=== PATIENT | female | born 1950 | race Caucasian/White ===

== ENCOUNTER 2025-08-06 10:11 | Outpatient (AMB) | payer MEDICARE, SELFPAY ==
--- OUTSIDE RECORDS SUMMARY | 2022-02-16 19:36 | XMS_ITS | Encounter Summary ---
Author Organization [facility] Address [address] [place] [address] Phone Care Team Providers Care Finish Mender Name Role Phone Shellie Cowart MD Primary Care Provider [phone] Encounter Details Date Type Department Care Team (Late st Contact Info) Description 02/16/2022 7:36 PM EDT Hospital Encounter [facility] [address] [place] [address] Robert Alvarado PA [address] [place] [address] [email or web address] Social History Tobacco Use Types Packs/Day Years Used Date Smoking Tobacco: Former Cigarettes 0.5 10 0 10/09/1970 - 10/09/1980 Smokeless Tobacco: Never Comments:for about 10 years Alcohol Use Standard Drinks/Week Comments Yes 0 (1 standard drink = 0.6 oz pur e alcohol) rarely one drink once a month Home Health Assessment: Transportation Answer Date Recorded Lack of Transportation (Medical) No 05/07/2024 Lack of Transportation (Non-Medical) No 05/07/2024 Patient Unable or Declines to Respond No 05/07/2024 Child or Family Care Answer Date Record [...] AM EDT documented as of this encounter Functional Status * Calculated C-SSRS Risk Score (Lifetime/Recent) Answer Date of Assessment Author No Risk Indicated 06/30/2025 10:36 AM EDT Karla Ramirez RN * [place] Suicide Severity Rating Scale (Screener/Recent Self-Report) Question Answer Date of Assessment Author 1. Wish to be (Past 1 Month) No 025 10:36 AM EDT Karla Ramirez RN 2. Non-Specific Active Suici juan carlos Thoughts (Past 1 Month) No 06/30/2025 10:36 AM EDT Gloria Ramirez RN 6. Suicidal Behavior (Lifetime) No 10:36 AM EDT Karla Ramirez RN documented as of this encounter Plan of Treatment Upcoming Encounters Date Type Department Care Team (Late st Contact Info) Description 07/25/2025 Procedure Pass [facility] [address] [place] [address] 08/07/2025 10:00 AM EDT Office Visit [facility] 15 [facility] 201 [place] [address] Shellie Cowart MD [address] [address] [email or web address] 08/20/2025 9:40 AM EST Office Visit [facility] [address] [place] [address] Esau Alonzo PA-C [address] [place] [address] [place] [address] [email or web address] 09/05/2025 8:00 AM EST Pre-Admission Testing Pre Procedure Evaluation [address] [place] [address] Chinmay Glynn DO [address] [place] [address] Orthopedics & Sports Medicine, [facility] [place] [address] 09/08/2025 Procedure Pass [place] Admitting Dept - Virtual Department [address] [place] [address] 09/08/2025 7:30 AM EST Hospital Encounter OR Admitting Dept - Virtual Department [address] [place] [address] Chinmay Glynn, DO 4 [facility], [facility] [place] [address] 09/08/2025 7:30 AM EST - 09/08/2025 9:55 AM EST Surgery OR Admitting Dept - Virtual Department [address] [place] [address] Chinmay Glynn, DO 4 [facility], [place] [address] ARTHROPLASTY ANATOMIC INVERSE SHOULDER 09/16/2025 3:30 PM EST Office Visit [facility] [address] [place] [address] [place] [address] Sadi Kong MD 22 [facility], [address] [place] [address] Fouzia Rocha, PT 8 [place] [address] 09/17/2025 10:00 AM EST Office Visit [facility] [address] [place] [address] Esau Alonzo PA-C [address] [place] [address] [place] [address] [email or web address] 09/22/2025 3:15 PM EST Office Visit [facility] [address] [place] [address] Sadi Kong MD [address] [place] [address] Fouzia Rocha, PT 8 [place] [address] 09/26/2025 2:30 PM EST Office Visit [address] [address] Sadi Kong MD [address] [place] [address] Fouzia Rocha, PT 8 [place] [address] 09/30/2025 2:45 PM EST Office Visit [address] [address] Sadi Kong MD [address] [place] [address] Fouzia Rocha, PT 8 [place] [address] 10/03/2025 2:30 PM EST Office Visit [facility] [address] [place] [address] Sadi Kong MD [address] [place] [address] Fouzia Rocha, PT 8 [place] [address] 10/07/2025 2:45 PM EST Office Visit [address] [place] [address] Sadi Kong MD [address] [address] Fouzia Rocha, PT 8 [place] [address] 10/10/2025 2:45 PM EST Office Visit [facility] 8 [place] [address] Sadi Kong MD [address] [address] Fouzia Rocha, PT 8 [place] [address] 10/14/2025 3:00 PM EST Office Visit [address] [address] Sadi Kong MD [address] [place] [address] Fouzia Rocha, PT 8 [place] [address] 10/15/2025 9:45 AM EST Office Visit [facility] [address] [place] [address] Chinmay Glynn DO [address] [place] [address] Orthopedics & Sports Medicine, [facility] 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 PCP - General Family Medicine 10/25/19 documented as of this encounter Additional Source Comments The information contained in this document represents components of the legal health record. It is not the complete legal health record.[facility]
--- OUTSIDE RECORDS SUMMARY | 2022-02-16 19:36 | XMS_ITS | Encounter Summary ---
Author Organization [facility] Address [address] [place] [address] Phone Care Team Providers Care Home Care Administrator Name Role Phone Shellie Cowart MD Primary Care Provider [phone] Encounter Details Date Type Department Care Team (Late st Contact Info) Description 02/16/2022 7:36 PM EDT Hospital Encounter [facility] [address] [place] [address] Robert Alvarado PA [address] [place] [address] [email or web address] Social History Tobacco Use Types Packs/Day [...] 10:36 AM EDT Karla Ramirez RN * [place] Suicide Severity Rating Scale (Screener/Recent Self-Report) Question [...] st Contact Info) Description 07/25/2025 Procedure Pass [facility] [address] [place] [address] 08/07/2025 10:00 AM EDT Office Visit [facility] 15 [facility] [address] [place] [address] Shellie Cowart MD [address] [address] [email or web address] 08/20/2025 9:40 AM EST Office Visit [facility] Medicine [address] [place] [address] Esau Alonzo PA-C [address] [place] [address] [place] [address] [email or web address] 09/05/2025 8:00 AM EST Pre-Admission Testing Pre Procedure Evaluation 30 [place] [address] Chinmay Glynn DO [address] [place] [address] Orthopedics & Sports Medicine, [facility] [place] [address] 09/08/2025 Procedure Pass [place] Admitting Dept - Virtual Department [address] [place] [address] 09/08/2025 7:30 AM EST Hospital Encounter OR Admitting Dept - Virtual Department [address] [place] [address] Chinmay Glynn, DO 4 [facility] Orthopedics & Sports [facility], [facility] [place] [address] 09/08/2025 7:30 AM EST - 09/08/2025 9:55 AM EST Surgery OR Admitting Dept - Virtual Department [address] [place] [address] Chinmay Glynn, DO 4 [facility] Orthopedics & Sports [facility], [place] [address] ARTHROPLASTY ANATOMIC INVERSE SHOULDER 09/16/2025 3:30 PM EST Office Visit [facility] [address] [place] [address] [place] [address] Sadi Kong MD 22 [facility], [address] [place] [address] Fouzia Rocha, PT [address] [place] [address] 09/17/2025 10:00 AM EST Office Visit [facility] Sports Medicine [address] [place] [address] Esau Alonzo PA-C [address] [place] [address] [place] [address] [email or web address] 09/22/2025 3:15 PM EST Office Visit [facility] [address] [place] [address] Sadi Kong MD [address] [place] [address] Fouzia Rocha, PT 8 [place] [address] 09/26/2025 2:30 PM EST Office Visit [address] [address] Sadi Kong MD [address] [place] [address] Fouzia Rocha, PT 8 [place] [address] 09/30/2025 2:45 PM EST Office Visit [address] [address] Sadi Kong MD [address] [place] [address] Fouzia Rocha, PT 8 [place] [address] 10/03/2025 2:30 PM EST Office Visit [facility] [address] [place] [address] Sadi Kong MD [address] [place] [address] Fouzia Rocha, PT 8 [place] [address] 10/07/2025 2:45 PM EST Office Visit [address] [place] [address] Sadi Kong MD [address] [address] Fouzia Rocha, PT 8 [place] [address] 10/10/2025 2:45 PM EST Office Visit [facility] 8 [place] [address] Sadi Kong MD [address] [address] Fouzia Rocha, PT 8 [place] [address] 10/14/2025 3:00 PM EST Office Visit [address] [address] Sadi Kong MD [address] [place] [address] Fouzia Rocha, PT 8 [place] [address] 10/15/2025 9:45 AM EST Office Visit [facility] Sports Medicine [address] [place] [address] Chinmay Glynn DO [address] [place] [address] Orthopedics & Sports Medicine, [facility] [place] [address] 04/01/2026 10:00 AM EDT Appointment [facility] [address] [place] [address] Shellie Cowart MD [address] [place] [address] [email or web address] Scheduled Procedures Name Priority Associated Diagnoses Date/Ti [...] documented as of this encounter Care Teams Home Care Administrator Relationship Specialty Start Date End Date Shellie Cowart MD [address] [place] [address] [email or web address] PCP - General Family Medicine 10/25/19 documented as of this encounter Additional Source Comments The information contained in this document represents components of the legal health record. It is not the complete legal health record.[facility]
--- OUTSIDE RECORDS SUMMARY | 2024-10-01 04:30 | XMS_ITS ---
Author Organization [facility] Address [address] [place] [address] Care Team Providers Care Education Professor Name Role Phone Dr Shellie Cowart Primary Care Provider UnavailJennifer Mcfarlaen Unavailable [phone] Jen Braun Unavailable [phone] Encounters Encounter Location Date Provider Diagnosis [address] [address] 10/01/2024 Jen Braun Plan Of Treatment Next Appt Details Provider Name:Jennifer Sifuentes , 08/18/2025 08:00:00 AM, [address] [place] [address], [address], Progress Notes * Donald STEWARTOB:1950 (75 yo F)Acc No.[id number]:10/01/2024 Progress Notes Patient: Leslie HILLen Provider: Inna Braun DPM :1950 A ge:74 Y S ex:Female Date:10/01/2024 Address:[address] [place], [place] Pcp:Dr Shellie Cowart Subjective: * Chief Complaints: * * Medical History: Objective: * Vitals: Assessment: Plan: * Treatment: * Images: * The named appointment provid er may or may not be the originator of this progress note, and it is not deemed complete until electronically signed by the appointment provider. Sign off status: Pending * Provider: Inna Braun DPM Date: 1 12/02/2023 Generated for Mariah pereira/Tayler/Juan Alberto on: 12:22 PM EDT
--- OUTSIDE RECORDS SUMMARY | 2024-11-29 04:30 | XMS_ITS ---
Author Organization [facility] Address [address] [place] [address] Care Team Providers Care Occupational Therapy Supervisor Name Role Phone Italia Mann Primary Care Provider Good Valverde Unavailable [phone] Sagar Pinto Unavailable [phone] Encounters Encounter Location Date Provider Diagnosis [facility] [address] [place] [address] 11/29/2024 Sagar Pinto Plan Of Treatment No Information Progress Notes * Donald STEWARTOB:1950 (75 yo F)Acc No.[id number]:11/29/2024 Follow-Up Visit Patient: Naa HILL Provider: Iraj Pinto NP :1950 A ge:74 Y S ex:Female Date:11/29/2024 Address:2 [facility] Pcp:Italia Mann Subjective: * Chief Complaints: * * Medical History: Objective: * Vitals: Assessment: Plan: * Treatment: * Billing Information: * Visit Code: * Procedure Codes: * Electronic signature of Candelario Pinto NP on 08/06/2025 at 12:30 PM EDT Sign off status: Pending * Provider: Iraj Pinto NP Date: 0 11/29/2024 Generated for Mariah ng/Fanoheliag/eTransmitting on: 1 12:30 PM EDT
--- OUTSIDE RECORDS SUMMARY | 2025-01-03 09:30 | XMS_ITS ---
Author Organization [facility] Address [address] [address] Care Team Providers Care Drill Punch Operator Name Role Phone Italia Mann Primary Care Provider Good Valverde Unavailable [phone] Medications Medication SIG (Take, Route, Frequency, Duration) Notes Start Date End Date Status Omeprazole 20 MG 1 capsule 1/2 to 1 h our before morning meal Orally Once a day Active Meloxicam 15 MG 1 tablet Orally Once a day Active Metoprolol Succinate 25 MG 1 capsule Ora lly Once a day Active Provera 2.5 MG 1 tablet with food Orally Once a day Active Zolpidem Tartrate 5 MG 1 tablet at bedti me as needed Orally Once a day Active Calcium Citrate-Vitamin D Active Estradiol 0.5 MG 1 tablet Orally Once a day Active Apixaban 5 MG as directed Orally Active Atorvastatin Calcium 40 MG 1 tablet Oral ly Once a day Active buPROPion HCl ER (XL) 150 MG 1 tablet in the morning Orally Once a day Active Levothyroxine Sodium 25 MCG 1 tablet in the morning on an empty stomach Orally Once a day Active Encounters Encounter Location Date Provider Diagnosis [facility] [address] [place] [address] 01/03/2025 Good Bowling Plan Of Treatment No Information Progress Notes * Donald STEWARTOB:1950 (75 yo F)Acc No.[id number]:01/03/2025 Follow-Up Visit Patient: Naa HILL Provider: Mary Bowling NP :1950 A ge:74 Y S ex:Female Date:01/03/2025 Address: [address] [facility] Pcp:Italia Mann Subjective: * Chief Complaints: * * Medical History: * Medications: T aking Zolpidem Tartrate 5 MG Tablet 1 tablet at bedtime as needed Orally Once a day , Taking Omeprazole 20 MG Capsule Delayed Release 1 capsule 1/2 to 1 hour before morning meal Orally Once a day , Taking Metoprolol Succinate 25 MG Capsule ER 24 Hour Sprinkle 1 capsule Orally Once a day , Taking Meloxicam 15 MG Tablet 1 tablet Orally Once a day , Taking Provera 2.5 MG Tablet 1 tablet with food Orally Once a day , Taking Levothyroxine Sodium 25 MCG Tablet 1 tablet in the morning on an empty stomach Orally Once a day , Taking Estradiol 0.5 MG Tablet 1 tablet Orally Once a day , Taking Calcium Citrate-Vitamin D , Taking buPROPion HCl ER (XL) 150 MG Tablet Extended Release 24 Hour 1 tablet in the morning Orally Once a day , Taking Atorvastatin Calcium 40 MG Tablet 1 tablet Orally Once a day , Taking Apixaban 5 MG Tablet as directed Orally Objective: * Vitals: Assessment: Plan: * Treatment: * Billing Information: * Visit Code: * Procedure Codes: * Electronic signature of Don Bowling NP on 08/06/2025 at 12:30 PM EDT Sign off status: Pending * Provider: Mary Bowling NP Date: 0 01/03/2025 Generated for Mariah pereira/Tayler/Juan Alberto on: 12:30 PM EDT
--- OUTSIDE RECORDS SUMMARY | 2025-01-31 09:30 | XMS_ITS ---
Author Organization [facility] Address [address] [place] [address] Care Team Providers Care Arson And Bomb Investigator Name Role Phone Italia Mann Primary Care Provider Good Valverde Unavailable [phone] Encounters Encounter Location Date Provider Diagnosis [facility] [address] [place] [address] 01/31/2025 Good Bowling Plan Of Treatment No Information Progress Notes * Donald STEWARTOB:1950 (75 yo F)Acc No.[id number]:01/31/2025 Follow-Up Visit Patient: Naa HILL Provider: Mary Bowling NP :1950 A ge:75 Y S ex:Female Date:01/31/2025 Address:[address] [place], [place] Pcp:Italia Mann Subjective: * Chief Complaints: * * Medical History: Objective: * Vitals: Assessment: Plan: * Treatment: * Billing Information: * Visit Code: * Procedure Codes: * Electronic signature of Don Bowling NP on 08/06/2025 at 12:29 PM EDT Sign off status: Pending * Provider: Mary Bowling NP Date: 0 01/31/2025 Generated for Printi ng/Faxing/eTransmitting on: 1 12:29 PM EDT
--- OUTSIDE RECORDS SUMMARY | 2025-03-07 04:30 | XMS_ITS ---
Author Organization [facility] Address [address] [place] [address] Care Team Providers Care Hog Room Supervisor Name Role Phone Dr Shellie Cowart Primary Care Provider Jennifer Morrissey [phone] REASON FOR VISIT sooner appt Encounters Encounter Location Date Provider Diagnosis [address] [address] 03/07/2025 Jennifer Sifuentes Plan Of Treatment Next Appt Details Provider Name:Jennifer Mary Sifuentes , 08/18/2025 08:00:00 AM, [address] [place], [address], Progress Notes * Donald STEWARTOB:1950 (75 yo F)Acc No.[id number]:03/07/2025 Progress Notes Patient: Kasia ESQUIVELKasia Naa Provider: Michelle Sifuentes DPM :1950 A ge:75 Y S ex:Female Date:03/07/2025 Address:[address] [place], [place] Pcp:Dr Shellie Cowart Subjective: * Chief Complaints: [...] 03/07/2025 Generated for Mariah pereira/Tayler/Juan Alberto on: 1 12:25 PM EDT
--- OUTSIDE RECORDS SUMMARY | 2025-04-22 04:15 | XMS_ITS ---
Author Organization [facility] Address [address] [place] [address] Care Team Providers Care Survey Supervisor Name Role Phone Dr Shellie Cowart Primary Care Provider Jennifer Morrissey [phone] Encounters Encounter Location Date Provider Diagnosis [address] [address] 04/22/2025 Jennifer Sifuentes Plan Of Treatment Next Appt Details Provider Name:Jennifer Sifuentes , 08/18/2025 08:00:00 AM, [address] [place], [address], Progress Notes * Donald STEWARTOB:1950 (75 yo F)Acc No.[id number]:04/22/2025 Progress Note Patient: Kasia ORTEGA Naa Provider: Michelle Sifuentes DPM :1950 A ge:75 Y S ex:Female Date:04/22/2025 Address:[address] [place], [place] Pcp:Dr Shellie Cowart Subjective: * Chief Complaints: [...] Generated for Mariah pereira/Tayler/Juan Alberto on: 1 12:29 PM EDT
--- NOTE | 2025-08-06 10:33 | A.OFFVIS_ITS ---
Vital Signs 08/06/25 10:35 Height 5 ft 3 in Weight 164 lb BMI 29.0 BP 178/94 H Blood Pressure Location Lt brachial Position Sitting Respiration 16 Pulse 61 Pulse Source Pulse Oximeter Pulse Oximetry (%) 98 Oxygen Delivery Method Room Air Intake Visit Reasons: Closed Compression Fracture of L3 Rotary Driller Helper Required: No Accompanied by: Spouse Allergies No Known Allergies Allergy (Verified 08/06/25 10:37) Medication List - Last Reconciled 08/06/25 by Shey Mccormack LPN apixaban (Eliquis) 5 mg PO BID atorvastatin 40 mg PO DAILY buprenorphine 7.5 mcg/hour 1 patch topical QWEEK calcium carbonate 260 mg PO DAILY estradiol 0.5 mg PO DAILY furosemide 20 mg PO DAILY gabapentin 100 mg PO QID levothyroxine 25 mcg PO DAILY medroxyprogesterone (Provera) 12.5 mg PO DAILY metoprolol succinate ER 25 mg PO DAILY omeprazole 20 mg PO DAILY HPI HPI Closed Compression Fracture of L3: Details: History of Present Illness The patient is a 75-year-old female presenting with severe low back pain presumed to be secondary to an L3 compression fracture. The pain began on June 24, 2025, after bending over to pick something up, which was confirmed as a compression fracture on MRI. The pain is described as aching, with a severity of 5-8/10, escalating to 10/10 with movement or getting out of bed. The patient underwent a kyphoplasty on July 11, which provided only brief and slight relief. She is currently using a 12.5 mcg buprenorphine patch, which has been mildly helpful. The patient has a history of scoliosis, with surgery performed at age 17, involving the insertion of a andrew into the lumbar region. The patient has been experiencing edema, previously managed with Lasix, but discontinued due to difficulty accessing the bathroom. She has had bilateral knee replacements and is on Eliquis 5 mg twice daily. The patient reports a history of osteoporosis, although a recent scan did not show significant osteoporosis. Pain Description - Onset: June 24, 2020, after bending over to pick something up - Quality: Aching sensation - Severity: 5-8/10, escalating to 10/10 with movement or getting out of bed - Location: Lower back - Exacerbating factors: Movement, getting out of bed - Relieving factors: Mild relief with 12.5 mcg buprenorphine patch - Interference: Unable to sleep normally, perform activities, or care for herself Physical Exam - Musculoskeletal: Tenderness noted upon palpation of the lower back Results - MRI: Confirmed L3 compression fracture Pain Management - Affect: Pain significantly impacts daily activities and mood - Analgesia: Currently using 12.5 mcg buprenorphine patch, mild relief; pain levels 5-8/10, escalating to 10/10 - Adverse Effects: None reported - Activities of Daily Living: Pain interferes with sleep, activities, and self- care - Aberrant Drug Related Behaviors: None reported [facility] Medical History (Updated 07/28/25 @ 15:14 by Shey Mccormack LPN) Hypertension Gastric ulcer Hypothyroid Insomnia PAT (paroxysmal atrial tachycardia) Hyperlipidemia Tachycardia Charcot's joint of foot Scoliosis Neuropathy Closed compression fracture of L3 vertebra Surgical History (Updated 07/28/25 @ 15:14 by Shey Mccormack LPN) History of total left knee replacement (TKR) S/P lumbar fusion Physical Exam Vital Signs: Last Vital Signs Pulse 61 08/06/25 10:35 Resp 16 08/06/25 10:35 BP 178/94 H 08/06/25 10:35 Pulse Ox 98 08/06/25 10:35 Oxygen Delivery Method Room Air 08/06/25 10:35 BMI result Body Mass Index 29.0 Assessment & Plan Assessment & Plan (1) Closed compression fracture of L3 vertebra: Code(s): S32.030A - Wedge compression fracture of third lumbar vertebra, initial encounter for closed fracture Category: Medical (2) Scoliosis: Code(s): M41.9 - Scoliosis, unspecified Category: Medical Plan Plan Patient was informed and verbally consented to the use of an ambient scribe for clinic note documentation during this visit. 1. L3 Compression Fracture - Continue with current pain management regimen, including buprenorphine patch. - Consider stronger pain medications such as tramadol or Percocet if needed. - Prescribe a lumbar brace to provide support and potentially alleviate pain. - Recommend physical therapy to improve mobility and strength. - Advise on exercises that can be done at home, such as air biking, to maintain muscle strength without straining the back. - Suggest acupuncture as an adjunctive therapy for pain relief. - Plan follow-up in two months to reassess pain and treatment efficacy. 2. Scoliosis - Monitor for any changes in posture or pain related to scoliosis. 3. Osteoporosis - Obtain a DEXA scan to assess bone density and confirm osteoporosis status. - If osteoporosis is confirmed, initiate appropriate treatment to prevent further fractures. 4. Edema - Discontinue Lasix due to difficulty accessing the bathroom. Discussion Notes During the consultation, I discussed with the patient the nature of her L3 compression fracture and the associated pain management strategies. We reviewed the potential benefits and limitations of her current buprenorphine patch and considered the possibility of stronger analgesics like tramadol or Percocet. I recommended a lumbar brace and physical therapy to aid in pain relief and improve mobility. We also discussed the importance of a DEXA scan to evaluate osteoporosis and the potential need for treatment if confirmed. I suggested acupuncture as an adjunctive therapy and emphasized the need for follow-up in two months to reassess her condition. Patient Instructions - Continue using the buprenorphine patch as prescribed. - Consider stronger pain medications if needed, after consulting with your primary care physician. - Use a lumbar brace to support your back. - Engage in physical therapy and perform recommended exercises at home. - Schedule and complete a DEXA scan to assess bone density. - Consider acupuncture for additional pain relief. - Follow up in two months to evaluate progress and adjust treatment as necessary. Medications: New back brace As directed 1 ea 0RF Coding Level of Care Code New Pt Level 4 (94297) Diagnoses Closed compression fracture of L3 vertebra S32.030A Scoliosis M41.9
[2025-08-06 10:35] VITALS: BP 178/94; PULSE 61; RESP 16; O2SAT 98; BMI 29.0
--- OUTSIDE RECORDS SUMMARY | 2025-08-06 12:23 | XMS_ITS | Encounter Summary ---
Author Organization [facility] Address [address] [place] [address] Phone Care Team Providers Care Florist Name Role Phone Shellie Cowart MD Primary Care Provider [phone] Paul Hooper MD Unavailable [phone] Preston Pederson BAND CUTTING MACHINE OPERATOR Unavailable [phone] Encounter Details Date Type Department Care Team (Late st Contact Info) Description 10/06/2022 Procedure Pass Non-Invasive Cardiology [address] [place] [address] Social History Tobacco Use Types Packs/Day Years Used Date Smoking Tobacco: Former Cigarettes 0.5 10 0 10/09/1970 - 10/09/1980 Smokeless Tobacco: Never Comments:for about 10 years Alcohol Use Standard Drinks/Week Comments Yes 1 (1 standard drink = 0.6 oz pur e alcohol) rarely Child or Family Care Answer Date Record ed Do you have problems with on e of the following making it difficult for you to work, study, or receive health care? No 06/19/2022 Education Answer Date Recorded Are you interested in help w ith more adult education (for example, completing high school, GED, job training, learning the [place] language, technical skills, or developing parenting skills)? No 06/19/2022 Food Answer Date Recorded Within the past 6 months we worried whether our food would run out before we got money to buy more. Never True 06/19/2022 Within the past 6 months the food we bought just didn't last and we didn't have enough money to get more. Never True Residential Stability Answer Date Recor ded What is your housing situation today? I have janae sing 06/19/2022 How many times have you move d in the past 12 months? Zero (I did not move) 06/19/2022 Paying for Meds Answer Date Recorded Do you have trouble paying for medicines? No 06/19/2022 Paying Utility Bills Answer Date Record ed Do you have trouble paying your heating or elect ricity bill? No 06/19/2022 Transportation Answer Date Recorded Has the lack of transportati on kept you from medical appointments or from getting medications? No 06/19/2022 Unemployment Answer Date Recorded Are you currently unemployed or working on a part-time or temporary basis, and looking for work? No 06/19/2022 Comments No Sex and Gender Information Value Date Recorded Sex Assigned at Female 05/25/2020 8:19 AM EDT Legal Sex Female 12:09 PM EST Gender Identity Female 05/25/2020 8:19 AM EDT Sexual Orientation Straight 05/25/2020 8: 19 AM EDT documented as of this encounter Plan of Treatment Upcoming Encounters Date Type Department Care Team (Late st Contact Info) Description 07/25/2025 Procedure Pass [facility] [address] [place] [address] 08/07/2025 10:00 AM EDT Office Visit [facility] [address] [place] [address] [address] [place] [address] Shellie Cowart MD [address] [place] [address] 08/20/2025 9:40 AM EST Office Visit [facility] [address] [place] [address] Esau Alonzo PA-C [address] [place] [address] [place] [address] [email or web address] 09/05/2025 8:00 AM EST Pre-Admission Testing Pre Procedure Evaluation [address] [place] [address] Chinmay Glynn DO 4 [facility], [place] [address] 09/08/2025 Procedure Pass [place] Admitting Dept - Virtual Department [address] [place] [address] 09/08/2025 7:30 AM EST Hospital Encounter OR Admitting Dept - Virtual Department [address] [place] [address] Chinmay Glynn DO 4 [facility] Orthoped[facility], [place] [address] 09/08/2025 7:30 AM EST - 09/08/2025 9:55 AM EST Surgery OR Admitting Dept - Virtual Department [address] [place] [address] Chinmay Glynn DO 4 [facility] Orth[facility], [place] [address] ARTHROPLASTY ANATOMIC INVERSE SHOULDER 09/16/2025 3:30 PM EST Office Visit [facility] [address] [place] [address] Sadi Kong MD 22 [facility], 2nd [place] [address] Fouzia Rocha, PT [address] [place] [address] 09/17/2025 10:00 AM EST Office Visit [facility] [address] [place] [address] Esau Alonzo PA-C [address] [place] [address] [place] [address] [email or web address] 09/22/2025 3:15 PM EST Office Visit [address] [place] [address] Sadi Kong MD [address] [place] [address] Fouzia Rocha, PT 8 [place] [address] 09/26/2025 2:30 PM EST Office Visit [address] [place] [address] Sadi Kong MD [address] [place] [address] Fouzia Rocha, PT 8 [place] [address] 09/30/2025 2:45 PM EST Office Visit [address] [address] Sadi Kogn MD [address] [place] [address] Fouzia Rocha, PT 8 [place] [address] 10/03/2025 2:30 PM EST Office Visit [address] [place] [address] Sadi Kong MD [address] [place] [address] Fouzia Rocha PT 8 [place] [address] 10/07/2025 2:45 PM EST Office Visit [address] [address] Sadi Kong MD [address] [place] [address] Fouzia Rocha, PT 8 [place] [address] 10/10/2025 2:45 PM EST Office Visit [address] [address] Sadi Kong MD [address] [place] [address] Fouzia Rocha, PT 8 [place] [address] 10/14/2025 3:00 PM EST Office Visit [address] [address] Sadi Kong MD [address] [place] [address] Fouzia Rocha, PT 8 [place] [address] 10/15/2025 9:45 AM EST Office Visit [facility] [address] [place] [address] Chinmay Glynn DO [address] [place] [address] Orthopedics & Sports Medicine, [facility] [place], [place] [id number] 04/01/2026 10:00 AM EDT Appointment [facility] [address] [place] [address] Shellie Cowart MD [address] [address] [email or web address] Scheduled Procedures Name Priority Associated Diagnoses Date/Ti me 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 09/08/2025 7:30 AM EST documented as of this encounter Visit Diagnoses Not on filedocumented in this encounter Additional Health Concerns Assessment Noted Time PHQ-2 Depression Total Score: 0 06/19/20 22 4:01 PM EDT documented as of this encounter Care Teams Florist Relationship Specialty Start Date End Date Shellie Cowart MD [address] [place] [address] PCP - General Family Medicine 10/25/19 Paul Hooper MD [address] [place] [address] Orthopedics & Sports Medicine, [place] [address] Orthopedic Surgery 03/01/24 Preston Pederson MSW [address] [place] [address] Objective C Developer Licensed Clinical Objective C Developer 12/11/24 documented as of this encounter Additional Source Comments The information contained in this document represents components of the legal health record. It is not the complete legal health record.[facility]
--- OUTSIDE RECORDS SUMMARY | 2025-08-06 12:23 | XMS_ITS | Clinical Summary ---
Author Organization [facility] Address [address] [place] [address] Phone Care Team Providers Care Furniture Assembly Supervisor Name Role Phone Shellie Cowart MD Primary Care Provider [phone] Paul Hooper MD Unavailable [phone] Preston Pederson MITER SAW OPERATOR Unavailable [phone] Allergies No known active allergies Medications calcium citrate-vitamin D3 (CITRACAL+D) 950 mg (200 mg elemental)-250 units Tab Take 1 tablet by mouth 2 (two) times a day with meals. Active apixaban (ELIQUIS) 5 mg tablet Take 1 tablet (5 mg total) by mouth 2 (two) times a day. 60 tablet 1 4 Active metoprolol succinate (TOPROL-XL) 25 MG 24 hr tablet Take 25 mg by mouth. 4 Active atorvastatin (LIPITOR) 40 MG tabletIndicatio ns:Screening for lipid disorders TAKE 1 TABLET BY MOUTH DAILY 90 tablet 3 4 Active levothyroxine (SYNTHROID,LEVO THROID) 25 MCG tablet TAKE 1 TABLET BY MOUTH IN THE MORNING 90 tablet 3 4 Active omeprazole (PRILOSEC) 20 MG capsuleIndicati ons:Gastroesoph ageal reflux disease TAKE 1 CAPSULE BY MOUTH DAILY 90 capsule 3 5 Active furosemide (LASIX) 20 MG tablet Take 1 tablet (20 mg total) by mouth daily. 30 tablet 1 5 Active medroxyPROGESTE Bhupinder (PROVERA) 2.5 MG tablet Take 1 tablet (2.5 mg total) by mouth daily. 90 tablet 3 5 Active ketorolac (TORADOL) 10 mg tabletIndicatio ns:Back pain Take 1 tablet (10 mg total) by mouth every 6 (six) hours as needed for pain (specific location in comments). 20 tablet 5 Active gabapentin (NEURONTIN) 100 MG capsule Take 1 capsule (100 mg total) by mouth 3 (three) times a day. 90 capsule 1 5 Active buprenorphine (BUTRANS) 5 mcg/hour PTWK Place 1 patch onto the skin once a week. With 7.5 mcg patch for a total of 12.5 mcg 4 patch 5 Active estradioL (ESTRACE) 0.5 MG tablet Take 1 tablet (0.5 mg total) by mouth daily. 90 tablet 1 5 Active buprenorphine (BUTRANS) 7.5 mcg/hour PTWK Place 1 patch onto the skin once a week. 4 patch 5 Active zolpidem (AMBIEN) 5 MG tablet Take 1 tablet (5 mg total) by mouth nightly at bedtime as needed (insomnia). 30 tablet 1 5 Active zolpidem (AMBIEN) 5 MG tablet Take 1 tablet (5 mg total) by mouth nightly at bedtime as needed. 30 tablet 1 4 07/30/20 25 Discontinue d(Reorder) tiZANidine (ZANAFLEX) 2 MG tablet Take 1 tablet (2 mg total) by mouth every 6 (six) hours as needed (pain). 20 tablet 5 07/08/20 25 estradioL (ESTRACE) 0.5 MG tablet Take 1 tablet (0.5 mg total) by mouth daily. 90 tablet 1 5 07/25/20 25 Discontinue d(Reorder) buprenorphine (BUTRANS) 7.5 mcg/hour PTWK Place 1 patch onto the skin once a week. 4 patch 5 07/30/20 25 Discontinue d(Reorder) Active Problems Problem Noted Date Diagnosed Date Edema of right lower extremi ty due to peripheral venous insufficiency 05/19/2025 Assessment & Plan (05/21/2025 1:03 PM EDT): Chronic edema with pitting, likely due to vascular insufficiency. Previous DVT and CHF ruled out. Symptoms worsen with heat, improve with elevation. - Prescribed Lasix 20 mg, instructed to cut in half and take in the morning. May take a second dose if needed. Continues compression stockings - Referred to vascular specialist, Dr. Norma German, for further evaluation and management. Chronic right shoulder pain 02/17/2025 Assessment & Plan (02/17/2025 9:15 PM EDT): Advised by Dr. Glynn to undergo shoulder replacement surgery due to osteoarthritis. Discussed potential benefits of surgery in alleviating shoulder pain and improving quality of life. Recovery expected to take approximately eight weeks, with initial three weeks involving significant pain management and limited activity. - Advise to proceed with scheduling shoulder replacement surgery with Dr. Glynn. - Discuss potential post-operative recovery timeline and management. Gait instability 02/17/2025 Assessment & Plan (03/06/2025 7:48 AM EDT): Gait instability Increased difficulty walking with leg collapse sensation. Consistent cane use. Pain during walking and weight bearing. MRI scheduled for further evaluation. Referral to insurance customer service specialist for non-surgical approach. - Proceed with MRI on March 12. - Refer to Dr. Kong, insurance customer service specialist at [facility], post-MRI. Assessment & Plan (02/17/2025 9:17 PM EDT): Unsteadiness when lifting feet, particularly when standing or walking. Instability may be due to lower extremity issues, possibly related to peripheral neuropathy or spinal stenosis.Whether or not her pre exisitng severe scoliotic disease is contributing is unclear. - Order MRI of the lumbar spine to evaluate for protruding disc or spinal stenosis. - Refer to [facility] for further evaluation and management. Aortic stenosis, mild 12/18/2024 Unilateral inguinal hernia without obstruction o r gangrene 09/25/2024 Assessment & Plan (09/25/2024 2:32 PM EST): Exam is consistent with inguinal hernia, will get ultrasound to confirm and then likely referral to surgery. Discussed emergent reasons to seek care. Trigger middle finger of left hand 09/25/2024 Assessment & Plan (09/25/2024 2:32 PM EST): Referral to hand Moderate major depression 07/05/2024 Assessment & Plan (03/06/2025 7:48 AM EDT): Bupropion tapering Desires discontinuation after six months. Discussed withdrawal symptoms and tapering plan to minimize effects. Tapering preferred to avoid feeling unwell. - Begin tapering with alternating 150 mg and 75 mg doses for first two weeks. - Continue tapering schedule, monitor mood and withdrawal symptoms. - Consider stopping abruptly if preferred, understanding potential withdrawal symptoms. Assessment & Plan (09/25/2024 2:33 PM EST): We discussed the risks and benefits of weaning versus cold turkey off bupropion. Discussed potential side effects. Patient is not really ready to do this yet just wanted to have the information. Assessment & Plan (08/22/2024 12:39 PM EST): We discussed the risk/ benefit of increasing the welbutrin to 300 mg. She would like to try to increase now. I also wonder if the beta caden is causing some of her amotivation/ fatigue and wonder if we could back down on it a little bit. Will discuss w cardiology Assessment & Plan (07/24/2024 11:13 AM EDT): At this point she has only been on the Wellbutrin for about 3 weeks, I think we should continue at this dose for a little while longer to see if she gets more improvement. I am hesitant about raising the dose given her cardiac status and sleep disturbance. We will see each other again in about 4 weeks. Assessment & Plan (07/05/2024 10:18 AM EDT): We discussed trying to get more active going to the pool to do more exercise and activity. Discussed the benefits of talk therapy and I have given her referral to see Preston Pederson. Additionally we discussed the risks benefits and potential side effects of Wellbutrin. We chose this drug due to her concerns about motivation and anhedonia. She understands and will follow-up 3 weeks after she starts this medication. Status post total left knee replacement 05/30/20 Preop examination 01/31/2024 Assessment & Plan (01/31/2024 12:38 PM EDT): 74 [address] old patient of Dr. Cowart with planned left total knee replacement on 04/09/24. Procedure risk is intermediate. Patient denies symptoms associated with acute coronary syndromes including unstable or severe angina, [place] within 1 month, severe CHF, high grade arrhythmia or symptomatic valvular disease. Medical risk assessment at the surgical optimization clinic are as follows. ERAZO cardiovascular risk score is 0.2 % risk of myocardial infarction or cardiac arrest, intraoperatively or up to 30 day post-operatively. If <1%, no further cardiac work-up recommended. STOP BANG score shows 2 points indicating a low risk of sleep apnea. DASI score was 24.95 points, able to achieve at least 5.81 METS. If DASI >18, no further cardiac testing recommended. RCRI score was 0.4 % risk for cardiovascular event including myocardial infarction, pulmonary edema, arrhythmia, cardiac arrest or complete heart block. This reflects very low risk on the scale. Patient's risk for major adverse cardiac events is low. This meets ACC/AHA guidelines for proceeding to non-cardiac surgery without additional testing. Patient is able to climb stairs, exercise on an elliptical machine for 30 min 2-3 x week, without any exertional or anginal symptoms. She follows with cardiology, seen on 01/25/24 for cardiac clearance. She has no signs or symptoms concerning for angina or heart failure. She had a normal nuclear stress test on 02/13/23, and overall has a below average cardiac risk for surgery. She does have a systolic murmur suspicious for aortic stenosis and is scheduled for a preoperative echocardiogram to rule out any serious valvular issues. Blood work from 01/18/24 shows a hemoglobin A1c of 5.6%. CBC and BMP are unremarkable with a creatinine of 0.70 and eGFR 92. EKG shows normal sinus rhythm. There is no evidence of acute or prior ischemia. Await final cardiac clearance following echocardiogram before the patient can proceed to the intended procedure. Of note, the patient has a history of PONV and states she does require general anesthesia due to lumbar spinal fusion surgery. Defer to anesthesia for management. She should have standard DVT and antibiotic prophylaxis. The patient was instructed to discontinue use of any NSAIDs, fish oil, turmeric, herbal supplements and multivitamins for 10 days before surgery as these could increase the risk of bleeding complications. The patient has the following relative contraindications to same day discharge following joint replacement surgery: h/o PONV/requires general anesthesia due to lumbar spinal fusion history. Insomnia 01/31/2024 Assessment & Plan (01/31/2024 12:19 PM EDT): Continue on medical management with zolpidem 5 mg PO daily perioperatively. Gastric ulcer 01/31/2024 Assessment & Plan (01/31/2024 12:21 PM EDT): Remote history of gastric ulcer due to heavy NSAID use. She does tolerate meloxicam 15 mg PO daily well, which she always takes with omeprazole 20 mg PO daily. Avoid perioperative use of NSAID's. Recommend to continue on omeprazole perioperatively. S/P lumbar spinal fusion 01/31/2024 Assessment & Plan (01/31/2024 12:37 PM EDT): Lumbar spinal fusion surgery done in childhood for scoliosis. Patient states she will require general anesthesia for her upcoming knee replacement. Defer to anesthesia for management. Systolic murmur 01/25/2024 Assessment & Plan (02/20/2024 10:25 AM EDT): We will review her ECHO scheduled for 02/21. Assessment & Plan (01/31/2024 12:13 PM EDT): Patient noted to have a systolic murmur. Last echocardiogram was in 2019 which showed EF 50-75%, mild mitral regurgitation and no aortic stenosis. Cardiology has ordered a repeat echocardiogram/scheduled 02/22/24, which needs to be done preoperatively/prior to anesthesia to evaluated for aortic stenosis and rule out any serious valvular issues. Assessment & Plan (01/25/2024 8:41 AM EDT): Patient does have a systolic crescendo/decrescendo murmur best heard right sternal border. She says her PCP first noticed this about a year ago. Last echocardiogram approximately 3 years ago showing preserved ejection fraction and aortic valve leaflets with thickening but no stenosis. -Will get a repeat echocardiogram prior to upcoming surgery Tendinitis of right rotator cuff 11/09/2023 Assessment & Plan (11/09/2023 11:30 AM EST): Given mechanism of injury I think this is unlikely to be a full rotator cuff tear, more likely to be rotator cuff tendinitis. Possible underlying osteoarthritis with exacerbation and potential labral injury. I think this is less likely to be a full tear given the mechanism of injury and less likely to be bursitis based on the exam findings. We will get an x-ray and start some physical therapy as well as follow-up with MRI if necessary. Hypothyroidism 08/28/2023 Assessment & Plan (01/31/2024 12:15 PM EDT): Continue current medical management with levothyroxine 25 mcg PO daily. Take this medication on the morning of surgery with a small sip of water. Assessment & Plan (08/28/2023 12:48 PM EST): TSH elevated with symptoms, although t4 normal. Discussed etiology and possible affects of low thyroid. Discussed risks and benefits as well as potential side effects of thyroid meds. Follow up labs in 6 weeks Paroxysmal atrial fibrillation 08/21/2023 Assessment & Plan (08/22/2024 12:39 PM EST): Stable on current meds Assessment & Plan (01/31/2024 12:10 PM EDT): H/o paroxysmal atrial fibrillation. 2 episodes only, occurring in 2021 and again in 2022 with spontaneous conversion to sinus rhythm. Followed by [facility], seen on 01/25/24 for preoperative cardiac clearance. ECG showing sinus rhythm. Patient denies any symptoms of atrial fibrillation. No palpitations. [id number] score of 3. Takes meloxicam daily, and as recommended by , will hold off on anticoagulation due to overall bleeding risk on NSAID therapy and h/o gastric ulcer. Assessment & Plan (01/25/2024 8:37 AM EDT): ECG showing sinus rhythm today. Patient denies any symptoms of atrial fibrillation since her last visit. Historically she has been very aware of when she is in atrial fibrillation experiencing palpitations and racing heart rate. -She does have a [id number] score of 3 -She is still taking meloxicam daily -As previously recommended by Dr. Burger will continue holding off on anticoagulation due to overall bleeding risk on NSAID therapy and history of bleeding gastric ulcer. -I have instructed patient to seek medical attention if she does start to experiencing palpitations/racing heart Assessment & Plan (08/21/2023 3:22 PM EST): Julita ann cardiology, not currently on AC Osteopenia of neck of right femur 03/29/2023 Assessment & Plan (07/13/2023 9:28 AM EDT): The patient has osteopenia the FRAX score is not elevated. She should continue calcium supplements that she is currently doing. The calcium has vitamin D in it and is a good idea to [place] 70 vitamin D because she needs at least 1000 units of vitamin D preferably we used 2000 units in [place] or not any incorrect. At this point I am not going to give her a follow-up appointment she is due for repeat DXA scan on 12/06/2024. I told the patient that if she would like to review the DXA scan with me after she gets she can schedule another visit. Again she does not require antiresorptive medications because the FRAX score is not elevated. Assessment & Plan (03/29/2023 2:10 PM EDT): This is a patient with osteopenia since her mid 40s. Her most recent DXA scan shows that she has osteopenia. The FRAX score is not elevated. Major osteoporotic fracture is 15% and hip fracture is 1.9% so based on this she does not require antiresorptive medications. However she should continue calcium and vitamin D intake. I suspect that she is getting adequate calcium intake but I did advise to take the calcium supplement closer to dinnertime for better absorption. I asked her to take a picture of this so I can see whether she is getting calcium citrate or calcium carbonate and I really need to know the dose of this supplements. She is not taking separate vitamin D. So we will check vitamin D levels to ensure that this is in the reference range. I have also requested other lab work for evaluation of secondary causes of osteopenia including PTH, TSH and 24-hour urine calcium. I will also request bone turnover markers such as N-telopeptide and procollagen levels. She will follow in 3 months time. Primary localized osteoarthrosis of left lower l eg 01/20/2023 Assessment & Plan (01/31/2024 12:16 PM EDT): Planned for left TKA on 04/09/24 by . On meloxicam 15 mg PO daily for pain management, which will need to be held x 7-10 days before surgery. Essential hypertension 10/06/2022 Assessment & Plan (01/31/2024 12:07 PM EDT): BP well-controlled on monotherapy with HCTZ 50 mg PO daily. Instructed to hold this medication on the day of surgery. Assessment & Plan (01/25/2024 8:34 AM EDT): On hydrochlorothiazide 50 mg daily for this. Blood pressure in office this morning 138/88 (patient had just taken her antihypertensive medication) -Discussed with patient that she can keep a blood pressure log for a week, if home readings are consistently elevated we can consider adjusting medications. -No medication changes for now Tachycardia 10/06/2022 Assessment & Plan (10/06/2022 9:51 AM EST): 1 run of prolonged tachycardia, unprovoked. In the setting of hypertension and history of high cholesterol. Obviously, main concern is for paroxysmal A. fib. EKG shows sinus arrhythmia Will refer to cardiology and get Holter monitor. Urinary incontinence, mixed 06/21/2021 Assessment & Plan (06/21/2021 11:26 AM EDT): Incomplete voiding, this can be helped with physical therapy to the pelvic floor which she has done before and will return to . Charcot joint of foot 06/21/2021 Assessment & Plan (02/17/2025 9:14 PM EDT): Diagnosed with Charcot foot by Dr. Sifuentes ( podiatry), which may contribute to balance issues.also conitrbuting Worsening neuropathy in feet with increased numbness and occasional scuffing of foot, indicating potential progression of condition. This may contribute to balance issues. Assessment & Plan (06/21/2021 11:27 AM EDT): Using orthotics and continues to walk and manage pain with various modalities. 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 Continue on medical management with atorvastatin 40 mg PO daily perioperatively. Assessment & Plan (01/25/2024 8:38 AM EDT): Being managed by her PCP. Currently on atorvastatin 40 mg daily. Last lipid panel08/22/2023 showing cholesterol 165, HDL 66, LDL 86, triglyceride 65. -Continue atorvastatin 40 mg daily Hot flashes due to menopause 10/15/2019 Assessment & Plan (02/20/2024 10:25 AM EDT): We will be switching her to Provera 2.5 mg which is the equivalent to Prometrium 100 mg. We discussed the difference in chemical composition between the pills and that this transition is still appropriate. Assessment & Plan (01/31/2024 12:18 PM EDT): On medical management with estradiol 0.5 mg PO every other day and progesterone 100 mg PO every other day. Discussed that hormone therapy can increase risk of blood clots; in the setting of orthopedic surgery which also carries increased risk of VTE, patient will stop her hormone therapy x 4 weeks ahead of surgery to reduce risk of post-operative blood clot. Assessment & Plan (10/15/2019 10:06 AM EST): Continue current medications. Reviewed risks and benefits with her. Start topical for vaginal dryness. Reviewed appropriate use. Primary osteoarthritis involving multiple joints 10/15/2019 Assessment & Plan (10/15/2019 10:33 AM EST): Continue current medications,. Encouarged exercise , see AVS for recommendations Resolved Problems Problem Noted Date Diagnosed Date Resolved Date COVID 10/06/2022 01/31/2024 Assessment & Plan (10/06/2022 9:01 AM EST): COVID with rebound infection. Having a lot of difficulty clearing her nagging cough and congestion. Feeling weak and exhausted. I do not see any evidence of overlying bacterial infection. She is afebrile, normotensive, does not appear acutely ill. Offer her some prednisone and continued monitoring. Counseled patient that test could be positive for 90 days but she should go by symptoms as to when she can return to normal life. Closed displaced fracture of second metatarsal bone of right foot 09/08/2022 08/21/2023 Foot swelling 05/19/2022 08/21/2023 Assessment & Plan (05/19/2022 1:01 PM EDT): Unclear etiology for continued swelling. Reviewed previous labs and imaging. X- ray ordered. There does not appear to be any cellulitis at this moment. Fracture of foot bone, right , closed, initial encounter 05/19/2022 08/21/2023 Assessment & Plan (06/23/2022 8:26 AM EDT): Follow up with Laura Rachel ordered for foot for follow up Assessment & Plan (05/19/2022 1:02 PM EDT): X ray reviewed this morning with Dr. Cowart. There is a displaced fracture. Pt instructed to go to [id number] clinic in [place]. She agrees with plan Pre-ulcerative corn or callous 04/16/2020 08/21/2023 Ingrowing nail 04/16/2020 08/21/2023 Contact dermatitis 10/15/2019 Screening for breast cancer 10/15/2019 01/31/2024 Encounters Date Type Department Care Team Description 07/25/2025 Transcribe Orders Virtual Department [address] [place] [address] Shellie Cowart MD Breast screening (Primary Dx) 07/21/2025 Orders Only [facility] [address] [place] [address] Sadi Kong MD Closed compression fracture of L3 lumbar vertebra, initial encounter (Primary Dx); Chronic midline low back pain without sciatica 07/21/2025 [facility] [address] [place] [address] Shellie Cowart MD Medication Refill 07/15/2025 Orders Only [facility] [address] [place] [address] Sadi Kong MD 07/15/2025 Orders Only [facility] [address] [place] [address] Sadi Kong MD Closed compression fracture of L3 lumbar vertebra, initial encounter (Primary Dx) 07/13/2025 Refill [facility] [address] [place] [address] Shellie Cowart MD Medication Refill 07/11/2025 8:00 AM EDT - 07/11/2025 9:40 AM EDT Surgery [facility] [address] [place] [address] Brandon Valentin MD KYPHOPLASTY IR 07/11/2025 7:04 AM EDT - 07/11/2025 10:55 AM EDT Hospital Encounter [facility] [address] [place] [address] Brandon Valentin MD Discharge Disposition: Home or Self Care 07/11/2025 Procedure Pass [facility] [address] [place] [address] 07/07/2025 [facility] [address] [place] [address] Shellie Cowart MD Medication Problem 07/07/2025 Telephone [facility] [address] [place] [id number] Chinmay Glynn DO Surgical Timing 07/07/2025 Telephone [facility] [address] [place] [address] Sadi Kong MD Referral 07/07/2025 Telephone [facility] [address] [place] [address] Fernando Ny Vertebroplasty 07/06/[address] [address] Margarita Puga, court messenger Management (After Hours Call ) 07/05/[address] [address] Margarita Puga, court messenger Refill (After Hours Call ) 07/04/2025 9:20 AM EDT Telemedicine - audio only [facility] [address] [place] [address] Sadi Kong MD Closed compression fracture of L3 lumbar vertebra, initial encounter (Primary Dx) 07/03/2025 2:09 PM EDT - 07/03/2025 11:59 PM EDT Hospital Encounter [address] [address] Shellie Cowart MD Discharge Disposition: Home or Self Care 07/03/2025 Telephone [facility] [address] [place] [address] Shellie Cowart MD 07/02/2025 Procedure Pass [address] [address] 07/01/2025 Telephone [facility] [address] [place] [address] Shellie Cowart MD [facility] Nurse Casket Upholsterer 06/30/2025 12:29 PM EDT - 06/30/2025 8:49 PM EDT Emergency [facility] Emergency [address] [place] [id number] Discharge Disposition: Home or Self Care 06/30/2025 Procedure Pass [facility], Ct Scan - [address] [address] 06/28/2025 Nurse Triage [facility] [address] [place] [address] Vashti Contreras RN Back Pain (After Hours Call ) 06/25/2025 6:54 PM EDT - 06/25/2025 10:07 PM EDT Emergency [facility] Emergency [address] [place] [address] [id number] Discharge Disposition: Home or Self Care 06/25/2025 Procedure [place], Ct Scan [address] [address] 06/25/2025 Telephone [facility] [address] [place] [address] Shellie Cowart MD Appointment (06/25/25) 06/25/2025 Nurse Triage [facility] [address] [facility] [address] [place] [address] Shellie Cowart MD 06/24/2025 5:50 PM EDT - 06/24/2025 11:59 PM EDT Hospital Encounter [facility] Emergency - Main Hospital [address] [place] [phone] Hanh Monaco CNP Discharge Disposition: Home or Self Care 06/24/2025 4:40 PM EDT Office Visit [facility] at [address] [address] Hanh Monaco CNP Acute midline low back pain without sciatica (Primary Dx) 06/11/2025 11:15 AM EDT Office Visit [facility] [address] [place] [phone] Sadi Kong MD Markey, Stephen, PT Balance disorder (Primary Dx) 06/11/2025 9:45 AM EDT Office Visit [facility] Orthopedics & Sports Medicine [address] [place] [phone] Chinmay Glynn, Pain (Primary Dx); Arthropathy of right shoulder 06/11/2025 9:42 AM EDT - 06/11/2025 11:59 PM EDT Hospital Encounter [address] [address] Chinmay Glynn, DO Discharge Disposition: Home or Self Care 06/11/2025 Telephone [facility] [address] [place] [address] Marlen Resendiz RN 06/03/2025 11:45 AM EDT Office Visit [address] [address] Sadi Kong MD Gawron, Carol A, FACE WORKER Balance disorder (Primary Dx) 05/30/2025 11:45 AM EDT Office Visit [address] [address] Sadi Kong MD Gawron, Carol A, FACE WORKER Balance disorder (Primary Dx) 05/27/2025 11:45 AM EDT Office Visit [address] [address] Sadi Kong MD Gawron, Carol A, FACE WORKER Balance disorder (Primary Dx) 05/23/2025 1:30 PM EDT Office Visit [address] [address] Sadi Kong MD Markey, Stephen, PT Balance disorder (Primary Dx) 05/19/2025 1:20 PM EDT Office Visit [facility] [address] [place] [address] Shellie Cowart MD Edema of right lower extremity due to peripheral venous insufficiency (Primary Dx) 05/17/2025 Plan of Care Documentation [address] [address] 05/16/2025 2:15 PM EDT Office Visit [facility] [address] [place] [phone] Sadi Kong MD Markey, Stephen, PT Balance disorder (Primary Dx) 05/16/2025 Telephone [facility] [address] [facility] [address] [place] [address] Shellie Cowart MD Triage (Pitting Edema ) from Last 3 Months Immunizations Immunization Administration Dates Next Due COVID-19 (Pre-07/31) Pfizer Vaccine, mRNA, PF 12/19/2020,11/28/2020 DTaP 09/25/2000 Influenza High-Dose Quadriva lent Preservative Free IM 06/28/2022,06/22/2021,07/30/2020 Influenza High-Dose Trivalen t Preservative Free IM 06/14/2024 Influenza Quadrivalent Adjuv anted Preservative Free IM 07/22/2023 Influenza, Unspecified Formulation 06/24/2019 Pneumococcal conjugate PCV13 08/08/2017 Pneumococcal conjugate PCV20 07/22/2023 Pneumococcal polysaccharide PPSV23 06/22/2022, RSV Vaccine (monovalent, adjuvanted) 08/18/2023 Tdap 06/21/2021,06/20/2011 Varicella 12/10/2008 Family History Medical History Relation Comments Asthma Brother CABG Father COPD Father Osteoarthritis Father Coronary artery disease Mother TIGRE usage Mother Osteoarthritis Mother Breast cancer Neg Hx Relation Status Comments Brother (Age 45) trauma from sk i accident Father (Age 82) Mother (Age 70) Social History Tobacco Use Types Packs/Day Years Used Date Smoking Tobacco: Former Cigarettes 0.5 10 0 10/09/1970 - 10/09/1980 Smokeless Tobacco: Never Tobacco Cessation:Counseling Given: Not Answered Comments:for about 10 years Alcohol Use Standard [...] Orientation Straight 05/25/2020 8: 19 AM EDT Last Filed Vital Signs Vital Sign Reading Time Taken Comments Blood Pressure 129/116 07/11/2025 10:09 AM EDT Pulse 56 06/30/2025 8:40 PM EDT Temperature 36.5 C (97.7 F) 06/30/2025 8:40 PM EDT Respiratory Rate 18 06/30/2025 8:40 PM EDT Oxygen Saturation 99% 07/11/2025 10:09 AM EDT Inhaled Oxygen Concentration - - Weight 74.4 kg (164 lb) 06/30/2025 10:36 AM EDT Height 162.6 cm (5' 4 ) 06/30/2025 10:36 AM EDT Body Mass Index 28.15 06/30/2025 10:36 AM EDT Plan of Treatment Upcoming Encounters Date Type Department Care Team (Late st Contact Info) Description 07/25/2025 Procedure Pass [facility] [address] [place] [address] 08/07/2025 10:00 AM EDT Office Visit [facility] [address] [facility] [address] [place] [address] Shellie Cowart MD [address] [place] [phone] [email or web address] 08/20/2025 9:40 AM EST Office Visit [facility] Orth[facility]ics & Sports Medicine [address] [place] [phone] Esau Alonzo PA-C [address] [place] [address] [place] [address] [email or web address] 09/05/2025 8:00 AM EST Pre-Admission Testing Pre Procedure Evaluation [address] [place] [address] Chinmay Glynn, DO 4 [facility] Medicine, [place] [address] 09/08/2025 Procedure Pass [place] Admitting Dept - Virtual Department [address] [place] [phone] 09/08/2025 7:30 AM EST Hospital Encounter OR Admitting Dept - Virtual Department [address] [place] [phone] Chinmay Glynn DO 4 [facility] Orthopedics Sports [facility], [place] [address] 09/08/2025 7:30 AM EST - 09/08/2025 9:55 AM EST Surgery OR Admitting Dept - Virtual Department [address] [place] [phone] Chinmay Glynn DO 4 [facility] Orthopedics Sports [facility], [place] [address] ARTHROPLASTY ANATOMIC INVERSE SHOULDER 09/16/2025 3:30 PM EST Office Visit [facility] [address] [place] [phone] Sadi Kong MD 22 [facility], 2nd [place] [address] Fouzia Rocha, PT 8 [place] [address] 09/17/2025 10:00 AM EST Office Visit [facility] Sports Medicine [address] [place] [phone] Esau Alonzo PA-C [address] [place] [address] [place] [address] [email or web address] 09/22/2025 3:15 PM EST Office Visit [address] [place] [address] Sadi Kong MD [address] [place] [address] Fouzia Rocha, PT 8 [place] [address] 09/26/2025 2:30 PM EST Office Visit [address] [place] [address] Sadi Kong MD [address] [place] [phone] Fouzia Rocha, PT 8 [place] [address] 09/30/2025 2:45 PM EST Office Visit [address] [address] Sadi Kong MD [address] [place] [phone] Fouzia Rocha, PT 8 [place] [address] 10/03/2025 2:30 PM EST Office Visit [address] [place] [address] Sadi Kong MD [address] [place] [phone] Fuozia Rocha, PT 8 [place] [address] 10/07/2025 2:45 PM EST Office Visit [address] [address] Sadi Kong MD [address] [place] [phone] Fouzia Rocha, PT 8 [place] [address] 10/10/2025 2:45 PM EST Office Visit [address] [address] Sadi Kong MD [address] [place] [phone] Fouzia Rocha, PT 8 [place] [address] 10/14/2025 3:00 PM EST Office Visit [address] [address] Sadi Kong MD [address] [place] [phone] Fouzia Rocha, PT 8 [place] [address] 10/15/2025 9:45 AM EST Office Visit [facility] Orth[facility]ics & Sports Medicine [address] [place] [phone] Chinmay Glynn DO [address] [place] [address] Orthopedics & Sports Medicine, [facility] [place] [address] 04/01/2026 10:00 AM EDT Appointment [facility], 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 09/08/2025 7:30 AM EST Health Maintenance Due Date Last Done Comments COLOGUARD 01/24/1996 FIT TEST 01/24/1996 FOBT 01/24/1996 SIGMOIDOSCOPY 01/24/1996 VIRTUAL COLONOSCOPY 01/24/1996 ZOSTER VACCINES (1 of 2) 02/04/2009 INFLUENZA VACCINE (#1) 2025 , 07/22/2023, 06/28/2022, Additional history exists COVID-19 VACCINE ( season) 2025 07/07/2024, 02/19/2024, 07/22/2023, Additional history exists TSH LEVEL 08/28/2025 08/28/2024, 11/10, 10/16/2023, Additional history exists DEPRESSION SCREENING 10/24/2025 10/24/2024, 10/24/19 25 BLOOD PRESSURE 12/22/2025 06/24/2025 MAMMOGRAM 04/12/2026 04/12/2024, 05/0 12/2022, 02/07/2022, Additional history exists CREATININE LEVEL 07/11/2026 07/11/2025, , 07/11/2024, Additional history exists LIPID PANEL 12/31/2029 12/31/2024, 08/09, 06/23/2022, Additional history exists Adult Td,Tdap Booster 06/21/2031 06/21/2021, 011 COLONOSCOPY 12/09/2034 12/09/2024, 09/17/2014 COLORECTAL CANCER SCREENING 12/09/2034 HEPATITIS C SCREENING Completed 11/29/2017 OSTEOPOROSIS SCREENING INITIAL (ONE-TIME) Completed 12/06/2022, 09/18/2014 PNEUMOCOCCAL VACCINES (50+ years) Completed 07/22/2023, 06/22/2022, 08/08/2017, Additional history exists RSV VACCINE Completed 08/18/2023 SMOKING STATUS SCREENING (Once After 26 Yrs) Completed 06/24/2025 HEPATITIS A VACCINES Aged Out No long er eligible based on patient's age to complete this topic HIB VACCINES Aged Out No longer eligi ble based on patient's age to complete this topic MENINGOCOCCAL VACCINES (ACWY) Aged Out No longer eligible based on patient's age to complete this topic MENINGOCOCCAL VACCINES (B) Aged Out N o longer eligible based on patient's age to complete this topic Medical Devices Implanted Type Area Animal Laboratory Helper Device Identifier Shelf Expiration Date Model / Serial / Lot Kit Cement Bone Kyphon Xpede Polymethylmethacryl ate Mixer - [id number] Implanted:Qty: 1 on 07/11/2025 by Brandon Valentin MD at [facility] Bone Cement [employer] [id number] 04/07/2028 [id number] / / [id number] Metal Jez Lumbar Spine Knee Implant 5deg Component Tibial Persona Titanium Stemmed Cemented Lt Size D - [id number] Implanted:Qty: 1 on 04/17/2024 by Paul Hooper MD at [facility] Left: Knee ERIC BIOMET [id number] 05/26/2033 [id number] / / [id number] Knee Implant Sz 8 Component Femoral Persona Ps [place] Cemented Narrow Lt - [id number] Implanted:Qty: 1 on 04/17/2024 by Paul Hooper MD at [facility] Left: Knee ERIC BIOMET [id number] 1 01/06/2031 [id number] / / [id number] Knee Patella 32x8.5mm Persona All Polyethylene Cemented Conventional - [id number] Implanted:Qty: 1 on 04/17/2024 by Paul Hooper MD at [facility] Left: Patella ERIC BIOMET [id number] / / Cement Bone 1x40 Standard - [id number] Implanted:Qty: 1 on 04/17/2024 by Paul Hooper MD at [facility] Left: Knee ERIC BIOMET [id number] 08/08/2026 [id number] / / [id number] Cement Bone 1x40 Standard - [id number] Implanted:Qty: 1 on 04/17/2024 by Paul Hooper MD at [facility] Left: Knee ERIC BIOMET [id number] 07/08/2026 [id number] / / [id number] Knee Insert 11mm L 6 9 Component Surface Persona Ps Polyethylene Fixed Conventional Lt Cd - [id number] Implanted:Qty: 1 on 04/17/2024 by Paul Hooper MD at [facility] Left: Knee ERIC BIOMET 08/08/2028 [id number] / / [id number] Procedures Procedure Name Priority Date/Time Associated Diagnosis Comments KYPHOPLASTY (IR) Routine 07/11/2025 9:33 AM EDT Closed compression fracture of L3 lumbar vertebra, initial encounter PT-INR STAT 07/11/2025 8:11 AM EDT BASIC METABOLIC PANEL STAT 07/11/2025 8:11 AM EDT CBC STAT 07/11/2025 8:11 AM EDT MRI LUMBAR SPINE (NEURO) WITHOUT CONTRAST Urgent/patien t waiting 07/03/2025 2:58 PM EDT Back pain URINE SEDIMENT STAT 06/30/2025 4:28 PM EDT URINALYSIS W/REFLEX URINE CULTURE STAT 06/30/2025 4:[address] THORACIC SPINE WITHOUT CONTRAST Routine 06/30/2025 4:[address] LUMBAR SPINE WITHOUT CONTRAST Routine 06/25/2025 8:06 PM EDT URINALYSIS W/REFLEX URINE CULTURE STAT 06/25/2025 7:35 PM EDT XR LUMBOSACRAL SPINE 2-3 VIEWS Urgent/patien t waiting 06/24/2025 6:04 PM EDT Acute midline low back pain without sciatica XR SHOULDER 2 VIEWS (RIGHT) Routine 06/11/2025 9:51 AM EDT Pain AMB REFERRAL TO [facility] PH[facility] Routine 05/17/2025 10:06 AM EDT Adolescent idiopathic scoliosis of thoracolumbar region LIPID PANEL Routine 12/31/2024 10:20 AM EDT Pure hypercholesterolemia ENDOSCOPY, COLON 12/09/2024 9:06 AM EST TSH WITH REFLEX Routine 08/28/2024 10:07 AM EST Hypothyroidism, unspecified type BI MAMMOGRAM SCREENING WITH TOMOSYNTHESIS WITH CAD (BILATERAL) Routine 04/12/2024 8:26 AM EDT Visit for screening mammogram BD DXA HIP AND [employer]EARM Routine 12/06/2022 9:03 AM EST 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 Active, pathologic, osteoporotic L3 compression fracture. PROCEDURE: Preliminary assessment included plain film and MRI. Patient has had previous Hough jez placement and multilevel laminectomy and fusion creating technical challenges with kyphoplasty needle placement. Sedation: Moderate Procedural (Conscious) Sedation was administered and monitored by Interventional Radiology nursing staff and supervised by the undersigned IR (licensed independent provider). The following parameters were monitored: oxygen saturation, heart rate, blood pressure and end tidal CO2. The licensed independent provider spent 49 minutes of continuous face-to face time with the patient. Medications: IV Fentanyl 150 mcg delivered in 5 divided doses IV Midazolam 4 mg delivered in 6 divided doses Subcutaneous buffered 1% lidocaine 17 cc Subcutaneous 0.25% bupivacaine 10 cc IV cefazolin 2 g delivered immediately preprocedure Patient was placed prone on the fluoroscopy table. Prophylactic antibiotics delivered and IV conscious sedation initiated. Moderate sedation achieved and maintained 60 minutes. Skin overlying the lumbar spine was prepped and draped sterilely. Buffered Lidocaine and Marcaine anesthetic placed over the L3 pedicles. 8.5 gauge kyphoplasty needle advanced through the left L3 pedicle into the mid to anterior aspect of the vertebral body during careful fluoroscopic monitoring. Access on the right was impeded by presence of Hough jez. As near midline position of single kyphoplasty needle achieved it was elected to perform procedure with a Uni pedicular approach. Drilling, curetting of bone, then creation of space within the central vertebral body achieved with kyphoplasty balloon during careful fluoroscopic monitoring. It is noted that bone is quite soft in keeping with osteoporotic bone. Barium impregnated polymethyl methacrylate cement then instilled achieving satisfying distribution of cement bilaterally. Once bilateral fill of target area achieved, needle was removed. Hemostasis obtained with pressure. Final appearance documented in the AP and lateral projections. Fluoroscopy time: 8.0 minutes, DAP (dose area product) 3480.61 microgray/M2 FINDINGS: Preliminary images of the spine show L4 compression fracture known to be inactive and L3 vertebral body which is known to have an inferior fracture and diffuse edema. Morphology of vertebral body is identical to that shown on recent MR imaging. No progressive collapse since patient sustained her injury. Subsequently kyphoplasty needle is placed within the central aspect of the vertebral body followed by curetting and balloon inflation then instillation of barium impregnated [place] methylmethacrylate cement. Final images show satisfying [id number] and front to back cement filling with no ectopic cement. IMPRESSION: L3 kyphoplasty performed from [place] pedicular approach during 49 minutes moderate sedation. Bilateral vertebral filling achieved. Disposition: Home. Orders, Plan and Follow-up: Recovery in IR bay then discharged to home. It is noted that patient sustained a fracture with no inciting trauma other than bending over and bone was noted to be quite soft during the procedure. Given this, patient is concluded to have osteoporosis (diagnosed clinically). DEXA scan can provide baseline information but regardless of DEXA results, recommend therapy to augment bone strength. Please don't hesitate to contact IR with any questions or concerns. ? Thank you for allowing IR to participate in the care of this patient. us Sadi Kong MD IMG IR Final Result * (ABNORMAL) PT-INR (07/11/2025 8:11 AM EDT) PT 13.3(H) 10.2 - 12.9 sec [facility] INR 1.1 0.9 - 1.1 [facility] Comment:Therapeutic range fo r oral Vitamin K antagonists: 2.0-3.5 Blood 07/11/2025 8:11 AM EDT 07/11/2025 8:29 AM EDT us Brandon Valentin MD LAB BLOOD ORDERABLES Final Result [address] [id number] * (ABNORMAL) CBC (07/11/2025 8:11 AM EDT) WBC 13.44(H) 4.00 - 11.00 K/uL [facility] RBC 4.55 4.00 - 5.20 M/uL [facility] HGB 13.3 12.0 - 16.0 g/dL [facility] HCT 40.0 36.0 - 46.0 % [facility] PLT 320 150 - 450 K/uL [facility] MCV 87.9 80.0 - 100.0 fL [facility] MCH 29.2 27.0 - 31.0 pg [facility] MCHC 33.3 32.0 - 36.0 g/dL [facility] RDW 15.3(H) 11.5 - 14.5 % [facility] MPV 9.7 8.4 - 12.0 fL [facility] NRBC 0.00 0.00 /100 WBCs [facility] ABSOLUTE NRBC 0.00 0.00 K/uL [facility] Blood 07/11/2025 8:11 AM EDT 07/11/2025 8:29 AM EDT us Brandon Valentin MD LAB BLOOD ORDERABLES Final Result Performing Organization Address [facility] Co de Phone Number [address] [address] * (ABNORMAL) Basic metabolic panel (07/11/2025 8:11 AM EDT) SODIUM 145 133 - 146 mmol/L [facility] CHLORIDE 110(H) 96 - 108 mmol/L [facility] POTASSIUM 3.8 3.3 - 5.1 mmol/L [facility] CO2 19(L) 21 - 35 mmol/L [facility] BUN 13 6 - 19 mg/dL [facility] CREATININE 0.90 0.5 - 1.5 mg/dL [facility] GLUCOSE 115(H) 70 - 99 mg/dL [facility] CALCIUM 9.6 8.4 - 10.3 mg/dL [facility] EGFR 67 >59 mL/min/1.7 3m2 [facility] Comment:Estimated glomerular filtration rate calculated using the CKD-EPI refit equation. ANION GAP 20 10 - 20 mmol/L [facility] Blood 07/11/2025 8:11 AM EDT 07/11/2025 8:29 AM EDT Brandon Valentin MD LAB BLOOD ORDERABLES Final Result Performing Organization Address [facility] Co de Phone Number [address] [address] * MRI LUMBAR SPINE (NEURO) WITHOUT CONTRAST (07/03/2025 2:58 PM EDT) MGB IMG MAT WEAVER COMMENT L3 vertebral body fracture with extension into the posterior elements. Rec Neurosurgery consultation. [facility] Anatomical Region Laterality Modality L-spine Magnetic Resonan ce 07/03/2025 3:15 PM EDT Impressions 07/03/2025 4:06 PM EDT 1. Acute/subacute nondisplaced fracture along the inferior endplate of L3 vertebral body to the right of midline with associated bone marrow edema. Additionally, there is acute/subacute nondisplaced fracture involving the posterior elements at L3 level. Neurosurgical evaluation is recommended. 2. Chronic L4 compression fracture. 3. No high-grade spinal canal stenosis or neural foramina narrowing in the lumbar spine. These findings are discussed with Shellie Cowart on 07/03/2025 at 4:03 PM. A clinically significant result was initiated on 07/03/2025 4:06 PM, Message ID [id number]. Narrative 07/03/2025 4:06 PM EDT MRI LUMBAR SPINE (NEURO) WITHOUT CONTRAST Referring clinician's provided indication for this examination in Epic: * Low back pain, > 6 wks; * Lumbar radiculopathy, > 6 wks TECHNIQUE: MRI LUMBAR SPINE (NEURO) WITHOUT CONTRAST Multi-sequence, multi-planar MRI of the lumbar spine was performed without intravenous contrast. COMPARISON: CT lumbar spine dated June 25, [address] abdomen and pelvis dated December 04, 2024. FINDINGS: LUMBAR SPINE: Alignment and Vertebrae: Incompletely visualized is dextroconvex scoliosis of the lumbar spine with compensatory levoconvex curvature of the lumbar spine. A posterior spinal fixation jez is seen extending from lower thoracic spine through lower lumbar spine with laminar hooks at T11 and L3 levels. Susceptibility artifact from the orthopedic hardware limits optimal locoregional evaluation. There is osseous fusion along the posterior elements of lower thoracic spine and lumbar spine. There is a linear T2 and T1 hypointensity along the inferior aspect of L3 vertebral body to the right of midline (series 2, image 13), most compatible with a nondisplaced fracture. There is bone marrow edema involving L3 vertebral body extending into the bilateral pedicles, left more than right. Additionally, a curvilinear T1 and T2 hypointense focus is seen along the posterior elements at L3 level (serious 3, image 13), likely representing a nondisplaced fracture. There is minimal paravertebral edema at L3 level. There is chronic L4 compression fracture with 20% vertebral body height loss, unchanged compared to most recent CT lumbar spine. Vertebral body heights are otherwise maintained. Marrow: No focal aggressive osseous lesions are identified. Discs and Endplates: Multilevel disc desiccation and disc height loss is seen in the lumbar spine. Conus: Conus medullaris terminates at L1-L2. The cauda equina nerve roots are unremarkable. Soft Tissues: The visualized retroperitoneum is unremarkable with the exception of few subcentimeter renal cysts. Postoperative changes are seen in the paraspinal musculature. Other Findings: None. Findings by level: T12-L1: No spinal or foraminal stenosis. L1-L2: No spinal or foraminal stenosis. L2-L3: No spinal or foraminal stenosis. L3-L4: No spinal or foraminal stenosis. L4-L5: No spinal or foraminal stenosis. L5-S1: No spinal or foraminal stenosis. Procedure Note Jeramy Spring MD - 07/03/2025 MRI LUMBAR SPINE (NEURO) WITHOUT CONTRAST Referring clinician's provided indication for this examination in Epic: *Low back pain, > 6 wks; * Lumbar radiculopathy, > 6 wks TECHNIQUE: MRI LUMBAR SPINE (NEURO) WITHOUT CONTRAST Multi-sequence, multi-planar MRI of the lumbar spine was performed withoutintravenous contrast. COMPARISON: CT lumbar spine dated June 25, [address] abdomen andpelvis dated December 04, 2024. FINDINGS: LUMBAR SPINE: Alignment and Vertebrae: Incompletely visualized is dextroconvex scoliosisof the lumbar spine with compensatory levoconvex curvature of the lumbarspine. A posterior spinal fixation jez is seen extending from lowerthoracic spine through lower lumbar spine with laminar hooks at T11 and [id number]. Susceptibility artifact from the orthopedic hardware limitsoptimal locoregional evaluation. There is osseous fusion along theposterior elements of lower thoracic spine and lumbar spine. There is alinear T2 and T1 hypointensity along the inferior aspect of L3 vertebralbody to the right of midline (series 2, image 13), most compatible with anondisplaced fracture. There is bone marrow edema involving L3 vertebralbody extending into the bilateral pedicles, left more than right.Additionally, a curvilinear T1 and T2 hypointense focus is seen along theposterior elements at L3 level (serious 3, image 13), likely representinga nondisplaced fracture. There is minimal paravertebral edema at [id number]. There is chronic L4 compression fracture with 20% vertebral body heightloss, unchanged compared to most recent CT lumbar spine. Vertebral body heights are otherwise maintained. Marrow: No focal aggressive osseous lesions are identified. Discs and Endplates: Multilevel disc desiccation and disc height loss isseen in the lumbar spine. Conus: Conus medullaris terminates at L1-L2. The cauda equina nerve rootsare unremarkable. Soft Tissues: The visualized retroperitoneum is unremarkable with theexception of few subcentimeter renal cysts. Postoperative changes are seenin the paraspinal musculature. Other Findings: None. Findings by level: T12-L1: No spinal or foraminal stenosis. L1-L2: No spinal or foraminal stenosis. L2-L3: No spinal or foraminal stenosis. L3-L4: No spinal or foraminal stenosis. L4-L5: No spinal or foraminal stenosis. L5-S1: No spinal or foraminal stenosis. IMPRESSION: 1. Acute/subacute nondisplaced fracture along the inferior endplate of K9yvicbcccn body to the right of midline with associated bone marrow edema.Additionally, there is acute/subacute nondisplaced fracture involving theposterior elements at L3 level. Neurosurgical evaluation is recommended. 2. Chronic L4 compression fracture. 3. No high-grade spinal canal stenosis or neural foramina narrowing inthe lumbar spine. These findings are discussed with Shellie Cowart on 07/03/2025 at 4:03 PM. A clinically significant result was initiated on 07/03/2025 4:06 PM,Message ID [id number]. us Shellie Cowart MD IMG MR XSPECIALTY Final Result * (ABNORMAL) Urinalysis w/reflex Urine Culture (06/30/2025 4:28 PM EDT) Only the most recent of2 resultswithin the time period is included. COLOR Yellow Yellow [facility] CLARITY Clear [facility] GLUCOSE Trace(A) Negative [facility] BILI Negative Negative [facility] KETONES Negative Negative [facility] SPECIFIC GRAVITY 1.010 1.005 - 1.030 [facility] BLOOD 1+(A) Negative [facility] PH 6.0 5.0 - 8.0 [facility] Protein-UA Negative Negative [facility] NITRITE Negative Negative [facility] Leukocyte esterase, ur Negative Negative [facility] Urine (Urine) 06/30/2025 4:2 8 PM EDT 06/30/2025 4:48 PM EDT Debbie STEPHEN-C URINE ORDERABLES Final Resul t Performing Organization Address [facility] de Phone Number [address] [address] * (ABNORMAL) Urine sediment (06/30/2025 4:28 PM EDT) WBC 0-4(A) NONE SEEN /hpf [facility] RBC 0-2(A) NONE SEEN /hpf [facility] URINE EPITHELIAL 0-4(A) NONE SEEN [facility] MUCUS NONE SEEN NONE SEEN /hpf [facility] BACTERIA NONE SEEN NONE SEEN /hpf [facility] 06/30/2025 4:28 PM EDT 06/30/2025 4:48 PM EDT [facility] Atl[employer]ol ID-C URINE ORDERABLES Final Resul t Performing Organization Address [facility] de Phone Number [address] [address] * CT THORACIC SPINE WITHOUT CONTRAST (06/30/2025 4:07 PM EDT) Anatomical Region Laterality Modality T-spine Computed Tomogra phy 06/30/2025 5:36 PM EDT Impressions 06/30/2025 6:27 PM EDT 1. No acute CT abnormality. 2. Prominent S-shaped scoliotic curvature of the thoracolumbar spine and dextrocurvature apex at T9-10, levocurvature apex at L3. ATTESTATION: I, Juanito Irby as teaching physician, have reviewed the images for this case and if necessary edited the report originally created by Will Martins. Narrative 06/30/2025 6:[address] THORACIC SPINE WITHOUT CONTRAST Referring clinician's provided indication for this examination in Epic: * Spine fracture, thoracic, pathological TECHNIQUE: * Multidetector-row CT of the thoracic spine was performed without intravenous contrast using tailored dose modulation techniques. Images were reconstructed in the axial, coronal, and sagittal planes. COMPARISON: CT LUMBAR SPINE WITHOUT CONTRAST FINDINGS: THORACIC SPINE: Alignment and Vertebrae: There is partially visualized right posterior spinal fixation hardware extending from T10 inferiorly to L4 with diffuse osseous bridging of the posterior elements, further evaluated on recent lumbar spine CT. There is dextrocurvature of the thoracic spine and partially visualized levocurvature of the lumbar spine. Age-indeterminate mild height loss at the superior endplate of T5 (6:51) and chronic appearing mild height loss at the superior endplate of T11 (6:57). Discs and Endplates: Multilevel degenerative changes. Soft Tissue: No prevertebral soft tissue thickening. No paravertebral hematoma. No evidence of moderate or high-grade central canal stenosis with the lower thoracic canal limited in evaluation due to streak artifact. Other Findings: There is hyperdense material within the right pleural space, likely pleural plaques. Coronary artery and multifocal aortic calcifications. Subcentimeter left lower lobe calcified granuloma. Postcholecystectomy. Procedure Note Juanito Irby MD - 06/30/2025 CT THORACIC SPINE WITHOUT CONTRAST Referring clinician's provided indication for this examination in Epic: *Spine fracture, thoracic, pathological TECHNIQUE: * Multidetector-row CT of the thoracic spine was performed withoutintravenous contrast using tailored dose modulation techniques. Imageswere reconstructed in the axial, coronal, and sagittal planes. COMPARISON: CT LUMBAR SPINE WITHOUT CONTRAST FINDINGS: THORACIC SPINE: Alignment and Vertebrae: There is partially visualized right posteriorspinal fixation hardware extending from T10 inferiorly to L4 with diffuseosseous bridging of the posterior elements, further evaluated on recentlumbar spine CT. There is dextrocurvature of the thoracic spine andpartially visualized levocurvature of the lumbar spine. Age-indeterminatemild height loss at the superior endplate of T5 (6:51) and chronicappearing mild height loss at the superior endplate of T11 (6:57). Discs and Endplates: Multilevel degenerative changes. Soft Tissue: No prevertebral soft tissue thickening. No paravertebralhematoma. No evidence of moderate or high-grade central canal stenosiswith the lower thoracic canal limited in evaluation due to streakartifact. Other Findings: There is hyperdense material within the right pleuralspace, likely pleural plaques. Coronary artery and multifocal aorticcalcifications. Subcentimeter left lower lobe calcified granuloma.Postcholecystectomy. IMPRESSION: 1. No acute CT abnormality. 2. Prominent S-shaped scoliotic curvature of the thoracolumbar spine anddextrocurvature apex at T9-10, levocurvature apex at L3. ATTESTATION: IJuanito as teaching physician, have reviewed theimages for this case and if necessary edited the report originally createdby Will Martins. Debbie Aquino PA-C IM CT XSPECIALTY ORDERABLES Final Result * CT LUMBAR SPINE WITHOUT CONTRAST (06/25/2025 8:06 PM EDT) Anatomical Region Laterality Modality L-spine Computed Tomogra phy 06/25/2025 9:24 PM EDT Impressions 06/25/2025 9:47 PM EDT 1. Healing/subacute nondisplaced left iliac bone fracture, new since November 2024. 2. No displaced fracture or traumatic malalignment of the lumbar spine. ATTESTATION: Naa Marques as teaching physician, have reviewed the images for this case and if necessary edited the report originally created by Da Vegas. Narrative 06/25/2025 9:[address] LUMBAR SPINE WITHOUT CONTRAST Referring clinician's provided indication for this examination in Epic: * Low back pain, trauma Review of the Electronic Medical Record reveals an additional history of: 75-year-old with history of scoliosis and spinal fusion surgery presenting with sudden pain above the waist after bending over. TECHNIQUE: Multidetector-row CT of the lumbar spine was performed without intravenous contrast using tailored dose modulation techniques. Images were reconstructed in the axial, coronal, and sagittal planes. COMPARISON: MRI LUMBAR SPINE (NEURO) WITHOUT CONTRAST ; CT ABDOMEN/PELVIS WITH CONTRAST FINDINGS: LUMBAR SPINE: Alignment and Vertebrae: Levocurvature of the lumbar spine centered at L2. Straightening of the lumbar lordosis with a right-sided posterior instrumented fusion from T11-L3 with diffuse osseous bridging of the posterior elements. No acute displaced fracture. Chronic mild height loss of L4 vertebral body. Discs and Endplates: Multilevel degenerative changes greatest at L5-S1. Soft Tissue: No prevertebral soft tissue thickening. Other Findings: Nondisplaced left iliac fracture (5:140) with adjacent sclerosis and periosteal reaction, new from 12/04/2024. Colonic diverticulosis. Atherosclerotic calcifications. Procedure Note Naa Byers MD - 06/25/2025 CT LUMBAR SPINE WITHOUT CONTRAST Referring clinician's provided indication for this examination in Epic: *Low back pain, trauma Review of the Electronic Medical Record reveals an additional history of:75-year-old with history of scoliosis and spinal fusion surgery presentingwith sudden pain above the waist after bending over. TECHNIQUE: Multidetector-row CT of the lumbar spine was performed withoutintravenous contrast using tailored dose modulation techniques. Imageswere reconstructed in the axial, coronal, and sagittal planes. COMPARISON: MRI LUMBAR SPINE (NEURO) WITHOUT CONTRAST ; CTABDOMEN/PELVIS WITH CONTRAST FINDINGS: LUMBAR SPINE: Alignment and Vertebrae: Levocurvature of the lumbar spine centered at L2.Straightening of the lumbar lordosis with a right-sided posteriorinstrumented fusion from T11-L3 with diffuse osseous bridging of theposterior elements. No acute displaced fracture. Chronic mild height lossof L4 vertebral body. Discs and Endplates: Multilevel degenerative changes greatest at L5-S1. Soft Tissue: No prevertebral soft tissue thickening. Other Findings: Nondisplaced left iliac fracture (5:140) with adjacentsclerosis and periosteal reaction, new from 12/04/2024. Colonicdiverticulosis. Atherosclerotic calcifications. IMPRESSION: 1. Healing/subacute nondisplaced left iliac bone fracture, new sinceFebruary 2024. 2. No displaced fracture or traumatic malalignment of the lumbar spine. ATTESTATION: I, Naa Byers as teaching physician, have reviewed the imagesfor this case and if necessary edited the report originally created byDa Vegas. us Pamela Yepez PA-C IMG CT XSPECIALTY ORD ERABLES Final Result * XR LUMBOSACRAL SPINE 2-3 VIEWS (06/24/2025 6:04 PM EDT) Anatomical Region Laterality Modality L-spine Computed Radiogr aphy 06/24/2025 7:03 PM EDT Impressions 06/24/2025 7:05 PM EDT Levoconvex curvature of the lumbar spine with apex along L2. Posterior spinal fixation hardware traversing the thoracolumbar junction from T10 through L4. Diffuse osseous demineralization precludes assessment for subtle fractures and there is no displaced fracture. Multilevel moderate to severe degenerative changes with osseous bridging across several vertebral levels including all of the spinous processes. Right upper abdominal quadrant cholecystectomy clips. Normal vertebral body heights. Intact sacroiliac joints. Narrative 06/24/2025 7:05 PM EDT XR LUMBOSACRAL SPINE 2-3 VIEWS Referring clinician's provided indication for this examination in [facility]: Pain; h/o scoliosis- surgery age 17, osteopenia. acute midline back pain without trauma- improves with flexion COMPARISON: MRI LUMBAR SPINE (NEURO) WITHOUT CONTRAST Procedure Note Ginny Saini MD - 06/24/2025 XR LUMBOSACRAL SPINE 2-3 VIEWS Referring clinician's provided indication for this examination in [facility]:Pain; h/o scoliosis- surgery age 17, osteopenia. acute midline back painwithout trauma- improves with flexion COMPARISON: MRI LUMBAR SPINE (NEURO) WITHOUT CONTRAST IMPRESSION: Levoconvex curvature of the lumbar spine with apex along L2. Posteriorspinal fixation hardware traversing the thoracolumbar junction from [id number] L4. Diffuse osseous demineralization precludes assessment forsubtle fractures and there is no displaced fracture. Multilevel moderateto severe degenerative changes with osseous bridging across severalvertebral levels including all of the spinous processes. Right upperabdominal quadrant cholecystectomy clips. Normal vertebral body heights.Intact sacroiliac joints. us Hanh Monaco DB2 DEVELOPER IMG XR SPINE Final Resul t * XR SHOULDER 2 VIEWS (RIGHT) (06/11/2025 9:51 AM EDT) Narrative SYSTEMGENERATED, DOCUMENTATION - 06/11/2025 9:51 AM EDT This image report has been auto-finalized and has not been read by a Radiologist. Interpretation has been included in the provider encounter note for this date of service. us Chinmay Glynn DO IMG XR UPPER EXTREMITY Raisa l Result * Ambulatory referral to [facility] Physical Therapy (05/17/2025 10:06 AM EDT) Other us Sadi Kong MD AMB [facility] REFERRALS Final Resu lt * (ABNORMAL) Lipid panel (12/31/2024 10:20 AM EDT) HDL 67 mg/dL [facility] Comment: Interpretation <40 mg/dL: Low HDL cholesterol (major risk factor for CHD) Greater than or equal to 60 mg/dL: High HDL cholesterol ( negative risk factor for CHD) HDL - cholesterol is affected by a number of factors, e.g. smoking, excerise, hormones, sex and age. CHOLESTEROL 172 0 - 240 mg/dL [facility] TRIGLYCERIDES 70 30 - 160 mg/dL [facility] LDL 91 50 - 129 mg/dL [facility] Comment: LDL levels in terms of risk for coronary heart disease: <100 mg/dL: Optimal 100-129 mg/dL: Near or above optimal 130-159 mg/dL: Borderline high 160-189 mg/dL: High >190 mg/dL: Very High CARDIAC RISK RATIO 2.6(L) 3.3 - 4.4 C [facility] Blood 12/31/2024 10:2 0 AM EDT 12/31/2024 10:26 AM EDT us Shellie Cowart MD LAB BLOOD ORDERABLES Final Resul t [facility] [address] [place] [address] * ENDOSCOPY, COLON (12/09/2024 9:06 AM EST) Narrative Transcriptions Arthur Hodgson MD - 12/09/2024 9:06 AM EST [facility] Patient Name: Naa Terry Attending MD:: ARTHUR HODGSON MD, Procedure Date: 12/09/2024 9:06 AM Date of : 1950 Age: 74 Admit Type: Outpatient Gender: Female Room: [place] [address] Referring MD: Shellie Cowart Exam Type: Colonoscopy Indications: Screening for colorectal malignant neoplasm, Last colonoscopy 10 years ago Medications: Monitored Anesthesia Care Procedure: Informed consent was obtained from the patientafter discussion of the indications, limitations, alternatives, benefits, and risks of the procedure. Risks specifically discussed include but are not limited to medication reactions, missed lesions, bleeding, perforation, or the need for emergent surgery. Throughout the procedure, the patient's blood pressure, pulse, end-tidal CO2, and oxygensaturations were monitored continuously. The Colonoscope was introduced through the anus and advanced to the cecum, identified by appendiceal orifice and ileocecal valve. The colonoscopy was performed without difficulty. The patient tolerated the procedure fairly well. The quality of the bowel preparation was evaluated using the BBPS (BostonBowel Preparation Scale) with scores of: Right Colon = 3, Transverse Colon = 3 and Left Colon = 3 (entiremucosa seen well with no residual staining, smallfragments of stool or opaque liquid). The total BBPS score equals 9. The ileocecal valve, appendiceal orifice, and rectum were photographed. Complications: No immediate complications. Estimated blood loss:None. Estimated Blood Loss: Estimated blood loss was minimal. Findings: The perianal and digital rectal examinations were normal. Pertinent negatives include normalsphincter tone. Retroflexion in the right colon was performed. The entire examined colon appeared normal on direct and retroflexion views. Impression: - The entire examined colon is normal on direct and retroflexion views. - No specimens collected. Recommendation: - No repeat colonoscopy due to age and the absenceof colonic polyps. - Resume Eliquis (apixaban) at prior dose today. ARTHUR HODGSON MD 12/09/2024 9:27:10 AM This report has been signed electronically. Number of Addenda: 0 Note Initiated On: 12/09/2024 9:06 AM Procedure Code(s): --- Professional --- G0121, Colorectal cancer screening; colonoscopy on individual not meeting criteria for high risk --- Technical --- G0121, Colorectal cancer screening; colonoscopy on individual not meeting criteria for high risk Diagnosis Code(s): --- Professional --- Z12.11, Encounter for screening for malignantneoplasm of colon --- Technical --- Z12.11, Encounter for screening for malignantneoplasm of colon CPT copyright 2021 [employer]. All rights reserved. The codes documented in this report are preliminary and upon icd 9 coder reviewmay be revised to meet current compliance requirements. Procedure Date: 12/09/2024 9:06:56 AM [address] [place] [address] us Shellie Cowart MD GI PROCEDURE ORDERABLES Edited R esult - Final * TSH with reflex (08/28/2024 10:07 AM EST) TSH 3.25 0.27 - 4.20 uIU/mL [facility] Blood 08/28/2024 10:0 7 AM EST 08/28/2024 10:14 AM EST us Shellie Cowart MD LAB BLOOD ORDERABLES Final Resul t [facility] [address] [place] [address] * BI MAMMOGRAM SCREENING WITH TOMOSYNTHESIS WITH CAD (BILATERAL) (04/12/2024 8:26 AM EDT) Anatomical Region Laterality Modality Breast Left, Breast Right, Breast Bilateral Bila teral Mammography 04/12/2024 10:3 2 AM EDT Impressions 04/12/2024 10:33 AM EDT No mammographic evidence of malignancy in either breast. Annual screening mammography is recommended. BI-RADS 1 NEGATIVE The patient will be notified of the results and recommendations. Narrative 04/12/2024 10:33 AM EDT BI MAMMOGRAM SCREENING WITH TOMOSYNTHESIS WITH CAD (BILATERAL) Additional patient information: Screening. COMPARISON: Comparison is made with relevant prior imaging. Breast composition: There are scattered areas of fibroglandular density. FINDINGS: No abnormal masses, suspicious calcifications, or other significant findings are identified mammographically in either breast. Procedure Note Magalys Trevino MD - 04/12/2024 BI MAMMOGRAM SCREENING WITH TOMOSYNTHESIS WITH CAD (BILATERAL) Additional patient information: Screening. COMPARISON: Comparison is made with relevant prior imaging. Breast composition: There are scattered areas of fibroglandular density. FINDINGS: No abnormal masses, suspicious calcifications, or other significantfindings are identified mammographically in either breast. IMPRESSION: No mammographic evidence of malignancy in either breast. Annual screening mammography is recommended. BI-RADS 1 NEGATIVE The patient will be notified of the results and recommendations. us Shellie Cowart MD IMG MG EXAMS Final Result * BD DXA HIP AND FOREARM (12/06/2022 9:03 AM EST) Anatomical Region Laterality Modality Bone Density Bone Density 12/06/2022 7:19 PM EST Impressions 12/07/2022 10:14 AM EST Bone mineral density consistent with osteopenia. Narrative 12/07/2022 10:14 AM EST This is a 72-year-old female presenting for screening exam. No prior studies for comparison. Evaluation of the left forearm and both hips is obtained and appears technically adequate. The left forearm discloses a total bone mineral density of 0.572 g/cm2 with a T- score of 0.2. This is in the normal range. The right hip (total) has a total bone mineral density of 0.797 g/cm2 with a T-score of -1.2. Z score 0.4. This is in the osteopenia range. The right hip (neck) has a total bone mineral density of 0.715 g/cm2 with a T- score of -1.2. Z score 0.7. The left hip (total) has a total bone mineral density of 0.861 g/cm2 for a T- score of -0.7. This is in the normal range. The left hip (neck) has a total bone mineral density of 0.774 g/cm2 with a T- score of -0.7. Procedure Note Preston Mckeon MD - 12/07/2022 This is a 72-year-old female presenting for screening exam. No prior studies for comparison. Evaluation of the left forearm and both hips is obtained and appearstechnically adequate. The left forearm discloses a total bone mineral density of 0.572 g/nf3mglh a T- score of 0.2. This is in the normal range. The right hip (total) has a total bone mineral density of 0.797 g/gw1vbsu a T- score of -1.2. Z score 0.4. This is in the osteopenia range. The right hip (neck) has a total bone mineral density of 0.715 g/cm2 witha T- score of -1.2. Z score 0.7. The left hip (total) has a total bone mineral density of 0.861 g/cm2 for aT- score of -0.7. This is in the normal range. The left hip (neck) has a total bone mineral density of 0.774 g/cm2 with aT- score of -0.7. IMPRESSION: Bone mineral density consistent with osteopenia. Shellie Cowart MD IMG BD BONE DENSITY DEXA Final R esult * Outside Hepatitis C Virus Screening (11/29/2017) Hepatitis C Screening - External Neg (patient reported) Historical Provider LAB BLOOD ORDERABLES Raisa l Result from Last 3 Months or Most Recently Relevant to Health Maintenance Insurance [employer] Advance Directives For more information, please contact: [phone] (9AM - 5PM [facility], Monday-Monday) Documents on File Type Date Recorded Patient Quality Control Checker Expl anation Healthcare Proxy 04/13/2024 4:20 PM Health Care Proxy Naa 2023 Corrected - signed.pdf MOLST 04/11/2024 1:27 PM Advance Dir ective Naa 2023 - signed.pdf * Full Code (Latest Code Status on File) Date Activated Date Inactivated Comments 03/14/2023 7:58 AM Question Answer Comments Code Status Confirmed With: Patient Care Teams Furniture Assembly Supervisor Relationship Specialty Start Date End Date Shellie Cowart MD [address] [place] [phone] [email or web address] PCP - General Family Medicine 10/25/19 Paul Hooper MD [address] [place] [address] Orthopedics & Sports Medicine, [facility] [place] [address] Orthopedic Surgery 03/01/24 Preston Pederson MSW [address] [facility] [address] [place], [address] [email or web address] Welt Stitch Cleaner Licensed Clinical [employer] Stitch Cleaner 12/11/24 Additional Source Comments The information contained in this document represents components of the legal health record. It is not the complete legal health record.[facility]
--- OUTSIDE RECORDS SUMMARY | 2025-08-06 12:23 | XMS_ITS | Encounter Summary ---
Author Organization [facility] Address [address] [facility] [address] [place] [address] Phone Care Team Providers Care Reading Interventionist Name Role Phone Shellie Cowart MD Primary Care Provider Paul Hooper MD Unavailable Preston Pederson MACHINE COIL ASSEMBLER Unavailable [phone] Encounter Details Date Type Department Care Team (Late st Contact Info) Description 11/14/2022 Telephone [facility] [place] [facility] [address] [place] [address] Shellie Cowart MD [address] [facility] [address] [place] [address] [email or web address] Social History Tobacco Use Types Packs/Day Years [...] high school, GED, job training, learning the German language, technical skills, or developing parenting skills)? [...] st Contact Info) Description 07/25/2025 Procedure Pass [address] [address] 08/07/2025 10:00 AM EDT Office Visit [facility] [place] [facility] [address] [facility] [address] [place] [address] Shellie Cowart MD [address] [facility] [address] [place] [address] 08/20/2025 9:40 AM EST Office Visit [facility] [address] [place] [phone] Esau Alonzo PA-C [address] [place] [address] [place] [address] [email or web address] 09/05/2025 8:00 AM EST Pre-Admission Testing Pre Procedure Evaluation [address] [place] [phone] Chinmay Glynn, DO 4 [facility] [place] [address] 09/08/2025 Procedure Pass OR Admitting Dept - Virtual Department [address] [place] [id number] 09/08/2025 7:30 AM EST Hospital Encounter OR Admitting Dept - Virtual Department [address] [place] [address] Chinmay Glynn, DO 4 [facility] [place] [address] 09/08/2025 7:30 AM EST - 09/08/2025 9:55 AM EST Surgery OR Admitting Dept - Virtual Department [address] [place] [phone] Chinmay Glynn, DO 4 [facility] [place] [address] ARTHROPLASTY ANATOMIC INVERSE SHOULDER 09/16/2025 3:30 PM EST Office Visit [facility] [address] [place] [address] Sadi Kong MD 22 [facility], 2nd [place] [address] Fouzia Rocha, PT 8 [place] [address] 09/17/2025 10:00 AM EST Office Visit [facility] [address] [place] [address] Esau Alonzo PA-C [address] [place] [address] [place] [address] [email or web address] 09/22/2025 3:15 PM EST Office Visit [address] [address] Sadi Kong MD [address] [place] [address] Fouzia Rocha, PT 8 [place] [address] 09/26/2025 2:30 PM EST Office Visit [address] [place] [address] Sadi Kong MD [address] [place] [phone] Fouzia Rocha, PT 8 [place] [address] 09/30/2025 2:45 PM EST Office Visit [address] [place] [address] Sadi Kong MD [address] [place] [phone] Fouzia Rocha, PT 8 [place] [address] 10/03/2025 2:30 PM EST Office Visit [address] [place] [address] Sadi Kong MD [address] [place] [address] Fouzia Rocah, PT 8 [place] [address] 10/07/2025 2:45 PM EST Office Visit [address] [address] Sadi Kong MD [address] [place] [address] Fouzia Rocha, PT 8 [place] [address] 10/10/2025 2:45 PM EST Office Visit [address] [address] Sadi Kong MD [address] [place] [address] Fouzia Rocha, PT 8 [place] [address] 10/14/2025 3:00 PM EST Office Visit [facility] [address] [place] [address] Sadi Kong MD [address] [place] [phone] Fouzia Rocha, PT 8 [place] [address] 10/15/2025 9:45 AM EST Office Visit [facility] [address] [place] [address] Chinmay Glynn DO 4 [facility] [place] [address] [email or web address] 04/01/2026 10:00 AM EDT Appointment [address] [address] Shellie Cowart MD [address] [address] [email or web address] Scheduled Procedures Name Priority Associated Diagnoses Date/Ti me 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 09/08/2025 7:30 AM EST documented as of this encounter Visit Diagnoses Not on filedocumented in this encounter Additional Health Concerns Assessment Noted Time PHQ-2 Depression Total Score: 0 06/19/20 22 4:01 PM EDT documented as of this encounter Care Teams Reading Interventionist Relationship Specialty Start Date End Date Shellie Cowart MD [address] [place] [phone] PCP - General Family Medicine 10/25/19 Paul Hooper MD [address] [place] [address] Orthopedics & Sports Medicine, [place] [address] Orthopedic Surgery 03/01/24 Preston Pederson MSW [address] [place] [address] Weighing Station Operator Licensed Clinical Weighing Station Operator 12/11/24 documented as of this encounter Additional Source Comments The information contained in this document represents components of the legal health record. It is not the complete legal health record.[facility]
--- OUTSIDE RECORDS SUMMARY | 2025-08-06 12:24 | XMS_ITS | Patient Health Record ---
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 Name Role Phone Italia Mann Primary Care Provider Good Valverde Unavailable [phone] Sagar Pinto Unavailable [phone] Allergies No Known Allergies Reason For Referral No Information Medications Medication SIG (Take, Route, Frequency, Duration) Notes Start Date End Date Status Levothyroxine Sodium 25 MCG 1 tablet in the morning on an empty stomach Orally Once a day Active Provera 2.5 MG 1 tablet with food Orally Once a day Active Meloxicam 15 MG 1 tablet Orally Once a day Active Metoprolol Succinate 25 MG 1 capsule Ora lly Once a day Active Omeprazole 20 MG 1 capsule 1/2 to 1 h our before morning meal Orally Once a day Active Zolpidem Tartrate 5 MG 1 tablet at bedti me as needed Orally Once a day Active Apixaban 5 MG as directed Orally Active Atorvastatin Calcium 40 MG 1 tablet Oral ly Once a day Active buPROPion HCl ER (XL) 150 MG 1 tablet in the morning Orally Once a day Active Calcium Citrate-Vitamin D Active Estradiol 0.5 MG 1 tablet Orally Once a day Active Problems Problem Type SNOMED Code ICD Code Onset Dates Problem Status W/U Status Risk Notes Problem Essential hypertension (43519565) Essential (primary) hypertension (I10) Active confirmed Problem Paroxysmal atrial fibrillation (663549463) Paroxysmal atrial fibrillation (I48.0) Active confirmed Problem Gastric ulcer (639818911) Gastric ulcer, unspecified as acute or chronic, without hemorrhage or perforation (K25.9) Active confirmed Problem Primary generalised osteoarthritis (420363519) Primary generalized (osteo)arthritis (M15.0) Active confirmed Problem Osteoarthritis of knee (809871288) Unilateral primary osteoarthritis, left knee (M17.12) Active confirmed Problem Localized, primary osteoarthritis of the ankle and/or foot (493373733) Primary osteoarthritis, unspecified ankle and foot (M19.079) Active confirmed Problem Mixed incontinence (768586765) Mixed incontinence (N39.46) Active confirmed Problem Artificial knee join t present (205895432284) Presence of left artificial knee joint (Z96.652) Active confirmed Problem Moderate major depression (693635) Moderate major depression (F32.1) Active confirmed Problem Peripheral venous insufficiency (19904284) Venous insufficiency (I87.2) Active confirmed Problem 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) Active confirmed Problem Pure hypercholesterolemia (774908636) Pure hypercholesterolemia (E78.00) Active confirmed Problem Hypothyroidism (65199437) Hypothyroidism (E03.9) Active confirmed Vital Signs Heart Rate 87 /min 02/07/2025 Temperature 97.3 degrees Fahrenheit 02/07/2025 Respiratory Rate 18 /min 02/07/2025 Blood pressure diastolic 85 mm Hg 02/07/2025 Oximetry 96 % 02/07/2025 Height-cm 162.56 cm 02/07/2025 Weight-kg 70.31 kg 02/07/2025 Height 64 in 02/07/2025 Blood pressure systolic 153 mm Hg 02/07/2025 Weight 155 lbs 02/07/2025 BMI 26.6 kg/m2 02/07/2025 Encounters Encounter Location Date Provider Diagnosis [facility] [address] [facility] [address] [place] [address] 10/30/2024 Anzuleykaa Eliua Laceration without foreign body, left lower leg, initial encounter S81.812A ; Neuropathy of both feet G57.93 ; Edema R60.9 ; Paroxysmal atrial fibrillation I48.0 ; Presence of left artificial knee joint Z96.652 and Primary generalized (osteo)arthritis M15.0 [facility] [address] [place] [address] 11/08/2024 Anzuleykaa Pachecoonina Neuropathy of both feet G57.93 ; Laceration without foreign body, left lower leg, subsequent encounter S81.812D ; Edema R60.9 ; Paroxysmal atrial fibrillation I48.0 ; Presence of left artificial knee joint Z96.652 and Primary generalized (osteo)arthritis M15.[address] [address] 11/15/2024 Anzhela Savonina Neuropathy of both feet G57.93 ; Laceration without foreign body, left lower leg, subsequent encounter S81.812D ; Edema R60.9 ; Paroxysmal atrial fibrillation I48.0 ; Presence of left artificial knee joint Z96.652 and Primary generalized (osteo)arthritis M15.[address] [address] 11/22/2024 Anzhela Savonina Neuropathy of both feet G57.93 ; Laceration without foreign body, left lower leg, subsequent encounter S81.812D ; Edema R60.9 ; Paroxysmal atrial fibrillation I48.0 ; Presence of left artificial knee joint Z96.652 and Primary generalized (osteo)arthritis M15.0 [facility] [address] [address] 11/27/2024 Anzhela Savonina Neuropathy of both feet G57.93 ; Laceration without foreign body, left lower leg, subsequent encounter S81.812D ; Edema R60.9 ; Paroxysmal atrial fibrillation I48.0 ; Presence of left artificial knee joint Z96.652 and Primary generalized (osteo)arthritis M15.[address] [address] 12/06/2024 Anzhela Savonina Neuropathy of both feet G57.93 ; Laceration without foreign body, left lower leg, subsequent encounter S81.812D ; Edema R60.9 ; Paroxysmal atrial fibrillation I48.0 ; Presence of left artificial knee joint Z96.652 and Primary generalized (osteo)arthritis M15.[address] [address] 12/13/2024 Anzhela Savonina Neuropathy of both feet G57.93 ; Laceration without foreign body, left lower leg, subsequent encounter S81.812D ; Edema R60.9 ; Paroxysmal atrial fibrillation I48.0 ; Presence of left artificial knee joint Z96.652 and Primary generalized (osteo)arthritis M15.[address] [address] 12/20/2024 Anzhela Savonina Neuropathy of both feet G57.93 ; Laceration without foreign body, left lower leg, subsequent encounter S81.812D ; Edema R60.9 ; Paroxysmal atrial fibrillation I48.0 ; Presence of left artificial knee joint Z96.652 and Primary generalized (osteo)arthritis M15.[address] [address] 12/27/2024 Anzhela Savonina Neuropathy of both feet G57.93 ; Laceration without foreign body, left lower leg, subsequent encounter S81.812D ; Venous insufficiency I87.2 ; Edema R60.9 ; Paroxysmal atrial fibrillation I48.0 ; Presence of left artificial knee joint Z96.652 and Primary generalized (osteo)arthritis M15.[address] [address] 01/06/2025 Anzhela Savonina Neuropathy of both feet G57.93 ; Laceration without foreign body, left lower leg, subsequent encounter S81.812D ; Venous insufficiency I87.2 ; Edema R60.9 ; Paroxysmal atrial fibrillation I48.0 ; Presence of left artificial knee joint Z96.652 and Primary generalized (osteo)arthritis M15.[address] [address] 01/17/2025 Anzhela Savonina Neuropathy of both feet G57.93 ; Laceration without foreign body, left lower leg, subsequent encounter S81.812D ; Venous insufficiency I87.2 ; Edema R60.9 ; Paroxysmal atrial fibrillation I48.0 ; Presence of left artificial knee joint Z96.652 and Primary generalized (osteo)arthritis M15.[address] [address] 02/07/2025 Anzhela Savonina Neuropathy of both feet G57.93 ; Laceration without foreign body, left lower leg, subsequent encounter S81.812D ; Venous insufficiency I87.2 ; Edema R60.9 ; Paroxysmal atrial fibrillation I48.0 ; Presence of left artificial knee joint Z96.652 and Primary generalized (osteo)arthritis M15.0 [facility] [address] [address] 10/29/2024 Good Bowling [facility] [address] [address] 11/04/2024 Kristeldavidestee Bowling [facility] [address] [place] [address] 11/15/2024 Good Bowling [facility] [address] [place] [address] 11/27/2024 Good Bowling Assessments Encounter Date Diagnosis (ICD Code) Assessment Notes Treatment Notes Treatment Clinical Notes Section Notes 10/30/2024 Laceration without foreign body, left lower leg, initial encounter (ICD-10 - S81.812A) On exam, pleasant, afebrile, vital signs stable. I examined the left calf wound noting adherent necrotic tissue with old bloody drainage, central slough and fibrinous rim. There is no odor, no purulence, no surrounding erythema. I discussed the indication for debridement and she was agreeable to procedure. I performed debridement of the wound as outlined above. Wound was cleaned with saline and Santyl was applied to the wound bed, zinc to periwound secured with dsd. She has palpable pulses, no cyanosis. Tubigrip was applied to the left leg. She tolerated the procedure well. Naa presents today for initial visit for treatment of a left calf laceration wound. Wound does not appear infected today, no indication for antibiotics or imaging. I will begin Santyl to the wound to be applied daily. I will begin Tubigrip for gentle compression daily during waking hours. She is advised to remove the tubigrip if she develops increased pain or worsening symptoms. I will order ABIs to evaluate her arterial flow at next visit. Discussed signs of infection and when to report. She will return in 1 week for a follow up visit. I spent 45 minutes of direct and indirect care of this patient reviewing records, gathering H&P, evaluation, formulating plan, education and documentation. I Good Bowling [employer] DRESSER-C, examined, evaluated and treated the patient. Dr. Gasper Danielle was available for any question or concerns that I may have had. 10/30/2024 Neuropathy of both feet (ICD-10 - G57.93) 11/08/2024 Neuropathy of both feet (ICD-10 - G57.93) 11/08/2024 Laceration without foreign body, left lower leg, subsequent encounter (ICD-10 - S81.812D) 11/15/2024 Neuropathy of both feet (ICD-10 - G57.93) 11/22/2024 Neuropathy of both feet (ICD-10 - G57.93) 11/27/2024 Neuropathy of both feet (ICD-10 - G57.93) 12/06/2024 Neuropathy of both feet (ICD-10 - G57.93) 12/13/2024 Neuropathy of both feet (ICD-10 - G57.93) 12/20/2024 Neuropathy of both feet (ICD-10 - G57.93) 12/27/2024 Neuropathy of both feet (ICD-10 - G57.93) 01/06/2025 Neuropathy of both feet (ICD-10 - G57.93) 01/17/2025 Neuropathy of both feet (ICD-10 - G57.93) 02/07/2025 Neuropathy of both feet (ICD-10 - G57.93) 01/17/2025 Laceration without foreign body, left lower leg, subsequent encounter (ICD-10 - S81.812D) 02/07/2025 Laceration without foreign body, left lower leg, subsequent encounter (ICD-10 - S81.812D) 01/06/2025 Laceration without foreign body, left lower leg, subsequent encounter (ICD-10 - S81.812D) 12/27/2024 Venous insufficiency (ICD-10 - I87.2) 12/20/2024 Laceration without foreign body, left lower leg, subsequent encounter (ICD-10 - S81.812D) 12/27/2024 Laceration without foreign body, left lower leg, subsequent encounter (ICD-10 - S81.812D) 12/06/2024 Laceration without foreign body, left lower leg, subsequent encounter (ICD-10 - S81.812D) 12/13/2024 Laceration without foreign body, left lower leg, subsequent encounter (ICD-10 - S81.812D) 11/22/2024 Laceration without foreign body, left lower leg, subsequent encounter (ICD-10 - S81.812D) 11/27/2024 Laceration without foreign body, left lower leg, subsequent encounter (ICD-10 - S81.812D) 11/15/2024 Laceration without foreign body, left lower leg, subsequent encounter (ICD-10 - S81.812D) 11/08/2024 Edema (ICD-10 - R60.9) 10/30/2024 Edema (ICD-10 - R60.9) 11/08/2024 Paroxysmal atrial fibrillation (ICD-10 - I48.0) 10/30/2024 Paroxysmal atrial fibrillation (ICD-10 - I48.0) 11/27/2024 Edema (ICD-10 - R60.9) 11/22/2024 Edema (ICD-10 - R60.9) 11/15/2024 Edema (ICD-10 - R60.9) 12/06/2024 Edema (ICD-10 - R60.9) 12/20/2024 Edema (ICD-10 - R60.9) 12/13/2024 Edema (ICD-10 - R60.9) 12/27/2024 Edema (ICD-10 - R60.9) 01/06/2025 Venous insufficiency (ICD-10 - I87.2) 01/17/2025 Venous insufficiency (ICD-10 - I87.2) 02/07/2025 Venous insufficiency (ICD-10 - I87.2) 02/07/2025 Edema (ICD-10 - R60.9) 01/17/2025 Edema (ICD-10 - R60.9) 01/06/2025 Edema (ICD-10 - R60.9) 12/20/2024 Paroxysmal atrial fibrillation (ICD-10 - I48.0) 12/27/2024 Paroxysmal atrial fibrillation (ICD-10 - I48.0) 12/13/2024 Paroxysmal atrial fibrillation (ICD-10 - I48.0) 11/22/2024 Paroxysmal atrial fibrillation (ICD-10 - I48.0) 11/27/2024 Paroxysmal atrial fibrillation (ICD-10 - I48.0) 12/06/2024 Paroxysmal atrial fibrillation (ICD-10 - I48.0) 10/30/2024 Presence of left artificial knee joint (ICD-10 - Z96.652) 11/15/2024 Paroxysmal atrial fibrillation (ICD-10 - I48.0) 11/08/2024 Presence of left artificial knee joint (ICD-10 - Z96.652) 11/15/2024 Presence of left artificial knee joint (ICD-10 - Z96.652) 10/30/2024 Primary generalized (osteo)arthritis (ICD-10 - M15.0) 11/08/2024 Primary generalized (osteo)arthritis (ICD-10 - M15.0) 11/27/2024 Presence of left artificial knee joint (ICD-10 - Z96.652) 11/22/2024 Presence of left artificial knee joint (ICD-10 - Z96.652) 12/13/2024 Presence of left artificial knee joint (ICD-10 - Z96.652) 12/06/2024 Presence of left artificial knee joint (ICD-10 - Z96.652) 01/17/2025 Paroxysmal atrial fibrillation (ICD-10 - I48.0) 01/06/2025 Paroxysmal atrial fibrillation (ICD-10 - I48.0) 12/27/2024 Presence of left artificial knee joint (ICD-10 - Z96.652) 12/20/2024 Presence of left artificial knee joint (ICD-10 - Z96.652) 02/07/2025 Paroxysmal atrial fibrillation (ICD-10 - I48.0) 02/07/2025 Presence of left artificial knee joint (ICD-10 - Z96.652) 01/17/2025 Presence of left artificial knee joint (ICD-10 - Z96.652) 01/06/2025 Presence of left artificial knee joint (ICD-10 - Z96.652) 12/13/2024 Primary generalized (osteo)arthritis (ICD-10 - M15.0) 12/27/2024 Primary generalized (osteo)arthritis (ICD-10 - M15.0) 12/20/2024 Primary generalized (osteo)arthritis (ICD-10 - M15.0) 12/06/2024 Primary generalized (osteo)arthritis (ICD-10 - M15.0) 11/27/2024 Primary generalized (osteo)arthritis (ICD-10 - M15.0) 11/22/2024 Primary generalized (osteo)arthritis (ICD-10 - M15.0) 11/15/2024 Primary generalized (osteo)arthritis (ICD-10 - M15.0) 01/17/2025 Primary generalized (osteo)arthritis (ICD-10 - M15.0) 01/06/2025 Primary generalized (osteo)arthritis (ICD-10 - M15.0) 02/07/2025 Primary generalized (osteo)arthritis (ICD-10 - M15.0) 11/08/2024 Other On exam, pleasant, afebrile, vital signs stable. I removed the dressing and examined the wound located on the right posterior leg. Wound is measuring smaller, more granulated tissue, overling adherent slough, no surrounding erythema, no purulence or signs of infectious process. With patients permission, I performed debridement of the wound as outlined above. Wound was cleaned with saline and santyl was applied to the wound bed, zinc to periwound secured with dsd.Tubigrip was applied to the left leg. She tolerated the procedure well. Naa presents today for a follow up visit for left calf laceration wound. Her wound improved since her last visit. We will continue with Santyl to the wound to be change daily. ABIs obtained today reveal normal indicies right 1.11, left 1.11, TBI right 0.41, left 0.58. I discussed the results with patient. Continue with Tubigrip for compression and leg elevation encouraged. Discussed signs of infection and when to report. She will return in 1 week for a follow up visit. I Good DUNHAM, examined, evaluated and treated the patient. Dr. Gasper Danielle was available for any question or concerns that I may have had. 11/15/2024 Other On exam, pleasant, afebrile, vital signs stable. I removed the dressing and examined the wound located on the right posterior leg. Wound is measuring approximately the same however there is more granulation tissue with less depth. She does continue to have adherent slough, no surrounding erythema, no purulence or signs of infectious process. With patients permission, I performed debridement of the wound as outlined above. Wound was cleaned with saline and santyl was applied to the wound bed, zinc to periwound secured with dsd. Double layer Tubigrip was applied to the left leg. She tolerated the procedure well. Naa presents today for a follow up visit for left calf laceration wound. Her wound gradually improving. Continue with Santyl to the wound to be change daily. ABIs 11/09/24 reveal normal indicies right 1.11, left 1.11, TBI right 0.41, left 0.58. I will increase compression to double layer tubigrip to be worn during waking hours. Discussed signs of infection and when to report. She will return in 1 week for a follow up visit. I Good DUNHAM, examined, evaluated and treated the patient. Dr. Gasper Danielle was available for any question or concerns that I may have had. 11/22/2024 Other On exam, pleasant, afebrile, vital signs stable. I removed the dressing and examined the wound located on the right posterior leg. Wound is measuring smaller, wound bed continues to improve with less slough and more granulated tissue. There is no surrounding erythema, no purulence or signs of infectious process. With patients permission, I performed debridement of the wound as outlined above. Wound was cleaned with saline and santyl was applied to the wound bed, zinc to periwound secured with dsd. Tubigrip with nuzhat wrap was applied to the left leg. She tolerated the procedure well. Naa presents today for a follow up visit for left calf laceration wound. Her wound is gradually improving. Continue with Santyl to the wound to be change daily. ABIs 11/09/24 reveal normal indicies right 1.11, left 1.11, TBI right 0.41, left 0.58. She is having difficulty with applying double layer tubigrip therefore I will switch to tubigrip with nuzhat wrap to be applied daily in AM and off in PM. Continue with leg elevation. Discussed signs of infection and when to report. She will return in 1 week for a follow up visit. I Good DUNHAM, examined, evaluated and treated the patient. Dr. Gasper Danielle was available for any question or concerns that I may have had. 11/27/2024 Other On exam, pleasant, afebrile, vital signs stable. I removed the dressing and examined the wound located on the left posterior calf. Wound is measuring smaller, wound bed continues to improve with less slough and more granulated tissue. There are hypergranulated buds within the wound bed. There is no surrounding erythema, no purulence or signs of infectious process. With patients permission, I performed debridement of the wound as outlined above and used silver nitrate to cauterize the hypergranulated tissue. Wound was cleaned with saline and HFB was applied to the wound bed, zinc to periwound secured with dsd. Tubigrip with nuzhat wrap was applied to the left leg. She tolerated the procedure well. Naa presents today for a follow up visit for left calf laceration wound. Her wound is gradually improving, measuring smaller. I will discontinue the Santyl and begin HFB to the wound to be changed every 2-3 days. ABIs 11/09/24 reveal normal indicies right 1.11, left 1.11, TBI right 0.41, left 0.58. She is tolerating the double layer compression, will continue with tubigrip and nuzhat wrap daily during waking hours. Continue with leg elevation.She is agreeable to plan. Discussed signs of infection and when to report. She will return in 1 week for a follow up visit. I Good DUNHAM, examined, evaluated and treated the patient. Dr. Gasper Danielle was available for any question or concerns that I may have had. 12/06/2024 Other On exam, pleasant, afebrile, vital signs stable. I removed the dressing and examined the wound located on the left posterior calf. Wound is measuring smaller, wound bed continues to improve with less slough and more granulated tissue. There is no surrounding erythema, no purulence or signs of infectious process. With patients permission, I performed debridement of the wound as outlined above. Wound was cleaned with saline and Aquacel ag was applied to the wound bed, zinc to periwound secured with dsd. Tubigrip with nuzhat wrap was applied to the left leg. She tolerated the procedure well. Naa presents today for a follow up visit for left calf laceration wound. Her wound is improving, measuring smaller. I will discontinue the HFB and begin Aquacel ag to the wound to be changed every 2-3 days. ABIs 11/09/24 reveal normal indicies right 1.11, left 1.11, TBI right 0.41, left 0.58. She is tolerating the double layer compression, will continue with tubigrip and nuzhat wrap daily during waking hours. Continue with leg elevation.She is agreeable to plan. Discussed signs of infection and when to report. She will return in 1 week for a follow up visit. I Good DUNHAM, examined, evaluated and treated the patient. Dr. Gasper Danielle was available for any question or concerns that I may have had. I, Estevan Danielle MD confirm that Good DUNHAM understands and adheres to the guidelines of the established clinical protocols in the office. I confirm the above care provided was rendered under my general supervision as initially planned and subsequently discussed and supervised by me. 12/13/2024 Other On exam, pleasant, afebrile, vital signs stable. I removed the dressing and examined the wound located on the left posterior calf. Wound continues to improve, measuring smaller with more granulated tissue, overlying slough noted with epibole. There is no surrounding erythema, no purulence or signs of infectious process. With patients permission, I performed debridement of the wound as outlined above and used silver nitrate to cauterize epibole. Wound was cleaned with saline and Purocol was applied to the wound bed, zinc to periwound secured with dsd. Double layer tubigrip was applied to the left leg. She tolerated the procedure well. Naa presents today for a follow up visit for left calf laceration wound. Her wound continues to improve, measuring smaller. Her wound is more granulated therefore I will switch to purocol to be changed every 3 days. ABIs 11/09/24 reveal normal indicies right 1.11, left 1.11, TBI right 0.41, left 0.58. She is tolerating the double layer compression, will continue with tubigrip and nuzhat wrap or double layer tubigrip daily during waking hours. Continue with leg elevation.She is agreeable to plan. Discussed signs of infection and when to report. She will return in 1 week for a follow up visit. I Good DUNHAM, examined, evaluated and treated the patient. Dr. Gasper Danielle was available for any question or concerns that I may have had. 12/20/2024 Other On exam, pleasant, afebrile, vital signs stable. I removed the dressing and examined the wound located on the left posterior calf. Wound continues to improve, measuring significanlty smaller with more granulated tissue, fibrinous rim, overlying slough noted, edges are now attached. There is no surrounding erythema, no purulence or signs of infectious process. With patients permission, I performed debridement of the wound as outlined above. Wound was cleaned with saline and wound gel with Purocol was applied to the wound bed, zinc to periwound secured with dsd. Double layer tubigrip was applied to the left leg. She tolerated the procedure well. Naa presents today for a follow up visit for left calf laceration wound. Her wound continues to improve, measuring smaller. Continue with purocol however will add wound gel to be changed every 3 days. ABIs 11/09/24 reveal normal indicies right 1.11, left 1.11, TBI right 0.41, left 0.58. She is tolerating the double layer compression, will continue with tubigrip and nuzhat wrap or double layer tubigrip daily during waking hours. Continue with leg elevation.She is agreeable to plan. Discussed signs of infection and when to report. She will return in 1 week for a follow up visit. I Good DUNHAM, examined, evaluated and treated the patient. Dr. Gasper Danielle was available for any question or concerns that I may have had. 12/27/2024 Other On exam, pleasant, afebrile, vital signs stable. I removed the dressing and examined the wound located on the left posterior calf. Wound is measuring slight smaller however does have adherent purocol with fibrinous rim, hypergranulated tissue, overlying slough noted. There is no surrounding erythema, no purulence or signs of infectious process. With patients permission, I performed debridement of the wound as outlined above. Wound was cleaned with saline and wound gel with Purocol was applied to the wound bed, zinc to periwound secured with dsd. Double layer tubigrip was applied to the left leg. She tolerated the procedure well. Naa presents today for a follow up visit for left calf laceration wound. Her wound is stable. I advised her to apply purocol only to the wound bed to avoid sticking to the edges. Continue to use wound gel as well to be changed every 3 days. ABIs 11/09/24 reveal normal indicies right 1.11, left 1.11, TBI right 0.41, left 0.58. She is tolerating the double layer compression, will continue with tubigrip and nuzhat wrap or double layer tubigrip daily during waking hours. Continue with leg elevation.She is agreeable to plan. Discussed signs of infection and when to report. She will return in 1 week for a follow up visit. I Good DUNHAM, examined, evaluated and treated the patient. Dr. Gasper Danielle was available for any question or concerns that I may have had. 01/06/2025 Other On exam, pleasant, afebrile, vital signs stable. I removed the dressing and examined the wound located on the left posterior calf. Wound is stable however does have adherent purocol with fibrinous rim, hypergranulated tissue, epibole, and overlying slough noted. There is no surrounding erythema, no purulence or signs of infectious process. With patients permission, I performed debridement of the wound as outlined above. Wound was cleaned with saline and wound gel was applied to the wound bed, zinc to periwound secured with dsd. Double layer tubigrip was applied to the left leg. She tolerated the procedure well. Naa presents today for a follow up visit for left calf laceration wound. Her wound is stable. Discontinue the purocol and use wound gel to the wound bed daily, zinc to periwound. She is tolerating the double layer compression, will continue with tubigrip and nuzhat wrap or double layer tubigrip daily during waking hours. Continue with leg elevation.She is agreeable to plan. Discussed signs of infection and when to report. She will return in 1 week for a follow up visit. Shelli DUNHAM, examined, evaluated and treated the patient. Dr. Gasper Danielle was available for any question or concerns that I may have had. 01/17/2025 Other On exam, pleasant, afebrile, vital signs stable. I removed the dressing and examined the wound located on the left posterior calf. Wound is measuring smaller, fibrinous rim, hypergranulated tissue, epibole, and overlying slough noted within the wound bed. There is no surrounding erythema, no purulence or signs of infectious process. With patients permission, I performed debridement of the wound as outlined above. Wound was cleaned with saline and wound gel was applied to the wound bed, zinc to periwound secured with dsd. Double layer tubigrip was applied to the left leg. She tolerated the procedure well. Naa presents today for a follow up visit for left calf laceration wound. Her wound is measuring smaller. Continue with wound gel to the wound bed daily, zinc to periwound. She is tolerating the double layer compression, will continue with tubigrip and nuzhat wrap or double layer tubigrip daily during waking hours. Continue with leg elevation.She is agreeable to plan. Discussed signs of infection and when to report. She will return in 1 week for a follow up visit. I Good DUNHAM, examined, evaluated and treated the patient. Dr. Gasper Danielle was available for any question or concerns that I may have had. 02/07/2025 Other On exam, pleasant, afebrile, vital signs stable. I removed the dressing and examined the wound located on the left posterior calf. Wound has re-epithelialized, there is no drainage. Continues to have dark veins present.There is no surrounding erythema or signs of local infection. We applied moisturizer today. Recommended applying lotion daily. She does not need any further follow up. Thank you for allowing us to participate in your care. Shelli DUNHAM, examined, evaluated and treated the patient. Dr. Gasper Danielle was available for any question or concerns that I may have had. Plan Of Treatment No Information Insurance Providers Payer Name Payer Address Payer Phone Subscriber Number Group Number Insured Name Patient Relationship to Insured Coverage Start Date Coverage End Date [facility] [address] [place] [address] [id number] Naa Stewart Self - patient is the insured 3 Medical (General) History Medical History History ICD Code Inguinal hernia K40.90 Trigger finger, left middle finger M65.3 32 Moderate major depression F32.1 Presence of left artificial knee joint Z 96.652 Gastric ulcer, unspecified a s acute or chronic, without hemorrhage or perforation K25.9 Cardiac murmur, unspecified R01.1 Other shoulder lesions, right shoulder M 75.81 Hypothyroidism E03.9 Paroxysmal atrial fibrillation I48.0 Other specified disorders of bone densit y and structure, right thigh M85.851 Unilateral primary osteoarthritis, left knee M17.12 Essential (primary) hypertension I10 Tachycardia R00.0 Mixed incontinence N39.46 Primary osteoarthritis, unspecified ankl e and foot M19.079 Other specified personal risk factors, n ot elsewhere classified Z91.89 Pure hypercholesterolemia E78.00 Primary generalized (osteo)arthritis M15 .0 Neuropathy of both feet G57.93 Aortic stenosis I35.0 Surgical History Surgery Date(Month/Year) Arthroplasty Total Knee Left cholecystectomy Cyst excision Right knee joint replacement spinal fusion tonsillectomy
--- OUTSIDE RECORDS SUMMARY | 2025-08-06 12:24 | XMS_ITS | Encounter Summary ---
Author Organization [facility] Address [address] [place] [address] Phone Care Team Providers Care Internet Developer Name Role Phone Shellie Cowart MD Primary Care Provider [phone] Paul Hooper MD Unavailable Preston Pederson SHOP FOREMAN Unavailable [phone] Encounter Details Date Type Department Care Team (Late st Contact Info) Description 05/18/2022 Ancillary Orders [facility] Infectious Diseases 15 [place] [address] Dana Conroy FNP 15 [facility], 2nd [place] [address] [email or web address] Pain Social History Tobacco Use Types Packs/Day Years [...] work, study, or receive health care? No 06/18/2021 Education Answer Date Recorded Are you interested in help w ith more adult education (for example, completing high school, GED, job training, learning the [place] language, technical skills, or developing parenting skills)? No 06/18/2021 Food Answer Date Recorded Within the past 6 months we worried whether our food would run out before we got money to buy more. Never True 06/18/2021 Within the past 6 months the food we bought just didn't last and we didn't have enough money to get more. Never True Paying for Meds Answer Date Recorded Do you have trouble paying for medicines? No 06/18/2021 Paying Utility Bills Answer Date Record ed Do you have trouble paying your heating or elect ricity bill? No 06/18/2021 Transportation Answer Date Recorded Has the lack of transportati on kept you from medical appointments or from getting medications? No 06/18/2021 Comments No Sex and Gender Information Value Date Recorded Sex Assigned at Female 05/25/2020 8:19 AM EDT Legal Sex Female 12:09 PM EST Gender Identity Female 05/25/2020 8:19 AM EDT Sexual Orientation Straight 05/25/2020 8: 19 AM EDT documented as of this encounter Plan of Treatment Upcoming Encounters Date Type Department Care Team (Late st Contact Info) Description 07/25/2025 Procedure Pass [facility] [address] [place] [address] 08/07/2025 10:00 AM EDT Office Visit [facility] [address] [facility] [address] [place] [address] Shellie Cowart MD 15 [facility] 201 [place] [address] 08/20/2025 9:40 AM EST Office Visit [facility] [address] [place] [address] Esau Alonzo PA-C [address] [place] [address] [place] [address] [email or web address] 09/05/2025 8:00 AM EST Pre-Admission Testing Pre Procedure Evaluation [address] [place] [address] Chinmay Glynn DO [address] [place] [address] [facility] [place] [address] [email or web address] 09/08/2025 Procedure Pass [place] Admitting Dept - Virtual Department [address] [place] [address] 09/08/2025 7:30 AM EST Hospital Encounter OR Admitting Dept - Virtual Department [address] [place] [address] Chinmay Glynn DO [address] [place] [address] Orthopedics Sports [facility], [place] [address] [email or web address] 09/08/2025 7:30 AM EST - 09/08/2025 9:55 AM EST Surgery OR Admitting Dept - Virtual Department [address] [place] [address] Chinmay Glynn DO 4 [facility] Orthopedics & Sports [facility], [place] [address] [email or web address] ARTHROPLASTY ANATOMIC INVERSE SHOULDER 09/16/2025 3:30 PM EST Office Visit [facility] [address] [place] [address] Sadi Kong MD 22 [facility], 2nd [place] [address] Fouzia Rocha, PT 8 [place] [address] 09/17/2025 10:00 AM EST Office Visit [facility] [address] [place] [address] Esau Alonzo PA-C [address] [place] [address] [place] [address] [email or web address] 09/22/2025 3:15 PM EST Office Visit [address] [place] [address] Sadi Kong MD [address] [place] [address] Fouzia Rocha, PT 8 [place] [address] 09/26/2025 2:30 PM EST Office Visit [address] [place] [address] Sadi Kong MD [address] [place] [address] Fouzia Rocha, PT 8 [place] [address] 09/30/2025 2:45 PM EST Office Visit [address] [place] [address] Sadi Kong MD [address] [place] [address] Fouzia Rocha, PT 8 [place] [address] 10/03/2025 2:30 PM EST Office Visit [address] [place] [address] Sadi Kong MD [address] [place] [address] Fouzia Rocha, PT 8 [place] [address] 10/07/2025 2:45 PM EST Office Visit [address] [place] [address] Sadi Kong MD [address] [place] [address] Fouzia Rocha, PT 8 [place] [address] 10/10/2025 2:45 PM EST Office Visit [address] [address] Sadi Kong MD [address] [place] [address] Fouzia Rocha, PT 8 [place] [address] 10/14/2025 3:00 PM EST Office Visit [address] [address] Sadi Kong MD [address] [place] [address] Fouzia Rocha, PT 8 [place] [address] 10/15/2025 9:45 AM EST Office Visit [facility] [address] [place] [address] Chinmay Glynn DO [address] [place] [address] [facility] [place] [address] 04/01/2026 10:00 AM EDT Appointment [facility] [address] [place] [address] Shellie Cowart MD 15 [facility] [address] [place] [address] [email or web address] Scheduled Procedures Name Priority Associated Diagnoses Date/Ti me 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 09/08/2025 7:30 AM EST documented as of this encounter Results * XR FOOT 3 OR MORE VIEWS (RIGHT) (05/18/2022 5:55 PM EDT) Anatomical Region Laterality Modality Foot Right Computed Radiogr aphy 05/19/2022 12:4 7 PM EDT Impressions 05/19/2022 12:54 PM EDT Displaced and apparently subacute fracture of second metatarsal shaft without other acute bony abnormality apparent. Neuropathic changes as above. The results of this examination were discussed with the ordering clinician on 05/19/2022. Narrative 05/19/2022 12:54 PM EDT XR FOOT 3 OR MORE VIEWS (RIGHT) COMPARISON: Outside study of 11/03/2020 FINDINGS: Frontal, lateral, and oblique views were obtained disclosing oblique and slightly comminuted fracture through the midshaft of the second metatarsal with up to one half shaft width of medial displacement of the major distal fragment. Articular surfaces are not involved. There is minimal faint soft tissue calcification consistent with early callus formation. There are extensive neuropathic changes in the midfoot which seem chronic and overall unchanged. No erosive arthropathy apparent. There is collapse of the plantar arch. Small calcaneal spur. Procedure Note Sagar Renteria MD - 05/19/2022 XR FOOT 3 OR MORE VIEWS (RIGHT) COMPARISON: Outside study of 11/03/2020 FINDINGS: Frontal, lateral, and oblique views were obtained disclosing oblique andslightly comminuted fracture through the midshaft of the second metatarsalwith up to one half shaft width of medial displacement of the major distalfragment. Articular surfaces are not involved. There is minimal faint softtissue calcification consistent with early callus formation. There areextensive neuropathic changes in the midfoot which seem chronic andoverall unchanged. No erosive arthropathy apparent. There is collapse ofthe plantar arch. Small calcaneal spur. IMPRESSION: Displaced and apparently subacute fracture of second metatarsal shaftwithout other acute bony abnormality apparent. Neuropathic changes asabove. The results of this examination were discussed with the ordering clinicianon 05/19/2022. Dana Conroy HOSPITAL RECEIVING CLERK IMG XR LOWER EXTREMITY F inal Result documented in this encounter Visit Diagnoses Diagnosis Pain Generalized pain Pain Generalized pain Arthropathy of right shoulder documented in this encounter Additional Health Concerns Assessment Noted Time PHQ-2 Depression Total Score: 0 06/18/20 21 9:47 AM EDT documented as of this encounter Care Teams Internet Developer Relationship Specialty Start Date End Date Shellie Cowart MD [address] [place] [address] [email or web address] PCP - General Family Medicine 10/25/19 Paul Hooper MD [address] [place] [address] [facility], [place] [address] Orthopedic Surgery 03/01/24 Preston Pederson MSW [address] [place] [address] [employer] Utility Worker Licensed Clinical [employer] Utility Worker 12/11/24 documented as of this encounter Additional Source Comments The information contained in this document represents components of the legal health record. It is not the complete legal health record.[facility]
--- OUTSIDE RECORDS SUMMARY | 2025-08-06 12:25 | XMS_ITS | Encounter Summary ---
Author Organization [facility] Address [address] [place] [address] Phone Care Team Providers Care Clinical Psychologist Licensed Name Role Phone Shellie Cowart MD Primary Care Provider [phone] Paul Hooper MD Unavailable [phone] Preston Pederson DRY CURE WORKER Unavailable [phone] Encounter Details Date Type Department Care Team (Late st Contact Info) Description 01/25/2024 Procedure Pass [facility] [address] [place] [address] Social History Tobacco Use Types Packs/Day Years [...] high school, GED, job training, learning the [place]onian language, technical skills, or developing parenting skills)? No 06/19/2022 Food Answer Date Recorded Within the past 6 months we worried whether our food would run out before we got money to buy more. Never True 07/26/2023 Within the past 6 months the food we bought just didn't last and we didn't have enough money to get more. Never True Residential Stability Answer Date Recor ded What is your housing situation today? I have janae sing 07/26/2023 How many times have you move d in the past 12 months? Zero (I did not move) 07/26/2023 Paying for Meds Answer Date Recorded Do you have trouble paying for medicines? No 07/26/2023 Paying Utility Bills Answer Date Record ed Do you have trouble paying your heating or elect ricity bill? No 07/26/2023 Transportation Answer Date Recorded Has the lack of transportati on kept you from medical appointments or from getting medications? No 07/26/2023 Unemployment Answer Date Recorded Are you currently unemployed or working on a part-time or temporary basis, and looking for work? No 06/19/2022 Digital Access Answer Date Recorded No 07/26/2023 Yes 07/26/2023 Do you have reliable internet access at home? Ye s 07/26/2023 Do you have a device (e.g., phone, tablet, computer) with a working camera? Yes 07/26/2023 Comments No Sex and Gender Information Value Date Recorded Sex Assigned at Female 05/25/2020 8:19 AM EDT Legal Sex Female 12:09 PM EST Gender Identity Female 05/25/2020 8:19 AM EDT Sexual Orientation Straight 05/25/2020 8: 19 AM EDT documented as of this encounter Plan of Treatment Upcoming Encounters Date Type Department Care Team (Late st Contact Info) Description 07/25/2025 Procedure Pass [address] [address] 08/07/2025 10:00 AM EDT Office Visit [facility] [address] [facility] [address] [place] [address] Shellie Cowart MD 15 [facility] [address] [place] [address] 08/20/2025 9:40 AM EST Office Visit [facility] [address] [place] [address] Esau Alonzo PA-C [address] [place] [address] [place] [address] [email or web address] 09/05/2025 8:00 AM EST Pre-Admission Testing Pre Procedure Evaluation [address] [place] [address] Chinmay Glynn, DO 4 [facility] [place] [address] 09/08/2025 Procedure Pass [place] Admitting Dept - Virtual Department [address] [place] [address] 09/08/2025 7:30 AM EST Hospital Encounter OR Admitting Dept - Virtual Department [address] [place] [address] Chinmay Glynn, DO 4 [facility] Orthopedics Sports [facility], [place] [address] 09/08/2025 7:30 AM EST - 09/08/2025 9:55 AM EST Surgery OR Admitting Dept - Virtual Department [address] [place] [address] Chinmay Glynn, DO 4 [facility] Orthopedics Sports [facility], [place] [address] ARTHROPLASTY ANATOMIC INVERSE SHOULDER 09/16/2025 3:30 PM EST Office Visit [facility] 8 [place] [address] Sadi Kong MD 22 [facility], 2nd [place] [address] Fouzia Rocha, PT 8 [place] [address] 09/17/2025 10:00 AM EST Office Visit [facility] [address] [place] [address] Esau Alonzo PA-C [address] [place] [address] [place] [address] [email or web address] 09/22/2025 3:15 PM EST Office Visit [address] [address] Sadi Kong MD [address] [place] [address] Fouzia Rocha, PT 8 [place] [address] [email or web address] 09/26/2025 2:30 PM EST Office Visit [address] [place] [address] Sadi Kong MD [address] [place] [address] Fouzia Rocha, PT 8 [place] [address] [email or web address] 09/30/2025 2:45 PM EST Office Visit [address] [place] [address] Sadi Kong MD [address] [place] [address] Fouzia Rocha, PT 8 [place] [address] [email or web address] 10/03/2025 2:30 PM EST Office Visit [address] [place] [address] Sadi Kong MD [address] [place] [address] Fouzia Rocha, PT 8 [place] [address] 10/07/2025 2:45 PM EST Office Visit [address] [address] Sadi Kong MD [address] [place] [address] Fouzia Rocha, PT 8 [place] [address] 10/10/2025 2:45 PM EST Office Visit [address] [address] Sadi Kong MD [address] [place] [address] Fouzia Rocha, PT 8 [place] [address] 10/14/2025 3:00 PM EST Office Visit [facility] 8 [place] [address] Sadi Kong MD [address] [place] [address] Fouzia Rocha, PT 8 [place] [address] 10/15/2025 9:45 AM EST Office Visit [facility] [address] [place] [address] Chinmay Glynn DO 4 [facility] Orth[facility]ics [facility] Sports Medicine, [place] [address] 04/01/2026 10:00 AM EDT Appointment [address] [address] Shellie Cowart MD [address] [address] [email or web address] Scheduled Procedures Name Priority Associated Diagnoses Date/Ti me 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 09/08/2025 7:30 AM EST documented as of this encounter Visit Diagnoses Not on filedocumented in this encounter Additional Health Concerns Assessment Noted Time PHQ-2 Depression Total Score: 2 07/26/20 23 7:43 AM EDT documented as of this encounter Care Teams Clinical Psychologist Licensed Relationship Specialty Start Date End Date Shellie Cowart MD [address] [place] [address] [email or web address] PCP - General Family Medicine 10/25/19 Paul Hooper MD [address] [place] [address] [facility] Medicine, [place] [address] Orthopedic Surgery 03/01/24 Preston Pederson MSW [address] [place] [address] [email or web address] Radiological Equipment Specialist Licensed Clinical Radiological Equipment Specialist 12/11/24 documented as of this encounter Additional Source Comments The information contained in this document represents components of the legal health record. It is not the complete legal health record.[facility]
--- OUTSIDE RECORDS SUMMARY | 2025-08-06 12:25 | XMS_ITS | Encounter Summary ---
Author Organization [facility] Address [address] [place] [address] Phone Care Team Providers Care Manager Interface Name Role Phone Shellie Cowart MD Primary Care Provider [phone] Paul Hooper MD Unavailable [phone] Preston Pederson TRAINING DEVELOPER Unavailable [phone] Encounter Details Date Type Department Care Team (Late st Contact Info) Description 10/03/2024 Procedure Pass [facility], [facility] [address] [place] [address] Social History Tobacco Use Types Packs/Day Years [...] computer) with a working camera? Yes 07/26/2023 Intimate Partner Violence Answer Date R ecorded Are you denied basic needs s uch as food, clothing, or medical care? No 07/11/2024 In the past 12 months have y ou been in a relationship with a person who hurts, threatens, or tries to control you? No 07/11/2024 Are you denied basic needs s uch as food, clothing, or medical care? No 07/11/2024 In the past 12 months have y ou been in a relationship with a person who hurts, threatens, or tries to control you? No 07/11/2024 Comments No Sex and Gender Information Value Date Recorded Sex Assigned at Female 05/25/2020 8:19 AM EDT Legal Sex Female 12:09 PM EST Gender Identity Female 05/25/2020 8:19 AM EDT Sexual Orientation Straight 05/25/2020 8: 19 AM EDT documented as of this encounter Plan of Treatment Upcoming Encounters Date Type Department Care Team (Kenisha Contact Info) Description 07/25/2025 Procedure Pass [facility], [facility] [address] [place] [address] 08/07/2025 10:00 AM EDT Office Visit [facility] [address] [place] [address] Shellie Cowart MD 15 [facility] [address] [place] [address] 08/20/2025 9:40 AM EST Office Visit [facility] Medicine [address] [place] [address] Esau Alonzo PA-C [address] [place] [address] [place] [address] [email or web address] 09/05/2025 8:00 AM EST Pre-Admission Testing Pre Procedure Evaluation [address] [place] [address] Chinmay Glynn DO [address] [place] [address] Orthopedics & Sports Medicine, [place] [address] [email or web address] 09/08/2025 Procedure Pass [place] Admitting Dept - Virtual Department [address] [place] [address] 09/08/2025 7:30 AM EST Hospital Encounter OR Admitting Dept - Virtual Department [address] [place] [address] Chinmay Glynn DO [address] [place] [address] Orthopedics & Sports Medicine, [place] [address] [email or web address] 09/08/2025 7:30 AM EST - 09/08/2025 9:55 AM EST Surgery OR Admitting Dept - Virtual Department [address] [place] [address] Chinmay Glynn DO [address] [place] [address] Orthopedics & Sports Medicine, [place] [address] ARTHROPLASTY ANATOMIC INVERSE SHOULDER 09/16/2025 3:30 PM EST Office Visit [address] [place] [address] Sadi Kong MD [address] [place] [address] Fouzia Rocha, PT 8 [place] [address] 09/17/2025 10:00 AM EST Office Visit [facility] Medicine [address] [place] [address] Esau Alonzo PA-C [address] [place] [address] [place] [address] [email or web address] 09/22/2025 3:15 PM EST Office Visit [address] [address] Sadi Kong MD [address] [place] [address] Fouzia Rocha, PT 8 [place] [address] 09/26/2025 2:30 PM EST Office Visit [address] [place] [address] Sadi Kong MD [address] [place] [address] Fouzia Rocha, PT 8 [place] [address] 09/30/2025 2:45 PM EST Office Visit [address] [address] Sadi Kong MD [address] [place] [address] Fouzia Rocha, PT 8 [place] [address] 10/03/2025 2:30 PM EST Office Visit [address] [address] Sadi Kong MD [address] [place] [address] Fouzia Rocha, PT 8 [place] [address] 10/07/2025 2:45 PM EST Office Visit [address] [address] Sadi Kong MD [address] [place] [address] Fouzia Rocha, PT 8 [place] [address] 10/10/2025 2:45 PM EST Office Visit [address] [address] Sadi Kong MD [address] [place] [address] Fouzia Rocha, PT 8 [place] [address] 10/14/2025 3:00 PM EST Office Visit [facility] 8 [place] [address] Sadi Kong MD [address] [facility], 2nd [place] [address] Fouzia Rocha, PT 8 [place] [address] 10/15/2025 9:45 AM EST Office Visit [facility] Medicine [address] [place] [address] Chinmay Glynn DO [address] [place] [address] Orthopedics & Sports Medicine, [place] [address] 04/01/2026 10:00 AM EDT Appointment [address] [address] Shellie Cowart MD [address] [place] [address] 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 09/08/2025 7:30 AM EST documented as of this encounter Visit Diagnoses Not on filedocumented in this encounter Additional Health Concerns Assessment Noted Time PHQ-9 Depression Total Score: 1 10/24/19 12:00 PM EST PHQ-2 Depression Total Score: 10/24/19 12:00 PM EST documented as of this encounter Care Teams Manager Interface Relationship Specialty Start Date End Date Shellie Cowart MD [address] [address] PCP - General Family Medicine 10/25/19 Paul Hooper MD [address] [place] [address] Orthopedics & Sports Medicine, [place] [address] Orthopedic Surgery 03/01/24 Preston Pederson MSW [address] [place] [address] Games Manager Licensed Clinical Games Manager 12/11/24 documented as of this encounter Additional Source Comments The information contained in this document represents components of the legal health record. It is not the complete legal health record.[facility]
--- OUTSIDE RECORDS SUMMARY | 2025-08-06 12:25 | XMS_ITS | Continuity of Care Document ---
Author Organization [facility] Address [address] [place] [address] Care Team Providers Care Home Care Manager Name Role Phone Shellie Cowart Primary Care Provider [phone] Encounters Date Type Department Care Team Description 07/23/2024 1:40 PM EDT Office Visit [facility] Podiatry [address] [place] [address] Transmissions Systems Operator: Wilder Knapp DPM Charcot joint of foot, unspecified laterality (Primary Dx); Right foot pain Allergies No known active allergies Medications acetaminophen (TYLENOL) 500 mg tablet Take 1,000 mg by mouth every 8 (eight) hours. 04/17/2024 Active aspirin 81 mg EC tablet Take 81 mg by mouth 2 times daily. 04/17/2024 Active atorvastatin (LIPITOR) 40 mg tablet Take 40 mg by mouth daily. 10/30/2023 Active buPROPion XL (WELLBUTRIN XL) 150 mg tablet Take 150 mg by mouth daily. 07/05/2024 Active calcium citrate-vitamin D3 (CITRACAL WITH VITAMIN D) 200 mg-6.25 mcg (250 unit) tablet tablet Take 1 tablet by mouth 2 times daily. Active docusate sodium (COLACE) 100 mg capsule Take 100 mg by mouth 2 times daily as needed. 04/17/2024 Active estradioL (ESTRACE) 0.5 mg tablet Take 0.5 mg by mouth daily. 07/01/2024 Active hydroCHLOROthia zide (HYDRODIURIL) 50 mg tablet Take 50 mg by mouth daily. 11/08/2023 Active levothyroxine (SYNTHROID, LEVOTHROID) 25 mcg tablet Take 25 mcg by mouth daily. 01/25/2024 Active medroxyPROGESTE Bhupinder (PROVERA) 2.5 mg tablet Take 2.5 mg by mouth daily. 2024 Active meloxicam (MOBIC) 15 mg tablet Take 15 mg by mouth once a day. Active metoprolol succinate XL (TOPROL XL) 25 mg tablet Take 25 mg by mouth once a day. 07/15/2024 Active omeprazole (PriLOSEC) 20 mg capsule Take 20 mg by mouth daily. 11/08/2023 Active senna (SENOKOT) 8.6 mg tablet Take 2 tablets by mouth once daily as needed. 04/17/2024 Active zolpidem (AMBIEN) 5 mg tablet Take 5 mg by mouth once daily as needed. 01/08/2024 Active Social History Smoking Status as of 08/06/2025 Tobacco Use Types Packs/Day Years Used Date Smoking Tobacco: Never Assessed Sex and Gender Information Value Date Recorded Sex Assigned at Female 07/08/2024 11:55 AM EDT Legal Sex Female 12:47 PM EDT Gender Identity Female 07/17/2024 10:26 AM EDT Sexual Orientation Straight 07/17/2024 10 :26 AM EDT Plan of Treatment Not on file Visit Diagnoses Diagnosis Start Date Charcot joint of foot, unspecified laterality 07/23/2024 Right foot pain Pain in soft tissues of limb 07/23/2024 Care Teams Home Care Manager Relationship Specialty Start Date End Date Shellie Cowart [address] [place] [address] PCP - General Family Medicine 07/05/24
--- OUTSIDE RECORDS SUMMARY | 2025-08-06 12:25 | XMS_ITS | Encounter Summary ---
Author Organization [facility] Address [address] [place] [address] Phone Care Team Providers Care Flame Hardening Machine Operator Name Role Phone Shellie Cowart MD Primary Care Provider [phone] Paul Hooper MD Unavailable [phone] Preston Pederson EXECUTIVE ADVISOR Unavailable [phone] Encounter Details Date Type Department Care Team (Latest Contact Info) Description 01/18/2021 Transcribe Orders Virtual Department [address] [place] [address] Shellie Cowart MD 15 [facility] [address] [place] [address] [email or web address] Breast screening (Primary Dx) Social History Tobacco Use Types Packs/Day Years Used Date Smoking Tobacco: Former Smokeless Tobacco: Never Alcohol Use Standard Drinks/Week Comments Yes 0 (1 standard drink = 0.6 oz pur e alcohol) Comments No Sex and Gender Information Value Date Recorded Sex Assigned at Female 05/25/2020 8:19 AM EDT Legal Sex Female 12:09 PM EST Gender Identity Female 05/25/2020 8:19 AM EDT Sexual Orientation Straight 05/25/2020 8: 19 AM EDT documented as of this encounter Plan of Treatment Upcoming Encounters Date Type Department Care Team (Late st Contact Info) Description 07/25/2025 Procedure Pass [facility], [facility] [address] [place] [address] 08/07/2025 10:00 AM EDT Office Visit [facility] [address] [facility] [address] [place] [address] Shellie Cowart MD 15 [facility] [address] [place] [address] 08/20/2025 9:40 AM EST Office Visit [facility] Orthopedics & Sports Medicine [address] [place] [address] Esau Alonzo PA-C [address] [place] [address] [place] [address] [email or web address] 09/05/2025 8:00 AM EST Pre-Admission Testing Pre Procedure Evaluation [address] [place] [address] Chinmay Glynn DO 4 [facility] [place] [address] 09/08/2025 Procedure Pass OR Admitting Dept - Virtual Department [address] [place] [address] 09/08/2025 7:30 AM EST Hospital Encounter OR Admitting Dept - Virtual Department [address] [place] [address] Chinmay Glynn DO 4 [facility] [place] [address] 09/08/2025 7:30 AM EST - 09/08/2025 9:55 AM EST Surgery OR Admitting Dept - Virtual Department [address] [place] [address] Chinmay Glynn DO 4 [facility] Orth[facility] & Sports [facility] [place] [address] ARTHROPLASTY ANATOMIC INVERSE SHOULDER 09/16/2025 3:30 PM EST Office Visit [address] [place] [address] Sadi Kong MD [address] [place] [address] Fouzia Rocha, PT 8 [place] [address] 09/17/2025 10:00 AM EST Office Visit [facility] Medicine [address] [place] [address] Esau Alonzo PA-C [address] [place] [address] [place] [address] [email or web address] 09/22/2025 3:15 PM EST Office Visit [address] [place] [address] Sadi Kong MD [address] [place] [address] Fouzia Rocha, PT 8 [place] [address] 09/26/2025 2:30 PM EST Office Visit [address] [place] [address] Sadi Kong MD [address] [place] [address] Fouzia Rocha, PT 8 [place] [address] 09/30/2025 2:45 PM EST Office Visit [address] [address] Sadi Kong MD [address] [place] [address] Fouzia Rocha, PT 8 [place] [address] 10/03/2025 2:30 PM EST Office Visit [address] [address] Sadi Kong MD [address] [place] [address] Fouzia Rocha, PT 8 [place] [address] 10/07/2025 2:45 PM EST Office Visit [address] [address] Sadi Kong MD [address] [place] [address] Fouzia Rocha, PT 8 [place] [address] 10/10/2025 2:45 PM EST Office Visit [address] [address] Sadi Kong MD [address] [place] [address] Fouzia Rocha, PT 8 [place] [address] 10/14/2025 3:00 PM EST Office Visit [facility] 8 [place] [address] Sadi Kong MD 22 [facility], 2nd [place] [address] Fouzia Rocha, PT 8 [place] [address] 10/15/2025 9:45 AM EST Office Visit [facility] Sports Medicine [address] [place] [address] Chinmay Glynn DO [address] [place] [address] Orthopedics & Sports Medicine, [facility] [place] [address] 04/01/2026 10:00 AM EDT Appointment 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 Annual screening is recommended. BI-RADS CATEGORY: 1 - Negative. DENSITY: There are scattered fibroglandular densities. Narrative 02/02/2021 8:56 AM EDT Bilateral mammography is performed in conjunction with computed aided detection. 3-D tomography along with 2-D C view imaging was also performed. Comparison made to previous dated as far back as 08/30/2017 and as recent as 11/06/2019. No suspicious masses, areas of architectural distortion or suspicious microcalcifications. Procedure Note Preston Mckeon MD - 02/02/2021 Bilateral mammography is performed in conjunction with computed aideddetection. 3-D tomography along with 2-D C view imaging was alsoperformed. Comparison made to previous dated as far back as 08/30/2017 andas recent as 11/06/2019. No suspicious masses, areas of architectural distortion or suspiciousmicrocalcifications. IMPRESSION: No mammographic signs of malignancy. Annual screening is recommended. BI-RADS CATEGORY: 1 - Negative. DENSITY: There are scattered fibroglandular densities. Shellie Cowart MD IMG MG EXAMS Final Result documented in this encounter Visit Diagnoses Diagnosis Breast screening- Primary Breast screening, unspecified Breast screening Breast screening, unspecified Arthropathy of right shoulder documented in this encounter Additional Health Concerns Infection Onset Date Last Indicated Resolved Time CoV-Risk 09/22/2021 09/22/2021 10/02/2021 1:23 AM EST Assessment Noted Time PHQ-2 Depression Total Score: 0 10/15/19 20 8:02 AM EST documented as of this encounter Care Teams Flame Hardening Machine Operator Relationship Specialty Start Date End Date Shellie Cowart MD [address] [place] [address] PCP - General Family Medicine 10/25/19 Paul Hooper MD [address] [place] [address] Orthopedics & Sports Medicine, [place] [address] Orthopedic Surgery 03/01/24 Preston Pederson MSW [address], [address] [email or web address] Mergers And Acquisitions Banker Licensed Clinical Mergers And Acquisitions Banker 12/11/24 documented as of this encounter Additional Source Comments The information contained in this document represents components of the legal health record. It is not the complete legal health record.[facility]
--- OUTSIDE RECORDS SUMMARY | 2025-08-06 12:25 | XMS_ITS | Encounter Summary ---
Author Organization [facility] Address [address] [place] [address] Phone Care Team Providers Care Therapeutic Case Manager Name Role Phone Shellie Cowart MD Primary Care Provider [phone] Paul Hopoer MD Unavailable [phone] Preston Pederson EDITOR MAGAZINE Unavailable [phone] Encounter Details Date Type Department Care Team (Late st Contact Info) Description 11/13/2023 Procedure Pass [facility], [facility] 30 [place] [address] Social History Tobacco Use Types Packs/Day Years Used Date Smoking Tobacco: Former Cigarettes 0.5 10 0 10/09/1970 - 10/09/1980 Smokeless Tobacco: Never Comments:for about 10 years Alcohol Use Standard Drinks/Week Comments Yes 0 (1 standard drink = 0.6 oz pur e alcohol) rarely one drink once a month Child or Family Care Answer Date Record ed Do you have problems with on e of the following making it difficult for you to work, study, or receive health care? No 07/26/2023 Education Answer Date Recorded Are you interested in help w ith more adult education (for example, completing high school, GED, job training, learning the [place] language, technical skills, or developing parenting skills)? [...] your housing situation today? I have janae ford 07/26/2023 How many times have you move [...] st Contact Info) Description 07/25/2025 Procedure Pass [address] [address] 08/07/2025 10:00 AM EDT Office Visit [facility] [place] [facility] 15 [facility] [address] [place] [address] Shellie Cowart MD [address] [address] 08/20/2025 9:40 AM EST Office Visit [facility] Orthopedics & Sports Medicine [address] [place] [address] Esau Alonzo PA-C [address] [place] [address] [place] [address] [email or web address] 09/05/2025 8:00 AM EST Pre-Admission Testing Pre Procedure Evaluation [address] [place] [address] Chinmay Glynn, DO 4 [facility] Orth[facility] Sports [facility], [place] [address] 09/08/2025 Procedure Pass OR Admitting Dept - Virtual Department [address] [place] [address] 09/08/2025 7:30 AM EST Hospital Encounter OR Admitting Dept - Virtual Department [address] [place] [address] Chinmay Glynn, 4 [facility], [place] [address] 09/08/2025 7:30 AM EST - 09/08/2025 9:55 AM EST Surgery OR Admitting Dept - Virtual Department [address] [place] [address] Chinmay Glynn, 4 [facility], [place] [address] ARTHROPLASTY ANATOMIC INVERSE SHOULDER 09/16/2025 3:30 PM EST Office Visit [facility] [address] [place] [address] Sadi Kong MD 22 [facility], 2nd [place] [address] Fouzia Rocha, PT 8 [place], [place] [phone] [email or web address] 09/17/2025 10:00 AM EST Office Visit [facility] Orthopedics & Sports Medicine [address] [place] [address] sEau Alonzo PA-C [address] [place] [address] [place] [address] [email or web address] 09/22/2025 3:15 PM EST Office Visit [address] [address] Sadi Kogn MD [address] [place] [address] [email or web address] Fouzia Rocha, PT 8 [place] [address] [email or web address] 09/26/2025 2:30 PM EST Office Visit [address] [place] [address] Sadi Kong MD [address] [place] [address] [email or web address] Fouzia Rocha, PT 8 [place] [address] [email or web address] 09/30/[email or web address] 2:45 PM EST Office Visit [address] [place] [address] Sadi Kong MD [address] [place] [address] Fouzia Rocha, PT 8 [place] [address] [email or web address] 10/03/2025 2:30 PM EST Office Visit [address] [place] [address] Sadi Kong MD [address] [place] [address] Fouzia Rocha, PT 8 [place] [address] 10/07/2025 2:45 PM EST Office Visit [address] [address] Sadi Kong MD [address] [place] [address] Fouzia Rocha, PT 8 [place] [address] 10/10/2025 2:45 PM EST Office Visit [address] [address] Sadi Kong MD [address] [place] [address] Fouzia Rocha, PT 8 [place] [address] 10/14/2025 3:00 PM EST Office Visit [address] [place] [address] Sadi Kong MD [address] [place] [address] Fouzia Rocha, PT 8 [place] [address] 10/15/2025 9:45 AM EST Office Visit [facility] Orthopedics & Sports Medicine 4 [place] [address] Chinmay Glynn DO 4 [facility], [place] [address] [email or web address] 04/01/2026 10:00 AM EDT Appointment [address] [address] Shellie Cowart MD [address] [place] [address] [email or web address] Scheduled Procedures Name Priority Associated Diagnoses Date/Ti me 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 09/08/2025 7:30 AM EST documented as of this encounter Visit Diagnoses Not on filedocumented in this encounter Additional Health Concerns Assessment Noted Time PHQ-2 Depression Total Score: 2 07/26/20 7:43 AM EDT documented as of this encounter Care Teams Therapeutic Case Manager Relationship Specialty Start Date End Date Shellie Cowart MD [address] [place] [address] [email or web address] PCP - General Family Medicine 10/25/19 Paul Hooper MD [address] [place] [address] Orthoped[facility] & Sports Medicine, [place] [address] Orthopedic Surgery 03/01/24 Preston Pederson MSW [address] [place] [address] [email or web address] Hot Tar Roofer Helper Licensed Clinical Hot Tar Roofer Helper 12/11/24 documented as of this encounter Additional Source Comments The information contained in this document represents components of the legal health record. It is not the complete legal health record.[facility]
--- OUTSIDE RECORDS SUMMARY | 2025-08-06 12:26 | XMS_ITS | Encounter Summary ---
Author Organization [facility] Address [address] [facility] [address] [place] [address] Phone Care Team Providers Care Vocal Music Teacher Name Role Phone Shellie Cowart MD Primary Care Provider Paul Hooper MD Unavailable [phone] Preston Pederson MOUNTAIN OR GLACIER GUIDE Unavailable [phone] Encounter Details Date Type Department Care Team (Late st Contact Info) Description 01/18/2021 Procedure Pass [address] [address] Social History Tobacco Use Types Packs/Day Years [...] st Contact Info) Description 07/25/2025 Procedure Pass [address] [address] 08/07/2025 10:00 AM EDT Office Visit [facility] [place] [facility] [address] [place] [address] Shellie Cowart MD [address] [address] 08/20/2025 9:40 AM EST Office Visit [facility] Orthopedics & Sports Medicine [address] [place] [address] Esau Alonzo PA-C [address] [place] [address] [place] [address] [email or web address] 09/05/2025 8:00 AM EST Pre-Admission Testing Pre Procedure Evaluation [address] [place] [address] Chinmay Glynn, 4 [facility] Orthopedics & Sports [facility], [place] [address] 09/08/2025 Procedure Pass OR Admitting Dept - Virtual Department [address] [place] [address] 09/08/2025 7:30 AM EST Hospital Encounter OR Admitting Dept - Virtual Department [address] [place] [address] Chinmay Glynn DO 4 [facility] Sports [facility], [place] [address] 09/08/2025 7:30 AM EST - 09/08/2025 9:55 AM EST Surgery OR Admitting Dept - Virtual Department [address] [place] [address] Chinmay Glynn DO 4 [facility] Orth[facility] Sports [facility], [place] [address] ARTHROPLASTY ANATOMIC INVERSE SHOULDER 09/16/2025 3:30 PM EST Office Visit [facility] Services [address] [place] [address] [place] [address] Sadi Kong MD [address] [place] [address] Fouzia Rocha, PT 8 [place] [address] 09/17/2025 10:00 AM EST Office Visit [facility] Orthopedics & Sports Medicine [address] [place] [address] Esau Alonzo PA-C [address] [place] [address] [place] [address] [email or web address] 09/22/2025 3:15 PM EST Office Visit [address] [place] [address] Sadi Kong MD [address] [place] [address] Fouzia Rocha, PT 8 [place] [address] 09/26/2025 2:30 PM EST Office Visit [address] [place] [address] Sadi Kong MD [address] [place] [address] Fouzia Rocha, PT 8 [place] [address] 09/30/2025 2:45 PM EST Office Visit [address] [place] [address] Sadi Kong MD [address] [place] [address] Fouzia Rocha, PT 8 [place] [address] 10/03/2025 2:30 PM EST Office Visit [facility] [address] [place] [address] Sadi Kong MD [address] [place] [address] Fouzia Rocha, PT 8 [place] [address] 10/07/2025 2:45 PM EST Office Visit [facility] [address] [place] [address] Sadi Kong MD [address] [place] [address] Fouzai Rocha, PT 8 [place] [address] 10/10/2025 2:45 PM EST Office Visit [facility] [address] [place] [address] Sadi Kong MD [address] [place] [address] Fouzia Rocha, PT 8 [place] [address] 10/14/2025 3:00 PM EST Office Visit [address] [place] [address] Sadi Kong MD [address] [place] [address] [place] [address] Fouzia Rocha, PT 8 [place] [address] 10/15/2025 9:45 AM EST Office Visit [facility] Orthopedics & Sports Medicine [address] [place] [address] Chinmay Glynn DO 4 [facility] Orthopedics & Sports [facility], [place] [address] 04/01/2026 10:00 AM EDT Appointment [address] [address] Shellie Cowart MD [address] [address] Scheduled Procedures Name Priority Associated Diagnoses Date/Ti me 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 09/08/2025 7:30 AM EST documented as of this encounter Visit Diagnoses Not on filedocumented in this encounter Additional Health Concerns Infection Onset Date Last Indicated Resolved Time CoV-Risk 09/22/2021 09/22/2021 10/02/2021 1:23 AM EST Assessment Noted Time PHQ-2 Depression Total Score: 0 10/15/19 8:02 AM EST documented as of this encounter Care Teams Vocal Music Teacher Relationship Specialty Start Date End Date Shellie Cowart MD [address] [address] PCP - General Family Medicine 10/25/19 Paul Hooper MD [address] [place] [address] Orthopedics & Sports [facility], [place] [address] [email or web address] Orthopedic Surgery 03/01/24 Preston Pederson, EVELYNE [address] [address] [email or web address] Materials Clerk Licensed Clinical Materials Clerk 12/11/24 documented as of this encounter Additional Source Comments The information contained in this document represents components of the legal health record. It is not the complete legal health record.[facility]
--- OUTSIDE RECORDS SUMMARY | 2025-08-06 12:26 | XMS_ITS | Encounter Summary ---
Author Organization [facility] Address [address] [place] [address] Phone Care Team Providers Care Cloth Grader Supervisor Name Role Phone Shellie Cowart MD Primary Care Provider [phone] Paul Hooper MD Unavailable [phone] Preston Pederson DETAIL ASSEMBLER Unavailable [phone] Encounter Details Date Type Department Care Team (Late st Contact Info) Description 11/09/2023 Procedure Pass [facility], [facility] - [address] [place] [address] Social History Tobacco Use Types Packs/Day Years [...] high school, GED, job training, learning the Cuban language, technical skills, or developing parenting skills)? [...] st Contact Info) Description 07/25/2025 Procedure Pass [address] [address] 08/07/2025 10:00 AM EDT Office Visit [facility] [place] [facility] [address] [facility] [address] [place] [address] Shellie Cowart MD 15 [facility] [address] [place] [address] 08/20/2025 9:40 AM EST Office Visit [facility] Orthopedics & Sports Medicine [address] [place] [address] Esau Alonzo PA-C [address] [place] [address] [place] [address] [email or web address] 09/05/2025 8:00 AM EST Pre-Admission Testing Pre Procedure Evaluation [address] [place] [address] Chinmay Glynn, DO 4 [facility] Orthopedics & Sports [facility] [place] [address] 09/08/2025 Procedure Pass OR Admitting Dept - Virtual Department [address] [place] [address] 09/08/2025 7:30 AM EST Hospital Encounter OR Admitting Dept - Virtual Department [address] [place] [address] Chinmay Glynn, DO 4 [facility] Orthopedics [facility] [place] [address] 09/08/2025 7:30 AM EST - 09/08/2025 9:55 AM EST Surgery OR Admitting Dept - Virtual Department [address] [place] [address] Chinmay Glynn, DO 4 [facility] Orthopedics [facility] [place] [address] ARTHROPLASTY ANATOMIC INVERSE SHOULDER 09/16/2025 3:30 PM EST Office Visit [facility] [address] [place] [address] Sadi Kong MD 22 [facility] [address] [place] [address] Fouzia Rocha, PT 8 [place] [address] 09/17/2025 10:00 AM EST Office Visit [facility] Orthopedics & Sports Medicine [address] [place] [address] Esau Alonzo PA-C [address] [place] [address] [place] [address] [email or web address] 09/22/2025 3:15 PM EST Office Visit [address] [address] Sadi Kong MD [address] [place] [address] Fouzia Rocha, PT 8 [place] [address] [email or web address] 09/26/2025 2:30 PM EST Office Visit [address] [place] [address] Sadi Kong MD [address] [place] [address] Fouzia Rocha, PT 8 [place] [address] [email or web address] 09/30/2025 2:45 PM EST Office Visit [address] [place] [address] Sadi Kong MD [address] [place] [address] Fouzia Rocha, PT 8 [place] [address] [email or web address] 10/03/2025 2:30 PM EST Office Visit [address] [place] [address] Sadi Kong MD [address] [place] [address] Fouzia Rocha, PT 8 [place] [address] 10/07/2025 2:45 PM EST Office Visit [address] [address] Sadi Kong MD [address] [place] [address] Fouzia Rocha, PT 8 [place] [address] 10/10/2025 2:45 PM EST Office Visit [address] [address] Sadi Kong MD [address] [place] [address] Fouzia Rocha, PT 8 [place] [address] 10/14/2025 3:00 PM EST Office Visit [address] [place] [address] Sadi Kong MD [address] [place] [address] Fouzia Rocha, PT 8 [place] [address] 10/15/2025 9:45 AM EST Office Visit [facility] Orthopedics & Sports Medicine 4 [place] [address] Chinmay Glynn DO 4 [facility] Orthopedics & Sports [facility], [place] [address] 04/01/2026 10:00 AM EDT Appointment [facility], [facility] 30 [place] [address] Shellie Cowart MD [address] [address] [email or web address] Scheduled Procedures Name Priority Associated Diagnoses Date/Ti me 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 09/08/2025 7:30 AM EST documented as of this encounter Visit Diagnoses Not on filedocumented in this encounter Additional Health Concerns Assessment Noted Time PHQ-2 Depression Total Score: 2 07/26/20 7:43 AM EDT documented as of this encounter Care Teams Cloth Grader Supervisor Relationship Specialty Start Date End Date Shellie Cowart MD [address] [place] [address] PCP - General Family Medicine 10/25/19 Paul Hooper MD [address] [place] [address] Orthopedics & Sports Medicine, [place] [address] Orthopedic Surgery 03/01/24 Preston Pederson MSW [address] [place] [address] Income Tax Analyst Licensed Clinical Income Tax Analyst 12/11/24 documented as of this encounter Additional Source Comments The information contained in this document represents components of the legal health record. It is not the complete legal health record.[facility]
--- OUTSIDE RECORDS SUMMARY | 2025-08-06 12:26 | XMS_ITS | Encounter Summary ---
Author Organization [facility] Address [address] [facility] [address] [place] [address] Phone Care Team Providers Care Delivery Table Feeder Name Role Phone Shellie Cowart MD Primary Care Provider [phone] Shellie Cowart MD Primary Care Provider [phone] Paul Hooper MD Unavailable [phone] Preston Pederson [facility] [place] Unavailable [phone] Encounter Details Date Type Department Care Team (Late st Contact Info) Description 10/22/2019 Ancillary Orders [facility] [address] [place] [address] System, Provider Not In, [place] [address] Social History Tobacco Use Types Packs/Day Years Used Date Smoking Tobacco: Never Smokeless Tobacco: Never Alcohol Use Standard Drinks/Week [...] st Contact Info) Description 07/25/2025 Procedure Pass [facility], [facility] [address] [place] [address] 08/07/2025 10:00 AM EDT Office Visit [facility] [place] [facility] [address] [facility] [address] [place] [address] Shellie Cowart MD 15 [facility] [address] [place] [address] 08/20/2025 9:40 AM EST Office Visit [facility] Orthopedics & Sports Medicine [address] [place] [address] Esau Alonzo PA-C [address] [place] [address] [place] [id number] [email or web address] 09/05/2025 8:00 AM EST Pre-Admission Testing Pre Procedure Evaluation [address] [place] [address] Chinmay Glynn, 4 [facility] Orthopedics & Sports [facility], [place] [address] 09/08/2025 Procedure Pass OR Admitting Dept - Virtual Department [address] [place] [address] 09/08/2025 7:30 AM EST Hospital Encounter OR Admitting Dept - Virtual Department [address] [place] [address] Chinmay Glynn DO 4 [facility] Orthopedics & Sports [facility], [place] [address] 09/08/2025 7:30 AM EST - 09/08/2025 9:55 AM EST Surgery OR Admitting Dept - Virtual Department [address] [place] [address] Chinmay Glynn, DO 4 [facility] Orthopedics Sports [facility], [place] [address] ARTHROPLASTY ANATOMIC INVERSE SHOULDER 09/16/2025 3:30 PM EST Office Visit [address] [place] [address] Sadi Kong MD [address] [place] [address] Fouzia Rocha, PT 8 [place] [address] 09/17/2025 10:00 AM EST Office Visit [facility] Orthopedics & Sports Medicine [address] [place] [address] Esau Alonzo PA-C [address] [place] [address] [place] [id number] [email or web address] 09/22/2025 3:15 PM EST Office Visit [address] [place] [address] Sadi Kong MD [address] [place] [address] Fouzia Rocha, PT 8 [place] [address] 09/26/2025 2:30 PM EST Office Visit [address] [place] [address] Sadi Kong MD [address] [place] [address] Fouzia Rocha, PT 8 [place] [address] 09/30/2025 2:45 PM EST Office Visit [address] [place] [address] Sadi oKng MD [address] [place] [address] Fouzia Rocha, PT 8 [place] [address] 10/03/2025 2:30 PM EST Office Visit [address] [address] Sadi Kong MD [address] [place] [address] Fouzia Rocha, PT 8 [place] [address] [email or web address] 10/07/2025 2:45 PM EST Office Visit [address] [address] Sadi Kong MD [address] [place] [address] Fouzia Rocha, PT 8 [place] [address] [email or web address] 10/10/2025 2:45 PM EST Office Visit [address] [place] [address] Sadi Kong MD [address] [place] [address] Fouzia Rocha, PT 8 [place] [address] [email or web address] 10/14/2025 3:00 PM EST Office Visit [facility] 8 [place] [address] Sadi Kong MD 22 [facility], 2nd [place] [address] [email or web address] Fouzia Rocha, PT 8 [place] [address] 10/15/2025 9:45 AM EST Office Visit [facility] Orthopedics & Sports Medicine [address] [place] [address] Chinmay Glynn DO 4 [facility] Orthopedics & Sports Medicine, [place] [address] [email or web address] 04/01/2026 10:00 AM EDT Appointment [facility], [facility] 30 [place] [address] Shellie Cowart MD [address] [address] [email or web address] Scheduled Procedures Name Priority Associated Diagnoses Date/Ti me 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 us Provider Not In System PhD IMG OUTSIDE IMAGING W /OUT INTERPRETATION Final Result documented in this encounter Visit Diagnoses Not on filedocumented in this encounter Additional Health Concerns Infection Onset Date Last Indicated Resolved Time CoV-Risk 09/22/2021 09/22/2021 10/02/2021 1:23 AM EST Assessment Noted Time PHQ-2 Depression Total Score: 0 10/15/19 20 8:02 AM EST documented as of this encounter Care Teams Delivery Table Feeder Relationship Specialty Start Date End Date Shellie Cowart MD [address] [place] [address] PCP - General Family Medicine 09/26/19 10/24/19 Shellie Cowart MD [address] [place] [address] PCP - General Family Medicine 10/25/19 Paul Hooper MD [address] [place] [address] Orthopedics & Sports Medicine, [place] [address] Orthopedic Surgery 03/01/24 Preston Pederson MSW [address] [place] [address] Transfer Engineer Licensed Clinical Transfer Engineer 12/11/24 documented as of this encounter Additional Source Comments The information contained in this document represents components of the legal health record. It is not the complete legal health record.[facility]
--- OUTSIDE RECORDS SUMMARY | 2025-08-06 12:27 | XMS_ITS | Encounter Summary ---
Author Organization [facility] Address [address] [facility] [address] [place] [address] Phone Care Team Providers Care Parquetry Layer Name Role Phone Shellie Cowart MD Primary Care Provider [phone] Paul Hooper MD Unavailable [phone] Preston Pederson TRANSACTION COORDINATOR Unavailable [phone] Encounter Details Date Type Department Care Team (Late st Contact Info) Description 03/14/2023 Procedure Pass OR Admitting Dept - Virtual Department 30 [place] [address] Social History Tobacco Use Types Packs/Day Years [...] high school, GED, job training, learning the Moroccan language, technical skills, or developing parenting skills)? [...] 06/19/2022 Digital Access Answer Date Recorded No 02/28/2023 No 02/28/2023 Reliable internet access at home? Not on file 02/28/2023 Device with a working camera? Not on file Comments No Sex and Gender Information Value Date Recorded Sex Assigned at Female 05/25/2020 8:19 AM EDT Legal Sex Female 12:09 PM EST Gender Identity Female 05/25/2020 8:19 AM EDT Sexual Orientation Straight 05/25/2020 8: 19 AM EDT documented as of this encounter Plan of Treatment Upcoming Encounters Date Type Department Care Team (Late st Contact Info) Description 07/25/2025 Procedure Pass [address] [address] 08/07/2025 10:00 AM EDT Office Visit [facility] [place] [facility] 15 [facility] 201 [place] [address] Shellie Cowart MD 15 [facility] [address] [place] [address] 08/20/2025 9:40 AM EST Office Visit [facility] Orthopedics & Sports Medicine [address] [place] [address] Esau Alonzo PA-C [address] [place] [address] [place] [address] [email or web address] 09/05/2025 8:00 AM EST Pre-Admission Testing Pre Procedure Evaluation [address] [place] [address] Chinmay Glynn, DO 4 [facility] Orthopedics & Sports [facility] [place] [address] 09/08/2025 Procedure Pass OR Admitting Dept - Virtual Department [address] [place] [address] 09/08/2025 7:30 AM EST Hospital Encounter OR Admitting Dept - Virtual Department [address] [place] [address] Chinmay Glynn, DO 4 [facility] Orthopedics Sports [facility] [place] [address] 09/08/2025 7:30 AM EST - 09/08/2025 9:55 AM EST Surgery OR Admitting Dept - Virtual Department [address] [place] [address] Chinmay Glynn, DO 4 [facility] Orthopedics Sports [facility] [place] [address] ARTHROPLASTY ANATOMIC INVERSE SHOULDER 09/16/2025 3:30 PM EST Office Visit [facility] Services 8 [place] [address] Sadi Kong MD 22 [facility], 2nd [place] [address] Fouzia Rocha, PT 8 [place] [address] 09/17/2025 10:00 AM EST Office Visit [facility] Orthopedics & Sports Medicine [address] [place] [address] Esau Alonzo PA-C [address] [place] [address] [place] [address] [email or web address] 09/22/2025 3:15 PM EST Office Visit [address] [place] [address] Sadi Kong MD [address] [place] [address] Fouzia Rocha, PT 8 [place] [address] 09/26/2025 2:30 PM EST Office Visit [address] [place] [address] Sadi Kong MD [address] [place] [address] Fouzia Rocha, PT 8 [place] [address] 09/30/2025 2:45 PM EST Office Visit [address] [place] [address] Sadi Kong MD [address] [place] [address] Fouzia Rocha, PT 8 [place] [address] 10/03/2025 2:30 PM EST Office Visit [address] [place] [address] Sadi Kong MD [address] [place] [address] Fouzia Rocha, PT 8 [place] [address] 10/07/2025 2:45 PM EST Office Visit [address] [place] [address] Sadi Kong MD [address] [place] [address] Fouzia Rocha, PT 8 [place] [address] 10/10/2025 2:45 PM EST Office Visit [address] [address] Sadi Kong MD [address] [place] [address] Fouzia Rocha, PT 8 [place] [address] 10/14/2025 3:00 PM EST Office Visit [address] [place] [address] Sadi Kong MD [address] [place] [address] Fouzia Rocha, PT 8 [place] [address] 10/15/2025 9:45 AM EST Office Visit [facility] Orthopedics & Sports Medicine [address] [place] [address] Chinmay Glynn DO 4 [facility] [place] [address] 04/01/2026 10:00 AM EDT Appointment [address] [address] Shellie Cowart MD [address] [address] [email or web address] Scheduled Procedures Name Priority Associated Diagnoses Date/Ti me 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 09/08/2025 7:30 AM EST documented as of this encounter Visit Diagnoses Not on filedocumented in this encounter Additional Health Concerns Assessment Noted Time PHQ-2 Depression Total Score: 0 06/19/20 22 4:01 PM EDT documented as of this encounter Care Teams Parquetry Layer Relationship Specialty Start Date End Date Shellie Cowart MD [address] [place] [address] PCP - General Family Medicine 10/25/19 Paul Hooper MD 4 [facility] Orthopedics & Sports Medicine, [place] [address] Orthopedic Surgery 03/01/24 Preston Pederson MSW [address] [place] [address] Folder And Notcher Licensed Clinical Folder And Notcher 12/11/24 documented as of this encounter Additional Source Comments The information contained in this document represents components of the legal health record. It is not the complete legal health record.[facility]
--- OUTSIDE RECORDS SUMMARY | 2025-08-06 12:27 | XMS_ITS | Encounter Summary ---
Author Organization [facility] Address [address] [facility] [address] [place] [address] Phone Care Team Providers Care Rehab Manager Name Role Phone Shellie Cowart MD Primary Care Provider [phone] Paul Hooper MD Unavailable [phone] Preston Pederson SUPERVISOR RECORDS CHANGE Unavailable Encounter Details Date Type Department Care Team (Late st Contact Info) Description 07/02/2025 Procedure Pass [facility], [facility] 30 [place] [address] Social History Tobacco Use Types Packs/Day Years [...] as food, clothing, or medical care? No 06/30/2025 In the past 12 months have y ou been in a relationship with a person who hurts, threatens, or tries to control you? No 06/30/2025 Are you denied basic needs s uch as food, clothing, or medical care? No 06/30/2025 In the past 12 months have y ou been in a relationship with a person who hurts, threatens, or tries to control you? No 06/30/2025 Comments No Sex and Gender Information Value Date Recorded Sex Assigned at Female 05/25/2020 8:19 AM EDT Legal Sex Female 12:09 PM EST Gender Identity Female 05/25/2020 8:19 AM EDT Sexual Orientation Straight 05/25/2020 8: 19 AM EDT documented as of this encounter Plan of Treatment Upcoming Encounters Date Type Department Care Team (Late st Contact Info) Description 07/25/2025 Procedure Pass [facility], [facility] 30 [place] [address] 08/07/2025 10:00 AM EDT Office Visit [facility] [address] [facility] [address] [place] [address] Shellie Cowart MD 15 [facility] [address] 201 [place] [address] 08/20/2025 9:40 AM EST Office Visit [facility] Medicine [address] [place] [address] Esau Alonzo PA-C [address] [place] [address] [place] [address] [email or web address] 09/05/2025 8:00 AM EST Pre-Admission Testing Pre Procedure Evaluation [address] [place] [address] Chinmay Glynn DO [address] [place] [address] Orthopedics & [place], [place] [address] 09/08/2025 Procedure Pass [place] Admitting Dept - Virtual Department [address] [place] [address] 09/08/2025 7:30 AM EST Hospital Encounter OR Admitting Dept - Virtual Department [address] [place] [address] Chinmay Glynn DO [address] [place] [address] Orth[facility] Sports Medicine, [place] [address] 09/08/2025 7:30 AM EST - 09/08/2025 9:55 AM EST Surgery OR Admitting Dept - Virtual Department [address] [place] [address] Chinmay Glynn DO [address] [place] [address] Orthopedics & Sports Medicine, [facility] [place] [address] ARTHROPLASTY ANATOMIC INVERSE SHOULDER 09/16/2025 3:30 PM EST Office Visit [address] [place] [address] Sadi Kong MD [address] [place] [address] Fouzia Rocha, PT 8 [place] [address] 09/17/2025 10:00 AM EST Office Visit [facility] [address] [place] [address] Easu Alonzo PA-C [address] [place] [address] [place] [address] [email or web address] 09/22/2025 3:15 PM EST Office Visit [facility] [address] [place] [address] Sadi Kong MD [address] [place] [address] Fouzia Rocha, PT 8 [place] [address] 09/26/2025 2:30 PM EST Office Visit [address] [place] [address] Sadi Kong MD [address] [place] [address] Fouzia Rocha, PT 8 [place] [address] 09/30/2025 2:45 PM EST Office Visit [address] [address] Sadi Kong MD [address] [place] [address] Fouzia Rocha, PT 8 [place] [address] 10/03/2025 2:30 PM EST Office Visit [address] [address] Sadi Kong MD [address] [place] [address] Fouzia Rocha, PT 8 [place] [address] 10/07/2025 2:45 PM EST Office Visit [address] [address] Sadi Kong MD [address] [place] [address] Fouzia Rocha, PT 8 [place] [address] 10/10/2025 2:45 PM EST Office Visit [address] [address] Sadi Kong MD [address] [place] [address] Fouzia Rocha, PT 8 [place] [address] 10/14/2025 3:00 PM EST Office Visit [facility] 8 [place] [address] Sadi Kong MD 22 [facility], 2nd [place] [address] Fouzia Rocha, PT 8 [place] [address] 10/15/2025 9:45 AM EST Office Visit [facility] Medicine [address] [place] [address] Chinmay Glynn DO [address] [place] [address] Orthopedics [facility] Sports Medicine, [place] [address] 04/01/2026 10:00 AM EDT Appointment [address] [address] Shellie Cowart MD [address] [place] [address] Scheduled Procedures Name Priority Associated Diagnoses Date/Ti me 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 09/08/2025 7:30 AM EST documented as of this encounter Visit Diagnoses Not on filedocumented in this encounter Additional Health Concerns Assessment Noted Time PHQ-9 Depression Total Score: 1 10/24/19 12:00 PM EST PHQ-2 Depression Total Score: 10/24/19 12:00 PM EST documented as of this encounter Care Teams Rehab Manager Relationship Specialty Start Date End Date Shellie Cowart MD [address] [address] PCP - General Family Medicine 10/25/19 Paul Hooper MD [address] [place] [address] [facility] Sports Medicine, [place] [address] Orthopedic Surgery 03/01/24 Preston Pederson MSW [address] [address] [email or web address] Graduate Advisor Licensed Clinical Graduate Advisor 12/11/24 documented as of this encounter Additional Source Comments The information contained in this document represents components of the legal health record. It is not the complete legal health record.[facility]
--- OUTSIDE RECORDS SUMMARY | 2025-08-06 12:27 | XMS_ITS | Encounter Summary ---
Author Organization [facility] Address [address] [facility] [address] [place] [address] Phone Care Team Providers Care Bindery Helper Name Role Phone Shellie Cowart MD Primary Care Provider [phone] Shellie Cowart MD Primary Care Provider [phone] Paul Hooper MD Unavailable [phone] Preston Pederson [facility] Unavailable [phone] Encounter Details Date Type Department Care Team (Late st Contact Info) Description 10/22/2019 Ancillary Orders [facility] 30 [place] [address] System, Provider Not In, [place] [address] Social History Tobacco Use Types Packs/Day Years [...] st Contact Info) Description 07/25/2025 Procedure Pass [facility], [facility] 30 [place] [address] 08/07/2025 10:00 AM EDT Office Visit [facility] [address] [facility] [address] [place] [address] Shellie Cowart MD 15 [facility] [address] [place] [address] 08/20/2025 9:40 AM EST Office Visit [facility] Orth[facility]ics [facility] Sports Medicine [address] [place] [address] Esau Alonzo PA-C [address] [place] [address] [place] [address] [email or web address] 09/05/2025 8:00 AM EST Pre-Admission Testing Pre Procedure Evaluation [address] [place] [address] Chinmay Glynn, 4 [facility] Orthopedics & Sports [facility], [place] [address] 09/08/2025 Procedure Pass OR Admitting Dept - Virtual Department [address] [place] [address] 09/08/2025 7:30 AM EST Hospital Encounter OR Admitting Dept - Virtual Department [address] [place] [address] hCinmay Glynn DO 4 [facility] Orth[facility], [place] [address] 09/08/2025 7:30 AM EST - 09/08/2025 9:55 AM EST Surgery OR Admitting Dept - Virtual Department [address] [place] [address] Chinmay Glynn, DO 4 [facility] Orthopedics Sports [facility], [place] [address] ARTHROPLASTY ANATOMIC INVERSE SHOULDER 09/16/2025 3:30 PM EST Office Visit [address] [place] [address] Sadi Kong MD [address] [place] [address] Fouzia Rocha, PT 8 [place] [address] 09/17/2025 10:00 AM EST Office Visit [facility] Medicine [address] [place] [address] Esau Alonzo PA-C [address] [place] [address] [place] [address] [email or web address] 09/22/2025 3:15 PM EST Office Visit [address] [place] [address] Sadi Kong MD [address] [place] [address] Fouzia Rocha, PT 8 [place] [address] 09/26/2025 2:30 PM EST Office Visit [address] [place] [address] Sadi Kong MD [address] [place] [address] Fouzia Rocha, PT 8 [place] [address] 09/30/2025 2:45 PM EST Office Visit [address] [place] [address] Sadi Kong MD [address] [place] [address] Fouzia Rocha, PT 8 [place] [address] 10/03/2025 2:30 PM EST Office Visit [address] [address] Sadi Kong MD [address] [place] [address] Fouzia Rocha, PT 8 [place] [address] 10/07/2025 2:45 PM EST Office Visit [address] [address] Sadi Kong MD [address] [place] [address] Fouzia Rocha, PT 8 [place] [address] 10/10/2025 2:45 PM EST Office Visit [address] [place] [address] Sadi Kong MD [address] [place] [address] Fouzia Rocha, PT 8 [place] [address] 10/14/2025 3:00 PM EST Office Visit [facility] 8 [place] [address] Sadi Kong MD 22 [facility], 2nd [place] [address] [email or web address] Fouzia Rocha, PT 8 [place] [address] 10/15/2025 9:45 AM EST Office Visit [facility] Orthopedics & Sports Medicine [address] [place] [address] Chinmay Glynn DO 4 [facility] Orthopedics & Sports Medicine, [place] [address] [email or web address] 04/01/2026 10:00 AM EDT Appointment [facility], [facility] 30 [place] [address] Shellie Cowart MD [address] [address] [email or web address] Scheduled Procedures Name Priority Associated Diagnoses Date/Ti me 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 09/08/2025 7:30 AM EST documented as of this encounter Results * Mammogram Outside (No Interpretation) (10/18/2018 12:00 AM EST) Narrative SYSTEMGENERATED, DOCUMENTATION - 10/22/2019 9:21 AM EST This study is for PACS [...] documented as of this encounter Care Teams Bindery Helper Relationship Specialty Start Date End Date Shellie Cowart MD [address] [place] [address] PCP - General Family Medicine 09/26/19 10/24/19 Shellie Cowart MD [address] [place] [address] PCP - General Family Medicine 10/25/19 Paul Hooper MD [address] [place] [address] Orth[facility] Sports Medicine, [place] [address] Orthopedic Surgery 03/01/24 Preston Pederson MSW [address] [place] [address] Accounts Receivable Supervisor Licensed Clinical Accounts Receivable Supervisor 12/11/24 documented as of this encounter Additional Source Comments The information contained in this document represents components of the legal health record. It is not the complete legal health record.[facility]
--- OUTSIDE RECORDS SUMMARY | 2025-08-06 12:27 | XMS_ITS | Encounter Summary ---
Author Organization [facility] Address [address] [place] [address] Phone Care Team Providers Care Hand I Blocker Name Role Phone Shellie Cowart MD Primary Care Provider [phone] Paul Hooper MD Unavailable [phone] Preston Pederson INTERIOR DESIGN PROGRAM CHAIR Unavailable [phone] Encounter Details Date Type Department Care Team (Late st Contact Info) Description 06/30/2025 Procedure Pass [facility], [facility] 30 [place] [address] Social History Tobacco Use Types Packs/Day Years [...] 10:36 AM EDT Karla Ramirez RN * [place] Suicide Severity Rating Scale (Screener/Recent Self-Report) Question [...] st Contact Info) Description 07/25/2025 Procedure Pass [facility] 30 [place] [address] 08/07/2025 10:00 AM EDT Office Visit [facility] 15 [facility] 201 [place] [address] Shellie Cowart MD 15 [facility] Sav. 201 [place] [address] 08/20/2025 9:40 AM EST Office Visit [facility] Orthopedics & Sports Medicine [address] [place] [address] Esau Alonzo PA-C [address] [place] [address] [place] [address] [email or web address] 09/05/2025 8:00 AM EST Pre-Admission Testing Pre Procedure Evaluation 30 [place] [address] Chinmay Glynn DO [address] [place] [address] Orth[facility] [place] [address] 09/08/2025 Procedure Pass OR Admitting Dept - Virtual Department [address] [place] [address] 09/08/2025 7:30 AM EST Hospital Encounter OR Admitting Dept - Virtual Department [address] [place] [address] Chinmay Glynn, DO 4 [facility] Orthopedics & Sports [facility], [place] [address] 09/08/2025 7:30 AM EST - 09/08/2025 9:55 AM EST Surgery OR Admitting Dept - Virtual Department [address] [place] [address] Chinmay Glynn, DO 4 [facility] Orthopedics & Sports [facility], [place] [address] ARTHROPLASTY ANATOMIC INVERSE SHOULDER 09/16/2025 3:30 PM EST Office Visit [facility] [address] [place] [address] [place] [address] Sadi Kong MD [address] [place] [address] Fouzia Rocha, PT 8 [place] [address] 09/17/2025 10:00 AM EST Office Visit [facility]ics [facility] Medicine [address] [place] [address] Esau Alonzo PA-C [address] [place] [address] [place] [address] [email or web address] 09/22/2025 3:15 PM EST Office Visit [facility] [address] [place] [address] Sadi Kong MD [address] [place] [address] Fouzia Rocha, PT 8 [place] [address] 09/26/2025 2:30 PM EST Office Visit [address] [address] Sadi Kong MD [address] [place] [address] Fouzia Rocha, PT 8 [place] [address] 09/30/2025 2:45 PM EST Office Visit [address] [address] Sadi Kong MD [address] [place] [address] Fouzia Rocha, PT 8 [place] [address] 10/03/2025 2:30 PM EST Office Visit [address] [place] [address] Sadi Kong MD [address] [place] [address] Fouzia Rocha, PT 8 [place] [address] 10/07/2025 2:45 PM EST Office Visit [address] [place] [address] Sadi Kong MD [address] [address] Fouzia Rocha, PT 8 [place] [address] 10/10/2025 2:45 PM EST Office Visit [facility] 8 [place] [address] Sadi Kong MD [address] [address] Fouzia Rocha, PT 8 [place] [address] 10/14/2025 3:00 PM EST Office Visit [facility] 8 [place] [address] Sadi Kong MD [address] [address] Fouzia Rocha, PT 8 [place] [address] 10/15/2025 9:45 AM EST Office Visit [facility] Orthopedics & Sports Medicine [address] [place] [address] Chinmay Glynn DO [address] [place] [address] Orthopedics & Sports Medicine, 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 09/08/2025 7:30 AM EST documented as of this encounter Visit Diagnoses Not on filedocumented in this encounter Additional Health Concerns Assessment Noted Time PHQ-9 Depression Total Score: 10/24/19 12:00 PM EST PHQ-2 Depression Total Score: 10/24/19 12:00 PM EST documented as of this encounter Care Teams Hand I Blocker Relationship Specialty Start Date End Date Shellie Cowart MD [address] [address] [email or web address] PCP - General Family Medicine 10/25/19 Paul Hooper MD [address] [place] [address] Orthopedics [facility] Sports Medicine, [place] [address] Orthopedic Surgery 03/01/24 Preston Pederson MSW [address] [place] [address] [email or web address] Felt Finishing Supervisor Licensed Clinical Felt Finishing Supervisor 12/11/24 documented as of this encounter Additional Source Comments The information contained in this document represents components of the legal health record. It is not the complete legal health record.[facility]
--- OUTSIDE RECORDS SUMMARY | 2025-08-06 12:27 | XMS_ITS | Encounter Summary ---
Author Organization [facility] Address [address] [facility] [address] [place] [address] Phone Care Team Providers Care Racing Car Driver Name Role Phone Shellie Cowart MD Primary Care Provider [phone] Shellie Cowart MD Primary Care Provider [phone] Paul Hooper MD Unavailable [phone] Preston Pederson [facility] Unavailable [phone] Encounter Details Date Type Department Care Team (Late st Contact Info) Description 10/22/2019 Ancillary Orders [facility] 30 [place] [address] System, Provider Not In, [place] [address] Social History Tobacco Use Types Packs/Day Years [...] st Contact Info) Description 07/25/2025 Procedure Pass [facility], [facility] 30 [place] [address] 08/07/2025 10:00 AM EDT Office Visit [facility] 15 [facility] [address] [place] [address] Shellie Cowart MD 15 [facility] Sav[address] [place] [address] 08/20/2025 9:40 AM EST Office Visit [facility] Orthopedics & Sports Medicine [address] [place] [address] Esau Alonzo PA-C [address] [place] [address] [place] [address] [email or web address] 09/05/2025 8:00 AM EST Pre-Admission Testing Pre Procedure Evaluation [address] [place] [address] Chinmay Glynn, 4 [facility] Orthopedics & Sports [facility], [place] [address] 09/08/2025 Procedure Pass OR Admitting Dept - Virtual Department [address] [place] [address] 09/08/2025 7:30 AM EST Hospital Encounter OR Admitting Dept - Virtual Department [address] [place] [address] Chinmay Glynn DO 4 [facility] Orthopedics & Sports [facility], [place] [address] 09/08/2025 7:30 AM EST - 09/08/2025 9:55 AM EST Surgery OR Admitting Dept - Virtual Department [address] [place] [address] Chinmay Glynn, DO 4 [facility] Orthopedics Sports [facility], [place] [address] ARTHROPLASTY ANATOMIC INVERSE SHOULDER 09/16/2025 3:30 PM EST Office Visit [address] [place] [address] Sadi Kong MD [address] [place] [address] Fouzia Rocha, PT 8 [place] [address] 09/17/2025 10:00 AM EST Office Visit [facility] Medicine [address] [place] [address] Esau Alonzo PA-C [address] [place] [address] [place] [address] [email or web address] 09/22/2025 3:15 PM EST Office Visit [address] [place] [address] Sadi Kong MD [address] [place] [address] Fouzia Rocha, PT 8 [place] [address] 09/26/2025 2:30 PM EST Office Visit [address] [place] [address] Sadi Kong MD [address] [place] [address] Fouzia Rocha, PT 8 [place] [address] 09/30/2025 2:45 PM EST Office Visit [address] [place] [address] Sadi Kong MD [address] [place] [address] Fouzia Rocha, PT 8 [place] [address] 10/03/2025 2:30 PM EST Office Visit [address] [address] Sadi Kong MD [address] [place] [address] Fouzia Rocha, PT 8 [place] [address] [email or web address] 10/07/2025 2:45 PM EST Office Visit [address] [address] Sadi Kong MD [address] [place] [address] Fouzia Rocha, PT 8 [place] [address] [email or web address] 10/10/2025 2:45 PM EST Office Visit [address] [place] [address] Sadi Kong MD [address] [place] [address] Fouzia Rocha, PT 8 [place] [address] [email or web address] 10/14/2025 3:00 PM EST Office Visit [facility] 8 [place] [address] Sadi Kong MD 22 [facility], 2nd [place] [address] [email or web address] Fouzia Rocha, PT 8 [place] [address] 10/15/2025 9:45 AM EST Office Visit [facility] Orthopedics & Sports Medicine [address] [place] [address] Chinmay Glynn DO 4 [facility] Orthopedics & Sports Medicine, [place] [address] [email or web address] 04/01/2026 10:00 AM EDT Appointment [facility], [facility] 30 [place] [address] Shellie Cowart MD [address] [address] [email or web address] Scheduled Procedures Name Priority Associated Diagnoses Date/Ti me 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 09/08/2025 7:30 AM EST documented as of this encounter Results * Mammogram Outside (No Interpretation) (03/01/2018 12:00 AM EDT) Narrative SYSTEMGENERATED, DOCUMENTATION - 10/22/2019 9:28 AM EST This study is for PACS [...] documented as of this encounter Care Teams Racing Car Driver Relationship Specialty Start Date End Date Shellie Cowart MD [address] [place] [address] PCP - General Family Medicine 09/26/19 10/24/19 Shellie Cowart MD [address] [place] [address] PCP - General Family Medicine 10/25/19 Paul Hooper MD [address] [place] [address] Orthoped[facility] Sports Medicine, [place] [address] Orthopedic Surgery 03/01/24 Preston Pederson MSW [address] [place] [address] Formula Weigher Licensed Clinical Formula Weigher 12/11/24 documented as of this encounter Additional Source Comments The information contained in this document represents components of the legal health record. It is not the complete legal health record.[facility]
--- OUTSIDE RECORDS SUMMARY | 2025-08-06 12:27 | XMS_ITS | Encounter Summary ---
Author Organization Formerly [facility] Address [address] [facility] [address] [place] [address] Phone Care Team Providers Care Inside Channel Account Manager Name Role Phone Shellie Cowart MD Primary Care Provider [phone] Shellie Cowart MD Primary Care Provider [phone] Paul Hooper MD Unavailable [phone] Preston Pederson [facility] Unavailable [phone] Encounter Details Date Type Department Care Team (Late st Contact Info) Description 10/22/2019 Ancillary Orders [facility] Imaging [address] [place] [address] System, Provider [place] In, [place] [address] Social History Tobacco Use Types Packs/Day Years [...] st Contact Info) Description 07/25/2025 Procedure Pass [facility], [facility] [address] [place] [address] 08/07/2025 10:00 AM EDT Office Visit [facility] [address] [facility] [address] [place] [address] Shellie Cowart MD [address] [facility] [address] [place] [address] 08/20/2025 9:40 AM EST Office Visit [facility] [address] [place] [address] Esau Alonzo PA-C [address] [place] [address] [place] [address] [email or web address] 09/05/2025 8:00 AM EST Pre-Admission Testing Pre Procedure Evaluation [address] [place] [address] Chinmay Glynn, 4 [facility] Orth[facility] & Sports [facility], [place] [address] 09/08/2025 Procedure Pass OR Admitting Dept - Virtual Department [address] [place] [address] 09/08/2025 7:30 AM EST Hospital Encounter OR Admitting Dept - Virtual Department [address] [place] [address] Chinmay Glynn DO 4 [facility], [place] [address] 09/08/2025 7:30 AM EST - 09/08/2025 9:55 AM EST Surgery OR Admitting Dept - Virtual Department [address] [place] [address] Chinmay Glynn, DO 4 [facility] Orthopedics Sports [facility], [place] [address] ARTHROPLASTY ANATOMIC INVERSE SHOULDER 09/16/2025 3:30 PM EST Office Visit [address] [place] [address] Sadi Kong MD [address] [place] [address] Fouzia Rocha, PT 8 [place] [address] 09/17/2025 10:00 AM EST Office Visit [facility] [address] [place] [address] Esau Alonzo PA-C [address] [place] [address] [place] [address] [email or web address] 09/22/2025 3:15 PM EST Office Visit [address] [place] [address] Sadi Kong MD [address] [place] [address] Fouzia Rocha, PT 8 [place] [address] 09/26/2025 2:30 PM EST Office Visit [address] [place] [address] Sadi Kong MD [address] [place] [address] Fouzia Rocha, PT 8 [place] [address] 09/30/2025 2:45 PM EST Office Visit [address] [place] [address] Sadi Kong MD [address] [place] [address] Fouzia Rocha, PT 8 [place] [address] 10/03/2025 2:30 PM EST Office Visit [address] [address] Sadi Kong MD [address] [place] [address] Fouzia Rocha, PT 8 [place] [address] 10/07/2025 2:45 PM EST Office Visit [address] [address] Sadi Kong MD [address] [place] [address] Fouzia Rocha, PT 8 [place] [address] 10/10/2025 2:45 PM EST Office Visit [address] [place] [address] Sadi Kong MD [address] [place] [address] Fouzia Rocha, PT 8 [place] [address] 10/14/2025 3:00 PM EST Office Visit [facility] 8 [place] [address] Sadi Kong MD [address] [facility], 2nd [place] [address] [email or web address] Fouzia Rocha, PT 8 [place] [address] 10/15/2025 9:45 AM EST Office Visit [facility] Medicine [address] [place] [address] Chinmay Glynn DO 4 [facility] Orthopedics & Sports Medicine, [place] [address] [email or web address] 04/01/2026 10:00 AM EDT Appointment [facility], [facility] [address] [place] [address] Shellie Cowart MD [address] [facility] [address] [address] [email or web address] Scheduled Procedures Name Priority Associated Diagnoses Date/Ti me 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 09/08/2025 7:30 AM EST documented as of this encounter Results * Mammogram Outside (No Interpretation) (08/21/2017 12:00 AM EST) Narrative SYSTEMGENERATED, DOCUMENTATION - 10/22/2019 9:29 AM EST This study is for PACS [...] documented as of this encounter Care Teams Inside Channel Account Manager Relationship Specialty Start Date End Date Shellie Cowart MD [address] [place] [address] PCP - General Family Medicine 09/26/19 10/24/19 Shellie Cowart MD [address] [place] [address] PCP - General Family Medicine 10/25/19 Paul Hooper MD [address] [place] [address] Orthopedics & Sports Medicine, [place] [address] Orthopedic Surgery 03/01/24 Preston Pederson MSW [address] [place] [address] Facing Machine Operator Licensed Clinical Facing Machine Operator 12/11/24 documented as of this encounter Additional Source Comments The information contained in this document represents components of the legal health record. It is not the complete legal health record.[facility]
--- OUTSIDE RECORDS SUMMARY | 2025-08-06 12:29 | XMS_ITS | Encounter Summary ---
Author Organization [facility] Address [address] [place] [address] Phone Care Team Providers Care Cap Jewel Plate Assembler Name Role Phone Shellie Cowart MD Primary Care Provider [phone] Paul Hooper MD Unavailable [phone] Preston Pederson SOLAR PV INSTALLER Unavailable [phone] Reason for Referral * - Closed Specialty Diagnoses / Procedures Referred By Contac t Referred To Contact Diagnoses Palpitations Procedures MCT (Mobile Cardiac Telemetry) Event Monitor Looping up to 30 Days Ryan Burger MD Phone: tel: fax: [email or web address] Referral ID Status Reason Start Date Expiration Date Visits Re quested Visits Authorized [id number] Closed 12/09/2022 12/09/2023 1 1 Encounter Details Date Type Department Care Team (Late st Contact Info) Description 02/20/2023 Ancillary Orders [facility] [address] [facility] 3rd Floor, [address] [place] [address] Ryan Burger MD [address] [place] [address] [email or web address] Palpitations Social History Tobacco Use Types Packs/Day Years [...] high school, GED, job training, learning the [place] language, technical skills, or developing parenting skills)? [...] st Contact Info) Description 07/25/2025 Procedure Pass [address] [address] 08/07/2025 10:00 AM EDT Office Visit [facility] [address] [facility] [address] [place] [address] Shellie Cowart MD [address] [facility] [address] [place] [address] 08/20/2025 9:40 AM EST Office Visit [facility] [address] [place] [address] Esau Alonzo PA-C [address] [place] [address] [place] [address] [email or web address] 09/05/2025 8:00 AM EST Pre-Admission Testing Pre Procedure Evaluation [address] [place] [address] Chinmay Glynn, 4 [facility] Orthopedics & Sports [facility], [place] [address] 09/08/2025 Procedure Pass OR Admitting Dept - Virtual Department [address] [place] [address] 09/08/2025 7:30 AM EST Hospital Encounter OR Admitting Dept - Virtual Department [address] [place] [address] Chinmay Glynn DO 4 [facility] Orthopedics & Sports [facility], [place] [address] 09/08/2025 7:30 AM EST - 09/08/2025 9:55 AM EST Surgery OR Admitting Dept - Virtual Department [address] [place] [address] Chinmay Glynn DO 4 [facility] Orthopedics Sports [facility], [place] [address] ARTHROPLASTY ANATOMIC INVERSE SHOULDER 09/16/2025 3:30 PM EST Office Visit [address] [place] [address] Sadi Kong MD [address] [place] [address] Fouzia Rocha, PT 8 [place] [address] 09/17/2025 10:00 AM EST Office Visit [facility] [address] [place] [address] Esau Alonzo PA-C [address] [place] [address] [place] [address] [email or web address] 09/22/2025 3:15 PM EST Office Visit [address] [place] [address] Sadi Kong MD [address] [place] [address] Fouzia Rocha, PT 8 [place] [address] 09/26/2025 2:30 PM EST Office Visit [address] [place] [address] Sadi Kong MD [address] [place] [address] Fouzia Rocha, PT 8 [place] [address] 09/30/2025 2:45 PM EST Office Visit [address] [place] [address] Sadi Kong MD [address] [place] [address] Fouzia Rocha, PT 8 [place] [address] 10/03/2025 2:30 PM EST Office Visit [address] [address] Sadi Kong MD [address] [place] [address] Fouzia Rocha, PT 8 [place] [address] 10/07/2025 2:45 PM EST Office Visit [facility] 8 [place] [address] Sadi Kogn MD [address] [place] [address] Fouzia Rocha, PT 8 [place] [address] 10/10/2025 2:45 PM EST Office Visit [facility] [address] [place] [address] Sadi Kong MD [address] [place] [address] Fouzia Rocha, PT 8 [place] [address] 10/14/2025 3:00 PM EST Office Visit [facility] 8 [place] [address] Sadi Kong MD [address] [facility], 2nd [place] [address] Fouzia Rocha, PT 8 [place] [address] 10/15/2025 9:45 AM EST Office Visit [facility] [address] [place] [address] Chinmay Glynn DO [address] [place] [address] Orthopedics & Sports Medicine, [place] [address] 04/01/2026 10:00 AM EDT Appointment [address] [address] Shellie Cowart MD [address] [address] Scheduled Orders Name Type Priority Associated Diagnoses Orde r Schedule MCT (Mobile Cardiac Telemetry) Cardiac Monitors Routine Palpitations Expected: 12/09/2022, Expires: 03/11/2023 Scheduled Procedures Name Priority Associated Diagnoses Date/Ti me 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 09/08/2025 7:30 AM EST documented as of this encounter Visit Diagnoses Diagnosis Palpitations Arthropathy of right shoulder documented in this encounter Additional Health Concerns Assessment Noted Time PHQ-2 Depression Total Score: 0 06/19/20 22 4:01 PM EDT documented as of this encounter Care Teams Cap Jewel Plate Assembler Relationship Specialty Start Date End Date Shellie Cowart MD [address] [address] PCP - General Family Medicine 10/25/19 Paul Hooper MD 4 [facility] Orthopedics & Sports Medicine, [place] [address] [email or web address] Orthopedic Surgery 03/01/24 Preston Pederson MSW [address] [place] [address] [email or web address] Safety Manager Licensed Clinical Safety Manager 12/11/24 documented as of this encounter Additional Source Comments The information contained in this document represents components of the legal health record. It is not the complete legal health record.[facility]
--- OUTSIDE RECORDS SUMMARY | 2025-08-06 12:29 | XMS_ITS | Encounter Summary ---
Author Organization [facility] Address [address] [facility] [address] [place] [address] Phone Care Team Providers Care Thermospray Operator Name Role Phone Shellie Cowart MD Primary Care Provider [phone] Paul Hooper MD Unavailable [phone] Preston Pederson FENCE MAKER Unavailable [phone] Encounter Details Date Type Department Care Team (Late st Contact Info) Description 02/17/2025 Procedure Pass [facility] [address] [place] [address] Social History Tobacco Use Types Packs/Day Years [...] as food, clothing, or medical care? No 12/02/2024 In the past 12 months have y ou been in a relationship with a person who hurts, threatens, or tries to control you? No 12/02/2024 Are you denied basic needs s uch as food, clothing, or medical care? No 12/02/2024 In the past 12 months have y ou been in a relationship with a person who hurts, threatens, or tries to control you? No 12/02/2024 Comments No Sex and Gender Information Value Date Recorded Sex Assigned at Female 05/25/2020 8:19 AM EDT Legal Sex Female 12:09 PM EST Gender Identity Female 05/25/2020 8:19 AM EDT Sexual Orientation Straight 05/25/2020 8: 19 AM EDT documented as of this encounter Plan of Treatment Upcoming Encounters Date Type Department Care Team (Late st Contact Info) Description 07/25/2025 Procedure Pass [facility] [address] [place] [address] 08/07/2025 10:00 AM EDT Office Visit [facility] [address] [facility] [address] [place] [address] Shellie Cowart MD 15 [facility] [address] [place] [address] 08/20/2025 9:40 AM EST Office Visit [facility]ics [facility] Sports Medicine [address] [place] [address] Esau Alonzo PA-C [address] [place] [address] [place] [address] [email or web address] 09/05/2025 8:00 AM EST Pre-Admission Testing Pre Procedure Evaluation [address] [place] [address] Chinmay Glynn DO [address] [place] [address] Orthopedics & Sports [place] [address] 09/08/2025 Procedure Pass OR Admitting Dept - Virtual Department [address] [place] [address] 09/08/2025 7:30 AM EST Hospital Encounter OR Admitting Dept - Virtual Department [address] [place] [address] Chinmay Glynn DO [address] [place] [address] Orthopedics & Sports Medicine, [place] [address] 09/08/2025 7:30 AM EST - 09/08/2025 9:55 AM EST Surgery OR Admitting Dept - Virtual Department [address] [place] [address] Chinmay Glynn DO [address] [place] [address] Orthopedics & Sports Medicine, [facility] [place] [address] ARTHROPLASTY ANATOMIC INVERSE SHOULDER 09/16/2025 3:30 PM EST Office Visit [address] [place] [address] Sadi Kong MD [address] [place] [address] Fouzia Rocha, PT 8 [place] [address] 09/17/2025 10:00 AM EST Office Visit [facility] Medicine [address] [place] [address] Esau Alonzo PA-C [address] [place] [address] [place] [address] [email or web address] 09/22/2025 3:15 PM EST Office Visit [facility] [address] [place] [address] Sadi Kong MD [address] [place] [address] Fouzia Rocha, PT 8 [place] [address] 09/26/2025 2:30 PM EST Office Visit [address] [place] [address] Sadi Kong MD [address] [place] [address] Fouzia Rocha, PT 8 [place] [address] 09/30/2025 2:45 PM EST Office Visit [address] [address] Sadi Kong MD [address] [place] [address] Fouzia Rocha, PT 8 [place] [address] 10/03/2025 2:30 PM EST Office Visit [address] [address] Sadi Kong MD [address] [place] [address] Fouzia Rocha, PT 8 [place] [address] 10/07/2025 2:45 PM EST Office Visit [address] [address] Sadi Kong MD [address] [place] [address] Fouzia Rocha, PT 8 [place] [address] 10/10/2025 2:45 PM EST Office Visit [address] [address] Sadi Kong MD [address] [place] [address] Fouzia Rocha, PT 8 [place] [address] 10/14/2025 3:00 PM EST Office Visit [facility] 8 [place] [address] Sadi Kong MD 22 [facility], 2nd [place] [address] Fouzia Rocha, PT 8 [place] [address] 10/15/2025 9:45 AM EST Office Visit [facility] Medicine [address] [place] [address] Chinmay Glynn DO [address] [place] [address] Orthopedics & Sports Medicine, [place] [address] 04/01/2026 10:00 AM EDT Appointment [address] [address] Shellie Cowart MD [address] [place] [address] Scheduled Procedures Name Priority Associated Diagnoses Date/Ti me 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 09/08/2025 7:30 AM EST documented as of this encounter Visit Diagnoses Not on filedocumented in this encounter Additional Health Concerns Assessment Noted Time PHQ-9 Depression Total Score: 1 10/24/19 12:00 PM EST PHQ-2 Depression Total Score: 10/24/19 12:00 PM EST documented as of this encounter Care Teams Thermospray Operator Relationship Specialty Start Date End Date Shellie Cowart MD [address] [address] PCP - General Family Medicine 10/25/19 Paul Hooper MD [address] [place] [address] Orthopedics & Sports Medicine, [place] [address] Orthopedic Surgery 03/01/24 Preston Pederson MSW [address] [place] [address] [email or web address] Calibration Engineer Licensed Clinical Calibration Engineer 12/11/24 documented as of this encounter Additional Source Comments The information contained in this document represents components of the legal health record. It is not the complete legal health record.[facility]
--- OUTSIDE RECORDS SUMMARY | 2025-08-06 12:29 | XMS_ITS | Encounter Summary ---
Author Organization [facility] Address [address] [place] [address] Phone Care Team Providers Care Infrastructure Solutions Architect Name Role Phone Shellie Cowart MD Primary Care Provider [phone] Paul Hooper MD Unavailable Preston Pederson UTILIZATION ENGINEER Unavailable [phone] Reason for Visit * Reason Onset Date Comments Triage 05/16/2025 Pitting Edema Encounter Details Date Type Department Care Team (Late st Contact Info) Description 05/16/2025 Telephone [facility] [address] [address] [place] [address] Shellie Cowart MD 15 [facility] [address] [place] [address] [email or web address] Triage (Pitting Edema ) Social History Tobacco Use Types Packs/Day Years [...] got money to buy more. Never True 02/26/2025 Within the past 6 months the food we bought just didn't last and we didn't have enough money to get more. Never True Residential Stability Answer Date Recor ded What is your housing situation today? I have janae sing 02/26/2025 How many times have you move d in the past 12 months? Zero (I did not move) 02/26/2025 Paying for Meds Answer Date Recorded Do you have trouble paying for medicines? No 02/26/2025 Paying Utility Bills Answer Date Record ed Do you have trouble paying your heating or elect ricity bill? No 02/26/2025 Transportation Answer Date Recorded Has the lack of transportati on kept you from medical appointments or from getting medications? No 02/26/2025 Unemployment Answer Date Recorded Are you currently unemployed or working on a part-time or temporary basis, and looking for work? No 06/19/2022 Digital Access Answer Date Recorded No 02/26/2025 Yes 02/26/2025 Do you have reliable internet access at home? Ye s 02/26/2025 Do you have a device (e.g., phone, tablet, computer) with a working camera? Yes 02/26/2025 Intimate Partner Violence Answer Date R ecorded Are you denied basic needs s uch as food, clothing, or medical care? No 02/26/2025 In the past 12 months have y ou been in a relationship with a person who hurts, threatens, or tries to control you? No 02/26/2025 Are you denied basic needs s uch as food, clothing, or medical care? No 02/26/2025 In the past 12 months have y ou been in a relationship with a person who hurts, threatens, or tries to control you? No 02/26/2025 Comments No Sex and Gender Information Value Date Recorded Sex Assigned at Female 05/25/2020 8:19 AM EDT Legal Sex Female 12:09 PM EST Gender Identity Female 05/25/2020 8:19 AM EDT Sexual Orientation Straight 05/25/2020 8: 19 AM EDT documented as of this encounter Progress Notes * Marlen Resendiz RN - 05/16/2025 9:49 AM EDT S/W Naa. Sounds non-distressed, speaking in full sentences. Bilat leg swelling has been an ongoing issue for pt. She was seen in the ER on 02/26, r/o DVT, andf/u with PCP on 03/05. Pt advised that she has been wearing compression socks, practicing ankle turns, and elevating legs multiple times a day since these visits. She notes it had been working well, but recently despite these interventions swelling has been worsening again. Was at the [facility] today and they noted bilat pitting edema, worse on right. Per previous OV notes, RT leg edema historically worse than left. Pt denies any chest pains, does not she has some breathing difficulties at baseline do to chronic fatigue, but denies any worsening of this. She does note that she been experiencing an increase in ocular migraines , describes as venetian blinds in her field of vision. She did advise in the past this was diagnosed as ocular migraines but is not sure if related as they have been becoming more frequent recently as well. Sched OV for Monday @ 1:20pm with PCP. POD: Given vision changes, should pt wait until Monday to be seen? Pt is on anticoag currently. (Eliquis) * Keshia Fitch - 05/16/2025 9:39 AM EDT [facility] PEN Top Smart Phrases: Red Yellow Green Guidelines Select Red, Yellow, Green Triage Intake *Route to appropriate staff member/pool according to practice guidelines* [place] Call Intake Call Back Number: (if not patient, name/relationship) [phone] [place] Symptom: Triage (Pitting Edema ) When did these symptoms start? On going Have you ever experienced these symptoms before? Any additional information: Pt was at Dr Bernstein( podiatry) office today pr state that Dr hung noticed Pitting Edema in both legs more Rt than left, advised pt to get care from PCP Route High Priority Encounter to coding director Reason for Call = TRIAGE Comment = ORANGE + symptom documented in this encounter Plan of Treatment Upcoming Encounters Date Type Department Care Team (Late st Contact Info) Description 07/25/2025 Procedure Pass [facility], [address] [address] 08/07/2025 10:00 AM EDT Office Visit [facility] [address] [address] [place] [address] Shellie Cowart MD 15 [facility] [address] [place] [address] 08/20/2025 9:40 AM EST Office Visit [facility] [address] [place] [address] Esau Alonzo PA-C [address] [place] [address] [place] [address] [email or web address] 09/05/2025 8:00 AM EST Pre-Admission Testing Pre Procedure Evaluation [address] [place] [address] Chinmay Glynn DO [address] [place] [address] Orthopedics & Sports Medicine, [facility] [place] [address] 09/08/2025 Procedure Pass [place] Admitting Dept - Virtual Department [address] [place] [address] 09/08/2025 7:30 AM EST Hospital Encounter OR Admitting Dept - Virtual Department [address] [place] [address] Chinmay Glynn DO [address] [place] [address] [facility] [place] [address] 09/08/2025 7:30 AM EST - 09/08/2025 9:55 AM EST Surgery OR Admitting Dept - Virtual Department [address] [place] [address] Chinmay Glynn DO [address] [place] [address] [facility] [place] [address] ARTHROPLASTY ANATOMIC INVERSE SHOULDER 09/16/2025 3:30 PM EST Office Visit [address] [place] [address] Sadi Kong MD [address] [place] [address] Fouzia Rocha, PT 8 [place] [address] 09/17/2025 10:00 AM EST Office Visit [facility] [address] [place] [address] Esau Alonzo PA-C [address] [place] [address] [place] [address] [email or web address] 09/22/2025 3:15 PM EST Office Visit [address] [place] [address] Sadi Kong MD [address] [place] [address] Fouzia Rocha, PT 8 [place] [address] 09/26/2025 2:30 PM EST Office Visit [address] [place] [address] Sadi Kong MD [address] [place] [address] Fouzia Rocha, PT 8 [place] [address] 09/30/2025 2:45 PM EST Office Visit [address] [place] [address] Sadi Kong MD [address] [place] [address] Fouzia Rocha, PT 8 [place] [address] 10/03/2025 2:30 PM EST Office Visit [address] [place] [address] Sadi Kong MD [address] [place] [address] Fouzia Rocha, PT 8 [place] [address] 10/07/2025 2:45 PM EST Office Visit [address] [place] [address] Sadi Kong MD [address] [place] [address] Fouzia Rocha, PT 8 [place] [address] 10/10/2025 2:45 PM EST Office Visit [facility] 8 [place] [address] Sadi Kong MD [address] [address] Fouzia Rocha, PT 8 [place] [address] 10/14/2025 3:00 PM EST Office Visit [facility] 8 [place] [address] Sadi Kong MD [address] [place] [address] Fouzia Rocha, PT 8 [place] [address] 10/15/2025 9:45 AM EST Office Visit [facility] Sports Medicine [address] [place] [address] Chinmay Glynn DO [address] [place] [address] Orthopedics & Sports Medicine, [facility] 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 09/08/2025 7:30 AM EST documented as of this encounter Visit Diagnoses Not on filedocumented in this encounter Additional Health Concerns Assessment Noted Time PHQ-9 Depression Total Score: 1 10/24/19 12:00 PM EST PHQ-2 Depression Total Score: 10/24/19 12:00 PM EST documented as of this encounter Care Teams Infrastructure Solutions Architect Relationship Specialty Start Date End Date Shellie Cowart MD [address] [place] [address] [email or web address] PCP - General Family Medicine 10/25/19 Paul Hooper MD [address] [place] [address] Orthopedics [facility] Sports Medicine, [place] [address] Orthopedic Surgery 03/01/24 Preston Pederson MSW [address] [place] [address] [email or web address] Broomcorn Thresher Licensed Clinical Broomcorn Thresher 12/11/24 documented as of this encounter Additional Source Comments The information contained in this document represents components of the legal health record. It is not the complete legal health record.[facility]
--- OUTSIDE RECORDS SUMMARY | 2025-08-06 12:29 | XMS_ITS | Encounter Summary ---
Author Organization [facility] Address [address] [place] [address] Phone Care Team Providers Care Information Technology Manager Name Role Phone Shellie Cowart MD Primary Care Provider [phone] Paul Hooper MD Unavailable [phone] Preston Pederson COLLECT ON DELIVERY CLERK Unavailable Encounter Details Date Type Department Care Team (Late st Contact Info) Description 12/09/2024 Procedure Pass [facility] Admitting Dept Virtual Department [address] [place] [address] Social History Tobacco Use Types Packs/Day Years [...] st Contact Info) Description 07/25/2025 Procedure Pass [facility], [facility] [address] [place] [address] 08/07/2025 10:00 AM EDT Office Visit [facility] [address] [facility] [address] [place] [address] Shellie Cowart MD [address] [facility] [address] [place] [address] 08/20/2025 9:40 AM EST Office Visit [facility] Orth[facility]ics [facility] Sports Medicine [address] [place] [address] Esau Alonzo PA-C [address] [place] [address] [place] [address] [email or web address] 09/05/2025 8:00 AM EST Pre-Admission Testing Pre Procedure Evaluation [address] [place] [address] Chinmay Glynn DO [address] [facility], [place] [address] [email or web address] 09/[email or web address] Procedure Pass [place] Admitting Dept - Virtual Department [address] [place] [address] 09/08/2025 7:30 AM EST Hospital Encounter OR Admitting Dept - Virtual Department [address] [place] [address] Chinmay Glynn DO 4 [facility] [place] [address] [email or web address] 09/08/2025 7:30 AM EST - 09/08/2025 9:55 AM EST Surgery OR Admitting Dept - Virtual Department [address] [place] [address] Chinmay Glynn DO [address] [place] [address] Orthopedics & Sports Medicine, [facility] [place] [address] ARTHROPLASTY ANATOMIC INVERSE SHOULDER 09/16/2025 3:30 PM EST Office Visit [address] [place] [address] Sadi Kong MD [address] [place] [address] Fouzia Rocha, PT 8 [place] [address] 09/17/2025 10:00 AM EST Office Visit [facility] [address] [place] [address] Esau Alonzo PA-C [address] [place] [address] [place] [address] [email or web address] 09/22/2025 3:15 PM EST Office Visit [facility] [address] [place] [address] Sadi Kong MD [address] [place] [address] Fouzia Rocha, PT 8 [place] [address] 09/26/2025 2:30 PM EST Office Visit [address] [place] [address] Sadi Kong MD [address] [place] [address] Fouzia Rocha, PT 8 [place] [address] 09/30/2025 2:45 PM EST Office Visit [facility] 8 [place] [address] Sadi Kong MD [address] [place] [address] Fouzia Rocha, PT 8 [place] [address] 10/03/2025 2:30 PM EST Office Visit [address] [address] Sadi Kong MD [address] [place] [address] Fouzia Rocha, PT 8 [place] [address] 10/07/2025 2:45 PM EST Office Visit [address] [address] Sadi Kong MD [address] [place] [address] Fouzia Rocha, PT 8 [place] [address] 10/10/2025 2:45 PM EST Office Visit [address] [address] Sadi Kong MD [address] [place] [address] Fouzia Rocha, PT 8 [place] [address] 10/14/2025 3:00 PM EST Office Visit [facility] 8 [place] [address] Sadi Kong MD [address] [facility], 2nd [place] [address] Fouzia Rocha, PT 8 [place] [address] 10/15/2025 9:45 AM EST Office Visit [facility] [address] [place] [address] Chinmay Glynn DO [address] [place] [address] Orthopedics & Sports Medicine, [place] [address] 04/01/2026 10:00 AM EDT Appointment [address] [address] Shellie Cowart MD [address] [place] [address] Scheduled Procedures Name Priority Associated Diagnoses Date/Ti me 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 09/08/2025 7:30 AM EST documented as of this encounter Visit Diagnoses Not on filedocumented in this encounter Additional Health Concerns Assessment Noted Time PHQ-9 Depression Total Score: 1 10/24/19 12:00 PM EST PHQ-2 Depression Total Score: 10/24/19 12:00 PM EST documented as of this encounter Care Teams Information Technology Manager Relationship Specialty Start Date End Date Shellie Cowart MD [address] [address] PCP - General Family Medicine 10/25/19 Paul Hooper MD [address] [place] [address] Orthopedics & Sports Medicine, [place] [address] Orthopedic Surgery 03/01/24 Preston Pederson MSW [address] [place] [address] [email or web address] Registered Nurse Cardiac Licensed Clinical Registered Nurse Cardiac 12/11/24 documented as of this encounter Additional Source Comments The information contained in this document represents components of the legal health record. It is not the complete legal health record.[facility]
--- OUTSIDE RECORDS SUMMARY | 2025-08-06 12:29 | XMS_ITS | Encounter Summary ---
Author Organization [facility] Address [address] [facility] [address] [place] [address] Phone Care Team Providers Care Camp Cook Name Role Phone Shellie Cowart MD Primary Care Provider [phone] Paul Hooper MD Unavailable [phone] Preston Pederson CUFF MAKER Unavailable [phone] Encounter Details Date Type Department Care Team (Late st Contact Info) Description 04/17/2024 Procedure Pass [place] Admitting Dept - Virtual Department 30 [place] [address] Social History Tobacco Use Types Packs/Day Years Used Date Smoking Tobacco: Former Cigarettes 0.5 10 0 10/09/1970 - 10/09/1980 Smokeless Tobacco: Never Comments:for about 10 years Alcohol Use Standard Drinks/Week Comments Yes 0 (1 standard drink = 0.6 oz pur e alcohol) rarely one drink once a month Home Health Assessment: Transportation Answer Date Recorded Lack of Transportation (Medical) No 04/18/2024 Lack of Transportation (Non-Medical) No 04/18/2024 Patient Unable or Declines to Respond No 04/18/2024 Child or Family Care Answer Date Record ed Do you have problems with on e of the following making it difficult for you to work, study, or receive health care? No 07/26/2023 Education Answer Date Recorded Are you interested in help w ith more adult education (for example, completing high school, GED, job training, learning the Italian language, technical skills, or developing parenting skills)? [...] st Contact Info) Description 07/25/2025 Procedure Pass [facility], [facility] [address] [place] [address] 08/07/2025 10:00 AM EDT Office Visit [facility] [place] [facility] [address] [facility] [address] [place] [address] Shellie Cowart MD [address] [facility] [address] [place] [address] 08/20/2025 9:40 AM EST Office Visit [facility] Orthopedics & Sports Medicine [address] [place] [address] Esau Alonzo PA-C [address] [place] [address] [place] [address] [email or web address] 09/05/2025 8:00 AM EST Pre-Admission Testing Pre Procedure Evaluation [address] [place] [address] Chinmay Glynn DO 4 [facility] [place] [address] [email or web address] 09/08/2025 Procedure Pass [place] Admitting Dept - Virtual Department [address] [place] [address] 09/08/2025 7:30 AM EST Hospital Encounter OR Admitting Dept - Virtual Department [address] [place] [address] Chinmay Glynn DO 4 [facility] Sports Medicine, [facility] [place] [address] [email or web address] 09/08/2025 7:30 AM EST - 09/08/2025 9:55 AM EST Surgery OR Admitting Dept - Virtual Department [address] [place] [address] Chinmay Glynn DO 4 [facility] [place] [address] ARTHROPLASTY ANATOMIC INVERSE SHOULDER 09/16/2025 3:30 PM EST Office Visit [facility] [address] [place] [address] [place] [address] Sadi Kong MD [address] [place] [address], [address] [place] [address] [email or web address] Fouzia Rocha, PT 8 [place] [address] 09/17/2025 10:00 AM EST Office Visit [facility] Medicine [address] [place] [address] Esau Alonzo PA-C [address] [place] [address] [place] [address] [email or web address] 09/22/2025 3:15 PM EST Office Visit [address] [place] [address] Sadi Kong MD [address] [place] [address] [email or web address] Fouzia Rocha, PT 8 [place] [address] [email or web address] 09/26/2025 2:30 PM EST Office Visit [address] [place] [address] Sadi Kong MD [address] [place] [address] Fouzia Rocha, PT 8 [place] [address] [email or web address] 09/30/2025 2:45 PM EST Office Visit [address] [place] [address] Sadi Kong MD [address] [place] [address] [email or web address] Fouzia Rocha, PT 8 [place] [address] 10/03/2025 2:30 PM EST Office Visit [facility] 8 [place] [address] Sadi Kong MD [address] [place] [address] Fouzia Rocha, PT 8 [place] [address] 10/07/2025 2:45 PM EST Office Visit [address] [address] Sadi Kong MD [address] [place] [address] Fouzia Rocha, PT 8 [place] [address] 10/10/2025 2:45 PM EST Office Visit [address] [address] Sadi Kong MD [address] [place] [address] Fouzia Rocha, PT 8 [place] [address] 10/14/2025 3:00 PM EST Office Visit [address] [address] Sadi Kong MD [address] [place] [address] Fouzia Rocha, PT 8 [place] [address] 10/15/2025 9:45 AM EST Office Visit [facility] Orthopedics & Sports Medicine [address] [place] [address] Chinmay Glynn DO 4 [facility] Orthopedics & Sports [facility], [place] [address] 04/01/2026 10:00 AM EDT Appointment [address] [address] Shellie Cowart MD [address] [address] [email or web address] Scheduled Procedures Name Priority Associated Diagnoses Date/Ti me 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 09/08/2025 7:30 AM EST documented as of this encounter Visit Diagnoses Not on filedocumented in this encounter Additional Health Concerns Assessment Noted Time PHQ-2 Depression Total Score: 2 07/26/20 23 7:43 AM EDT documented as of this encounter Care Teams Camp Cook Relationship Specialty Start Date End Date Shellie Cowart MD [address] [place] [address] PCP - General Family Medicine 10/25/19 Paul Hooper MD [address] [place] [address] Orthopedics & Sports [facility], [place] [address] Orthopedic Surgery 03/01/24 Preston Pederson MSW [address] [place] [address] [email or web address] Resident Manager Licensed Clinical Resident Manager 12/11/24 documented as of this encounter Additional Source Comments The information contained in this document represents components of the legal health record. It is not the complete legal health record.[facility]
--- OUTSIDE RECORDS SUMMARY | 2025-08-06 12:29 | XMS_ITS | Encounter Summary ---
Author Organization [facility] Address [address] [place] [address] Phone Care Team Providers Care Supervisor Coremaker Name Role Phone Shellie Cowart MD Primary Care Provider Paul Hooper MD Unavailable [phone] Preston Pederson FOOT CASTER Unavailable [phone] Encounter Details Date Type Department Care Team (Late st Contact Info) Description 06/18/2024 Procedure Pass [facility], [facility] 30 [place] [address] Social History Tobacco Use Types Packs/Day Years [...] Info) Description 07/25/2025 Procedure Pass [facility], [facility] [address] [place] [address] 08/07/2025 10:00 AM EDT Office Visit [facility] [place] [facility] [address] [facility] [address] [place] [address] Shellie Cowart MD [address] [facility] [address] [place] [address] 08/20/2025 9:40 AM EST Office Visit [facility] Medicine [address] [place] [address] Esau Alonzo PA-C [address] [place] [address] [place] [address] [email or web address] 09/05/2025 8:00 AM EST Pre-Admission Testing Pre Procedure Evaluation [address] [place] [address] Chinmay Glynn, 4 [facility] Orthopedics & Sports Medicine, [place] [address] 09/08/2025 Procedure Pass [place] Admitting Dept - Virtual Department [address] [place] [address] 09/08/2025 7:30 AM EST Hospital Encounter OR Admitting Dept - Virtual Department [address] [place] [address] Chinmay Glynn DO 4 [facility] Orthopedics & Sports Medicine, [place] [address] 09/08/2025 7:30 AM EST - 09/08/2025 9:55 AM EST Surgery OR Admitting Dept - Virtual Department [address] [place] [address] Chinmay Glynn DO 4 [facility] [place] [address] ARTHROPLASTY ANATOMIC INVERSE SHOULDER 09/16/2025 3:30 PM EST Office Visit [facility] [address] [place] [address] Sadi Kong MD [address] [place] [address], 2nd [place] [address] Fouzia Rocha, PT 8 [place] [address] 09/17/2025 10:00 AM EST Office Visit [facility] Medicine [address] [place] [address] Esau Alonzo PA-C [address] [place] [address] [place] [address] [email or web address] 09/22/2025 3:15 PM EST Office Visit [address] [place] [address] Sadi Kong MD [address] [place] [address] Fouzia Rocha, PT 8 [place] [address] 09/26/2025 2:30 PM EST Office Visit [address] [place] [address] Sadi Kong MD [address] [place] [address] Fouzia Rocha, PT 8 [place] [address] 09/30/2025 2:45 PM EST Office Visit [address] [place] [address] Sadi Kong MD [address] [place] [address] Fouzia Rocha, PT 8 [place] [address] 10/03/2025 2:30 PM EST Office Visit [address] [address] Sadi Kong MD [address] [place] [address] Fouzia Rocha, PT 8 [place] [address] 10/07/2025 2:45 PM EST Office Visit [address] [address] Sadi Kong MD [address] [place] [address] Fouzia Rocha, PT 8 [place] [address] 10/10/2025 2:45 PM EST Office Visit [address] [address] Sadi Kong MD [address] [place] [address] Fouzia Rocha, PT 8 [place] [address] 10/14/2025 3:00 PM EST Office Visit [address] [address] Sadi Kong MD [address] [place] [address] Fouzia Rocha, PT 8 [place] [address] 10/15/2025 9:45 AM EST Office Visit [facility] Medicine [address] [place] [address] Chinmay Glynn DO 4 [facility] Orthopedics Sports [facility] [place], [place], [place] [id number] 04/01/2026 10:00 AM EDT Appointment [address] [address] Shellie Cowart MD [address] [place] [address] Scheduled Procedures Name Priority Associated Diagnoses Date/Ti me 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 09/08/2025 7:30 AM EST documented as of this encounter Visit Diagnoses Not on filedocumented in this encounter Additional Health Concerns Assessment Noted Time PHQ-9 Depression Total Score: 18 024 8:15 AM EDT PHQ-2 Depression Total Score: 6 07/05/20 24 8:15 AM EDT documented as of this encounter Care Teams Supervisor Coremaker Relationship Specialty Start Date End Date Shellie Cowart MD [address] [place] [address] PCP - General Family Medicine 10/25/19 Paul Hooper MD [address] [place] [address] Orthopedics Sports [facility] [place], [place] [address] Orthopedic Surgery 03/01/24 Preston Pederson MSW [address] [place] [address] [email or web address] Players Club Representative Licensed Clinical Players Club Representative 12/11/24 documented as of this encounter Additional Source Comments The information contained in this document represents components of the legal health record. It is not the complete legal health record.[facility]
--- OUTSIDE RECORDS SUMMARY | 2025-08-06 12:29 | XMS_ITS | Encounter Summary ---
Author Organization [facility] Address [address] [place] [address] Phone Care Team Providers Care Sealer Aircraft Name Role Phone Shellie Cowart MD Primary Care Provider [phone] Paul Hooper MD Unavailable [phone] Preston Pederson MEDICAL EDUCATOR Unavailable [phone] Encounter Details Date Type Department Care Team (Late st Contact Info) Description 06/25/2025 Procedure Pass [facility], [facility] 30 [place] [address] Social History Tobacco Use Types Packs/Day Years [...] got money to buy more. Never True 06/25/2025 Within the past 6 months the food we bought just didn't last and we didn't have enough money to get more. Never True Residential Stability Answer Date Recor ded What is your housing situation today? I have janae sing 06/25/2025 How many times have you move d in the past 12 months? Zero (I did not move) 06/25/2025 Paying for Meds Answer Date Recorded Do you have trouble paying for medicines? No 06/25/2025 Paying Utility Bills Answer Date Record ed Do you have trouble paying your heating or elect ricity bill? No 06/25/2025 Transportation Answer Date Recorded Has the lack of transportati on kept you from medical appointments or from getting medications? No 06/25/2025 Unemployment Answer Date Recorded Are you currently unemployed or working on a part-time or temporary basis, and looking for work? No 06/19/2022 Digital Access Answer Date Recorded No 06/25/2025 Yes 06/25/2025 Do you have reliable internet access at home? Ye s 06/25/2025 Do you have a device (e.g., phone, tablet, computer) with a working camera? Yes 06/25/2025 Intimate Partner Violence Answer Date R ecorded Are you denied basic needs s uch as food, clothing, or medical care? No 06/25/2025 In the past 12 months have y ou been in a relationship with a person who hurts, threatens, or tries to control you? No 06/25/2025 Are you denied basic needs s uch as food, clothing, or medical care? No 06/25/2025 In the past 12 months have y ou been in a relationship with a person who hurts, threatens, or tries to control you? No 06/25/2025 Comments No Sex and Gender Information Value Date Recorded Sex Assigned at Female 05/25/2020 8:19 AM EDT Legal Sex Female 12:09 PM EST Gender Identity Female 05/25/2020 8:19 AM EDT Sexual Orientation Straight 05/25/2020 8: 19 AM EDT documented as of this encounter Functional Status * Calculated C-SSRS Risk Score (Lifetime/Recent) Answer Date of Assessment Author No Risk Indicated 06/25/2025 4:31 PM EDT Shreya Hunter RN * Victoria Suicide Severity Rating Scale (Screener/Recent Self-Report) Question Answer Date of Assessment Author 1. Wish to be (Past 1 Month) No 025 4:31 PM EDT Shreya Hunter RN 2. Non-Specific Active Suici juan carlos Thoughts (Past 1 Month) No 06/25/2025 4:31 PM EDT [place] Hunter RN 6. Suicidal Behavior (Lifetime) No 4:31 PM EDT Shreya Hunter RN documented as of this encounter Plan of Treatment Upcoming Encounters Date Type Department Care Team (Late st Contact Info) Description 07/25/2025 Procedure Pass [address] [address] 08/07/2025 10:00 AM EDT Office Visit [facility] [place] [facility] 15 [facility] 201 [place] [address] Shellie Cowart MD 15 [facility] [address] [place] [address] 08/20/2025 9:40 AM EST Office Visit [facility] Orthopedics & Sports Medicine [address] [place] [address] Esau Alonzo PA-C [address] [place] [address] [place] [address] [email or web address] 09/05/2025 8:00 AM EST Pre-Admission Testing Pre Procedure Evaluation [address] [place] [address] Chinmay Glynn DO [address] [place] [address] Orthoped[facility] & Sports [place] [address] 09/08/2025 Procedure Pass OR Admitting Dept - Virtual Department [address] [place] [address] 09/08/2025 7:30 AM EST Hospital Encounter OR Admitting Dept - Virtual Department [address] [place] [address] Chinmay Glynn, [address] [facility] Orthopedics & Sports [facility], [place] [address] 09/08/2025 7:30 AM EST - 09/08/2025 9:55 AM EST Surgery OR Admitting Dept - Virtual Department [address] [place] [address] Chinmay Glynn, DO [address] [facility] Orthopedics & Sports [facility], [facility] [place] [address] ARTHROPLASTY ANATOMIC INVERSE SHOULDER 09/16/2025 3:30 PM EST Office Visit [facility] [address] [place] [address] [place] [address] Sadi Kong MD [address] [place] [address] Fouzia Rocha, PT 8 [place] [address] 09/17/2025 10:00 AM EST Office Visit [facility] Orthopedics [facility] Sports Medicine [address] [place] [address] Esau Alonzo PA-C [address] [place] [address] [place] [address] [email or web address] 09/22/2025 3:15 PM EST Office Visit [facility] [address] [place] [address] Sadi Kong MD [address] [address] Fouzia Rocha, PT 8 [place] [address] 09/26/2025 2:30 PM EST Office Visit [facility] 8 [place] [address] Sadi Kong MD [address] [place] [address] Fouzia Rocha, PT 8 [place] [address] 09/30/2025 2:45 PM EST Office Visit [facility] 8 [place] [address] Sadi Kong MD [address] [place] [address] Fouzia Rocha, PT 8 [place] [address] 10/03/2025 2:30 PM EST Office Visit [facility] [address] [place] [address] Sadi Kong MD [address] [place] [address] Fouzia Rocha, PT 8 [place] [address] 10/07/2025 2:45 PM EST Office Visit [facility] [address] [place] [address] Sadi Kong MD [address] [address] Fouzia Rocha, PT 8 [place] [address] 10/10/2025 2:45 PM EST Office Visit [facility] 8 [place] [address] Sadi Kong MD [address] [address] Fouzia Rocha, PT 8 [place] [address] 10/14/2025 3:00 PM EST Office Visit [facility] 8 [place] [address] Sadi Kong MD [address] [address] Fouzia Rocha, PT 8 [place] [address] 10/15/2025 9:45 AM EST Office Visit [facility] Orthopedics & Sports Medicine [address] [place] [address] Chinmay Glynn DO [address] [place] [address] Orthopedics & Sports Medicine, [facility] 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 09/08/2025 7:30 AM EST documented as of this encounter Visit Diagnoses Not on filedocumented in this encounter Additional Health Concerns Assessment Noted Time PHQ-9 Depression Total Score: 10/24/19 12:00 PM EST PHQ-2 Depression Total Score: 10/24/19 12:00 PM EST documented as of this encounter Care Teams Sealer Aircraft Relationship Specialty Start Date End Date Shellie Cowart MD [address] [place] [address] PCP - General Family Medicine 10/25/19 Paul Hooper MD [address] [place] [address] Orthopedics & Sports Medicine, [place] [address] Orthopedic Surgery 03/01/24 Preston Pederson MEDICAL EDUCATOR [address] [place] [address] [email or web address] Compliance Tester Licensed Clinical Compliance Tester 12/11/24 documented as of this encounter Additional Source Comments The information contained in this document represents components of the legal health record. It is not the complete legal health record.[facility]
--- OUTSIDE RECORDS SUMMARY | 2025-08-06 12:29 | XMS_ITS | Encounter Summary ---
Author Organization [facility] Address [address] [facility] [address] [place] [address] Phone Care Team Providers Care Road Freight Firer Name Role Phone Shellie Cowart MD Primary Care Provider [phone] Paul Hooper MD Unavailable [phone] Preston Pederson BOOKS SALESPERSON Unavailable [phone] Reason for Visit * Reason Comments Medication Refill Encounter Details Date Type Department Care Team (Late st Contact Info) Description 07/21/2025 Refill [facility] [place] [facility] [address] [facility] [address] [place] [address] Shellie Cowart MD 15 [facility] 201 [place] [address] [email or web address] Medication Refill Social History Tobacco Use Types Packs/Day Years [...] Description 07/25/2025 Procedure Pass [facility], [facility] 30 [place] [address] 08/07/2025 10:00 AM EDT Office Visit [facility] [place] [facility] [address] [facility] [address] [place] [address] Shellie Cowart MD 15 [facility] [address] 201 [place] [address] 08/20/2025 9:40 AM EST Office Visit [facility] Medicine [address] [place] [address] Esau Alonzo PA-C [address] [place] [address] [place] [address] [email or web address] 09/05/2025 8:00 AM EST Pre-Admission Testing Pre Procedure Evaluation [address] [place] [address] Chinmay Glynn DO [address] [place] [address] Orthoped[facility] & Sports [place] [address] 09/08/2025 Procedure Pass [place] Admitting Dept - Virtual Department [address] [place] [address] 09/08/2025 7:30 AM EST Hospital Encounter OR Admitting Dept - Virtual Department [address] [place] [address] Chinmay Glynn DO [address] [place] [address] Orthoped[facility] [place], [place] [address] 09/08/2025 7:30 AM EST - 09/08/2025 9:55 AM EST Surgery OR Admitting Dept - Virtual Department [address] [place] [address] Chinmay Glynn DO [address] [place] [address] Orthopedics & Sports Medicine, [place] [address] ARTHROPLASTY ANATOMIC INVERSE SHOULDER 09/16/2025 3:30 PM EST Office Visit [address] [place] [address] Sadi Kong MD [address] [place] [address] Fouzia Rocha, PT 8 [place] [address] 09/17/2025 10:00 AM EST Office Visit [facility] [address] [place] [address] Esau Alonzo PA-C [address] [place] [address] [place] [address] [email or web address] 09/22/2025 3:15 PM EST Office Visit [facility] [address] [place] [address] Sadi Kong MD [address] [place] [address] Fouzia Rocha, PT 8 [place] [address] 09/26/2025 2:30 PM EST Office Visit [address] [place] [address] Sadi Kong MD [address] [place] [address] Fouzia Rocha, PT 8 [place] [address] 09/30/2025 2:45 PM EST Office Visit [address] [address] Sadi Kong MD [address] [place] [address] Fouzia Rocha, PT 8 [place] [address] 10/03/2025 2:30 PM EST Office Visit [address] [address] Sadi Kong MD [address] [place] [address] Fouzia Rocha, PT 8 [place] [address] 10/07/2025 2:45 PM EST Office Visit [address] [address] Sadi Kong MD [address] [place] [address] Fouzia Rocha, PT 8 [place] [address] 10/10/2025 2:45 PM EST Office Visit [address] [place] [address] Sadi Kong MD [address] [address] Fouzia Rocha, PT 8 [place] [address] 10/14/2025 3:00 PM EST Office Visit [facility] 8 [place] [address] Sadi Kong MD [address] [address] Fouzia Rocha, PT 8 [place] [address] 10/15/2025 9:45 AM EST Office Visit [facility] Medicine [address] [place] [address] Chinmay Glynn DO [address] [place] [address] Orthopedics & Sports Medicine, [place] [address] 04/01/2026 10:00 AM EDT Appointment [address] [address] Shellie Cowart MD [address] [address] 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 09/08/2025 7:30 AM EST documented as of this encounter Visit Diagnoses Not on filedocumented in this encounter Additional Health Concerns Assessment Noted Time PHQ-9 Depression Total Score: 1 10/24/19 25 12:00 PM EST PHQ-2 Depression Total Score: 1 10/24/19 12:00 PM EST documented as of this encounter Care Teams Road Freight Firer Relationship Specialty Start Date End Date Shellie Cowart MD [address] [place] [address] PCP - General Family Medicine 10/25/19 Paul Hooper MD [address] [place] [address] Orthopedics & Sports Medicine, [place] [address] Orthopedic Surgery 03/01/24 Preston Pederson MSW [address] [place] [address] Skiver Blockers Licensed Clinical Skiver Blockers 12/11/24 documented as of this encounter Additional Source Comments The information contained in this document represents components of the legal health record. It is not the complete legal health record.[facility]
--- OUTSIDE RECORDS SUMMARY | 2025-08-06 12:29 | XMS_ITS | Encounter Summary ---
Author Organization [facility] Address [address] [place] [address] Phone Care Team Providers Care Beauty Specialist Name Role Phone Shellie Cowart MD Primary Care Provider [phone] Paul Hooper MD Unavailable [phone] Preston Pederson MANAGER HOSPICE Unavailable [phone] Encounter Details Date Type Department Care Team (Late st Contact Info) Description 11/09/2022 Procedure Pass [facility], [facility] 30 [place] [address] Social History Tobacco Use Types Packs/Day Years [...] high school, GED, job training, learning the Romanian language, technical skills, or developing parenting skills)? [...] st Contact Info) Description 07/25/2025 Procedure Pass [facility] 30 [place] [address] 08/07/2025 10:00 AM EDT Office Visit [facility] [place] [facility] [address] [place] [address] Shellie Cowart MD [address] [place] [address] 08/20/2025 9:40 AM EST Office Visit [facility] Orthopedics & Sports Medicine [address] [place] [address] Esau Alonzo PA-C [address] [place] [address] [place] [address] [email or web address] 09/05/2025 8:00 AM EST Pre-Admission Testing Pre Procedure Evaluation [facility] [place] [address] Chinmay Glynn, DO 4 [facility] Orthopedics & Sports [facility], [place] [address] [email or web address] 09/08/2025 Procedure Pass OR Admitting Dept - Virtual Department [address] [place] [address] 09/08/2025 7:30 AM EST Hospital Encounter OR Admitting Dept - Virtual Department [address] [place] [address] Chinmay Glynn DO 4 [facility] Orthopedics Sports [facility], [place] [address] 09/08/2025 7:30 AM EST - 09/08/2025 9:55 AM EST Surgery OR Admitting Dept - Virtual Department [address] [place] [address] Chinmay Glynn DO 4 [facility] Orthopedics Sports [facility], [place] [address] ARTHROPLASTY ANATOMIC INVERSE SHOULDER 09/16/2025 3:30 PM EST Office Visit [facility] [address] [place] [address] [place] [address] Sadi Kong MD 22 [facility], 2nd [place] [address] Fouzia Rocha, PT 8 [place] [address] 09/17/2025 10:00 AM EST Office Visit [facility] Medicine [address] [place] [address] Esau Alonzo PA-C [address] [place] [address] [place] [address] [email or web address] 09/22/2025 3:15 PM EST Office Visit [address] [address] Sadi Kong MD [address] [place] [address] Fouzia Rocha, PT 8 [place] [address] 09/26/2025 2:30 PM EST Office Visit [address] [address] Sadi Kong MD [address] [place] [address] Fouzia Rocha, PT 8 [place] [address] 09/30/2025 2:45 PM EST Office Visit [address] [address] Sadi Kong MD [address] [place] [address] Fouzia Rocha, PT 8 [place] [address] [email or web address] 10/03/2025 2:30 PM EST Office Visit [address] [address] Sadi Kong MD [address] [place] [address] Fouzia Rohca, PT 8 [place] [address] 10/07/2025 2:45 PM EST Office Visit [address] [address] Sadi Kong MD [address] [place] [address] Fouzia Rocha, PT 8 [place] [address] 10/10/2025 2:45 PM EST Office Visit [address] [address] Sadi Kong MD [address] [place] [address] Fouzia Rocha, PT 8 [place] [address] 10/14/2025 3:00 PM EST Office Visit [address] [address] Sadi Kong MD [address] [place] [address] Fouzia Rocha, PT 8 [place] [address] 10/15/2025 9:45 AM EST Office Visit [facility] Orthopedics & Sports Medicine [address] [place] [address] Chinmay Glynn DO [address] [place] [address] Orthopedics & Sports Medicine, [facility] 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 09/08/2025 7:30 AM EST documented as of this encounter Visit Diagnoses Not on filedocumented in this encounter Additional Health Concerns Assessment Noted Time PHQ-2 Depression Total Score: 0 06/19/20 22 4:01 PM EDT documented as of this encounter Care Teams Beauty Specialist Relationship Specialty Start Date End Date Shellie Cowart MD [address] [place] [address] PCP - General Family Medicine 10/25/19 Paul Hooper MD [address] [place] [address] Orthopedics & Sports Medicine, [place] [address] Orthopedic Surgery 03/01/24 Preston Pederson MSW [address] [place] [address] Ethics Manager Licensed Clinical Ethics Manager 12/11/24 documented as of this encounter Additional Source Comments The information contained in this document represents components of the legal health record. It is not the complete legal health record.[facility]
--- OUTSIDE RECORDS SUMMARY | 2025-08-06 12:29 | XMS_ITS | Encounter Summary ---
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 [place] [address] Phone: tel: fax: [email or web address] Brien Harris MD [address] [facility] [address] [place] [address] Phone: tel: fax: Referral ID Status Reason Start Date Expiration Date V isits Requested Visits Authorized [id number] Authorized 07/03/2025 07/03/2026 6 6 Scheduling Instructions A nurse from your PCP's office will schedule your appointment and contact you. Please call your PCP's office with questions. [facility] Neurosurgery- Dr. Brien Harris P: [phone] F: [phone] 2 [facility] , [address] [place] [address] Encounter Details Date Type Department Care Team (Late st Contact Info) Description 07/03/2025 Telephone [facility] [address] [facility] [address] [place] [address] Shellie Cowart MD 15 [facility] [address] [place] [address] [email or web address] Social History Tobacco Use Types Packs/Day Years [...] as of this encounter Progress Notes * Nury Ny RN - 07/04/2025 8:32 AM EDT Called [facility] [place] and had film library send XR and all advanced imaging re this to Dr. Harris. Please see pt gateway encounter. Pt's ins not taken by Dr. Harris. Queued referral to [facility]. FYI to PCP. * Shellie Cowart MD - 07/03/2025 4:06 PM EDT Naa has an unstable lumber fracture L3 for which she needs to be seen urgently by neurosurgery.The referral has bee placed, I am hoping RN can follow up on this 07/04 please documented in this encounter Plan of Treatment Upcoming Encounters Date Type Department Care Team (Late st Contact Info) Description 07/25/2025 Procedure Pass [facility], [address] [address] 08/07/2025 10:00 AM EDT Office Visit [facility] [place] [facility] [address] [facility] [address] [place] [address] Shellie Cowart MD 15 [facility] [address] [place] [address] 08/20/2025 9:40 AM EST Office Visit [facility]ics [facility] Sports Medicine [address] [place] [address] Esau Alonzo PA-C [address] [place] [address] [place] [address] [email or web address] 09/05/2025 8:00 AM EST Pre-Admission Testing Pre Procedure Evaluation [address] [place] [address] Chinmay Glynn DO [address] [place] [address] Orthopedics & Sports Medicine, [place] [address] 09/08/2025 Procedure Pass OR Admitting Dept - Virtual Department [address] [place] [address] 09/08/2025 7:30 AM EST Hospital Encounter OR Admitting Dept - Virtual Department [address] [place] [address] Chinmay Glynn DO [address] [place] [address] Orthopedics & Sports Medicine, [place] [address] 09/08/2025 7:30 AM EST - 09/08/2025 9:55 AM EST Surgery OR Admitting Dept - Virtual Department [address] [place] [address] Chinmay Glynn DO [address] [place] [address] Orthopedics & Sports Medicine, [facility] [place] [address] ARTHROPLASTY ANATOMIC INVERSE SHOULDER 09/16/2025 3:30 PM EST Office Visit [address] [place] [address] Sadi Kong MD [address] [place] [address] Fouzia Rocha, PT 8 [place] [address] 09/17/2025 10:00 AM EST Office Visit [facility] Orthopedics & Sports Medicine [address] [place] [address] Esau Alonzo PA-C [address] [place] [address] [place] [address] [email or web address] 09/22/2025 3:15 PM EST Office Visit [address] [place] [address] Sadi Kong MD [address] [place] [address] Fouzia Rocha, PT 8 [place] [address] 09/26/2025 2:30 PM EST Office Visit [address] [place] [address] Sadi Kong MD [address] [place] [address] Fouzia Rocha, PT 8 [place] [address] 09/30/2025 2:45 PM EST Office Visit [address] [address] Sadi Kong MD [address] [place] [address] Fouzia Rocah, PT 8 [place] [address] 10/03/2025 2:30 PM EST Office Visit [address] [address] Sadi Kong MD [address] [place] [address] Fouzia Rocha, PT 8 [place] [address] 10/07/2025 2:45 PM EST Office Visit [address] [place] [address] Sadi Kong MD [address] [place] [address] Fouzia Rocha, PT 8 [place] [address] 10/10/2025 2:45 PM EST Office Visit [address] [place] [address] Sadi Kong MD [address] [address] Fouzia Rocha, PT 8 [place] [address] 10/14/2025 3:00 PM EST Office Visit [facility] 8 [place] [address] Sadi Kong MD [address] [address] Fouzia Rocha, PT 8 [place] [address] 10/15/2025 9:45 AM EST Office Visit [facility] Orthopedics & Sports Medicine [address] [place] [address] Chinmay Glynn DO [address] [place] [address] Orthopedics & Sports Medicine, [place] [address] 04/01/2026 10:00 AM EDT Appointment [address] [address] Shellie Cowart MD [address] [address] Scheduled Procedures Name Priority Associated Diagnoses Date/Ti me 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, subsequent encounter- Primary Arthropathy of right shoulder documented in this encounter Additional Health Concerns Assessment Noted Time PHQ-9 Depression Total Score: 1 10/24/19 25 12:00 PM EST PHQ-2 Depression Total Score: 10/24/19 12:00 PM EST documented as of this encounter Care Teams Cook Helper Vegetable Relationship Specialty Start Date End Date Shellie Cowart MD [address] [address] [email or web address] PCP - General Family Medicine 10/25/19 Paul Hooper MD [address] [place] [address] Orthopedics & Sports Medicine, [place] [address] Orthopedic Surgery 03/01/24 Preston Pederson MSW [address] [place] [address] [email or web address] Mold Filler Licensed Clinical Mold Filler 12/11/24 documented as of this encounter Additional Source Comments The information contained in this document represents components of the legal health record. It is not the complete legal health record.[facility]
--- OUTSIDE RECORDS SUMMARY | 2025-08-06 12:29 | XMS_ITS | Encounter Summary ---
Author Organization [facility] Address [address] [facility] [address] [place] [address] Phone Care Team Providers Care Light Rail Vehicle Operator Name Role Phone Shellie Cowart MD Primary Care Provider [phone] Paul Hooper MD Unavailable Preston Pederson DADO OPERATOR Unavailable [phone] Encounter Details Date Type Department Care Team (Late st Contact Info) Description 07/15/2025 Orders Only [facility] Spine Medicine 22 [place] [address] Sadi Kong MD 22 [facility], 2nd [place] [address] [email or web address] Social History Tobacco Use Types Packs/Day Years [...] Contact Info) Description 07/25/2025 Procedure Pass [facility], [address] [address] 08/07/2025 10:00 AM EDT Office Visit [facility] [place] [facility] 15 [facility] [address] [place] [address] Shellie Cowart MD 15 [facility] [address] [place] [address] 08/20/2025 9:40 AM EST Office Visit [facility] Orthopedics & Sports Medicine [address] [place] [address] Esau Alonzo PA-C [address] [place] [address] [place] [address] [email or web address] 09/05/2025 8:00 AM EST Pre-Admission Testing Pre Procedure Evaluation [address] [place] [address] Chinmay Glynn DO [address] [place] [address] Orthopedics & [place], [place] [address] 09/08/2025 Procedure Pass [place] Admitting Dept - Virtual Department [address] [place] [address] 09/08/2025 7:30 AM EST Hospital Encounter OR Admitting Dept - Virtual Department [address] [place] [address] Chinmay Glynn DO [address] [place] [address] Orthopedics & Sports [facility], [place] [address] 09/08/2025 7:30 AM EST - 09/08/2025 9:55 AM EST Surgery OR Admitting Dept - Virtual Department [address] [place] [address] Chinmay Glynn DO [address] [place] [address] Orthopedics & Sports Medicine, [facility] [place] [address] ARTHROPLASTY ANATOMIC INVERSE SHOULDER 09/16/2025 3:30 PM EST Office Visit [address] [place] [address] Sadi Kong MD [address] [place] [address] Fouzia Rocha, PT 8 [place] [address] 09/17/2025 10:00 AM EST Office Visit [facility] Orthopedics & Sports Medicine [address] [place] [address] Esau Alonzo PA-C [address] [place] [address] [place] [address] [email or web address] 09/22/2025 3:15 PM EST Office Visit [facility] [address] [place] [address] Sadi Kong MD [address] [place] [address] Fouzia Rocha, PT 8 [place] [address] 09/26/2025 2:30 PM EST Office Visit [address] [place] [address] Sadi Kong MD [address] [place] [address] Fouzia Rocha, PT 8 [place] [address] 09/30/2025 2:45 PM EST Office Visit [address] [address] Sadi Kong MD [address] [place] [address] Fouzia Rocha, PT 8 [place] [address] 10/03/2025 2:30 PM EST Office Visit [address] [address] Sdai Kong MD [address] [place] [address] Fouzia Rocha, PT 8 [place] [address] 10/07/2025 2:45 PM EST Office Visit [facility] [address] [place] [address] Sadi Kong MD [address] [place] [address] Fouzia Rocha, PT 8 [place] [address] 10/10/2025 2:45 PM EST Office Visit [address] [place] [address] Sadi Kong MD 22 [facility] 2nd [place] [address] Fouzia Rocha, PT 8 [place] [address] 10/14/2025 3:00 PM EST Office Visit [facility] 8 [place] [address] Sadi Kong MD [address] [address] Fouzia Rocha, PT 8 [place] [address] 10/15/2025 9:45 AM EST Office Visit [facility] Orthopedics & Sports Medicine [address] [place] [address] Chinmay Glynn DO [address] [place] [address] Orthopedics & Sports Medicine, [facility] [place] [address] 04/01/2026 10:00 AM EDT Appointment [facility] [address] [place] [address] Shellie Cowart MD [address] [address] [email or web address] Scheduled Procedures Name Priority Associated Diagnoses Date/Ti [...] documented as of this encounter Care Teams Light Rail Vehicle Operator Relationship Specialty Start Date End Date Shellie Cowart MD [address] [address] [email or web address] PCP - General Family Medicine 10/25/19 Paul Hooper MD [address] [place] [address] Orthopedics & Sports Medicine, [place] [address] Orthopedic Surgery 03/01/24 Preston Pederson MSW [address] [place] [address] [email or web address] Keeler Polygraph Operator Licensed Clinical Keeler Polygraph Operator 12/11/24 documented as of this encounter Additional Source Comments The information contained in this document represents components of the legal health record. It is not the complete legal health record.[facility]
--- OUTSIDE RECORDS SUMMARY | 2025-08-06 12:30 | XMS_ITS | Encounter Summary ---
Author Organization [facility] Address [address] [facility] [address] [place] [address] Phone Care Team Providers Care Fuel Quality Tech Name Role Phone Shellie Cowart MD Primary Care Provider [phone] Paul Hooper MD Unavailable [phone] Preston Pederson QUALITY ASSURANCE MONITOR BODY Unavailable [phone] Encounter Details Date Type Department Care Team (Late st Contact Info) Description 07/11/2025 Procedure Pass [facility] 30 [place] [address] Social History Tobacco Use Types Packs/Day Years [...] housing situation today? I have janae ford 06/30/2025 How many times have you move [...] 07/25/2025 Procedure Pass [facility], [facility] 30 [place] [address] 08/07/2025 10:00 AM EDT Office Visit [facility] 15 [facility] [address] [place] [address] Shellie Cowart MD 15 [facility] [address] [place] [address] 08/20/2025 9:40 AM EST Office Visit [facility] Orth[facility]ics [facility] Sports Medicine [address] [place] [address] Esau Alonzo PA-C [address] [place] [address] [place] [address] [email or web address] 09/05/2025 8:00 AM EST Pre-Admission Testing Pre Procedure Evaluation [address] [place] [address] Chinmay Glynn DO [address] [place] [address] Orth[facility] [place] [address] 09/08/2025 Procedure Pass OR Admitting Dept - Virtual Department [address] [place] [address] 09/08/2025 7:30 AM EST Hospital Encounter OR Admitting Dept - Virtual Department [address] [place] [address] Chinmay Glynn DO 4 [facility] Orthopedics & Sports [place] [address] 09/08/2025 7:30 AM EST - 09/08/2025 9:55 AM EST Surgery OR Admitting Dept - Virtual Department [address] [place] [address] Chinmay Glynn DO [address] [place] [address] [facility] [place] [address] ARTHROPLASTY ANATOMIC INVERSE SHOULDER 09/16/2025 3:30 PM EST Office Visit [address] [place] [address] Sadi Kong MD [address] [place] [address] Fouzia Rocha, PT 8 [place] [address] 09/17/2025 10:00 AM EST Office Visit [facility] Medicine [address] [place] [address] Esau Alonzo PA-C [address] [place] [address] [place] [address] [email or web address] 09/22/2025 3:15 PM EST Office Visit [address] [place] [address] Sadi Kong MD [address] [place] [address] Fouzia Rocha, PT 8 [place] [address] 09/26/2025 2:30 PM EST Office Visit [address] [place] [address] Sadi Kong MD [address] [place] [address] Fouzia Rocha, PT 8 [place] [address] 09/30/2025 2:45 PM EST Office Visit [facility] 8 [place] [address] Sadi Kong MD [address] [place] [address] Fouzia Rocha, PT 8 [place] [address] 10/03/2025 2:30 PM EST Office Visit [address] [address] Sadi Kong MD [address] [place] [address] Fouzia Rocha, PT 8 [place] [address] 10/07/2025 2:45 PM EST Office Visit [facility] 8 [place] [address] Sadi Kong MD [address] [place] [address] Fouzia Rocha, PT 8 [place] [address] 10/10/2025 2:45 PM EST Office Visit [address] [place] [address] Sadi Kong MD [address] [place] [address] Fouzia Rocha, PT 8 [place] [address] 10/14/2025 3:00 PM EST Office Visit [facility] 8 [place] [address] Sadi Kong MD 22 [facility], 2nd [place] [address] Fouzia Rocha, PT 8 [place] [address] 10/15/2025 9:45 AM EST Office Visit [facility] Medicine [address] [place] [address] Chinmay Glynn DO [address] [place] [address] Orthopedics & Sports Medicine, [place] [address] 04/01/2026 10:00 AM EDT Appointment [address] [address] Shellie Cowart MD [address] [place] [address] Scheduled Procedures Name Priority Associated Diagnoses Date/Ti me 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 09/08/2025 7:30 AM EST documented as of this encounter Visit Diagnoses Not on filedocumented in this encounter Additional Health Concerns Assessment Noted Time PHQ-9 Depression Total Score: 1 10/24/19 12:00 PM EST PHQ-2 Depression Total Score: 10/24/19 12:00 PM EST documented as of this encounter Care Teams Fuel Quality Tech Relationship Specialty Start Date End Date Shellie Cowart MD [address] [address] [email or web address] PCP - General Family Medicine 10/25/19 Paul Hooper MD [address] [place] [address] Orthopedics & Sports Medicine, [place] [address] Orthopedic Surgery 03/01/24 Preston Pederson MSW [address] [place] [address] [email or web address] Employee Adviser Licensed Clinical Employee Adviser 12/11/24 documented as of this encounter Additional Source Comments The information contained in this document represents components of the legal health record. It is not the complete legal health record.[facility]
--- OUTSIDE RECORDS SUMMARY | 2025-08-06 12:30 | XMS_ITS | Encounter Summary ---
Author Organization [facility] Address [address] [facility] [address] [place] [address] Phone Care Team Providers Care Oiler And Greaser Name Role Phone Shellie Cowart MD Primary Care Provider [phone] Paul Hooper MD Unavailable Preston Pederson OPERATIONS SUPPORT PROFESSIONALS Unavailable [phone] Reason for Visit * Reason Comments Medication Refill Encounter Details Date Type Department Care Team (Late st Contact Info) Description 07/13/2025 Refill [facility] [place] [facility] 15 [facility] [address] [place] [address] Shellie Cowart MD 15 [facility] [address] [place] [address] [email or web address] Medication Refill Social History Tobacco Use Types [...] as of this encounter Progress Notes * Luh Valentino CMA - 07/14/2025 9:44 AM EDT Rx sent 06/2925 documented in this encounter Plan of Treatment Upcoming Encounters Date Type Department Care Team (Late st Contact Info) Description 07/25/2025 Procedure Pass [address] [address] 08/07/2025 10:00 AM EDT Office Visit [facility] [place] [facility] 15 [facility] 201 [place] [address] Shellie Cowart MD [address] [address] [email or web address] 08/20/2025 9:40 AM EST Office Visit [facility] Orthopedics & Sports Medicine [address] [place] [address] Esau Alonzo PA-C [address] [place] [address] [place] [address] [email or web address] 09/05/2025 8:00 AM EST Pre-Admission Testing Pre Procedure Evaluation [address] [place] [address] Chinmay Glynn DO [address] [place] [address] Orthopedics & Sports Medicine, [facility] [place] [address] 09/08/2025 Procedure Pass OR Admitting Dept - Virtual Department [address] [place] [address] 09/08/2025 7:30 AM EST Hospital Encounter OR Admitting Dept - Virtual Department [address] [place] [address] Chinmay Glynn, DO 4 [facility] Orthopedics & Sports [facility], [place] [address] 09/08/2025 7:30 AM EST - 09/08/2025 9:55 AM EST Surgery OR Admitting Dept - Virtual Department [address] [place] [address] Chinmay Glynn, DO 4 [facility] Orthopedics Sports [facility], [place] [address] ARTHROPLASTY ANATOMIC INVERSE SHOULDER 09/16/2025 3:30 PM EST Office Visit [facility] [address] [place] [address] [place] [address] Sadi Kong MD [address] [place] [address] Fouzia Rocha, NEDA 8 [place] [address] 09/17/2025 10:00 AM EST Office Visit [facility] Medicine [address] [place] [address] Esau Alonzo PA-C [address] [place] [address] [place] [address] [email or web address] 09/22/2025 3:15 PM EST Office Visit [facility] [address] [place] [address] Sadi Kong MD [address] [place] [address] Fouzia Rocha, PT 8 [place] [address] 09/26/2025 2:30 PM EST Office Visit [address] [address] Sadi Kong MD [address] [place] [address] Fouzia Rocha, PT 8 [place] [address] 09/30/2025 2:45 PM EST Office Visit [address] [address] Sadi Kong MD [address] [place] [address] Fouzia Rocha, PT 8 [place] [address] 10/03/2025 2:30 PM EST Office Visit [address] [address] Sadi Kong MD [address] [place] [address] Fouzia Rocha, PT 8 [place] [address] 10/07/2025 2:45 PM EST Office Visit [address] [address] Sadi Kong MD [address] [place] [address] Fouzia Rocha, PT 8 [place] [address] 10/10/2025 2:45 PM EST Office Visit [facility] 8 [place] [address] Sadi Kong MD [address] [address] Fouzia Rocha, PT 8 [place] [address] 10/14/2025 3:00 PM EST Office Visit [facility] 8 [place] [address] Sadi Kong MD [address] [address] Fouzia Rocha, PT 8 [place] [address] 10/15/2025 9:45 AM EST Office Visit [facility] Sports Medicine [address] [place] [address] Chinmay Glynn DO [address] [place] [address] Orthopedics & Sports Medicine, [facility] [place] [address] 04/01/2026 10:00 AM EDT Appointment [facility] 30 [place] [address] Shellie Cowart MD [address] [address] Scheduled Procedures Name Priority Associated Diagnoses Date/Ti me 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 09/08/2025 7:30 AM EST documented as of this encounter Visit Diagnoses Not on filedocumented in this encounter Additional Health Concerns Assessment Noted Time PHQ-9 Depression Total Score: 10/24/19 12:00 PM EST PHQ-2 Depression Total Score: 10/24/19 12:00 PM EST documented as of this encounter Care Teams Oiler And Greaser Relationship Specialty Start Date End Date Shellie Cowart MD [address] [place] [address] PCP - General Family Medicine 10/25/19 Paul Hooper MD [address] [place] [address] Orthopedics & Sports Medicine, [place] [address] Orthopedic Surgery 03/01/24 Preston Pederson MSW [address] [place] [address] Ski Edge Painter Licensed Clinical Ski Edge Painter 12/11/24 documented as of this encounter Additional Source Comments The information contained in this document represents components of the legal health record. It is not the complete legal health record.[facility]
--- OUTSIDE RECORDS SUMMARY | 2025-08-06 12:30 | XMS_ITS | Patient Health Record ---
Author Organization [facility] Ranjana Chrisley Address [address] [place] [address] Care Team Providers Care Reconditioner Name Role Phone Dr Shellie Cowart Primary Care Provider Unavailabl e Jennifer Sifuentes Unavailable [phone] Jen Braun Unavailable [phone] Allergies No Known Allergies Results Component Value Reference Range Notes X ray : Foot, left 3V Reviewed date:01/17/2025 05:54:03 PM Interpretation:See Examination above Performing Lab: Notes/Report: See Examination above X ray : Foot, right 3V Reviewed date:01/17/2025 05:53:45 PM Interpretation:See Examination above Performing Lab: Notes/Report: See Examination above Reason For Referral Diagnosis 1 Charcot arthropathy (M14.60) Diagnosis 2 Arthritis (M19.90) Diagnosis 3 Porokeratosis (Q82.8 ) Diagnosis 4 Neuropathy (G62.9) Diagnosis 5 Idiopathic neuropath y (G60.9) Diagnosis 6 Other enthesopathy o f right foot and ankle (M77.51) Diagnosis 7 Bursitis of left krysta t (M77.52) Diagnosis 8 Left foot pain (M79. 672) Diagnosis 9 Right foot pain (M79 .671) Referring Provider First Name Shellie Referring Provider Last Name Sfoya [facility] Kahl[facility] Referred Provider Jennifer Sifuentes Referred Address [address] [facility],[place],[address], Referred Provider Specialty Podiatry Referral Priority Routine Diagnosis 1 Charcot arthropathy (M14.60) Diagnosis 2 Arthritis (M19.90) Diagnosis 3 Porokeratosis (Q82.8 ) Diagnosis 4 Neuropathy (G62.9) Diagnosis 5 Idiopathic neuropath y (G60.9) Diagnosis 6 Other enthesopathy o f right foot and ankle (M77.51) Diagnosis 7 Bursitis of left krysta t (M77.52) Diagnosis 8 Right foot pain (M79 .671) Referring Provider First Name Shellie Referring Provider Last Name [facility] Referred Provider Jennifer Sifuentes Referred Address [address] [facility] [place],[address] Referred Provider Specialty Podiatry Referral Priority Routine Medications Medication SIG (Take, Route, Frequency, Duration) Notes Start Date End Date Status Atorvastatin Calcium Active Eliquis Active Alpha Lipoic Acid 200 MG 3 capsule Orall y Once a day; Duration: 30 days 05/16/2025 Active Levothyroxine Sodium Active Clobetasol Propionate Active Zolpidem Tartrate Ac tive Meloxicam Active Omeprazole Active Metoprolol Succinate ER Active Provera Active Estradiol Active Calcium Citrate + D3 Active Triamcinolone & BUPivacaine Active Immunizations Vaccine Route Administration Date Status Comme nts Influenza Unknown 06/10/2024 Administered Social History Tobacco Use: Social History Observation Description Date Details (start date - stop date) Never Smoker NA - NA Tobacco use other than smoking: Question Answer Notes Are you an other tobacco user? No Tobacco Control (Standard) Question Answer Notes Tobacco use: Nonsmoker Additional Findings: Tobacco non-user Current no nsmoker AUDIT-C (Standard) Question Answer Notes Did you have a drink contain ing alcohol in the past year? Yes How often did you have a dri nk containing alcohol in the past year? Never (0 point) How many drinks did you have on a typical day when you were drinking in the past year? 1 or 2 drinks (0 point) How often did you have six o r more drinks on one occasion in the past year? 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 Problem Charcot arthropathy (735001684) Charcot arthropathy (M14.60) Active confirmed Vital Signs Blood pressure diastolic 70 mm Hg 05/16/2025 Height 5ft 3in in 05/16/2025 Blood pressure systolic 140 mm Hg 05/16/2025 Weight 155 lbs 05/16/2025 BMI 27.45 kg/m2 05/16/2025 Procedures Procedure Date Ordered Date Performed Result Body Sit e 84009-[id number] NAIL, 1-5 05/16/2025 N/A Encounters Encounter Location Date Provider Diagnosis [facility] [address] [place] [address] 01/17/2025 Jennifer Black Charcot arthropathy M14.60 ; Arthritis M19.90 ; Other enthesopathy of right foot and ankle M77.51 ; Other enthesopathy of left foot and ankle M77.52 ; Bursitis of left foot M77.52 ; Porokeratosis Q82.8 ; Right foot pain M79.671 ; Left foot pain M79.672 ; Neuropathy G62.9 and Idiopathic neuropathy G60.[address] [address] 02/06/2025 Jennifer Black Charcot arthropathy M14.60 ; Arthritis M19.90 ; Other enthesopathy of right foot and ankle M77.51 ; Other enthesopathy of left foot and ankle M77.52 ; Bursitis of left foot M77.52 ; Porokeratosis Q82.8 ; Right foot pain M79.671 ; Left foot pain M79.672 ; Neuropathy G62.9 and Idiopathic neuropathy G60.9 [facility] [address] [facility] [place] [address] 05/16/2025 Jennifer Black Right foot pain M79.671 ; Neuropathy G62.9 ; Left foot pain M79.672 ; Idiopathic neuropathy G60.9 ; Edema, lower extremity R60.0 ; Onychomycosis B35.1 and Pain in left toe(s) M79.[address] [address] 01/15/2025 [facility] [place] [address] [place] [address] 01/20/2025 Jenniferarnulfo Sifuentes [facility] [place] [address] [place] [address] 02/06/2025 Jennifer Sifuentes [facility] Encounter Date Diagnosis (ICD Code) Assessment Notes Treatment Notes Treatment Clinical Notes Section Notes 01/17/2025 Arthritis (ICD-10 - M19.90) 01/17/2025 Charcot arthropathy (ICD-10 - M14.60) 02/06/2025 Charcot arthropathy (ICD-10 - M14.60) 05/16/2025 Right foot pain (ICD-10 - M79.671) 05/16/2025 Neuropathy (ICD-10 - G62.9) 05/16/2025 Left foot pain (ICD-10 - M79.672) 02/06/2025 Arthritis (ICD-10 - M19.90) 01/17/2025 Other enthesopathy of right foot and ankle (ICD-10 - M77.51) 01/17/2025 Other enthesopathy of left foot and ankle (ICD-10 - M77.52) 02/06/2025 Other enthesopathy of right foot and ankle (ICD-10 - M77.51) 05/16/2025 Idiopathic neuropathy (ICD-10 - G60.9) 05/16/2025 Edema, lower extremity (ICD-10 - R60.0) 02/06/2025 Other enthesopathy of left foot and ankle (ICD-10 - M77.52) 01/17/2025 Bursitis of left foot (ICD-10 - M77.52) 01/17/2025 Porokeratosis (ICD-10 - Q82.8) 02/06/2025 Bursitis of left foot (ICD-10 - M77.52) 05/16/2025 Onychomycosis (ICD-10 - B35.1) 05/16/2025 Pain in left toe(s) (ICD-10 - M79.675) 02/06/2025 Porokeratosis (ICD-10 - Q82.8) 01/17/2025 Right foot pain (ICD-10 - M79.671) 01/17/2025 Left foot pain (ICD-10 - M79.672) 02/06/2025 Right foot pain (ICD-10 - M79.671) 02/06/2025 Left foot pain (ICD-10 - M79.672) 01/17/2025 Neuropathy (ICD-10 - G62.9) 01/17/2025 Idiopathic neuropathy (ICD-10 - G60.9) 02/06/2025 Neuropathy (ICD-10 - G62.9) 02/06/2025 Idiopathic neuropathy (ICD-10 - G60.9) Plan Of Treatment Pending Test Test Name Order Date [id number] NAIL, 1-5 05/16/2025 Next Appt Details Provider Name:Jennifer Sifuentes , 08/18/2025 08:00:00 AM, [address] [place] [address], [phone], Insurance Providers Payer Name Payer Address Payer Phone Subscriber Number Group Number Insured Name Patient Relationship to Insured Coverage Start Date Coverage End Date [facility] Options [address] [address] [id number] Naa Stewart Self - patient is the insured 2 Medical (General) History Medical History History ICD Code osteoarthritis Cataracts covid-19 Gall bladder problems Heart disease High Blood Pressure Numbness Measles Chicken pox Joint implants/screws Transfusions Surgical History Surgery Date(Month/Year) tonsillectomy 1956 Gall bladder removal 2014 knee replacement Scoliosis 1967 cyst removal 2022 cataract surgery 01/31 Hospitalization History Reason Date(Month/Year) Arredondo- leg swelling 2024
--- OUTSIDE RECORDS SUMMARY | 2025-08-06 12:30 | XMS_ITS | Encounter Summary ---
Author Organization [facility] Address [address] [facility] [address] [place] [address] Phone Care Team Providers Care Director Of Communications Name Role Phone Shellie Cowart MD Primary Care Provider Paul Hooper MD Unavailable [phone] Preston Pederson AUTOMOTIVE PARTS ADVISOR Unavailable [phone] Reason for Visit * Reason Onset Date Comments Medication Problem 07/07/2025 Encounter Details Date Type Department Care Team (Late st Contact Info) Description 07/07/2025 Telephone [facility] [address] [facility] [address] [place] [address] Shellie Cowart MD [address] [facility] [address] [place] [address] [email or web address] Medication Problem Social History Tobacco Use Types Packs/Day Years [...] as of this encounter Progress Notes * Osiris Bobby - 07/07/2025 4:14 PM EDT [facility] lvm on the triage line reports that the rx ketorolac 10 mg tab should not exceed five day, and this she states would be the third refill. . Requesting a alt to be sent in to mitigate any risks associated with it. CSS Agent (Please do not reply to this user, as this inbox is not monitored. Thank you.) Thank you. documented in this encounter Plan of Treatment Upcoming Encounters Date Type Department Care Team (Late st Contact Info) Description 07/25/2025 Procedure Pass [facility] [address] [place] [address] 08/07/2025 10:00 AM EDT Office Visit [facility] [address] [facility] [address] [place] [address] Shellie Cowart MD [address] [facility] [address] [place] [address] 08/20/2025 9:40 AM EST Office Visit [facility] [address] [place] [address] Esau Alonzo PA-C [address] [place] [address] [place] [address] [email or web address] 09/05/2025 8:00 AM EST Pre-Admission Testing Pre Procedure Evaluation [address] [place] [address] Chinmay Glynn DO [address] [place] [address] [facility] [place] [address] [email or web address] 09/08/2025 Procedure Pass [place] Admitting Dept - Virtual Department [address] [place] [address] 09/08/2025 7:30 AM EST Hospital Encounter OR Admitting Dept - Virtual Department [address] [place] [address] Chinmay Glynn DO [facility], [place] [address] 09/08/2025 7:30 AM EST - 09/08/2025 9:55 AM EST Surgery OR Admitting Dept - Virtual Department [address] [place] [address] Chinmay Glynn DO [address] [facility], [place] [address] ARTHROPLASTY ANATOMIC INVERSE SHOULDER 09/16/2025 3:30 PM EST Office Visit [facility] [address] [place] [address] [place] [address] Sadi Kong MD [address] [facility], 2nd [place] [address] Fouzia Rocha, PT 8 [place] [address] 09/17/2025 10:00 AM EST Office Visit [facility] [address] [place] [address] Esau Alonzo PA-C [address] [place] [address] [place] [address] [email or web address] 09/22/2025 3:15 PM EST Office Visit [address] [place] [address] Sadi Kong MD [address] [place] [address] Fouzia Rocha, PT 8 [place] [address] 09/26/2025 2:30 PM EST Office Visit [address] [address] Sadi Kong MD [address] [place] [address] Fouzia Rocha, PT 8 [place] [address] 09/30/2025 2:45 PM EST Office Visit [address] [address] Sadi Kong MD [address] [place] [address] Fouzia Rocha, PT 8 [place] [address] 10/03/2025 2:30 PM EST Office Visit [facility] [address] [place] [address] Sadi Kong MD [address] [place] [address] Fouzia Rocha, PT 8 [place] [address] 10/07/2025 2:45 PM EST Office Visit [facility] [address] [place] [address] Sadi Kong MD [address] [place] [address] Fouzia Rocha, PT 8 [place] [address] 10/10/2025 2:45 PM EST Office Visit [address] [address] Sadi Kong MD [address] [place] [address] Fouzia Rocha, PT 8 [place] [address] 10/14/2025 3:00 PM EST Office Visit [address] [address] Sadi Kong MD [address] [place] [address] Fouzia Rocha, PT 8 [place] [address] 10/15/2025 9:45 AM EST Office Visit [facility] [address] [place] [address] Chinmay Glynn DO [address] [place] [address] Orthopedics & Sports Medicine, [facility] [place] [address] 04/01/2026 10:00 AM EDT Appointment [facility] [address] [place] [address] Shellie Cowart MD [address] [address] [email or web address] Scheduled Procedures Name Priority Associated Diagnoses Date/Ti me 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 09/08/2025 7:30 AM EST documented as of this encounter Visit Diagnoses Not on filedocumented in this encounter Additional Health Concerns Assessment Noted Time PHQ-9 Depression Total Score: 10/24/19 12:00 PM EST PHQ-2 Depression Total Score: 10/24/19 12:00 PM EST documented as of this encounter Care Teams Director Of Communications Relationship Specialty Start Date End Date Shellie Cowart MD [address] [place] [address] [email or web address] PCP - General Family Medicine 10/25/19 Paul Hooper MD [address] [place] [address] [facility], [place] [address] Orthopedic Surgery 03/01/24 Preston Pederson MSW [address] [place] [address] [email or web address] Senior Sas Developer Licensed Clinical Senior Sas Developer 12/11/24 documented as of this encounter Additional Source Comments The information contained in this document represents components of the legal health record. It is not the complete legal health record.[facility]
== END 2025-08-06 11:44 | disposition home or self-care (01) ==
PROVIDERS: PCP Family Medicine; Visit Provider Internal Medicine
DX: S32.030A Wedge compression fracture of third lumbar vertebra, initial encounter for closed fracture (principal); M41.9 Scoliosis, unspecified
CPT/HCPCS: 99204

== ENCOUNTER → 2025-08-06 10:11 | Outpatient (BNVA) | payer MEDICARE, SELFPAY | PROVIDERS: PCP Family Medicine; Visit Provider Internal Medicine | DX: S32.030A Wedge compression fracture of third lumbar vertebra, initial encounter for closed fracture (principal); M41.9 Scoliosis, unspecified; M54.50 Low back pain, unspecified; R60.0 Localized edema | CPT/HCPCS: 99202 ==

== ENCOUNTER 2025-09-12 11:47 | Outpatient (AMB) | payer MEDICARE, SELFPAY ==
--- NOTE | 2025-09-12 11:57 | A.OFFVIS_ITS ---
Vital Signs 09/12/25 12:00 Height 5 ft 3 in Weight 154 lb BMI 27.3 BP 148/88 H Blood Pressure Location Lt brachial Position Sitting Respiration 16 Pulse 59 Pulse Source Pulse Oximeter Pulse Oximetry (%) 98 Oxygen Delivery Method Room Air Intake Visit Reasons: Follow Up Cold Strip Feeder Required: No Accompanied by: Spouse Allergies No Known Allergies Allergy (Verified 09/12/25 12:04) Medication List - Last Reconciled 09/12/25 by Shey Mccormack LPN apixaban (Eliquis) 5 mg PO BID atorvastatin 40 mg PO DAILY back brace As directed buprenorphine 7.5 mcg/hour 1 patch topical QWEEK calcium carbonate 260 mg PO DAILY estradiol 0.5 mg PO DAILY furosemide 20 mg PO DAILY gabapentin 100 mg PO QID levothyroxine 25 mcg PO DAILY medroxyprogesterone (Provera) 12.5 mg PO DAILY metoprolol succinate ER 25 mg PO DAILY omeprazole 20 mg PO DAILY HPI HPI Follow Up: Details: History of Present Illness The patient is a 75 year old female presenting for a follow-up visit regarding an L3 compression fracture. She reports continued and sometimes worsening pain, which is especially difficult in the morning upon waking. A DEXA scan was ordered at a prior visit but was not completed. The patient attempted to be fitted for a lumbar brace as previously prescribed, but the device was too long and did not fit properly due to her scoliosis. The insurance solicitor was skeptical about being able to achieve a proper fit, and a follow- up call was never received, so she did not obtain the brace. Her pain has been managed with multiple medications. She previously tried morphine sulfate, but it was discontinued due to significant cognitive side effects. Past trials of tramadol and gabapentin were also not helpful. Her current regimen includes a long-acting opioid patch and oxycodone 5 mg, taking 2.5-3 tablets per day for breakthrough pain, which provides some analgesia but is associated with residual brain fog and emerging constipation. Pain Description - Onset: The patient has a history of an L3 compression fracture. - Location: Chronic axial low back pain. - Chronicity: Pain has been ongoing and is not improving, with some reports of it worsening. - Exacerbating Factors: Pain is particularly difficult in the morning and increases when standing up from a seated position. - Relieving Factors: Pain is managed with opioid medications, though their effectiveness has waned over time. Physical Exam - General: Pain is evident upon standing from a sitting position. - Musculoskeletal/Back: Lumbar range of motion is limited; patient is able to flex forward but cannot extend backward. Results Pain Management - Analgesia: The patient reports continued and worsening pain despite being on a long-acting opioid patch and taking oxycodone 5 mg two to three times daily. Her total dose is approximately 70 morphine milligram equivalents. The current regimen provides insufficient analgesia. - Activities of Daily Living: Pain significantly impacts her ability to function, making it extremely difficult to get out of bed in the morning. She is debilitated due to the pain. - Adverse Effects: The patient experienced significant cognitive side effects with morphine sulfate. With the current regimen, she still experiences some brain fog and central nervous system slowing. She is also beginning to develop constipation. - Affect: The patient and her partner express worry and feeling upset about the situation and the side effects of medications. - Aberrant Drug-Related Behaviors: No aberrant behaviors are noted. The patient has naloxone nasal spray at home and has been trained on its use as a safety precaution. [facility] Medical History (Updated 07/28/25 @ 15:14 by Shey Mccormack LPN) Hypertension Gastric ulcer Hypothyroid Insomnia PAT (paroxysmal atrial tachycardia) Hyperlipidemia Tachycardia Charcot's joint of foot Scoliosis Neuropathy Closed compression fracture of L3 vertebra Surgical History (Updated 07/28/25 @ 15:14 by Shey Mccormack LPN) History of total left knee replacement (TKR) S/P lumbar fusion Physical Exam Vital Signs: Last Vital Signs Pulse 59 09/12/25 12:00 Resp 16 09/12/25 12:00 BP 148/88 H 09/12/25 12:00 Pulse Ox 98 09/12/25 12:00 Oxygen Delivery Method Room Air 09/12/25 12:00 BMI result Body Mass Index 27.3 Assessment & Plan Assessment & Plan (1) Closed compression fracture of L3 vertebra: Code(s): S32.030A - Wedge compression fracture of third lumbar vertebra, initial encounter for closed fracture Category: Medical Plan Plan Patient was informed and verbally consented to the use of an ambient scribe for clinic note documentation during this visit. 1. Chronic Low Back Pain - The patient's chronic axial low back pain, in the setting of an L3 compression fracture and scoliosis, is inadequately controlled by her current opioid regimen of approximately 70 MME. - Further escalation of opioid dosage is not recommended due to associated central nervous system side effects, including brain fog . - Will maintain the current medication regimen, including oxycodone 5 mg up to three times daily as needed. - Recommended a trial of wbxj-odq-phksbah topical agents, including Salonpas and lidocaine 5% patches, to help relax muscles and provide local analgesia. - A DEXA scan will be ordered to assess for osteoporosis. - Will seek insurance authorization for an interventional approach, with the first choice being a temporary peripheral nerve stimulator (PNS) trial, as this is likely to be the most helpful option. - If the nerve stimulator trial is not approved, the alternate plan is to proceed with diagnostic medial branch blocks (test injections) to determine eligibility for a radiofrequency neurotomy. 2. Opioid-Induced Constipation - The patient is beginning to experience constipation secondary to her chronic opioid therapy. - Discussed medications specific to opioid-induced constipation, such as Movantik. - Advised the patient to discuss this with her primary care provider to determin e the best course of action and check for insurance coverage. Discussion Notes I had a detailed discussion with the patient and her partner regarding her chronic low back pain, which is complicated by her scoliosis and L3 compression fracture. We reviewed that her current opioid regimen of ~70 MME is causing dose-limiting DIFFERENTIAL REPAIRER side effects (brain fog) without providing adequate analgesia. I explained that further escalation of her opioid dose is unlikely to be beneficial and would increase the risk of side effects. I outlined a plan to shift focus towards non-opioid and interventional therapi es. I recommended she try sadv-qfq-ygvcijm topical patches (Salonpas, lidocaine 5%) as a low-risk option. I explained the plan to seek insurance authorization for a temporary peripheral nerve stimulator (PNS) trial, which I believe has the best chance of helping her, but noted that approval can be difficult. I informed her that if PNS is denied, our backup plan will be to perform diagnostic medial branch blocks to see if she is a candidate for radiofrequency ablation, explaining this is a required step for insurance. I provided her with a printed prescription for a DEXA scan. We also discussed the emerging issue of opioid-induced constipation, and I advised her to speak with her PCP about management options like Movantik. The patient and her partner expressed understanding of the plan. Patient Instructions - Continue your current pain medication regimen as is. Do not take more than three 5 mg tablets of oxycodone in a 24-hour period. - You may try mwbh-woi-scvvwdb topical treatments such as Salonpas or 5% lidocaine patches for your back pain. - You were given a prescription for a DEXA scan to check your bone health. Please schedule this appointment. - My office will contact your insurance provider to request authorization for an interventional pain procedure. We will be in touch with you about scheduling once we have approval. - Since you are starting to experience constipation from your medications, please discuss this with your primary care doctor. They can advise you on management and may consider a specific medication for this called Movantik. Orders: Orders XR DEXA axial skeleton 09/12/25 S32.030A - Wedge compression fracture of third lumbar vertebra, initial encounter for closed fracture Coding Level of Care Code Est Pt Level 4 (11535) Diagnoses Closed compression fracture of L3 vertebra S32.030A
[2025-09-12 12:00] VITALS: BP 148/88; PULSE 59; RESP 16; O2SAT 98; BMI 27.3
== END 2025-09-12 12:35 | disposition home or self-care (01) ==
PROVIDERS: PCP Family Medicine; Visit Provider Internal Medicine
DX: S32.030A Wedge compression fracture of third lumbar vertebra, initial encounter for closed fracture (principal)
CPT/HCPCS: 99214

== ENCOUNTER → 2025-09-12 11:47 | Outpatient (BNVA) | payer MEDICARE, SELFPAY | PROVIDERS: PCP Family Medicine; Visit Provider Internal Medicine | DX: S32.030A Wedge compression fracture of third lumbar vertebra, initial encounter for closed fracture (principal); G89.29 Other chronic pain; K59.03 Drug induced constipation; T40.2X5A Adverse effect of other opioids, initial encounter | CPT/HCPCS: 99212 ==

== ENCOUNTER 2025-09-26 11:29 | Outpatient (REF) | payer MEDICARE, SELFPAY ==
--- OUTSIDE RECORDS SUMMARY | 2022-02-16 18:36 | XMS_ITS | Encounter Summary ---
Author Organization [facility] Address [address] [place] [address] Phone Care Team Providers Care Die Cast Die Maker Name Role Phone Shellie Cowart MD Primary Care Provider [phone] Encounter Details Date Type Department Care Team (Late st Contact Info) Description 02/16/2022 7:36 PM EDT Hospital Encounter [facility] [address] [place] [address] Robert Alvarado PA [address] [place] [address] [email or web address] Social History Tobacco Use Types Packs/Day Years Used Date Smoking Tobacco: Former Cigarettes 0.5 10 0 10/09/1970 - 10/09/1980 Smokeless Tobacco: Never Comments:for about 10 years Alcohol Use Standard Drinks/Week Comments Yes 0 (1 standard drink = 0.6 oz pur e alcohol) rarely one drink once a month Home Health Assessment: Transportation Answer Date Recorded Lack of Transportation (Medical) No 08/28/2025 Lack of Transportation (Non-Medical) No 08/28/2025 Patient Unable or Declines to Respond No 08/28/2025 Child or Family Care Answer Date Record ed Do you have problems with on e of the following making it difficult for you to work, study, or receive health care? No 07/26/2023 Education Answer Date Recorded Are you interested in more education? Not on thi e 06/19/2024 Are you concerned about learning? Not on file 06/19/2024 No 06/19/2024 No 06/19/2024 Food Answer Date Recorded Within the past 6 months we worried whether our food would run out before we got money to buy more. Never True 06/30/2025 Within the past 6 months the food we bought just didn't last and we didn't have enough money to get more. Never True Residential Stability Answer Date Recor ded What is your housing situation today? I have janae sing 06/30/2025 How many times have you move d in the past 12 months? Zero (I did not move) 06/30/2025 Paying for Meds Answer Date Recorded Do you have trouble paying for medicines? No 06/30/2025 Paying Utility Bills Answer Date Record ed Do you have trouble paying your heating or elect ricity bill? No 06/30/2025 Transportation Answer Date Recorded Has the lack of transportati on kept you from medical appointments or from getting medications? No 06/30/2025 Unemployment Answer Date Recorded Are you currently unemployed or working on a part-time or temporary basis, and looking for work? No 06/19/2022 Digital Access Answer Date Recorded No 06/30/2025 Yes 06/30/2025 Do you have reliable internet access at home? Ye s 06/30/2025 Do you have a device (e.g., phone, tablet, computer) with a working camera? Yes 06/30/2025 Intimate Partner Violence Answer Date R ecorded Are you denied basic needs s uch as food, clothing, or medical care? No 07/11/2025 In the past 12 months have y ou been in a relationship with a person who hurts, threatens, or tries to control you? No 07/11/2025 Are you denied basic needs s uch as food, clothing, or medical care? No 07/11/2025 In the past 12 months have y ou been in a relationship with a person who hurts, threatens, or tries to control you? No 07/11/2025 Comments No Sex and Gender Information Value Date Recorded Sex Assigned at Female 05/25/2020 8:19 AM EDT Legal Sex Female 12:09 PM EST Gender Identity Female 05/25/2020 8:19 AM EDT Sexual Orientation Straight 05/25/2020 8: 19 AM EDT documented as of this encounter Plan of Treatment Upcoming Encounters Date Type Department Care Team (Late st Contact Info) Description 07/25/2025 Procedure Pass [address] [address] 09/30/2025 9:00 AM EST Appointment [facility] [address] [place] [phone] Marlen Haq, PT [address] [place] [address] 10/01/2025 3:30 AM EST Appointment [facility] [address] [place] [phone] Cordell Cruz RN [address] [place] [address] 10/06/2025 12:45 AM EST Appointment [facility] [address] [place] [phone] Marlen Haq, PT [address] [place] [address] 10/08/2025 1:00 AM EST Appointment [facility] [address] [place] [phone] Marlen Haq, PT [address] [place] [address] 10/08/2025 3:00 AM EST Appointment [facility] [address] [place] [phone] Cordell Cruz RN 30 [place] [address] 10/10/2025 2:45 PM EST Office Visit [facility] 8 [place] [address] Sadi Kong MD [address] [address] Fouzia Rocha, PT 8 [place] [address] 10/13/2025 Appointment [facility] 30 [place] [phone] Marlen Haq, PT 168 [place] [address] 10/14/2025 3:00 PM EST Office Visit [facility] 8 [place] [address] Sadi Kong MD [address] [place] [address] Fouzia Rocha, PT 8 [place] [address] 10/15/2025 1:00 AM EST Appointment [facility] [address] [place] [phone] Cordell Cruz RN 30 [place] [address] 10/22/2025 Appointment [facility] [address] [place] [phone] Cordell Cruz RN 30 [place] [address] 11/06/2025 1:00 PM EST Office Visit [facility] 8 [place] [address] Sadi Kong MD [address] [address] Jacob Dubose, EXTERIOR DESIGNER 8 [place] [address] 11/11/2025 2:15 PM EST Office Visit [facility] [address] [place] [address] Sadi Kong MD [address] [place] [address] Fouzia Rocha, PT 8 [place] [address] 11/17/2025 2:30 PM EST Office Visit [facility] Physical Therapy [address] [address] Sadi Kong MD [address] [place] [address] Fouzia Rocha, PT 8 [place] [address] 11/19/2025 3:15 PM EST Office Visit [facility] Physical Therapy [address] [address] Sadi Kong MD [address] [place] [address] Fouzia Rocha, PT 8 [place] [address] 11/24/2025 1:45 PM EST Office Visit [facility] [address] [place] [address] [place] [address] Sdai Kong MD [address] [place] [address] Fouzia Rocha, PT 8 [place] [address] 11/26/2025 1:45 PM EST Office Visit [facility] 8 [place] [address] Sadi Kong MD 22 [facility], 2nd [place] [address] Fouzia Rocha, PT 8 [place] [address] 02/06/2026 6:30 PM EDT Appointment [address] [address] Michael Sims MD [address] [place] [address] 04/01/2026 10:00 AM EDT Appointment [address] [address] Shellie Cowart MD [address] [place] [address] 12/14/2026 2:20 PM EST Office Visit [facility] [address] [address] Shellie Cowart MD [address] [address] documented as of this encounter Procedures Procedure Name Priority Date/Time Associated Diagnosis Comments XR HAND 3 OR MORE VIEWS (RIGHT) Urgent/patient waiting 02/16/2022 7:45 PM EDT Fall, initial encounter documented in this encounter Results * XR HAND 3 OR MORE VIEWS (RIGHT) (02/16/2022 7:45 PM EDT) Anatomical Region Laterality Modality Hand Right Computed Radiogr aphy 02/16/2022 7:46 PM EDT Impressions 02/16/2022 7:48 PM EDT No displaced fracture. Erosion and subluxation at the second DIP joint may represent erosive osteoarthritis, although an infectious process cannot be excluded on radiograph. Narrative 02/16/2022 7:48 PM EDT XR HAND 3 OR MORE VIEWS (RIGHT) COMPARISON: None. FINDINGS: There is radial subluxation of the second distal phalanx articular erosion at the DIP joint is associated soft tissue prominence. No displaced fracture. First CMC osteoarthritis. Procedure Note Samy Song MD - 02/16/2022 XR HAND 3 OR MORE VIEWS (RIGHT) COMPARISON: None. FINDINGS: There is radial subluxation of the second distal phalanx articular erosionat the DIP joint is associated soft tissue prominence. No displacedfracture. First CMC osteoarthritis. IMPRESSION: No displaced fracture. Erosion and subluxation at the second DIP joint mayrepresent erosive osteoarthritis, although an infectious process cannot beexcluded on radiograph. Robert STEPHEN IMG XR UPPER EXTREMITY Raisa l Result documented in this encounter Visit Diagnoses Not on filedocumented in this encounter Additional Health Concerns Assessment Noted Time PHQ-2 Depression Total Score: 0 06/18/20 21 9:47 AM EDT documented as of this encounter Care Teams Die Cast Die Maker Relationship Specialty Start Date End Date Shellie Cowart MD [address] [place] [address] PCP - General Family Medicine 10/25/19 documented as of this encounter Additional Source Comments The information contained in this document represents components of the legal health record. It is not the complete legal health record.[facility]
--- OUTSIDE RECORDS SUMMARY | 2022-02-16 18:36 | XMS_ITS | Encounter Summary ---
Author Organization [facility] Address [address] [place] [address] Phone Care Team Providers Care Phototypesetter Operator Name Role Phone Shellie Cowart MD Primary Care Provider [phone] Encounter Details Date Type Department Care Team (Late st Contact Info) Description 02/16/2022 7:36 PM EDT Hospital Encounter [facility] [address] [place] [address] Robert Alvarado PA [address] [place] [address] [email or web address] Social History Tobacco Use Types Packs/Day [...] st Contact Info) Description 07/25/2025 Procedure Pass [address] [address] 09/30/2025 9:00 AM EST Appointment [facility] [address] [place] [phone] Marlen Haq, PT 168 [place] [address] 10/01/2025 3:30 AM EST Appointment [facility] [address] [place] [phone] Cordell Cruz RN [address] [place] [address] 10/06/2025 12:45 AM EST Appointment [facility] [address] [place] [phone] Marlen Haq, PT [address] [place] [address] 10/08/2025 1:00 AM EST Appointment [facility] [address] [place] [phone] Marlen Haq, PT [address] [place] [address] 10/08/2025 3:00 AM EST Appointment [facility] [address] [place] [phone] Cordell Cruz RN 30 [place] [address] 10/10/2025 2:45 PM EST Office Visit [facility] 8 [place] [address] Sadi Kong MD [address] [address] Fouzia Rocha, PT 8 [place] [address] 10/13/2025 Appointment [facility] 30 [place] [phone] Marlen Haq, PT [address] [place] [address] 10/14/2025 3:00 PM EST Office Visit [facility] 8 [place] [address] Sadi Kong MD [address] [place] [address] Fouzia Rocha, PT 8 [place] [address] 10/15/2025 1:00 AM EST Appointment [facility] 30 [place] [phone] Cordell Cruz RN 30 [place] [address] 10/22/2025 Appointment [facility] 30 [place] [phone] Cordell Cruz RN 30 [place] [address] 11/06/2025 1:00 PM EST Office Visit [facility] 8 [place] [address] Sadi Kong MD [address] [address] Jacob Dubose, ONCOLOGY CONSULTANT 8 [place] [address] 11/11/2025 2:15 PM EST Office Visit [facility] [address] [place] [address] Sadi Kong MD [address] [place] [address] Fouzia Rocha, PT 8 [place] [address] 11/17/2025 2:30 PM EST Office Visit [facility] Therapy [address] [address] Sadi Kong MD [address] [place] [phone] Fouzia Rocha, PT 8 [place] [address] 11/19/2025 3:15 PM EST Office Visit [facility] Therapy [address] [address] Sadi Kong MD [address] [place] [address] Fouzia Rocha, PT 8 [place] [address] 11/24/2025 1:45 PM EST Office Visit [facility] [address] [place] [address] [place] [address] Sadi Kong MD [address] [place] [address] Fouzia Rocha, PT 8 [place] [address] 11/26/2025 1:45 PM EST Office Visit [facility] 8 [place] [address] Sadi Kong MD 22 [facility], 2nd [place] [address] Fouzia Rocha, PT 8 [place] [address] 02/06/2026 6:30 PM EDT Appointment [address] [address] Michael Sims MD [address] [place] [address] 04/01/2026 10:00 AM EDT Appointment [address] [address] Shellie Cowart MD [address] [place] [address] 12/14/2026 2:20 PM EST Office Visit [facility] [address] [address] Shellie Cowart MD [address] [address] documented as of this encounter Procedures Procedure Name Priority Date/Time Associated Diagnosis Comments XR HAND 3 OR MORE VIEWS (LEFT) Urgent/patient waiting 02/16/2022 7:45 PM EDT Fall, initial encounter documented in this encounter Results * XR HAND 3 OR MORE VIEWS (LEFT) (02/16/2022 7:45 PM EDT) Anatomical Region Laterality Modality Hand Left Computed Radiogr aphy 02/16/2022 7:53 PM EDT Impressions 02/16/2022 8:03 PM EDT No fracture or dislocation. ATTESTATION: Naa Marques as teaching physician, have reviewed the images for this case and if necessary edited the report originally created by Gely Anthony. Narrative 02/16/2022 8:03 PM EDT XR HAND 3 OR MORE VIEWS (LEFT) COMPARISON: None. FINDINGS: No acute fracture. Normal alignment. Severe osteoarthritis of the first carpometacarpal joint. No soft tissue swelling. Procedure Note Naa Byers MD - 02/16/2022 XR HAND 3 OR MORE VIEWS (LEFT) COMPARISON: None. FINDINGS: No acute fracture. Normal alignment. Severe osteoarthritis of the firstcarpometacarpal joint. No soft tissue swelling. IMPRESSION: No fracture or dislocation. ATTESTATION: Naa Marques as teaching physician, have reviewed the imagesfor this case and if necessary edited the report originally created by Jelani. Robert STEPHEN IMG XR UPPER EXTREMITY Raisa l Result documented in this encounter Visit Diagnoses Not on filedocumented in this encounter Additional Health Concerns Assessment Noted Time PHQ-2 Depression Total Score: 0 06/18/20 21 9:47 AM EDT documented as of this encounter Care Teams Phototypesetter Operator Relationship Specialty Start Date End Date Shellie Cowart MD [address] [place] [address] PCP - General Family Medicine 10/25/19 documented as of this encounter Additional Source Comments The information contained in this document represents components of the legal health record. It is not the complete legal health record.[facility]
--- OUTSIDE RECORDS SUMMARY | 2024-10-01 03:30 | XMS_ITS ---
Author Organization [facility] Address [address] [place] [address] Care Team Providers Care Leaf Sucker Operator Name Role Phone Dr Shellie Cowart Primary Care Provider UnavailJennifer Mcfarlane Unavailable [phone] Jen Braun Unavailable [phone] Encounters Encounter Location Date Provider Diagnosis [address] [address] 10/01/2024 Jen Braun Plan Of Treatment Next Appt Details Provider Name:Jennifer Sifuentes , 09/29/2025 11:00:00 AM, [address] [place] [address], [address], Progress Notes * Donald STEWARTOB:1950 (75 yo F)Acc No.[id number]:10/01/2024 Progress Notes Patient: Leslie HILLen Provider: Inna Braun DPM :1950 A ge:74 Y S ex:Female Date:10/01/2024 Address:[address] [place], [place] Pcp:Dr Shellie Cowart Subjective: * Chief Complaints: * * Medical History: Objective: * Vitals: Assessment: Plan: * Treatment: * Images: * The named appointment provid er may or may not be the originator of this progress note, and it is not deemed complete until electronically signed by the appointment provider. Sign off status: Pending * Provider: Inna Braun DPM Date: 12/02/2023 Generated for Mariah pereira/Tayler/Juan Alberto on: 11/27/2024 01:33 PM EST
--- OUTSIDE RECORDS SUMMARY | 2025-03-07 03:30 | XMS_ITS ---
Author Organization [facility] Address [address] [place] [address] Care Team Providers Care Reeling Machine Setup Operator Name Role Phone Dr Shellie Cowart Primary Care Provider Jennifer Morrissey [phone] REASON FOR VISIT sooner appt Encounters Encounter Location Date Provider Diagnosis [address] [address] 03/07/2025 Jennifer Sifuentes Plan Of Treatment Next Appt Details Provider Name:Jennifer Sifuentes , 09/29/2025 11:00:00 AM, [address] [place], [address], Progress Notes * Donald STEWARTOB:1950 (75 yo F)Acc No.[id number]:03/07/2025 Progress Notes Patient: Kasia ESQUIVELKasia Naa Provider: Michelle Sifuetnes DPM :1950 A ge:75 Y S ex:Female Date:03/07/2025 Address:[address] [place], [place] Pcp:Dr Shellie Cowart Subjective: * Chief Complaints: * 1 . Sooner appt. * Medical History: Objective: * Vitals: Assessment: Plan: * Treatment: * Images: * The named appointment provid er may or may not be the originator of this progress note, and it is not deemed complete until electronically signed by the appointment provider. Sign off status: Pending * Provider: Michelle Sifuentes, DPCaterina Date: 0 03/07/2025 Generated for Mariah pereira/Tayler/Juan Alberto on: 11/27/2024 01:34 PM EST
--- OUTSIDE RECORDS SUMMARY | 2025-04-22 03:15 | XMS_ITS ---
Author Organization [facility] Address [address] [place] [address] Care Team Providers Care Tenderizer Tender Name Role Phone Dr Shellie Cowart Primary Care Provider Jennifer Morrissey [phone] Encounters Encounter Location Date Provider Diagnosis [address] [address] 04/22/2025 Jennifer Sifuentes Plan Of Treatment Next Appt Details Provider Name:Jennifer Sifuentes , 09/29/2025 11:00:00 AM, [address] [place], [address], Progress Notes * Donald STEWARTOB:1950 (75 yo F)Acc No.[id number]:04/22/2025 Progress Note Patient: Kasia ORTEGA Naa Provider: Michelle Sifuentes DPM :1950 A ge:75 Y S ex:Female Date:04/22/2025 Address:[address] [place], [place] Pcp:Dr Shellie Cowart Subjective: * Chief Complaints: * * Medical History: Objective: * Vitals: Assessment: Plan: * Treatment: * Images: * The named appointment provid er may or may not be the originator of this progress note, and it is not deemed complete until electronically signed by the appointment provider. Sign off status: Pending * Provider: Michelle Sifuentes DPM Date: 0 04/22/2025 Generated for Mariah pereira/Tayler/Juan Alberto on: 1 11/27/2024 01:36 PM EST
--- OUTSIDE RECORDS SUMMARY | 2025-08-18 03:00 | XMS_ITS ---
Author Organization [facility] Address [address] [place] [address] Care Team Providers Care Accounting Tutor Name Role Phone Dr Shellie Cowart Primary Care Provider Jennifer Morrissey [phone] Encounters Encounter Location Date Provider Diagnosis [address] [address] 08/18/2025 Jennifer Sifuentes Plan Of Treatment Next Appt Details Provider Name:Jennifer Sifuentes , 09/29/2025 11:00:00 AM, [address] [place], [address], Progress Notes * Donald STEWARTOB:1950 (75 yo F)Acc No.[id number]:08/18/2025 Progress Note Patient: Kasia ORTEGA Naa Provider: Michelle Sifuentes DPM :1950 A ge:75 Y S ex:Female Date:08/18/2025 Address:[address] [place] [address] Pcp:Dr Shellie Cowart Subjective: * Chief Complaints: * * Medical History: Objective: * Vitals: Assessment: Plan: * Treatment: * Images: * The named appointment provid er may or may not be the originator of this progress note, and it is not deemed complete until electronically signed by the appointment provider. Sign off status: Pending * Provider: Michelle Sifuentes DPM Date: 10/18/2024 Generated for Mariah pereira/Tayler/Juan Alberto on: 11/27/2024 01:36 PM EST
--- OUTSIDE RECORDS SUMMARY | 2025-09-22 12:00 | XMS_ITS | Encounter Summary ---
Author Organization [facility] Address [address] [place] [address] Phone Care Team Providers Care Catalyst Unit Operator Name Role Phone Shellie Cowart MD Primary Care Provider [phone] Paul Hooper MD Unavailable [phone] Preston Pederson RECORDS ASSISTANT Unavailable [phone] Reason for Visit * Auth/Cert (Routine) Specialty Diagnoses / Procedures Referred By Contac t Referred To Contact Referral ID Status Reason Start Date Expiration Date Visits Re quested Visits Authorized [id number] 1 1 Encounter Details Date Type Department Care Team (Late st Contact Info) Description 09/22/2025 12:00 PM EST Home Care Visit [facility] [address] [place] [address] Marlen Haq, PT [address] [place] [address] PT HOME VISIT Social History Tobacco Use Types Packs/Day Years [...] AM EDT documented as of this encounter Last Filed Vital Signs Vital Sign Reading Time Taken Comments Blood Pressure 132/84 09/22/2025 12:30 PM EST Pulse 72 09/22/2025 12:30 PM EST Temperature 36.3 C (97.3 F) 09/22/2025 12:30 PM EST Respiratory Rate 16 09/22/2025 12:30 PM EST Oxygen Saturation 98% 09/22/2025 12:30 PM EST Inhaled Oxygen Concentration - - Weight - - Height - - Body Mass Index - - documented in this encounter Plan of Treatment Upcoming Encounters Date Type Department Care Team (Late st Contact Info) Description 07/25/2025 Procedure [facility], [address] [address] 09/30/2025 9:00 AM EST Appointment [facility] [address] [place] [address] Marlen Haq, PT [address] [place] [address] [email or web address] 10/01/2025 3:30 AM EST Appointment [facility] [address] [place] [address] Cordell Cruz RN [address] [place] [address] [email or web address] 10/06/2025 12:45 AM EST Appointment [facility] [address] [place] [phone] Marlen Haq, PT [address] [place] [address] [email or web address] 10/08/2025 1:00 AM EST Appointment [facility] [address] [place] [address] Marlen Haq, PT [address] [place] [address] 10/08/2025 3:00 AM EST Appointment [facility] [address] [place] [phone] Cordell Cruz RN [address] [place] [address] 10/10/2025 2:45 PM EST Office Visit [facility] [address] [place] [address] Sadi Kong MD [address] [place] [address] Fouzia Rocha, PT [address] [place] [address] 10/13/2025 Appointment [facility] [address] [place] [address] Marlen Haq, PT [address] [place] [address] 10/14/2025 3:00 PM EST Office Visit [facility] [address] [place] [address] Sadi Kong MD [address] [place] [address] Fouzia Rocha, PT [address] [place] [address] 10/15/2025 1:00 AM EST Appointment [facility] [address], [place] [phone] Cordell Cruz RN [address] [place] [address] 10/22/2025 Appointment [facility] [address] [place] [phone] Cordell Cruz RN [address] [place] [address] 11/06/2025 1:00 PM EST Office Visit [facility] [address] [place] [phone] Sadi Kong MD [address] [place] [phone] Jacob Dubose, THEATER PROJECTIONIST [address] [place] [address] 11/11/2025 2:15 PM EST Office Visit [facility] [address] [place] [address] Sadi Kong MD [address] [place] [address] Fouzia Rocha, PT [address] [place] [address] 11/17/2025 2:30 PM EST Office Visit [facility] [address] [place] [address] Sadi Kong MD [address] [place] [address] Fouzia Rocha, PT [address] [place] [address] 11/19/2025 3:15 PM EST Office Visit [facility] [address] [place] [address] Sadi Kong MD [address] [place] [address] Fouzia Rocha, PT [address] [place] [address] 11/24/2025 1:45 PM EST Office Visit [facility] [address] [place] [address] Sadi Kong MD [address] [place] [address] Fouzia Rocha, PT [address] [place] [address] 11/26/2025 1:45 PM EST Office Visit [facility] [address] [place] [address] Sadi Kong MD [address] [place] [address] Fouzia Rocha, PT [address] [place] [address] 02/06/2026 6:30 PM EDT Appointment [address] [address] Michael Sims MD [address] [place] [address] 04/01/2026 10:00 AM EDT Appointment [address] [address] Shellie Cowart MD [address] [address] [email or web address] 12/14/2026 2:20 PM EST Office Visit [facility] [address] [place] [address] Shellie Cowart MD [address] [facility] [address] [place] [address] [email or web address] documented as of this encounter Visit Diagnoses Not on filedocumented in this encounter Additional Health Concerns Assessment Noted Time PHQ-9 Depression Total Score: 1 10/24/19 12:00 PM EST PHQ-2 Depression Total Score: 1 10/24/19 12:00 PM EST documented as of this encounter Home Health Visit - Care Plan Visit Details Visit Type -PT HOME VISIT Discipline -Physical Therapy Problems Problem Description Start Date Status Goals Interve ntions HH - Medication Management Disciplines: All Active Home Health Disciplines 08/28/2025 Active 1 goal linked to scheduled/document ed intervention 2 goal interventions scheduled/document ed in this visit HH - Focus of Care and Teaching Disciplines: All Active Home Health Disciplines w/RD 08/28/2025 Active 1 goal linked to scheduled/document ed intervention 1 goal intervention scheduled/document ed in this visit HH - Emergency Planning - Knowledge of Disciplines: All Active Home Health Disciplines 08/28/2025 Active 1 goal linked to scheduled/document ed intervention 2 goal interventions scheduled/document ed in this visit HH - Infection - Actual or Risk of Disciplines: All Active Home Health Disciplines 08/28/2025 Active 1 goal linked to scheduled/document ed intervention 1 goal intervention scheduled/document ed in this visit HH - Falls - Risk of Disciplines: All Active Home Health Disciplines 08/28/2025 Active 1 goal linked to scheduled/document ed intervention 1 goal intervention scheduled/document ed in this visit HH - Standard of Care Disciplines: All Active Home Health Disciplines 08/28/2025 Active 1 goal linked to scheduled/document ed intervention 3 goal interventions scheduled/document ed in this visit HH - Pain Disciplines: All Active Home Health Disciplines 08/28/2025 Active 1 goal linked to scheduled/document ed intervention 2 goal interventions scheduled/document ed in this visit HH - Wound Disciplines: All Active Home Health Disciplines 08/28/2025 Active 1 goal linked to scheduled/document ed intervention 1 goal intervention scheduled/document ed in this visit HH - Mobility and Activity Tolerance - Impaired Disciplines: Physical Therapy 08/29/2025 Active 1 goal linked to scheduled/document ed intervention 3 goal interventions scheduled/document ed in this visit Goals Goal Associated Problem Outcome Goal Met? Visit Notes HH - Safe medication management, avoid unnecessary harm related to medication errors and/or interactions HH - Medication Management No HH - Communication and collaboration to achieve patient goals HH - Focus of Care and Teaching No HH - Knowledge of options for managing care in the event of an emergency related situation. HH - Emergency Planning - Knowledge of No HH - Patient will have no new infection; any new infection that occurs will be identified and treated promptly; existing infection will resolve without complication Description: Patient and caregiver(s) will demonstrate understanding of infection prevention, monitoring, and treatment as appropriate HH - Infection - Actual or Risk of No HH - Knowledge and management of fall prevention measures. HH - Falls - Risk of No HH - Achieve care management for a safe to home/community discharge from homecare HH - Standard of Care No HH - Frequency of pain interfering with patient's activity or movement will improve with activity or movement by discharge. Description: Pain will be managed over the course of care. Patient's acceptable level of pain is 3 - daily, but not constantly. HH - Pain Not Progressing No HH - Demonstrate/verbalize wound care management, wound/lesion will be free from complications HH - Wound No HH - Demonstrate maximum mobility and activity level for safe function Description: 1. Patient will demonstrate safe and adequate understanding of safety/DME recommendations to reduce fall risk and increase quality of life in home by 09/05/25 2. Patient will demonstrate transfers with LRD mod I from surfaces in her home allowing her to remain safe at home by 09/12/25 3. Patient will demonstrate transfers in and OOB mod I so patient can safely complete mobility in home by 09/26/25 4. Patient will demonstrate ambulation with LRD mod I for > 250 feet on indoor and outdoor surfaces allow ing her to remain safe in her home by 09/26/25 5. Patient will demonstrate ability to ascend/descend 2 step(s) without rail to safely enter/exit home with SUP by 09/26/25 6. Patient will demonstrate understanding of therapy instruction/recommendatio ns for HEP by completion of task with 90% accuracy allowing patient to remain safe in home by 09/26/25 HH - Mobility and Activity Tolerance - Impaired Not Progressing No Interventions Intervention Associated Problem/Goal Status Variance Visit Notes HH - Complete medication review every visit and medication reconciliation as indicated. Pharmacy information: Description: [facility] Problem:HH - Medication Management Goal:HH - Safe medication management, avoid unnecessary harm related to medication errors and/or interactions Performed HH - I/E medication management: administration, purpose, dosages, preparation, setup, scheduling, side effects, food/drug interactions, and potential complications as indicated Description: Update patient's copy of medication list as needed. Problem:HH - Medication Management Goal:HH - Safe medication management, avoid unnecessary harm related to medication errors and/or interactions Scheduled HH - Focus of care, teaching completed and plan for next visit Problem:HH - Focus of Care and Teaching Goal:HH - Communication and collaboration to achieve patient goals Performed Primary Clinical Focus this Visit & Instruction Provided: education for pain management, positioning and community supports Instruction Provided to: patient and caregiver Response to Instruction/Teachin g: Is fully able to teach back topics as evidenced by ability to discuss and recall recommendations during visit. Plan for Next Visit Specific Focus & Education Needed: PT reassessment New Orders: NA Updated Discharge Plan: Plan to complete PT reassessment at next visit. Pt seated in arm chair a t start of PT and appears uncomfortable, which is different from previous visits. Pt's spouse Darian present and participated in visit. Pt states she had inc pain yesterday morning and then this morning was even worse. They state that yesterday and today, after trying to get up, pt returned to laying down due to inc pain, which is unusual for her. They report they have tried ativan in the morning and Darian felt the timing of it helped this morning. Although pt reports she tried to talk with a friend yester day and was having brain fog causing difficulty with communication which was distressing to her. Pt reports feeling discouraged and frustrated by inc in pain and feels like giving up. Darian also states feeling worn down. Discussed option for [employer]ICE PRESIDENT [employer] SAL[employer] to assist with showers and ADLs 2x/wk to dec burden on Darian. He was happy to know this information but did not feel like it was a service they were interested in at this time. Discussed benefits for him to have support to avoid burn out. He states that they have considered having a close friend provide support but have not yet thought of the right person. Pt reports pain in low back continues and reports pain also in B upper anterior thighs with some tingling but denies numbness. She reports no change in bow el and bladder but does report she has inc back and leg pain with BMs and feels constipated although is having small BM daily. Encouraged her to discuss recommended dosages of current bowel regimen with physician to determine if dosage or frequency can b e increased to decrease straining during BMs. Pt reports she did not do anything out of the ordinary for activity/mobility the last couple of days. She states she spent a lot of time sitting her her arm chair. Darian reports that they recorded audio st ories for their grandchildren for 1-2 hours yesterday afternoon. Asked if pt was sitting against the back of her chair vs leaning forward while recording. They thought she was likely leaning forward. Discussed optimal positioning to dec strain on back wi th Bill planning to arrange laptop differently as they plan to continue with recordings today. Pt received MRI results from Dr Cowart stating there is no new fracture. There is still a lot of bone edema (swelling) which is within the range of normal h ealing although the hope would be pt was further along in the healing process by now. Pt reports she has DXA scan scheduled for Monday and then will follow up with Dr Sims for recommendations. Pt reports she received an email from seed mill superintendent that her back brace was ready. However, they are unsure what brace they are talking about because they were waiting to hear back from seed mill superintendent regarding other options as initial brace did not fit her well. They may follow up with this after DXA scan results and consultation with Dr Sims. Darian also reports he has looked into a different insurance verification rep who may have early availability than next month. Provided supportive listening and offered encouragement. Due to slow healing of fracture and recent increased pain affecting her mobility, progress in PT has been limited and pt would benefit from continued home PT. Will plan to complete reassessment at next visit. Discussed need to cancel upcoming outpatient PT visits due to ongoing need for home SN and PT serv ices. HH - I/E management of care in an urgent or emergency (ER) situation: When to call your Home Care Team/911, ER plans, supplies, evacuation, when to contact local ER officials and how to stay informed Problem: - Emergency Planning - Knowledge of Goal:HH - Knowledge of options for managing care in the event of an emergency related situation. Scheduled - Emergency planning assessment: the emergency plan, supplies needed, emergency contact numbers and an evacuation plan were reviewed Description: Patient and Caregiver is/are knowledgeable of emergency plans. Problem: - Emergency Planning - Knowledge of Goal:HH - Knowledge of options for managing care in the event of an emergency related situation. Scheduled - Assess infection risk and s/s Problem: - Infection - Actual or Risk of Goal:HH - Patient will have no new infection; any new infection that occurs will be identified and treated promptly; existing infection will resolve without complication Performed HH - I/E fall prevention measures Description: diagnosis/age related changes/prior history of falls: symptoms and side effects of illness/injury/histo ry of falls placing patient at increased risk for falls. may include management of dizziness/orthostasi s, environmental hazards: modification of enviro nment to include clear walkways, secure animals, and move frequently used items within reach, use of equipment, impaired functional mobility: supervision for mobility/activity, appropriate footwear and as indicated safe use of assistive device(s), incont inence: management of incontinence to include safe toileting, need for absorbent garments, address urgency/frequency and pain affecting level of function: impact of pain on an increased risk of falls Problem: - Falls - Risk of Goal: - Knowledge and management of fall prevention measures. Performed HH - Assess vital signs, pulse oximetry, pain, and as indicated, orthostatic vital signs Description: use agency-specific parameters Problem: - Standard of Care Goal: - Achieve care management for a safe to home/community discharge from homecare Performed HH - Assess skin integrity Problem: - Standard of Care Goal:HH - Achieve care management for a safe to home/community discharge from homecare Performed HH - I/E discharge plan Problem: - Standard of Care Goal:HH - Achieve care management for a safe to home/community discharge from homecare Performed HH - Assess pain Problem: - Pain Goal:HH - Frequency of pain interfering with patient's activity or movement will improve with activity or movement by discharge. Performed - I/E pain management Problem: - Pain Goal:HH - Frequency of pain interfering with patient's activity or movement will improve with activity or movement by discharge. Performed HH - Assess wounds/lesions/osorio Description: LOCATION: right lat foot stage 2 PU left lat foot skin at risk right buttock cluster of two stage 2 PU Problem:HH - Wound Goal:HH - Demonstrate/verbal ize wound care management, wound/lesion will be free from complications Scheduled with variance Not Applicable for Visiting Discipline HH - Therapeutic interventions, as indicated: Description: balance training, bed mobility training, durable medical equipment training, gait/stair training, home modification, manual therapy/soft tissue mobilization , neuromuscular retraining/tone management, and desensitization techniques, therapeutic exercise/ home exercise program and transfer training, including bathroom transfers Problem:HH - Mobility and Activity Tolerance - Impaired Goal:HH - Demonstrate maximum mobility and activity level for safe function Performed HH - I/E therapeutic function/activity: Description: As indicated: activity promotion and management, functional mobility training, therapeutic exercise and home exercise program, device use. Problem:HH - Mobility and Activity Tolerance - Impaired Goal:HH - Demonstrate maximum mobility and activity level for safe function Performed HH - Assess therapeutic function/activity and need for durable medical equipment Problem:HH - Mobility and Activity Tolerance - Impaired Goal:HH - Demonstrate maximum mobility and activity level for safe function Performed documented in this encounter Care Teams Catalyst Unit Operator Relationship Specialty Start Date End Date Shellie Cowart MD [address] [place] [id number] [email or web address] PCP - General Family Medicine 10/25/19 Paul Hooper MD [address] [place] [address] Orthopedics & Sports Medicine, [place] [address] Orthopedic Surgery 03/01/24 Preston Pederson MSW [address] [place] [address] Electrical Superintendent Licensed Clinical Electrical Superintendent 12/11/24 documented as of this encounter Additional Source Comments The information contained in this document represents components of the legal health record. It is not the complete legal health record.[facility]
--- OUTSIDE RECORDS SUMMARY | 2025-09-24 11:45 | XMS_ITS | Encounter Summary ---
Author Organization [facility] Address [address] [place] [address] Phone Care Team Providers Care Blender Helper Name Role Phone Shellie Cowart MD Primary Care Provider [phone] Paul Hooper MD Unavailable [phone] Preston Pederson DISTRICT SALES LEADER Unavailable [phone] Reason for Visit * Auth/Cert (Routine) Specialty Diagnoses / Procedures Referred By Contac t Referred To Contact Referral ID Status Reason Start Date Expiration Date Visits Re quested Visits Authorized [id number] 1 1 Encounter Details Date Type Department Care Team (Late st Contact Info) Description 09/24/2025 11:45 AM EST Home Care Visit Maria Elena Bowden [facility] [address] [place] [address] Marlen Haq, PT [address] [place] [address] [email or web address] PT TFA VISIT Social History Tobacco Use Types Packs/Day [...] st Contact Info) Description 07/25/2025 Procedure Pass [facility] [address] [place] [address] 09/30/2025 9:00 AM EST Appointment [facility] [address] [place] [phone] Marlen Haq, PT [address] [place] [address] [email or web address] 10/01/2025 3:30 AM EST Appointment [facility] [address] [place] [phone] Cordell Cruz RN [address] [place] [address] [email or web address] 10/06/2025 12:45 AM EST Appointment [facility] [address] [place] [phone] Marlen Haq, PT [address] [place] [address] [email or web address] 10/08/2025 1:00 AM EST Appointment [facility] [address] [place] [phone] Marlen Haq, PT [address] [place] [address] [email or web address] 10/08/2025 3:00 AM EST Appointment [facility] [address] [place] [phone] Cordell Cruz RN [address] [place] [address] 10/10/2025 2:45 PM EST [facility] [address] [place] [address] Sadi Kong MD [address] [place] [address] Fouzia Rocha, PT 8 [place] [address] 10/13/2025 Appointment [facility] [address] [place] [address] Marlen Haq, PT [address] [place] [address] 10/14/2025 3:00 PM EST Office Visit [facility] [address] [place] [address] Sadi Kong MD [address] [place] [address] Fouzia Rocha, PT 8 [place] [address] 10/15/2025 1:00 AM EST Appointment [facility] [address] [place] [address] Cordell Cruz RN [address] [place] [address] 10/22/2025 Appointment [facility] [address] [place] [address] Cordell Cruz RN [address] [place] [address] 11/06/2025 1:00 PM EST Office Visit [facility] Physical Therapy [facility] [address] [place] [address] Sadi Kong MD [address] [place] [phone] Jacob Dubose, PLASTIC BATTERY ASSEMBLER 8 [place] [address] 11/11/2025 2:15 PM EST Office Visit [facility] Physical Therapy [address] [place] [address] Sadi Kong MD [address] [place] [address] Fouzia Rocha, PT 8 [place] [address] 11/17/2025 2:30 PM EST Office Visit [facility] Physical Therapy [address] [place] [address] Sadi Kong MD [address] [place] [address] Fouzia Rocha, PT 8 [place] [address] 11/19/2025 3:15 PM EST Office Visit [facility] Physical Therapy [facility] [address] [place] [address] Sadi Kong MD [address] [place] [address] Fouzia Rocha, PT 8 [place] [address] 11/24/2025 1:45 PM EST Office Visit [facility] [address] [place] [address] Sadi Kong MD [address] [place] [address] Fouzia Rocha, PT 8 [place] [address] 11/26/2025 1:45 PM EST Office Visit [facility] [address] [place] [address] Sadi Kong MD [address] [place] [address] Fouzia Rocha, PT 8 [place] [address] 02/06/2026 6:30 PM EDT Appointment [address] [address] Michael Sims MD [address] [place] [address] 04/01/2026 10:00 AM EDT Appointment [address] [address] Shellie Cowart MD [address] [address] 12/14/2026 2:20 PM EST Office Visit [facility] [address] [address] Shellie Cowart MD [address] [address] ([email or web address] documented as of this encounter Visit Diagnoses Not on filedocumented in this encounter Additional Health Concerns Assessment Noted Time PHQ-9 Depression Total Score: 1 10/24/19 12:00 PM EST PHQ-2 Depression Total Score: 1 10/24/19 12:00 PM EST documented as of this encounter Home Health Visit - Care Plan Visit Details Visit Type -PT TFA VISIT Discipline -Physical Therapy Problems Problem Description [...] 1 goal linked to scheduled/document ed intervention 4 goal interventions scheduled/document ed in this visit [...] HH - Focus of Care and Teaching Progressing No HH - Knowledge of options for [...] - Mobility and Activity Tolerance - Impaired Revised No Interventions Intervention Associated Problem/Goal Status Variance [...] Clinical Focus this Visit & Instruction Provided: PT reassessment, Discussed trying alternate positions in the morning to try to offload spine. Discussed possible use of commode when ambulation is difficult in the morning or use of w/c. Instruc tion Provided to: patient and caregiver Response to Instruction/Teaching: Is fully able to teach back topics as evidenced by ability to discuss recommendations and options. Plan for Next Visit Specific Focus & Education Needed: assess bed mobility, tra nsfers and pain during transition out of bed in the morning New Orders: PT 1x/wk x1wk then 2x/wk x1wk then 1x/wk x1wk Updated Discharge Plan: Anticipate DC in about 3 weeks. PT REASSESSMENT: This 75 yo female had new onset of low back pain 06/24 after bending over to pick something up. She was assessed at urgent care 06/24, [facility] ED 06/25 and 06/30/25. Xrays and CTs were negative for acute fracture and pt returned home. MRI 07/03/25 revealed acute/subacute non displaced fx along the inferior endpl ate of L3 vertebral body to the right of midline with associated bone marrow edema. Additionally, there was acute/subacute nondisplaced fx involving the posterior elements at L3 level. Neurosurgical evaluation was recommended. Pt underwent kyphoplasty with Dr Valentin with little improvement in pain. She was assessed by Dr Sims on 08/06/25 at the [facility]. He recommended stronger pain medications to help with pain management along with options for bracing and acupuncture. Pt's PCP re ferred her to home PT and SN referral was added due to new pressure ulcers from lack of mobility due to pain. Pt has participated in 8 home PT visits with focus on pain management, bed mobility, transfers gait with rollator and ww, management of AD in bathroom, initiated HEP and provided education for dec fall risk. Education for pain management included positioning, frequency of position changes, timing of medications and use of ice/heat. Pt continues to have fluctuating levels of low back pain 2- 05/18 which her and her spouse Bill report have been worse recently. Pt taking acetaminophen 1000mg every 6 hours, oxycodone myristate ER 9mg BID and oxycodone 5mg every 8 hours PRN for pain management. She has also started lorazepam in the morning prior to getting up to help reduce anxiety regarding expected inc in pain since she tends to have significant pain after transitioning sup to sit. Pt unsure if this has been affective. Pt reports new buzzing sensation in B mid to upper anterior thighs after transitioning to sitting this morning. She had also mentioned tingling there at last visit. She states that buzzing had resolved prior to visit but she reported light tingling/buzzing sensation in upper thighs after ambulating in home with rollator which resolved in sitting. Recommended pt report symptom to Dr Sims and monitor for any worsening. Bill reports that following bed mobility training, pt has gradually improved ability of sup to sit transfers in the mornings with pt better able to use UE support with less reliance on Bill. He also reports that pt has gradually inc independence in the shower requiring less physical support although he does provide SUP. Pt is able to complete transfers and ambulation with rollator mod I today and has demo 'd safe ambulation into bathroom. Although, pt and Bill report fluctuating functional level depending on pain. Pt is scheduled for DXA scan 09/26/25 and then plans to follow up with Dr Sims. Pt would benefit from continued home PT due to recent inc in juan lynn which has affected her mobility, especially in the mornings. Plan to continue 1x/wk x1wk then 2x/wk x1wk then 1x/wk x1wk. Anticipate DC at that time to outpatient PT. Pt is in agreement with PT POC and has outpatient PT visits scheduled. HH - I/E management of care in an urgent or emergency (ER) situation: When to call your Home Care Team/911, ER plans, supplies, evacuation, when to contact local ER officials and how to stay informed Problem:HH - Emergency Planning - Knowledge of Goal:HH - Knowledge of options for managing care in the event of an emergency related situation. Scheduled HH - Emergency planning assessment: the emergency plan, supplies needed, emergency contact numbers and an evacuation plan were reviewed Description: Patient and Caregiver is/are knowledgeable of emergency plans. Problem:HH - Emergency Planning - Knowledge of Goal:HH - Knowledge of options for managing care in the event of an emergency related situation. Scheduled HH - Assess infection risk and s/s Problem: - Infection - Actual or Risk of Goal:HH - Patient will have no new infection; any new infection that occurs will be identified and treated promptly; existing infection will resolve without complication Performed HH - I/E fall prevention measures Description: diagnosis/age related changes/prior history of falls: symptoms and side effects of illness/injury/history of falls placing patient at increased risk for falls. may include management of dizziness/orthostasis, environmental hazards: modification of enviro nment to [...] falls Problem: - Falls - Risk of Goal:HH - Knowledge and management of fall prevention measures. Performed HH - Assess vital signs, pulse oximetry, pain, and as indicated, orthostatic vital signs Description: use agency-specific parameters Problem: - Standard of Care Goal:HH - Achieve care management for a safe to home/community discharge from homecare Performed HH - Assess skin integrity Problem: - Standard of Care Goal:HH - Achieve care management for a safe to home/community discharge from homecare Performed - I/E discharge plan Problem: - Standard of Care Goal:HH - Achieve care management for a safe to home/community discharge from homecare Performed HH - Complete Marky scale at SOC and weekly Problem: - Standard of Care Goal:HH - Achieve care management for a safe to home/community discharge from homecare Performed HH - Assess pain Problem: - Pain Goal:HH - Frequency of pain interfering with patient's activity or movement will improve with activity or movement by discharge. Performed HH - I/E pain management Problem: - Pain Goal:HH - Frequency of pain interfering with patient's activity or movement will improve with activity or movement by discharge. Performed HH - Assess wounds/lesions/osorio Description: LOCATION: right lat foot stage 2 PU left lat foot skin at risk right buttock cluster of two stage 2 PU Problem:HH - Wound Goal:HH - Demonstrate/verbaliz e wound care management, wound/lesion will be free from complications Performed HH - Therapeutic interventions, as indicated: Description: [...] Performed documented in this encounter Care Teams Blender Helper Relationship Specialty Start Date End Date Shellie Cowart MD [address] [place] [address] [email or web address] PCP - General Family Medicine 10/25/19 Paul Hooper MD [address] [place] [address] Orthopedics & Sports Medicine, [place] [address] Orthopedic Surgery 03/01/24 Preston Pederson MSW [address] [place] [address] [email or web address] Data Center Manager Licensed Clinical Data Center Manager 12/11/24 documented as of this encounter Additional Source Comments The information contained in this document represents components of the legal health record. It is not the complete legal health record.[facility]
--- OUTSIDE RECORDS SUMMARY | 2025-09-24 14:30 | XMS_ITS | Encounter Summary ---
Author Organization [facility] Address [address] [place] [address] Phone Care Team Providers Care Ware Finisher Name Role Phone Shellie Cowart MD Primary Care Provider [phone] Paul Hooper MD Unavailable [phone] Preston Pederson HOGSHEAD MAT INSPECTOR Unavailable [phone] Reason for Visit * Auth/Cert (Routine) Specialty Diagnoses / Procedures Referred By Contac t Referred To Contact Referral ID Status Reason Start Date Expiration Date Visits Re quested Visits Authorized [id number] 1 1 Encounter Details Date Type Department Care Team (Late st Contact Info) Description 09/24/2025 2:30 PM EST Home Care Visit [facility] [address] [place] [phone] Lauren [place] LPN [address] [place] [address] PASTRYCOOK HOME VISIT Social History Tobacco Use Types [...] Sign Reading Time Taken Comments Blood Pressure 132/72 09/24/2025 12:38 PM EST Pulse - - Temperature - - Respiratory Rate - - Oxygen Saturation - - Inhaled Oxygen Concentration - - Weight - - Height - - Body Mass Index - - documented in this encounter Plan of Treatment Upcoming Encounters Date Type Department Care Team (Late st Contact Info) Description 07/25/2025 Procedure Pass [facility], [address] [address] 09/30/2025 9:00 AM EST [facility]ment [facility] [address] [place] [phone] Marlen Haq, PT [address] [place] [address] 10/01/2025 3:30 AM EST [facility]ointment [facility] [address] [place] [phone] Cordell Cruz RN 30 [place] [address] 10/06/2025 12:45 AM EST Appointment [facility] [address] [place] [phone] Marlen Haq, PT [address] [place] [address] 10/08/2025 1:00 AM EST Appointment [facility] [address] [place] [phone] Marlen Haq, PT [address] [place] [address] 10/08/2025 3:00 AM EST Appointment [facility] [address] [place] [phone] Cordell Cruz RN 30 [place] [address] 10/10/2025 2:45 PM EST Office Visit [facility] 8 [place] [address] Sadi Kong MD [address] [place] [address] Fouzia Rocha, PT 8 [place] [address] 10/13/2025 Appointment [facility] [address] [place], [place] [phone] Marlen Haq, PT [address] [place] [address] 10/14/2025 3:00 PM EST Office Visit [facility] 8 [place] [address] Sadi Kong MD [address] [address] Fouzia Rocha, PT 8 [place] [address] 10/15/2025 1:00 AM EST Appointment [facility] [address] [place] [phone] Cordell Cruz RN 30 [place] [address] 10/22/2025 Appointment [facility] [address] [place] [phone] Cordell Cruz RN [address] [place] [address] 11/06/2025 1:00 PM EST Office Visit [facility] [address] [place] [address] [place] [address] Sadi Kong MD [address] [place] [address] Jacob Dubose PTA [address] [place] [address] 11/11/2025 2:15 PM EST Office Visit [facility] Physical Therapy [address] [place] [address] Sadi Kong MD [address] [place] [address] Fouzia Rocha, PT 8 [place] [address] 11/17/2025 2:30 PM EST Office Visit [facility] [address] [place] [address] [place] [address] Sadi Kong MD [address] [place] [address] Fouzia Rocha, PT 8 [place] [address] 11/19/2025 3:15 PM EST Office Visit [facility] [address] [place] [address] Sadi Kong MD [address] [place] [address] Fouzia Rocha, PT 8 [place] [address] 11/24/2025 1:45 PM EST Office Visit [facility] Physical Therapy [facility] 8 [place] [address] Sadi Kong MD [address] [address] Fouzia Rocha, PT 8 [place] [address] 11/26/2025 1:45 PM EST Office Visit [facility] Physical Therapy [facility] 8 [place] [address] Sadi Kong MD [address] [address] Fouzia Rocha, PT 8 [place] [address] 02/06/2026 6:30 PM EDT Appointment [address] [address] Michael Sims MD [address] [place] [address] 04/01/2026 10:00 AM EDT Appointment [address] [address] Shellie Cowart MD [address] [address] 12/14/2026 2:20 PM EST Office Visit [facility] [address] [facility] [address] [place] [address] Shellie Cowart MD [address] [facility] [address] [place] [address] [email or web address] documented as of this encounter Visit Diagnoses Not on filedocumented in this encounter Additional Health Concerns Assessment Noted Time PHQ-9 Depression Total Score: 1 10/24/19 12:00 PM EST PHQ-2 Depression Total Score: 1 10/24/19 12:00 PM EST documented as of this encounter Home Health Visit - Care Plan Visit Details Visit Type -PASTRYCOOK HOME VISIT Discipline -Senior Living Problems Problem Description Start Date Status Goals [...] goal intervention scheduled/document ed in this visit Goals Goal [...] Planning - Knowledge of No HH - Achieve care management for a safe to home/community discharge from homecare HH - Standard of Care No HH - Demonstrate/verbalize wound care management, wound/lesion will be free from complications HH - Wound No Interventions Intervention Associated Problem/Goal Status Variance Visit Notes HH - I/E medication management: administration, purpose, dosages, preparation, setup, scheduling, side effects, food/drug interactions, and potential complications as indicated Description: Update patient's copy of medication list as needed. Problem: - Medication Management Goal:HH - Safe medication management, avoid unnecessary harm related to medication errors and/or interactions Scheduled - Complete medication review every visit and medication reconciliation as indicated. Pharmacy information: Description: [facility] Problem: - Medication Management Goal:HH - Safe medication management, avoid unnecessary harm related to medication errors and/or interactions Scheduled - Focus of care, teaching completed and plan for next visit Problem: - Focus of Care and Teaching Goal: - Communication and collaboration to achieve patient goals Scheduled - I/E management of care in an urgent or emergency (ER) situation: When to call your Home Care Team/911, ER plans, supplies, evacuation, when to contact local ER officials and how to stay informed Problem: - Emergency Planning - Knowledge of Goal: - Knowledge of options for managing care in the event of an emergency related situation. Scheduled - Emergency planning assessment: the emergency plan, supplies needed, emergency contact numbers and an evacuation plan were reviewed Description: Patient and Caregiver is/are knowledgeable of emergency plans. Problem: - Emergency Planning - Knowledge of Goal: - Knowledge of options for managing care in the event of an emergency related situation. Scheduled HH - Assess vital signs, pulse oximetry, pain, and as indicated, orthostatic vital signs Description: use agency-specific parameters Problem: - Standard of Care Goal: - Achieve care management for a safe to home/community discharge from homecare Scheduled HH - Assess skin integrity Problem: - Standard of Care Goal: - Achieve care management for a safe to home/community discharge from homecare Scheduled HH - Assess wounds/lesions/osorio Description: LOCATION: right lat foot stage 2 PU left lat foot skin at risk right buttock cluster of two stage 2 PU Problem: - Wound Goal: - Demonstrate/verbalize wound care management, wound/lesion will be free from complications Scheduled documented in this encounter Care Teams Ware Finisher Relationship Specialty Start Date End Date Shellie Cowart MD [address] [place] [address] PCP - General Family Medicine 10/25/19 Paul Hooper MD [address] [place] [address] Orthopedics & Sports Medicine, [place] [address] [email or web address] Orthopedic Surgery 03/01/24 Preston Pederson MSW [address] [place] [address] [email or web address] Criminal Analyst Licensed Clinical Criminal Analyst 12/11/24 documented as of this encounter Additional Source Comments The information contained in this document represents components of the legal health record. It is not the complete legal health record.[facility]
--- NOTE | ~2025-09-26 | MM_ITS ---
EXAMINATION: DXA BONE DENSITY EXTREMITY HISTORY: S32.030A - Wedge compression fracture of third lumbar vertebra, initial ... TECHNIQUE: Sionex Dual energy absorptiometry (DEXA) of the total left hip, femoral neck, and distal radius was performed. COMPARISON: There are no prior studies for comparison. FINDINGS: The bone mineral density of the left total hip is 0.968 g/cm2, corresponding to a T-score of -0.3, and a Z-score of 1.3. This is indicative of normal bone mineral density. The bone mineral density of the left femoral neck is 0.887 g/cm2, corresponding to a T-score of -1.1, and a Z-score of 0.7. This is indicative of osteopenia. The bone mineral density of the distal radius is 0.794 g/cm2, corresponding to a T-score of -0.9, and a Z-score of 1.3. This is indicative of normal bone mineral density. MM/XR DEXA appendicular skeleton IMPRESSION: Based on bone mineral density, and according to World Health Organization (WHO) criteria, the diagnosis is consistent with osteopenia. Statistically, 68% of repeat scans fall within 1 SD (+/- 0.010 g/cm2 for AP spine L1-L4) and 1 SD (+/- 0.012 g/cm2 for femur total) FRAX is a trademark of the [employer], a World Health Organization (WHO) Collaborating Center. Electronically signed by: Juanito Ordonez MD 09/26/2025 12:12 PM [facility]
--- OUTSIDE RECORDS SUMMARY | 2025-09-26 13:34 | XMS_ITS | Encounter Summary ---
Author Organization [facility] Address [address] [place] [address] Phone Care Team Providers Care Corporate Fitness Program Coordinator Name Role Phone Shellie Cowart MD Primary Care Provider [phone] Paul Hooper MD Unavailable Preston Pederson MAPPING SPECIALIST Unavailable [phone] Encounter Details Date Type Department Care Team (Late st Contact Info) Description 11/14/2022 Telephone [facility] [address] [place] [address] Shellie Cowart MD 15 [facility] [address] [place] [address] [email or web address] Social History Tobacco Use Types Packs/Day Years [...] high school, GED, job training, learning the Croatian language, technical skills, or developing parenting skills)? [...] st Contact Info) Description 07/25/2025 Procedure Pass [facility], [address] [address] 09/30/2025 9:00 AM EST Appointment [facility] [address] [place] [address] Marlen Haq, PT [address] [place] [address] 10/01/2025 3:30 AM EST Appointment [facility] [address] [place] [address] Cordell Cruz RN [address] [place] [address] 10/06/2025 12:45 AM EST Appointment [facility] [address] [place] [address] Marlen Haq, PT [address] [place] [address] 10/08/2025 1:00 AM EST Appointment [facility] [address] [place] [address] Marlen Haq, PT [address] [place] [address] 10/08/2025 3:00 AM EST Appointment [facility] [address] [place] [address] Cordell Cruz RN 30 [place] [address] 10/10/2025 2:45 PM EST Office Visit [facility] 8 [place] [address] Sadi Kong MD [address] [place] [address] Fouzia Rocha, PT [address] [place] [address] 10/13/2025 Appointment [facility] [address] [place] [address] Marlen Haq, PT [address] [place] [address] 10/14/2025 3:00 PM EST Office Visit [facility] 8 [place] [address] Sadi Kong MD [address] [address] Fouzia Rocha, PT 8 [place] [address] 10/15/2025 1:00 AM EST Appointment [facility] [address] [place] [address] Cordell Cruz RN 30 [place] [address] 10/22/2025 Appointment [facility] [address] [place] [address] Cordell Cruz RN 30 [place] [address] 11/06/2025 1:00 PM EST Office Visit [facility] [address] [place] [address] Sadi Kong MD [address] [place] [address] Jacob Dubose, CABLE TESTERS HELPER [address] [place] [address] 11/11/2025 2:15 PM EST Office Visit [facility] [address] [place] [address] [place] [address] Sadi Kong MD [address] [place] [address] Fouzia Rocha, PT [address] [place] [address] 11/17/2025 2:30 PM EST Office Visit [facility] [address] [place] [address] Sadi Kong MD [address] [place] [address] Fouzia Rocha, PT [address] [place] [address] 11/19/2025 3:15 PM EST Office Visit [facility] [address] [place] [address] Sadi Kong MD [address] [place] [address] Fouzia Rocha, PT [address] [place] [address] 11/24/2025 1:45 PM EST Office Visit [facility] 8 [place] [address] Sadi Kong MD [address] [place] [address] Fouzia Rocha, PT [address] [place] [address] 11/26/2025 1:45 PM EST Office Visit [facility] 8 [place] [address] Sadi Kong MD [address] [place] [address] Fouzia Rocha, PT [address] [place] [address] 02/06/2026 6:30 PM EDT Appointment [address] [address] Michael Sims MD [address] [place] [address] 04/01/2026 10:00 AM EDT Appointment [facility] [address] [place] [address] Shellie Cowart MD [address] [address] 12/14/2026 2:20 PM EST Office Visit [facility] [address] [address] Shellie Cowart MD [address] [place] [address] [email or web address] documented as of this encounter Visit Diagnoses Not on filedocumented in this encounter Additional Health Concerns Assessment Noted Time PHQ-2 Depression Total Score: 0 06/19/20 22 4:01 PM EDT documented as of this encounter Care Teams Corporate Fitness Program Coordinator Relationship Specialty Start Date End Date Shellie Cowart MD [address] [place] [address] PCP - General Family Medicine 10/25/19 Paul Hooper MD [address] [place] [address] [facility] Sports Medicine, [place] [address] Orthopedic Surgery 03/01/24 Preston Pederson MSW [address] [place] [address] Head Of Commission Department Licensed Clinical Head Of Commission Department 12/11/24 documented as of this encounter Additional Source Comments The information contained in this document represents components of the legal health record. It is not the complete legal health record.[facility]
--- OUTSIDE RECORDS SUMMARY | 2025-09-26 13:34 | XMS_ITS | Encounter Summary ---
Author Organization [facility] Address [address] [place] [address] Phone Care Team Providers Care Tube Rebuilder Name Role Phone Shellie Cowart MD Primary Care Provider [phone] Paul Hooper MD Unavailable [phone] Preston Pederson VP TRAINING Unavailable [phone] Encounter Details Date Type Department Care Team (Late st Contact Info) Description 10/06/2022 Procedure Pass [facility] [address] [place] [address] Social History Tobacco Use Types Packs/Day Years [...] high school, GED, job training, learning the Burmese language, technical skills, or developing parenting skills)? [...] st Contact Info) Description 07/25/2025 Procedure Pass [address] [address] 09/30/2025 9:00 AM EST Appointment [facility] [address] [place] [address] Marlen Haq, PT [address] [place] [address] [email or web address] 10/01/2025 3:30 AM EST Appointment [facility] [address] [place] [address] Cordell Cruz RN [address] [place] [address] 10/06/2025 12:45 AM EST Appointment [facility] [address] [place] [address] Marlen Haq, PT [address] [place] [address] 10/08/2025 1:00 AM EST Appointment [facility] [address] [place] [address] Marlen Haq, PT 168 [place] [address] 10/08/2025 3:00 AM EST Appointment [facility] [address] [place] [address] Cordell Cruz RN 30 [place] [address] 10/10/2025 2:45 PM EST Office Visit [facility] [address] [place] [address] Sadi Kong MD [address] [place] [address] Fouzia Rocha, PT 8 [place] [address] 10/13/2025 Appointment [facility] [address] [place], [place] [phone] Marlen Haq, PT [address] [place] [address] 10/14/2025 3:00 PM EST Office Visit [facility] [address] [place] [address] Sadi Kong MD [address] [place] [address] Fouzia Rocha, PT 8 [place] [address] 10/15/2025 1:00 AM EST Appointment [facility] [address] [place] [address] Cordell Cruz RN 30 [place] [address] 10/22/2025 Appointment [facility] [address] [place], [place] [phone] Cordell Cruz RN [address] [place] [address] 11/06/2025 1:00 PM EST Office Visit [facility] [address] [place] [address] Sadi Kong MD [address] [place] [address] Jacob Dubose PTA [address] [place] [address] 11/11/2025 2:15 PM EST Office Visit [facility] [address] [place] [address] Sadi Kong MD [address] [place] [address] Fouzia Rocha, PT 8 [place] [address] 11/17/2025 2:30 PM EST Office Visit [facility] 8 [place] [address] Sadi Kong MD [address] [place] [address] Fouzia Rocha, PT 8 [place] [address] 11/19/2025 3:15 PM EST Office Visit [facility] 8 [place] [address] Sadi Kong MD [address] [place] [address] Fouzia Rocha, PT 8 [place] [address] 11/24/2025 1:45 PM EST Office Visit [facility] [address] [address] Sadi Kong MD [address] [place] [address] Fouzia Rocha, PT 8 [place] [address] 11/26/2025 1:45 PM EST Office Visit [facility] [address] [address] Sadi Kong MD [address] [place] [address] Fouzia Rocha, PT 8 [place] [address] 02/06/2026 6:30 PM EDT Appointment [facility], [address] [address] Michael Sims MD [address] [place] [address] 04/01/2026 10:00 AM EDT Appointment [facility], [facility] [address] [place] [address] Shellie Cowart MD [address] [address] 12/14/2026 2:20 PM EST Office Visit [facility] [address] [place] [address] Shellie Cowart MD [address] [address] [email or web address] documented as of this encounter Visit Diagnoses Not on filedocumented in this encounter Additional Health Concerns Assessment Noted Time PHQ-2 Depression Total Score: 0 06/19/20 22 4:01 PM EDT documented as of this encounter Care Teams Tube Rebuilder Relationship Specialty Start Date End Date Shellie Cowart MD [address] [address] PCP - General Family Medicine 10/25/19 Paul Hooper MD [address] [place] [address] Orthopedics & Sports Medicine, [place] [address] Orthopedic Surgery 03/01/24 Preston Pederson VP TRAINING [address] [address] Picture Hanger Licensed Clinical Picture Hanger 12/11/24 documented as of this encounter Additional Source Comments The information contained in this document represents components of the legal health record. It is not the complete legal health record.[facility]
--- OUTSIDE RECORDS SUMMARY | 2025-09-26 13:34 | XMS_ITS | Clinical Summary ---
Author Organization [facility] Address [address] [facility] [address] [place] [address] Phone Care Team Providers Care Registered Radiation Therapist Name Role Phone Shellie Cowart MD Primary Care Provider [phone] Paul Hooper MD Unavailable [phone] Preston Pederson ASPARAGUS CUTTER Unavailable [phone] Allergies No known active allergies Medications apixaban (ELIQUIS) 5 mg tablet Take 1 tablet (5 mg total) by mouth 2 (two) times a day. 60 tablet 1 07/15/20 24 Active metoprolol succinate (TOPROL-XL) 25 MG 24 hr tablet Take 25 mg by mouth. 07/15/20 24 Active omeprazole (PRILOSEC) 20 MG capsuleIndicat ions:Gastroeso phageal reflux disease TAKE 1 CAPSULE BY MOUTH DAILY 90 capsule 3 11/12/19 25 Active medroxyPROGEST ERone (PROVERA) 2.5 MG tablet Take 1 tablet (2.5 mg total) by mouth daily. 90 tablet 3 07/07/20 25 Active estradioL (ESTRACE) 0.5 MG tablet Take 1 tablet (0.5 mg total) by mouth daily. 90 tablet 1 07/25/20 25 Active zolpidem (AMBIEN) 5 MG tablet Take 1 tablet (5 mg total) by mouth nightly at bedtime as needed (insomnia). 30 tablet 1 07/30/20 25 Active acetaminophen (TYLENOL) 500 MG tablet Take 1,000 mg by mouth every 6 (six) hours as needed for pain (specific location in comments) (low back). 08/27/20 25 Active furosemide (LASIX) 20 MG tablet Take 0.5 tablets (10 mg total) by mouth daily. reports restarted 1/2 tab daily 30 tablet 3 09/01/20 25 Active oxyCODONE myristate (XTAMPZA) 13.5 mg sprinkle ER 12 hr capsule Take 1 capsule (13.5 mg total) by mouth 2 (two) times a day. ChronicPain-p artial fill ok 60 capsule 09/02/20 25 Active atorvastatin (LIPITOR) 40 MG tabletIndicati ons:Screening for lipid disorders TAKE 1 TABLET BY MOUTH DAILY 90 tablet 3 09/08/20 25 Active levothyroxine (SYNTHROID,LEV OTHROID) 25 MCG tablet TAKE 1 TABLET BY MOUTH IN THE MORNING 90 tablet 09/09/20 25 Active LORazepam (ATIVAN) 0.5 MG tablet Take 1 tablet (0.5 mg total) by mouth every 6 (six) hours as needed for anxiety. 30 tablet 09/12/20 25 Active oxyCODONE 5 MG immediate release tablet Take 1 tablet (5 mg total) by mouth every 8 (eight) hours as needed for pain (specific location in comments) (back). 60 tablet 09/15/20 25 026 Active ibuprofen (ADVIL,MOTRIN) 200 MG tablet Take 200 mg by mouth every 6 (six) hours as needed for pain (specific location in comments). 09/15/20 25 Active calcium citrate-vitami n D3 (CITRACAL+D) 950 mg (200 mg elemental)-250 units Tab Take 1 tablet by mouth 2 (two) times a day with meals. 025 Discontinued atorvastatin (LIPITOR) 40 MG tabletIndicati ons:Screening for lipid disorders TAKE 1 TABLET BY MOUTH DAILY 90 tablet 3 09/02/20 24 025 Discontinued levothyroxine (SYNTHROID,LEV OTHROID) 25 MCG tablet TAKE 1 TABLET BY MOUTH IN THE MORNING 90 tablet 3 10/01/20 24 025 Discontinued furosemide (LASIX) 20 MG tablet [The details of the medication are not available because there are pending changes by a home health clinician.] 30 tablet 1 05/19/20 25 025 Discontinued ketorolac (TORADOL) 10 mg tabletIndicati ons:Back pain Take 1 tablet (10 mg total) by mouth every 6 (six) hours as needed for pain (specific location in comments). 20 tablet 07/07/20 025 Discontinued gabapentin (NEURONTIN) 100 MG capsule Take 2 capsules (200 mg total) by mouth 3 (three) times a day. 180 capsule 1 08/07/20 025 Discontinued morphine (MS CONTIN) 15 MG ER tablet Take 1 tablet (15 mg total) by mouth 2 (two) times a day. 60 tablet 08/19/20 025 Discontinued oxyCODONE 5 MG immediate release tablet Take 1 tablet (5 mg total) by mouth every 8 (eight) hours as needed for pain (specific location in comments) (back). 60 tablet 08/19/20 025 Discontinued(Re order) oxyCODONE myristate (XTAMPZA ER) 9 mg sprinkle ER 12 hr capsule Take 1 capsule (9 mg total) by mouth 2 (two) times a day. Pain, post surgical 60 capsule 08/25/20 025 Discontinued Active Problems Problem Noted Date Diagnosed Date Pressure injury of buttock, stage 1 09/13/2025 Assessment & Plan (09/13/2025 2:33 PM EST): These are healing, but certainly indicate a degree of nutritional depletion as well as overly sedentary. Home VNA and PT has been helpful. Advised starting ensure daily. Advised doing a tums or calcium chew to make sure she is still getting some calcium Anxiety 09/13/2025 Assessment & Plan (09/13/2025 2:35 PM EST): We discussed that the anticipation of the pain is quite significant and likely contributing to the pain. We discussed the risks and side effects of ativan, particularly in someone who has compromised balance. This is a short term prescription as she continues to heal. Status post kyphoplasty 08/19/2025 Assessment & Plan (09/13/2025 2:39 PM EST): She is seeing pain mgmt later today and I am going to decline to make changes at this time. I am worried however about the acute change in her pain levels, which I would be expecting to be stable or improving, rather she was getting somewhat better and then got much worse. I think getting repeat imaging to evaluate for new fracture, hardware mnalfunction is indicated Assessment & Plan (08/19/2025 7:56 PM EST): 4-6 month healing time for her back is what I anticipate. I am hesitant to start on stronger narcotics and had a melinda discussion with Naa about this risks of dependence and addiction. Discussed that I want her to take as little as possible pain medication. Discussed risks and benefits, potential side effects. DO not drive while taking medication. Stop butrans now. Tomorrow Will start low dose MX contin and oxy for breakthough. Wean off gabapentin ( suspect this is leading to mental fuzziness). Follow up with me in 1 week. WE will still need to obtain notes from pain mgmt Edema of right lower extremi ty due [...] MRI scheduled for further evaluation. Referral to gleason operator for non-surgical approach. - Proceed with MRI on March 12. - Refer to Dr. Kong, gleason operator at [facility], post-MRI. Assessment & Plan (02/17/2025 9:17 PM EDT): Unsteadiness when lifting feet, particularly when standing or walking. Instability may be due to lower extremity issues, possibly related to peripheral neuropathy or spinal stenosis.Whether or not her pre exisitng severe scoliotic disease is contributing is unclear. - Order MRI of the lumbar spine to evaluate for protruding disc or spinal stenosis. - Refer to [facility] for further evaluation and [...] Status post total left knee replacement 05/30/20 24 Preop examination 01/31/2024 Assessment & Plan (01/31/2024 12:38 PM EDT): 74 [address] of Dr[address] Cowart with planned left total knee replacement on 04/09/24. Procedure risk is intermediate. Patient denies symptoms associated with acute coronary syndromes including unstable or severe angina, AL within 1 month, severe CHF, high grade [...] spontaneous conversion to sinus rhythm. Followed by Marleni MIRANDA, seen on 01/25/24 for preoperative cardiac clearance. ECG showing sinus rhythm. Patient denies any symptoms of atrial fibrillation. No palpitations. [id number] score of 3. Takes meloxicam daily, and [...] racing heart rate. -She does have a [id number]-[id number] score of 3 -She is still taking [...] D preferably we used 2000 units in [place] or not any incorrect. At this point [...] AM EDT): Follow up with Laura Rachel r ordered for foot for follow up Assessment & Plan (05/19/2022 1:02 PM EDT): X ray reviewed this morning with Dr. Cowart. There is a displaced fracture. Pt instructed to go to [id number] in [place]. She agrees with plan Pre-ulcerative corn or callous 04/16/2020 08/21/2023 Ingrowing nail 04/16/2020 08/21/2023 Contact dermatitis 10/15/2019 Screening for breast cancer 10/15/2019 01/31/2024 Encounters Date Type Department Care Team Description 09/24/2025 2:30 PM EST [facility] [address] [place] [address] Lauren Porter LPN [employer]AT[employer]IVER HOME VISIT 09/24/2025 11:45 AM EST [facility] [address] [place] [phone] Marlen Haq, PT PT TFA VISIT 09/22/2025 12:00 PM EST Home Care Visit [facility] [address] [place] [address] Marlen Haq, PT PT HOME VISIT 09/17/2025 1:30 PM EST [facility] [address] [place] [address] Cordell Cruz RN SN HOME VISIT 09/16/2025 6:45 PM EST - 09/16/2025 11:59 PM EST Hospital Encounter [address] [place] [address] Shellie Cowart MD Discharge Disposition: Home or Self Care 09/16/2025 11:45 AM EST [facility] Visit [facility] [address] [place] [phone] Marlen aHq, PT PT HOME VISIT 09/16/2025 Transcribe Orders Virtual Department [address] [place] [address] Michael Sims MD Closed wedge compression fracture of L3 vertebra, initial encounter (Primary Dx) 09/15/2025 12:15 PM EST Home Care Visit [facility] [address] [place] [phone] Cordell Cruz RN SN HOME VISIT 09/15/2025 Telephone [facility] Primary Care [address] [place] [address] Shellie Cowart MD Amira 09/15/2025 Episode Documentation Update [facility] [address] [place] [phone] Demetria Fritz 09/13/2025 Procedure Pass [address] [place] [address] 09/12/2025 9:40 AM EST Office Visit [facility] Care [address] [place] [address] Shellie Cowart MD Anxiety (Primary Dx); Status post kyphoplasty; Pressure injury of right buttock, stage 1; Lumbar back pain 09/12/2025 Home Care Visit [facility] [address] [place] [phone] Judi Garcia CASE COMMUNICATION 09/12/[address] [facility] Care [address] [place] [address] Shellie Cowart MD VNA 09/11/2025 11:00 AM EST Home Care Visit [facility] [address] [place] [phone] Nyasia Calderon LPN LPN HOME VISIT 09/10/2025 11:30 AM EST Home Care Visit [facility] [address] [place] [phone] Marlen Haq, PT PT HOME VISIT 09/10/2025 Telephone [facility] [address] [place] [address] Shellie Cowart MD 09/10/[address] [facility] [address] [place] [address] Shellie Cowart MD Appointment (R/S For 09/12 ) 09/08/2025 1:30 PM EST Home Care Visit [facility] [address] [place] [phone] Marlen Haq, PT PT HOME VISIT 09/08/2025 10:30 AM EST Home Care [facility] [address] [place] [phone] Nyasia Calderon LPN [employer] HOME VISIT 09/08/[address] [facility] [address] [place] [address] Katelin Ashley MD, MPH Medication Refill 09/08/2025 Refill [facility] [address] [place] [address] Shellie Cowart MD Medication Refill 09/08/2025 Procedure Pass OR Admitting Dept - Virtual Department [address] [place] [address] 09/05/2025 2:30 PM EST Home Care Visit [facility] [address] [place] [phone] Marlen Haq, PT PT HOME VISIT 09/03/2025 10:45 AM EST Home Care Visit [facility] [address] [place], [place] [phone] Ziyad Loaiza, ANN-MARIE SN HOME VISIT 09/02/2025 1:15 PM EST Home Care Visit [facility] [address] [place] [phone] Marlen Haq, PT PT HOME VISIT 09/01/2025 Enrollment [facility] [address] [place] [address] 08/31/2025 11:00 AM EST Home Care Visit [facility] [address] [place] [address] Tasha Gardner, ANN-MARIE SN HOME VISIT 08/31/[address] [place] [address] Shellie Cowart MD Medication Refill 08/29/2025 1:15 PM EST Home Care Visit [facility] [address] [place] [address] Marlen Haq, PT PT EVALUATION 08/28/2025 2:00 AM EST Home Care Visit [facility] [address] [place] [address] Tasha Gardner, RN SN OASIS START OF CARE (SOC) 08/28/2025 Plan of Care Documentation [facility] [address] [place] [address] 08/28/[address] [facility] Care [address] [place] [address] Shellie Cowart MD Medication Question 08/26/[address] [place] [address] Shellie Cowart MD CD VNA INTAKE 08/26/2025 Orders Only [facility] [address] [place] [address] Homehealth, Ana Cristina Berger MD 08/25/2025 Telephone [facility] Primary [facility] [address] [place] [address] Shellie Cowart MD Pharmacy call 08/19/2025 10:00 AM EST Telemedicine [facility] Primary [facility] [address] [place] [address] Shellie Cowart MD Status post kyphoplasty (Primary Dx) 08/14/2025 Refill [facility] [address] [place] [address] Shellie Cowart MD Medication Refill 07/25/2025 Transcribe Orders Virtual Department [address] [place] [address] Shellie Cowart MD Breast screening (Primary Dx) 07/21/2025 Orders Only [facility] [address] [place] [address] Sadi Kong MD Closed compression fracture of L3 lumbar vertebra, initial encounter (Primary Dx); Chronic midline low back pain without sciatica 07/21/2025 Refill [facility] Clinic [address] [address] Shellie Cowart MD Medication Refill 07/15/2025 Orders Only [facility] Spine [facility] [address] [place] [address] Sadi Kong MD 07/15/2025 Orders Only [facility] [address] [place] [address] Sadi Kong MD Closed compression fracture of L3 lumbar vertebra, initial encounter (Primary Dx) 07/13/2025 Refill [facility] Primary [facility] [address] [place] [address] Shellie Cowart MD Medication Refill 07/11/2025 8:00 AM EDT - 07/11/2025 9:40 AM EDT Surgery [facility] Interventional Radiology [address] [place] [address] Brandon Valentin MD KYPHOPLASTY IR 07/11/2025 7:04 AM EDT - 07/11/2025 10:55 AM EDT Hospital Encounter [facility] [address] [place] [address] Brandon Valentin MD Discharge Disposition: Home or Self Care 07/11/2025 Procedure Pass [facility] [address] [place] [address] 07/07/2025 Telephone [facility] Primary Care Clinic [address] [facility] [address] [place] [address] Shellie Cowart MD Medication Problem 07/07/2025 Telephone [facility] [address] [place] [address] Chinmay Glynn DO Surgical Timing 07/07/2025 Telephone [facility] [address] [place] [address] Sadi Kong MD Referral 07/07/2025 Telephone [facility] [address] [place] [address] Fernando Ny Vertebroplasty 07/06/2025 Telephone [facility] Primary [facility] Bag Filler Program [address] [address] Margarita Puga, metallography teacher Management (After Hours Call ) 07/05/2025 Telephone [facility] Bag Filler Program [address] [address] Margarita Puga, metallography teacher Refill (After Hours Call ) 07/04/2025 9:20 AM EDT Telemedicine - audio only [facility] Spine [facility] [address] [place] [address] Sadi Kong MD Closed compression fracture of L3 lumbar vertebra, initial encounter (Primary Dx) 07/03/2025 2:09 PM EDT - 07/03/2025 11:59 PM EDT Hospital Encounter [facility], [facility] [address] [place] [address] Shellie Cowart MD Discharge Disposition: Home or Self Care 07/03/2025 Telephone [facility] Clinic [address] [place] [address] Shellie Cowart MD 07/02/2025 Procedure Pass [facility], Mri - [facility] [address] [place] [address] 07/01/2025 Telephone [facility] [address] [place] [address] Shellie Cowart MD [facility] Nurse Scorekeeper 06/30/2025 12:29 PM EDT - 06/30/2025 8:49 PM EDT Emergency [facility] [address] [place] [address] Discharge Disposition: Home or Self Care 06/30/2025 Procedure Pass [facility], Ct Scan - [address] [address] 06/28/2025 Nurse Triage [facility] Bag Filler Program [address] [facility] [address] [place] [address] Vashti Contreras RN Back Pain (After Hours Call ) from Last 3 Months Immunizations Immunization [...] Pressure 132/72 09/24/2025 12:38 PM EST Pulse 72 09/22/2025 12:30 PM EST Temperature 36.3 C (97.3 F) 09/22/2025 12:30 PM EST Respiratory Rate 16 09/22/2025 12:30 PM EST Oxygen Saturation 98% 09/22/2025 12:30 PM EST Inhaled Oxygen Concentration - - Weight 68 kg (150 lb) 09/15/2025 11:16 AM EST Height 160 cm (5' 3 ) 09/15/2025 11:16 AM EST Body Mass Index 26.57 09/15/2025 11:16 AM EST Plan of Treatment Upcoming Encounters Date Type Department Care Team (Late st Contact Info) Description 07/25/2025 Procedure Pass [facility], [facility] [address] [place] [address] 09/30/2025 9:00 AM EST Appointment [facility] [address] [place] [phone] Marlen Haq, PT [address] [place] [address] 10/01/2025 3:30 AM EST Appointment [facility] [address] [place] [phone] Cordell Cruz RN [address] [place] [address] 10/06/2025 12:45 AM EST Appointment [facility] [address] [place] [phone] Marlen Haq, PT [address] [place] [address] 10/08/2025 1:00 AM EST Appointment [facility] [address] [place] [phone] Marlen Haq, PT [address] [place] [address] 10/08/2025 3:00 AM EST Appointment [facility] [address] [place] [phone] Cordell Cruz RN [address] [place] [address] 10/10/2025 2:45 PM EST Office Visit [facility] [address] [place] [address] Sadi Kong MD 22 [facility], 2nd [place] [address] Fouzia Rocha, PT [address] [place] [address] 10/13/2025 Appointment [facility] [address] [place], [place] [phone] Severino Marlen, PT [address] [place] [address] 10/14/2025 3:00 PM EST Office Visit [facility] [address] [place] [address] Sadi Kong MD [address] [address] Fouzia Rocha, PT [address] [place] [address] 10/15/2025 1:00 AM EST Appointment [facility] [address] [place] [address] Cordell Cruz RN [address] [place] [address] 10/22/2025 Appointment [facility] [address] [place], [place] [phone] Cordell Cruz, ANN-MARIE [address] [place] [address] 11/06/2025 1:00 PM EST Office Visit [facility] [address] [place] [address] Sadi Kong MD [address] [address] Jacob Dubose, OPERATING ROOM SPECIALIST [address] [place] [address] 11/11/2025 2:15 PM EST Office Visit [facility] [address] [place] [address] Sadi Kong MD [address] [address] Fouzia Rocha, PT [address] [place] [address] 11/17/2025 2:30 PM EST Office Visit [facility] Physical Therapy [facility] [address] [place] [address] Sadi Kong MD [address] [place] [address] Fouzia Rocha, PT [address] [place] [address] 11/19/2025 3:15 PM EST Office Visit [facility] Physical Therapy [facility] [address] [place] [address] Sadi Kong MD [address] [place] [address] Fouzia Rocha, PT [address] [place] [address] 11/24/2025 1:45 PM EST Office Visit [facility] Physical Therapy [facility] [address] [place] [address] Sadi Kong MD [address] [place] [phone] Fouzia Rocha, PT [address] [place] [address] 11/26/2025 1:45 PM EST Office Visit [facility] Physical Therapy [facility] [address] [place] [address] Sadi Kong MD 22 [facility], 2nd [place] [address] Fouzia Rocha, PT [address] [place] [address] 02/06/2026 6:30 PM EDT Appointment [facility] Bone Density [address] [address] Michael Sims MD [address] [place] [address] 04/01/2026 10:00 AM EDT Appointment [address] [address] Shellie Cowart MD [address] [address] 12/14/2026 2:20 PM EST Office Visit [facility] Primary Care Clinic 15 [facility] [address] [place] [address] Shellie Cowart MD [address] [address] [email or web address] Health Maintenance Due Date Last Done Comments COLOGUARD 01/24/1996 FIT TEST 01/24/1996 FOBT 01/24/1996 SIGMOIDOSCOPY 01/24/1996 VIRTUAL COLONOSCOPY 01/24/1996 ZOSTER VACCINES (1 of 2) 02/04/2009 TSH LEVEL 08/28/2025 08/28/2024, 11/10, 10/16/2023, Additional history exists DEPRESSION SCREENING 10/24/2025 10/24/2024, 10/24/19 25 COVID-19 VACCINE ( season) 2026 08/17/2025, 07/07/2024, 02/19/2024, Additional history exists BLOOD PRESSURE 03/25/2026 09/24/2025 MAMMOGRAM 04/12/2026 04/12/2024, 05/0 12/2022, 02/07/2022, Additional [...] Additional history exists RSV VACCINE Completed 08/18/2023 INFLUENZA VACCINE Completed 08/17/2025, , 07/22/2023, Additional history exists SMOKING STATUS SCREENING (Once After 26 Yrs) Completed 09/12/2025 HEPATITIS A VACCINES Aged Out No long [...] this topic Medical Devices Implanted Type Area Siebel Developer Device Identifier Shelf Expiration Date Model / Serial / Lot Kit Cement Bone Kyphon Xpede Polymethylmethacryl ate Mixer - [id number] Implanted:Qty: 1 on 07/11/2025 by Brandon Valentin MD at [facility] Bone Cement [employer] [id number] 04/07/2028 [id number] / / [id number] Metal Jez Lumbar Spine Knee Implant 5deg Component Tibial Persona Titanium Stemmed Cemented Lt Size D - [id number] Implanted:Qty: 1 on 04/17/2024 by Paul Hooper MD at [facility] Left: Knee [employer]IC [employer] [id number] 05/26/2033 [id number] / / [id number] Knee Implant Sz 8 Component Femoral Persona Ps [place] Cemented Narrow Lt - [id number] Implanted:Qty: 1 on 04/17/2024 by Paul Hooper MD at [facility] Left: Knee [employer] [id number] 01/06/2031 [id number] / / [id number] Knee Patella 32x8.5mm Persona All Polyethylene Cemented Conventional - [id number] Implanted:Qty: 1 on 04/17/2024 by Paul Hooper MD at [facility] Left: Patella [employer] [id number] / / Cement Bone 1x40 Standard - [id number] Implanted:Qty: 1 on 04/17/2024 by Paul Hooper MD at [facility] Left: Knee [employer] [id number] 08/08/2026 [id number] / / [id number] Cement Bone 1x40 Standard - [id number] Implanted:Qty: 1 on 04/17/2024 by Paul Hooper MD at [facility] Left: Knee [employer] [id number] 07/08/2026 [id number] / / [id number] Knee Insert 11mm L 6 9 Component Surface Persona Ps Polyethylene Fixed Conventional Lt Cd - [id number] Implanted:Qty: 1 on 04/17/2024 by Paul Hooper MD at [facility] Left: Knee [employer] 08/08/2028 [id number] / / [id number] Procedures Procedure Name Priority Date/Time Associated Diagnosis Comments MRI LUMBAR SPINE (BONE) WITHOUT CONTRAST Routine 09/16/2025 7:51 PM EST Status post kyphoplasty Lumbar back pain KYPHOPLASTY (IR) Routine 07/11/2025 9:33 AM EDT Closed compression fracture of L3 lumbar vertebra, initial encounter PT-INR STAT 07/11/2025 8:11 AM EDT BASIC METABOLIC PANEL (BMP) STAT 07/11/2025 8:11 AM EDT CBC STAT 07/11/2025 8:11 AM EDT MRI LUMBAR SPINE (NEURO) WITHOUT CONTRAST Urgent/patien t waiting 07/03/2025 2:58 PM EDT Back pain URINE SEDIMENT STAT 06/30/2025 4:28 PM EDT URINALYSIS WITH REFLEX TO URINE CULTURE STAT 06/30/2025 4:[address] THORACIC SPINE WITHOUT CONTRAST Routine 06/30/2025 4:07 PM EDT LIPID PANEL Routine 12/31/2024 10:20 AM EDT [...] Recently Relevant to Health Maintenance Results * MRI LUMBAR SPINE (BONE) WITHOUT CONTRAST (09/16/2025 7:51 PM EST) Anatomical Region Laterality Modality L-spine Magnetic Resonan ce 09/17/2025 4:06 PM EST Impressions 09/17/2025 5:42 PM EST 1. Postprocedural changes status post L3 kyphoplasty from left-sided approach. Persistent marrow edema and localized intravertebral fluid bright signal, likely blood products. Suspect there is limitation of effectiveness of kyphoplasty procedure due to severity of osteoporosis and incomplete vertebral body filling. 2. No new vertebral compression fracture. 3. Postoperative changes as noted. No central or foraminal stenosis. Narrative 09/17/2025 5:42 PM EST MRI LUMBAR SPINE (BONE) WITHOUT CONTRAST Referring clinician's provided indication for this examination in Epic: * Low back pain, prior surgery, new symptoms Additional clinical information: Patient with severe lower back pain. Previous spinal surgery with multilevel fusion including Hough jez. TECHNIQUE: MRI LUMBAR SPINE (BONE) WITHOUT CONTRAST Multi-sequence, multi-planar MRI of the lumbar spine was performed without intravenous contrast. COMPARISON: Plain films LS-spine 06/24/2025, CT 06/25/2025 and MRI 07/03/2025. FINDINGS: LUMBAR SPINE: Postoperative changes again evident status post multilevel fusion. 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 Additionally there is a Hough jez on the right side of the spine extending from the lower L3 level up into the lower chest. Alignment and Vertebrae: Moderate severity scoliosis convex left within the upper lumbar spine. Postcontrast/T changes are evident at the L3 level via in particular left-sided approach Marrow: Fracture line and adjacent edema affecting the inferior right side of the L2 vertebral body is not evident currently but there is now a fracture line through superior right side of the vertebral body. Kyphoplasty cement fills mid to left side of the vertebral body. Focal fluid bright signal, likely blood products is adjacent to inferior aspect of the cement, right greater than left. There is moderate generalized vertebral body edema, evident previously. No new vertebral body fracture at other levels. Discs and Endplates: Unchanged appearance to the disc spaces. No disc herniation. No central stenosis or foraminal stenosis. Conus: Normal. Soft Tissues: Normal. No prevertebral edema. Other Findings: None. Findings by level: T12-L1: Normal. No spinal or foraminal stenosis. L1-L2: Normal. No spinal or foraminal stenosis. L2-L3: Disc space narrowing. No disc herniation, central stenosis or foraminal stenosis. L3-L4: Trace linear fluid bright signal within the left side of the disc space, evident previously with no alteration of the adjacent endplates. Artifact from lower right-sided Hough jez decreases detail of the central canal and focally but there is no suggestion of central or foraminal stenosis. L4-L5: Normal. No spinal or foraminal stenosis. L5-S1: Previous fusion. No residual disc space. Peripheral spurring. No central or foraminal stenosis. Procedure Note Brandon Valentin MD - 09/17/2025 MRI LUMBAR SPINE (BONE) WITHOUT CONTRAST Referring clinician's provided indication for this examination in Epic: *Low back pain, prior surgery, new symptoms Additional clinical information: Patient with severe lower back pain.Previous spinal surgery with multilevel fusion including Hough jez. TECHNIQUE: MRI LUMBAR SPINE (BONE) WITHOUT CONTRAST Multi-sequence, multi-planar MRI of the lumbar spine was performed withoutintravenous contrast. COMPARISON: Plain films LS-spine 06/24/2025, CT 06/25/2025 and MRI07/03/2025. FINDINGS: LUMBAR SPINE: Postoperative changes again evident status post multilevel fusion.Extensive bony bridging about posterior elements of the lumbar spineevident on current study and well demonstrated on preceding imagingparticularly CT. 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 Alignment and Vertebrae: Moderate severity scoliosis convex left withinthe upper lumbar spine. Postcontrast/T changes are evident at the L3 levelvia in particular left-sided approach Marrow: Fracture line and adjacent edema affecting the inferior right sideof the L2 vertebral body is not evident currently but there is now afracture line through superior right side of the vertebral body.Kyphoplasty cement fills mid to left side of the vertebral body. Focalfluid bright signal, likely blood products is adjacent to inferior aspectof the cement, right greater than left. There is moderate generalizedvertebral body edema, evident previously. No new vertebral body fractureat other levels. Discs and Endplates: Unchanged appearance to the disc spaces. No discherniation. No central stenosis or foraminal stenosis. Conus: Normal. Soft Tissues: Normal. No prevertebral edema. Other Findings: None. Findings by level: T12-L1: Normal. No spinal or foraminal stenosis. L1-L2: Normal. No spinal or foraminal stenosis. L2-L3: Disc space narrowing. No disc herniation, central stenosis orforaminal stenosis. L3-L4: Trace linear fluid bright signal within the left side of the discspace, evident previously with no alteration of the adjacent endplates.Artifact from lower right-sided Ohugh jez decreases detail of thecentral canal and focally but there is no suggestion of central orforaminal stenosis. L4-L5: Normal. No spinal or foraminal stenosis. L5-S1: Previous fusion. No residual disc space. Peripheral spurring. Nocentral or foraminal stenosis. IMPRESSION: 1. Postprocedural changes status post L3 kyphoplasty from left-sidedapproach. Persistent marrow edema and localized intravertebral fluidbright signal, likely blood products. Suspect there is limitation ofeffectiveness of kyphoplasty procedure due to severity of osteoporosis andincomplete vertebral body filling. 2. No new vertebral compression fracture. 3. Postoperative changes as noted. No central or foraminal stenosis. us Shellie Cowart MD IMG MR XSPECIALTY Final Result * KYPHOPLASTY (IR) (07/11/2025 9:33 AM EDT) [...] [place] methylmethacrylate cement. Final images show satisfying [id number] and front to back cement filling with no ectopic cement. IMPRESSION: L3 kyphoplasty performed from [place] pedicular approach during 49 minutes moderate sedation. [...] EDT) PT 13.3(H) 10.2 - 12.9 sec [facility] INR 1.1 0.9 - 1.1 [facility] Comment:Therapeutic range fo r oral Vitamin K antagonists: 2.0-3.5 Blood 07/11/2025 8:11 AM EDT 07/11/2025 8:29 AM EDT us Brandon Valentin MD LAB BLOOD BKR ORDERAB LES Final Result Performing Organization Address City/Va Hospital/ZIP Co de Phone Number [address] [address] * (ABNORMAL) CBC (07/11/2025 8:11 AM EDT) WBC 13.44(H) 4.00 - 11.00 K/uL [facility] RBC 4.55 4.00 - 5.20 M/uL [facility] HGB 13.3 12.0 - 16.0 g/dL [facility] HCT 40.0 36.0 - 46.0 % [facility] PLT 320 150 - 450 K/uL [facility] MCV 87.9 80.0 - 100.0 fL [facility] MCH 29.2 27.0 - 31.0 pg [facility] MCHC 33.3 32.0 - 36.0 g/dL [facility] RDW 15.3(H) 11.5 - 14.5 % [facility] MPV 9.7 8.4 - 12.0 fL [facility] NRBC 0.00 0.00 /100 WBCs [facility] ABSOLUTE NRBC 0.00 0.00 K/uL [facility] Blood 07/11/2025 8:11 AM EDT 07/11/2025 8:29 AM EDT us Brandon Valentin MD LAB BLOOD BKR ORDERAB LES Final Result Performing Organization Address City/[facility] Hospital/ZIP Co de Phone Number [address] [address] * (ABNORMAL) Basic metabolic panel (07/11/2025 8:11 AM EDT) SODIUM 145 133 - 146 mmol/L [facility] CHLORIDE 110(H) 96 - 108 mmol/L [facility] POTASSIUM 3.8 3.3 - 5.1 mmol/L [facility] CO2 19(L) 21 - 35 mmol/L [facility] BUN 13 6 - 19 mg/dL [facility] CREATININE 0.90 0.5 - 1.5 mg/dL [facility] GLUCOSE 115(H) 70 - 99 mg/dL [facility] CALCIUM 9.6 8.4 - 10.3 mg/dL [facility] EGFR 67 >59 mL/min/1.7 3m2 [facility] Comment:Estimated glomerular filtration rate calculated using the CKD-EPI refit equation. ANION GAP 20 10 - 20 mmol/L [facility] Blood 07/11/2025 8:11 AM EDT 07/11/2025 8:29 AM EDT us Brandon Valentin MD LAB BLOOD BKR ORDERAB LES Final Result [facility] [address] [place], [place] [id number] * MRI LUMBAR SPINE (NEURO) WITHOUT CONTRAST (07/03/2025 2:58 PM EDT) MGB IMG BAKER HEAD COMMENT L3 vertebral body fracture with extension into the posterior elements. Rec Neurosurgery consultation. [facility] Anatomical Region Laterality Modality L-spine Magnetic Resonan [...] initiated on 07/03/2025 4:06 PM, Message ID [id number]. Narrative 07/03/2025 4:06 PM EDT MRI LUMBAR [...] spine with laminar hooks at T11 and [id number]. Susceptibility artifact from the orthopedic hardware limitsoptimal [...] fracture. There is minimal paravertebral edema at M7dnfbd. There is chronic L4 compression fracture with [...] nondisplaced fracture along the inferior endplate of K5vnudcqheu body to the right of midline with [...] was initiated on 07/03/2025 4:06 PM,Message ID [id number]. us Shellie Cowart MD IMG MR XSPECIALTY Final Result * (ABNORMAL) Urinalysis w/reflex Urine Culture (06/30/2025 4:28 PM EDT) COLOR Yellow Yellow [facility] CLARITY Clear [facility] GLUCOSE Trace(A) Negative [facility] BILI Negative Negative [facility] KETONES Negative Negative [facility] SPECIFIC GRAVITY 1.010 1.005 - 1.030 [facility] BLOOD 1+(A) Negative [facility] PH 6.0 5.0 - 8.0 [facility] Protein-UA Negative Negative [facility] NITRITE Negative Negative [facility] Leukocyte esterase, ur Negative Negative [facility] Urine (Urine) 06/30/2025 4:2 8 PM EDT 06/30/2025 4:48 PM EDT us Debbie Aquino PA-C LAB URINE ORDERABLES Final R esult [facility] [address] [place] [address] * (ABNORMAL) Urine sediment (06/30/2025 4:28 PM EDT) WBC 0-4(A) NONE SEEN /hpf [facility] RBC 0-2(A) NONE SEEN /hpf [facility] URINE EPITHELIAL 0-4(A) NONE SEEN [facility] MUCUS NONE SEEN NONE SEEN /hpf [facility] BACTERIA NONE SEEN NONE SEEN /hpf [facility] 06/30/2025 4:28 PM EDT 06/30/2025 4:48 PM EDT us Debbie Aquino PA-C LAB URINE ORDERABLES Final R esult [facility] [address] [place] [address] * CT THORACIC SPINE WITHOUT CONTRAST (06/30/2025 [...] Juanito Irby as teaching physician, have reviewed theimages for this case and if necessary edited the report originally createdby Will Martins. us Debbie Aquino PA-C IMG CT XSPECIALTY ORDERABLES Final Result * (ABNORMAL) Lipid panel (12/31/2024 10:20 AM EDT) HDL 67 mg/dL [facility] Comment: Interpretation <40 mg/dL: Low HDL cholesterol (major risk factor for CHD) Greater than or equal to 60 mg/dL: High HDL cholesterol ( negative risk factor for CHD) HDL - cholesterol is affected by a number of factors, e.g. smoking, excerise, hormones, sex and age. CHOLESTEROL 172 0 - 240 mg/dL [facility] TRIGLYCERIDES 70 30 - 160 mg/dL [facility] LDL 91 50 - 129 mg/dL [facility] Comment: LDL levels in terms of risk for coronary heart disease: <100 mg/dL: Optimal 100-129 mg/dL: Near or above optimal 130-159 mg/dL: Borderline high 160-189 mg/dL: High >190 mg/dL: Very High CARDIAC RISK RATIO 2.6(L) 3.3 - 4.4 C [facility] Blood 12/31/2024 10:2 0 AM EDT 12/31/2024 10:26 AM EDT us Shellie Cowart MD LAB BLOOD BKR ORDERABLES Final R esult [address] [address] * ENDOSCOPY, COLON (12/09/2024 9:06 AM EST) Narrative Transcriptions Arthur Hodgson MD - 12/09/2024 9:06 AM EST [facility] Patient Name: Naa Terry Attending MD:: ARTHUR HODGSON MD, Procedure Date: 12/09/2024 9:06 AM Date of : 1950 Age: 74 Admit Type: Outpatient Gender: Female Room: [place] [address] Referring MD: Shellie Cowart Exam Type: Colonoscopy [...] for malignantneoplasm of colon CPT copyright 2021 [employer]. All rights reserved. The codes documented in this report are preliminary and upon consulting hr professional reviewmay be revised to meet current compliance requirements. Procedure Date: 12/09/2024 9:06:[address] [place] [address] us Shellie Cowart MD GI PROCEDURE ORDERABLES Edited R esult - Final * TSH with reflex (08/28/2024 10:07 AM EST) TSH 3.25 0.27 - 4.20 uIU/mL [facility] Blood 08/28/2024 10:0 7 AM EST 08/28/2024 10:14 AM EST us Shellie Cowart MD LAB BLOOD BKR ORDERABLES Final R esult [address] [address] * BI MAMMOGRAM SCREENING WITH TOMOSYNTHESIS WITH [...] a total bone mineral density of 0.572 g/or5kjak a T- score of 0.2. This is in the normal range. The right hip (total) has a total bone mineral density of 0.797 g/du2udmj a T- score of -1.2. Z score [...] Advance Directives For more information, please contact: [phone] (9AM - 5PM [facility], Monday-Monday) Documents on File Type Date Recorded Patient Assembly Machine Feeder Expl anation Healthcare Proxy 04/13/2024 4:20 PM Health Care Proxy Naa 2023 Corrected - signed.pdf [facility] 04/11/2024 1:27 PM Advance Dir ective Naa 2023 - signed.pdf * Full Code (Latest Code Status on File) Date Activated Date Inactivated Comments 03/14/2023 7:58 AM Question Answer Comments Code Status Confirmed With: Patient Care Teams Registered Radiation Therapist Relationship Specialty Start Date End Date Shellie Cowart MD [address] [place] [address] PCP - General Family Medicine 10/25/19 Paul Hooper MD [address] [place] [address] Orthopedics & Sports Medicine, [place] [address] [email or web address] Orthopedic Surgery 03/01/24 Preston Pederson, EVELYNE [address] [place] [address] [email or web address] Glass Science Engineer Licensed Clinical Glass Science Engineer 12/11/24 Additional Source Comments The information contained in this document represents components of the legal health record. It is not the complete legal health record.[facility]
--- OUTSIDE RECORDS SUMMARY | 2025-09-26 13:35 | XMS_ITS | Encounter Summary ---
Author Organization [facility] Address [address] [facility] [address] [place] [address] Phone Care Team Providers Care Jack Machine Operator Name Role Phone Shellie Cowart MD Primary Care Provider [phone] Paul Hooper MD Unavailable [phone] Preston Pederson HOSPITALITY INTERN Unavailable [phone] Encounter Details Date Type Department Care Team (Late st Contact Info) Description 09/08/2025 Procedure Pass OR Admitting Dept - Virtual Department [address] [place] [address] Social History Tobacco Use Types Packs/Day Years [...] st Contact Info) Description 07/25/2025 Procedure Pass [facility] [address] [place] [address] 09/30/2025 9:00 AM EST Appointment [facility] [address] [place] [phone] Marlen Haq, PT [address] [place] [address] 10/01/2025 3:30 AM EST Appointment [facility] [address] [place] [phone] Cordell Cruz RN [address] [place] [address] 10/06/2025 12:45 AM EST Appointment [facility] [address] [place] [phone] Marlen Haq, PT [address] [place] [address] 10/08/2025 1:00 AM EST Appointment [facility] [address] [place] [phone] Marlen Haq, PT [address] [place] [address] 10/08/2025 3:00 AM EST Appointment [facility] [address] [place] [phone] Cordell Cruz RN [address] [place] [address] 10/10/2025 2:45 PM EST Office Visit [facility] [address] [place] [address] Sadi Kong MD [address] [facility] [place] [address] Fouzia Rocha, PT [address] [place] [address] 10/13/2025 Appointment [facility] [address] [place], [place] [phone] Marlen Haq, PT [address] [place] [address] 10/14/2025 3:00 PM EST Office Visit [facility] [address] [place] [address] Sadi Kong MD [address] [place] [address] Fouzia Rocha, PT [address] [place] [address] 10/15/2025 1:00 AM EST Appointment [facility] [address] [place], [place] [phone] Cordell Cruz RN [address] [place] [address] 10/22/2025 Appointment [facility] [address] [place], [place] [phone] Cordell Cruz RN [address] [place] [address] 11/06/2025 1:00 PM EST Office Visit [facility] [address] [place] [address] Sadi Kong MD [address] [place] [phone] Jacob Dubose, PROTECTION ANALYST [address] [place] [address] 11/11/2025 2:15 PM EST Office Visit [facility] [address] [place] [address] [place] [address] Sadi Kong MD [address] [place] [address] Fouzia Rocha, PT [address] [place] [address] 11/17/2025 2:30 PM EST Office Visit [facility] [address] [address] Sadi Kong MD [address] [place] [address] Fouzia Rocha, PT [address] [place] [address] 11/19/2025 3:15 PM EST Office Visit [facility] [address] [address] Sadi Kong MD [address] [place] [address] Fouzia Rocha, PT [address] [place] [address] 11/24/2025 1:45 PM EST Office Visit [facility] [address] [place] [address] Sadi Kong MD [address] [place] [address] Fouzia Rocha, PT [address] [place] [address] 11/26/2025 1:45 PM EST Office Visit [facility] [address] [place] [address] Sadi Kong MD [address] [facility] 2nd [place] [address] Fouzia Rocha, PT [address] [place] [address] 02/06/2026 6:30 PM EDT Appointment [address] [address] Michael Sims MD [address] [place] [address] 04/01/2026 10:00 AM EDT Appointment [address] [address] Shellie Cowart MD [address] [address] 12/14/2026 2:20 PM EST Office Visit [facility] [address] [address] Shellie Cowart MD [address] [address] documented as of this encounter Visit Diagnoses Not on filedocumented in this encounter Additional Health Concerns Assessment Noted Time PHQ-9 Depression Total Score: 1 10/24/19 12:00 PM EST PHQ-2 Depression Total Score: 1 10/24/19 12:00 PM EST documented as of this encounter Care Teams Jack Machine Operator Relationship Specialty Start Date End Date Shellie Cowart MD [address] [address] [email or web address] PCP - General Family Medicine 10/25/19 Paul Hooper MD [address] [place] [address] Orthopedics & Sports Medicine, [place] [address] [email or web address] Orthopedic Surgery 03/01/24 Preston Pederson MSW [address] [place] [address] [email or web address] Medical Staff Manager Licensed Clinical Medical Staff Manager 12/11/24 documented as of this encounter Additional Source Comments The information contained in this document represents components of the legal health record. It is not the complete legal health record.[facility]
--- OUTSIDE RECORDS SUMMARY | 2025-09-26 13:35 | XMS_ITS | Encounter Summary ---
Author Organization [facility] Address [address] [facility] [address] [place] [address] Phone Care Team Providers Care Class A Regional Truck Driver Name Role Phone Shellie Cowart MD Primary Care Provider [phone] Shellie Cowart MD Primary Care Provider [phone] Paul Hooper MD Unavailable [phone] Preston Pederson [facility] Unavailable [phone] Encounter Details Date Type Department Care Team (Late st Contact Info) Description 10/22/2019 Ancillary Orders [facility] 30 [place] [address] System, Provider [place] In, [place] [address] Social History Tobacco Use Types Packs/Day Years [...] st Contact Info) Description 07/25/2025 Procedure Pass [facility], [facility] 30 [place] [address] 09/30/2025 9:00 AM EST Appointment [facility] 30 [place] [address] Marlen Haq, PT [address] [place] [address] 10/01/2025 3:30 AM EST Appointment [facility] [address] [place] [phone] Cordell Cruz RN 30 [place] [address] 10/06/2025 12:45 AM EST Appointment [facility] [address] [place] [phone] Marlen Haq, PT [address] [place] [address] 10/08/2025 1:00 AM EST Appointment [facility] [address] [place] [phone] Marlen Haq, PT [address] [place] [address] 10/08/2025 3:00 AM EST Appointment [facility] [address] [place] [address] Cordell Cruz RN 30 [place] [address] 10/10/2025 2:45 PM EST Office Visit [facility] 8 [place] [address] Sadi Kong MD 22 [facility], 2nd [place] [address] Fouzia Rocha, PT 8 [place] [address] 10/13/2025 Appointment [facility] 30 [place] [address] Marlen Haq, PT [address] [place] [address] 10/14/2025 3:00 PM EST Office Visit [facility] 8 [place] [address] Sadi Kong MD [address] [address] Fouzia Rocha, PT 8 [place] [address] 10/15/2025 1:00 AM EST Appointment [facility] [address] [place], [place] [phone] Cordell Cruz RN 30 [place] [address] 10/22/2025 Appointment [facility] 30 [place] [address] Cordell Cruz, ANN-MARIE 30 [place] [address] 11/06/2025 1:00 PM EST Office Visit [facility] 8 [place] [address] Sadi Kong MD [address] [address] Jacob Dubose, HUMAN RESOURCES PROJECT MANAGER 8 [place] [address] 11/11/2025 2:15 PM EST Office Visit [facility] 8 [place] [address] Sadi Kong MD [address] [place] [address] Fouzia Rocha, PT 8 [place] [address] 11/17/2025 2:30 PM EST Office Visit [facility] 8 [place] [address] Sadi Kong MD [address] [place] [address] Fouzia Rocha, PT 8 [place] [address] 11/19/2025 3:15 PM EST Office Visit [facility] 8 [place] [address] Sadi Kong MD [address] [place] [address] Fouzia Rocha, PT 8 [place] [address] 11/24/2025 1:45 PM EST Office Visit [facility] 8 [place] [address] Sadi Kong MD [address] [place] [address] Fouzia Rocha, PT 8 [place] [address] 11/26/2025 1:45 PM EST Office Visit [facility] 8 [place] [address] Sadi Kong MD 22 [facility], 2nd [place] [address] Fouzia Rocha, PT 8 [place] [address] 02/06/2026 6:30 PM EDT Appointment [facility] [address] [address] Michael Sims MD 5 [place] [address] 04/01/2026 10:00 AM EDT Appointment [facility] [address] [address] Shellie Cowart MD [address] [address] 12/14/2026 2:20 PM EST Office Visit [facility] [address] [address] Shellie Cowart MD [address] [address] documented as of this encounter Results * [...] documented as of this encounter Care Teams Class A Regional Truck Driver Relationship Specialty Start Date End Date Shellie Cowart MD [address] [address] [email or web address] PCP - General Family Medicine 09/26/19 10/24/19 Shellie Cowart MD [address] [place] [address] [email or web address] PCP - General Family Medicine 10/25/19 Paul Hooper MD [address] [place] [address] Orthopedics & Sports Medicine, [place] [address] [email or web address] Orthopedic Surgery 03/01/24 Preston Pederson, INSURANCE VERIFICATION REP [address] [place] [address] [email or web address] Fisher Sponge Hooking Licensed Clinical Fisher Sponge Hooking 12/11/24 documented as of this encounter Additional Source Comments The information contained in this document represents components of the legal health record. It is not the complete legal health record.[facility]
--- OUTSIDE RECORDS SUMMARY | 2025-09-26 13:35 | XMS_ITS | Encounter Summary ---
Author Organization [facility] Address 399 [facility] [address] [place] [address] Phone Care Team Providers Care Buckle Stringer Name Role Phone Shellie Cowart MD Primary Care Provider Paul Hooper MD Unavailable Preston Pederson RIB MATCHER AND FITTER Unavailable [phone] Encounter Details Date Type Department Care Team (Late st Contact Info) Description 10/22/2020 Ancillary Orders [facility] 15 [facility] [address] [place] [address] Shellie Cowart MD 15 [facility] [address] [place] [address] [email or web address] Foot pain, bilateral; Mass of foot, right Social History Tobacco Use Types Packs/Day Years [...] st Contact Info) Description 07/25/2025 Procedure Pass [facility] 30 [place] [address] 09/30/2025 9:00 AM EST Appointment [facility] 30 [place] [address] Marlen Haq, PT 168 [place] [address] 10/01/2025 3:30 AM EST Appointment [facility] 30 [place] [address] Cordell Cruz RN 30 [place] [address] 10/06/2025 12:45 AM EST Appointment [facility] [address] [place] [phone] Marlen Haq, PT 168 [place] [address] 10/08/2025 1:00 AM EST Appointment [facility] 30 [place] [address] Marlen Haq, PT 168 [place] [address] 10/08/2025 3:00 AM EST Appointment [facility] 30 [place], [place] [phone] Cordell Cruz RN 30 [place] [address] 10/10/2025 2:45 PM EST Office Visit [facility] 8 [place] [address] Sadi Kong MD 22 [facility], 2nd [place] [address] Fouzia Rocha PT 8 [place] [address] 10/13/2025 Appointment [facility] 30 [place] [address] Jennifer Haqah, PT 168 [place] [address] 10/14/2025 3:00 PM EST Office Visit [facility] [address] [place] [address] Sadi Kong MD [address] [place] [address] Fouzia Rocha, PT 8 [place] [address] 10/15/2025 1:00 AM EST Appointment [facility] 30 [place] [address] Cordell Cruz RN 30 [place] [address] 10/22/2025 Appointment [facility] 30 [place] [address] Cordell Cruz RN 30 [place] [address] 11/06/2025 1:00 PM EST Office Visit [facility] [address] [place] [address] Sadi Kong MD [address] [address] Jacob Dubose, PLATE PAINTER APPRENTICE 8 [place] [address] 11/11/2025 2:15 PM EST Office Visit [facility] [address] [place] [address] Sadi Kong MD [address] [place] [address] Fouzia Rocha, PT 8 [place] [address] 11/17/2025 2:30 PM EST Office Visit [facility] [address] [place] [address] Sadi Kong MD [address] [place] [address] Fouzia Rocha, PT 8 [place] [address] 11/19/2025 3:15 PM EST Office Visit [facility] [address] [place] [address] Sadi Kong MD [address] [place] [address] Fouzia Rocha, PT 8 [place] [address] 11/24/2025 1:45 PM EST Office Visit [facility] [address] [place] [address] Sadi Kong MD [address] [place] [address] Fouzia Rocha, PT 8 [place] [address] 11/26/2025 1:45 PM EST Office Visit [facility] [address] [place] [address] Sadi Kong MD 22 [facility], 2nd [place] [address] Fouzia Rocha, PT 8 [place] [address] 02/06/2026 6:30 PM EDT Appointment [address] [address] Michael Sims MD 5 [place] [address] 04/01/2026 10:00 AM EDT Appointment [address] [address] Shellie Cowart MD [address] [address] 12/14/2026 2:20 PM EST Office Visit [facility] [address] [address] Shellie Cowart MD [address] [address] documented as of this encounter Results * XR FOOT 3 OR MORE VIEWS (BILATERAL) (10/22/2020 4:02 PM EST) Anatomical Region Laterality Modality Foot Left Computed Radiogr aphy 10/22/2020 4:19 PM EST Impressions 10/22/2020 4:25 PM EST 1.Chronic changes of the bilateral midfoot may represent Charcot's arthropathy or advanced degenerative changes. 2.No radiopaque soft tissue mass in the vicinity of the arrow placed by the technologist in the right foot. Narrative 10/22/2020 4:25 PM EST TECHNIQUE: XR FOOT 3 OR MORE VIEWS (BILATERAL) COMPARISON: None FINDINGS: Right: Pes planus. Chronic changes of the tarsal bones and at the level of the tarsometatarsal joints. No acute fractures. Plantar calcaneal spurring. No subluxations. Overlying soft tissues are grossly unremarkable. No radiopaque foreign body or soft tissue mass in the vicinity of arrow placed by the technologist. Left: Pes planus: Chronic changes of the tarsal bones and at the level of the tarsometatarsal joints. No acute fractures. Plantar calcaneal spurring. No subluxations. Overlying soft tissues are grossly unremarkable. Procedure Note Patricia Encarnacion MD - 10/22/2020 TECHNIQUE: XR FOOT 3 OR MORE VIEWS (BILATERAL) COMPARISON: None FINDINGS: Right: Pes planus. Chronic changes of the tarsal bones and at the level ofthe tarsometatarsal joints. No acute fractures. Plantar calcanealspurring. No subluxations. Overlying soft tissues are grosslyunremarkable. No radiopaque foreign body or soft tissue mass in thevicinity of arrow placed by the technologist. Left: Pes planus: Chronic changes of the tarsal bones and at the level ofthe tarsometatarsal joints. No acute fractures. Plantar calcanealspurring. No subluxations. Overlying soft tissues are grosslyunremarkable. IMPRESSION: 1.Chronic changes of the bilateral midfoot may represent Charcot'sarthropathy or advanced degenerative changes. 2.No radiopaque soft tissue mass in the vicinity of the arrow placed bythe technologist in the right foot. Shellie SMITHG XR LOWER EXTREMITY Final Res ult documented in this encounter Visit Diagnoses Diagnosis Foot pain, bilateral Mass of foot, right Foot pain, bilateral Mass of foot, right documented in this encounter Additional Health Concerns Infection Onset Date Last Indicated Resolved Time CoV-Risk 09/22/2021 09/22/2021 10/02/2021 1:23 AM EST Assessment Noted Time PHQ-2 Depression Total Score: 0 10/15/19 8:02 AM EST documented as of this encounter Care Teams Buckle Stringer Relationship Specialty Start Date End Date Shellie Cowart MD [address] [place] [address] [email or web address] PCP - General Family Medicine 10/25/19 Paul Hooper MD [address] [place] [address] [facility] Medicine, [place] [address] [email or web address] Orthopedic Surgery 03/01/24 Preston Pederson MSW [address] [place] [address] [email or web address] Box Nailer Licensed Clinical Box Nailer 12/11/24 documented as of this encounter Additional Source Comments The information contained in this document represents components of the legal health record. It is not the complete legal health record.[facility]
--- OUTSIDE RECORDS SUMMARY | 2025-09-26 13:35 | XMS_ITS | Encounter Summary ---
Author Organization [facility] Address [address] [facility] [address] [place] [address] Phone Care Team Providers Care Frontload Driver Name Role Phone Shellie Cowart MD Primary Care Provider [phone] Paul Hooper MD Unavailable [phone] Preston Pederson SENIOR SALES ASSOCIATE Unavailable [phone] Encounter Details Date Type Department Care Team (Late st Contact Info) Description 03/14/2023 Procedure Pass OR Admitting Dept - Virtual Department 30 [place] [address] Social History Tobacco Use Types Packs/Day Years [...] high school, GED, job training, learning the Cypriot language, technical skills, or developing parenting skills)? [...] st Contact Info) Description 07/25/2025 Procedure Pass [address] [address] 09/30/2025 9:00 AM EST [facility]ment [facility] [address] [place] [address] Marlen Haq, PT [address] [place] [address] 10/01/2025 3:30 AM EST Appointment [facility] [address] [place] [address] Cordell Cruz RN 30 [place] [address] 10/06/2025 12:45 AM EST Appointment [facility] 30 [place] [address] Marlen Haq, PT 168 [place] [address] 10/08/2025 1:00 AM EST Appointment [facility] 30 [place] [address] Marlen Haq, PT 168 [place] [address] 10/08/2025 3:00 AM EST Appointment [facility] 30 [place] [address] Cordell Cruz RN 30 [place] [address] 10/10/2025 2:45 PM EST Office Visit [facility] 8 [place] [address] Sadi Kong MD [address] [place] [address] Fouzia Rocha, PT 8 [place] [address] 10/13/2025 Appointment [facility] 30 [place] [address] Marlen Haq, PT 168 [place] [address] 10/14/2025 3:00 PM EST Office Visit [facility] 8 [place] [address] Sadi Kong MD [address] [address] Fouzia Rocha, PT 8 [place] [address] 10/15/2025 1:00 AM EST Appointment [facility] [address] [place], [place] [phone] Cordell Cruz RN 30 [place] [address] 10/22/2025 Appointment [facility] 30 [place] [address] Cordell Cruz RN 30 [place] [address] 11/06/2025 1:00 PM EST Office Visit [facility] 8 [place] [address] Sadi Kong MD [address] [place] [address] Jacob Dubose, BENCH PATTERNMAKER METAL 8 [place] [address] 11/11/2025 2:15 PM EST Office Visit [facility] 8 [place] [address] Sadi Kong MD [address] [place] [address] Fouzia Rocha, PT 8 [place] [address] 11/17/2025 2:30 PM EST Office Visit [facility] [address] [place] [address] Sadi Kong MD [address] [place] [address] Fouzia Rocha, PT 8 [place] [address] 11/19/2025 3:15 PM EST Office Visit [facility] 8 [place] [address] Sadi Kong MD [address] [place] [address] Fouzia Rocha, PT 8 [place] [address] 11/24/2025 1:45 PM EST Office Visit [facility] 8 [place] [address] Sadi Kong MD [address] [place] [address] Fouzia Rocha, PT 8 [place] [address] 11/26/2025 1:45 PM EST Office Visit [facility] 8 [place] [address] Sadi Kong MD [address] [place] [address] Fouzia Rocha, PT 8 [place] [address] 02/06/2026 6:30 PM EDT Appointment [address] [address] Michael Sims MD 575 [place] [address] 04/01/2026 10:00 AM EDT Appointment [facility] 30 [place] [address] Shellie Cowart MD [address] [place] [address] 12/14/2026 2:20 PM EST Office Visit [facility] [address] [address] Shellie Cowart MD [address] [place] [address] documented as of this encounter Visit Diagnoses Not on filedocumented in this encounter Additional Health Concerns Assessment Noted Time PHQ-2 Depression Total Score: 0 06/19/20 22 4:01 PM EDT documented as of this encounter Care Teams Frontload Driver Relationship Specialty Start Date End Date Shellie Cowart MD [address] [place] [address] PCP - General Family Medicine 10/25/19 Paul Hooper MD [address] [place] [address] Orth[facility] Sports Medicine, [place] [address] Orthopedic Surgery 03/01/24 Preston Pederson MSW [address] [place] [address] Senior Administrative Support Licensed Clinical Senior Administrative Support 12/11/24 documented as of this encounter Additional Source Comments The information contained in this document represents components of the legal health record. It is not the complete legal health record.[facility]
--- OUTSIDE RECORDS SUMMARY | 2025-09-26 13:35 | XMS_ITS | Encounter Summary ---
Author Organization [facility] Address [address] [facility] [address] [place] [address] Phone Care Team Providers Care Filament Maker Name Role Phone Shellie Cowart MD Primary Care Provider [phone] Paul Hooper MD Unavailable [phone] Preston Pederson ENGINEER THIRD ASSISTANT Unavailable [phone] Encounter Details Date Type Department Care Team (Latest Contact Info) Description 01/18/2021 Transcribe Orders Virtual Department [address] [place] [address] Shellie Cowart MD 15 [facility] [address] [place] [address] [email or web address] Breast screening (Primary Dx) Social History Tobacco [...] st Contact Info) Description 07/25/2025 Procedure Pass [facility], [facility] 30 [place] [address] 09/30/2025 9:00 AM EST Appointment [facility] 30 [place] [address] Marlen Haq, PT 168 [place] [address] 10/01/2025 3:30 AM EST Appointment [facility] 30 [place], [place] [phone] Cordell Cruz RN 30 [place] [address] 10/06/2025 12:45 AM EST Appointment [facility] [address] [place] [phone] Marlen Haq, PT 168 [place] [address] 10/08/2025 1:00 AM EST Appointment [facility] [address] [place] [address] Marlen Haq, PT 168 [place] [address] 10/08/2025 3:00 AM EST Appointment [facility] [address] [place] [address] Cordell Cruz RN 30 [place] [address] 10/10/2025 2:45 PM EST Office Visit [facility] [address] [place] [address] Sadi Kong MD 22 [facility], 2nd [place] [address] Fouzia Rocha, PT 8 [place] [address] 10/13/2025 Appointment [facility] 30 [place] [address] Severino Marlen, PT 168 [place] [address] 10/14/2025 3:00 PM EST Office Visit [facility] [address] [place] [address] Sadi Kong MD [address] [address] Fouzia Rocha, PT 8 [place] [address] 10/15/2025 1:00 AM EST Appointment [facility] 30 [place] [address] Cordell Cruz RN 30 [place] [address] 10/22/2025 Appointment [facility] 30 [place] [address] Cordell Cruz RN 30 [place] [address] 11/06/2025 1:00 PM EST Office Visit [facility] [address] [place] [address] Sadi Kong MD [address] [address] Jacob Dubose, URBAN SOCIOLOGIST 8 [place] [address] 11/11/2025 2:15 PM EST Office Visit [facility] [address] [place] [address] Sadi Kong MD [address] [place] [address] Fouzia Rocha, PT 8 [place] [address] 11/17/2025 2:30 PM EST Office Visit [facility] [address] [place] [address] Sadi Kong MD [address] [place] [address] Fouzia Rocha, PT 8 [place] [address] 11/19/2025 3:15 PM EST Office Visit [facility] Physical Therapy [address] [address] Sadi Kong MD [address] [place] [address] Fouzia Rocha, PT 8 [place] [address] 11/24/2025 1:45 PM EST Office Visit [facility] 8 [place] [address] Sadi Kong MD [address] [place] [address] Fouzia Rocha, PT 8 [place] [address] 11/26/2025 1:45 PM EST Office Visit [facility] 8 [place] [address] Sadi Kong MD 22 [facility], 2nd [place] [address] Fouzia Rocha, PT 8 [place] [address] 02/06/2026 6:30 PM EDT Appointment [facility], Bone Density [address] [address] Michael Sims MD [address] [place] [address] 04/01/2026 10:00 AM EDT Appointment [facility] [address] [address] Shellie Cowart MD [address] [address] 12/14/2026 2:20 PM EST Office Visit [facility] [address] [address] Shellie Cowart MD [address] [place] [address] documented as of this encounter Results * [...] screening, unspecified Breast screening Breast screening, unspecified documented in this encounter Additional Health Concerns Infection Onset Date Last Indicated Resolved Time CoV-Risk 09/22/2021 09/22/2021 10/02/2021 1:23 AM EST Assessment Noted Time PHQ-2 Depression Total Score: 0 10/15/19 20 8:02 AM EST documented as of this encounter Care Teams Filament Maker Relationship Specialty Start Date End Date Shellie Cowart MD [address] [place] [address] PCP - General Family Medicine 10/25/19 Paul Hooper MD [address] [place] [address] Orth[facility]ics [facility] Sports Medicine, [place] [address] [email or web address] Orthopedic Surgery 03/01/24 Preston Pederson, ENGINEER THIRD ASSISTANT [address] [place] [address] [email or web address] City Route Driver Licensed Clinical City Route Driver 12/11/24 documented as of this encounter Additional Source Comments The information contained in this document represents components of the legal health record. It is not the complete legal health record.[facility]
--- OUTSIDE RECORDS SUMMARY | 2025-09-26 13:35 | XMS_ITS | Encounter Summary ---
Author Organization [facility] Address 399 [facility] [address] [place] [address] Phone Care Team Providers Care Rouge Sifter And Miller Name Role Phone Shellie Cowart MD Primary Care Provider [phone] Shellie Cowart MD Primary Care Provider [phone] Paul Hooper MD Unavailable [phone] Preston Pederson [facility] Unavailable [phone] Encounter Details Date Type Department Care Team (Late st Contact Info) Description 10/22/2019 Ancillary Orders [facility] Imaging 30 [place] [address] System, Provider Not In, [place] [address] Social History Tobacco Use Types Packs/Day Years [...] Info) Description 07/25/2025 Procedure Pass [facility], [facility] 30 [place] [address] 09/30/2025 9:00 AM EST Appointment [facility] 30 [place] [address] Marlen Haq, PT 168 [place] [address] [email or web address] 10/01/2025 3:30 AM EST Appointment [facility] [address] [place] [phone] Cordell Cruz RN 30 [place] [address] [email or web address] 10/06/2025 12:45 AM EST Appointment [facility] [address] [place] [phone] Marlen Haq, PT 168 [place] [address] [email or web address] 10/08/2025 1:00 AM EST Appointment [facility] [address] [place] [phone] Marlen Haq, PT 168 [place] [address] [email or web address] 10/08/2025 3:00 AM EST Appointment [facility] [address] [place] [address] Cordell Cruz RN 30 [place] [address] [email or web address] 10/10/2025 2:45 PM EST Office Visit [facility] 8 [place] [address] Sadi Kong MD 22 [facility], 2nd [place] [address] Fouzia Rocha, PT 8 [place] [address] 10/13/2025 Appointment [facility] 30 [place] [address] Marlen Haq, PT 168 [place] [address] 10/14/2025 3:00 PM EST Office Visit [facility] 8 [place] [address] Sadi Kong MD [address] [address] Fouzia Rocha, PT 8 [place] [address] 10/15/2025 1:00 AM EST Appointment [facility] 30 [place], [place] [phone] Cordell Cruz RN 30 [place] [address] 10/22/2025 Appointment [facility] 30 [place] [address] Cordell Cruz, ANN-MARIE 30 [place] [address] 11/06/2025 1:00 PM EST Office Visit [facility] 8 [place] [address] Sadi Kong MD [address] [address] Jacob Dubose, BUDGET ENGINEER 8 [place] [address] 11/11/2025 2:15 PM EST Office Visit [facility] 8 [place] [address] Sadi Kong MD [address] [place] [address] Fouzia Rocha, PT 8 [place] [address] 11/17/2025 2:30 PM EST Office Visit [facility] 8 [place] [address] Sadi Kong MD [address] [place] [address] Fouzia Rocha, PT 8 [place] [address] 11/19/2025 3:15 PM EST Office Visit [facility] 8 [place] [address] Sadi Kong MD [address] [place] [address] Fouzia Rocha, PT 8 [place] [address] 11/24/2025 1:45 PM EST Office Visit [facility] 8 [place] [address] Sadi Kong MD [address] [place] [address] Fouzia Rocha, PT 8 [place] [address] 11/26/2025 1:45 PM EST Office Visit [facility] 8 [place] [address] Sadi Kong MD 22 [facility], 2nd [place] [address] Fouzia Rocha, PT 8 [place] [address] 02/06/2026 6:30 PM EDT Appointment [facility] Density [address] [address] Michael Sims MD 5 [place] [address] 04/01/2026 10:00 AM EDT Appointment [facility] [address] [address] Shellie Cowart MD [address] [address] 12/14/2026 2:20 PM EST Office Visit [facility] [address] [address] Shellie Cowart MD [address] [address] documented as of this encounter Results * [...] documented as of this encounter Care Teams Rouge Sifter And Miller Relationship Specialty Start Date End Date Shellie Cowart MD [address] [address] [email or web address] PCP - General Family Medicine 09/26/19 10/24/19 Shellie Cowart MD [address] [place] [address] [email or web address] PCP - General Family Medicine 10/25/19 Paul Hooper MD [address] [place] [address] [facility] Sports Medicine, [place] [address] Orthopedic Surgery 03/01/24 Preston Pederson, FEED PREPARATION OPERATOR [address] [place] [address] [email or web address] Edge Kitter Licensed Clinical Edge Kitter 12/11/24 documented as of this encounter Additional Source Comments The information contained in this document represents components of the legal health record. It is not the complete legal health record.[facility]
--- OUTSIDE RECORDS SUMMARY | 2025-09-26 13:35 | XMS_ITS | Encounter Summary ---
Author Organization [facility] Address [address] [facility] [address] [place] [address] Phone Care Team Providers Care Local Operator Name Role Phone Shellie Cowart MD Primary Care Provider [phone] Paul Hooper MD Unavailable [phone] Preston Pederson GARAGE HELPER Unavailable [phone] Encounter Details Date Type Department Care Team (Late st Contact Info) Description 10/03/2024 Procedure Pass [facility], [facility] 30 [place] [address] Social History Tobacco Use Types Packs/Day Years [...] (Kenisha Contact Info) Description 07/25/2025 Procedure Pass [facility], [facility] 30 [place] [address] 09/30/2025 9:00 AM EST Appointment [facility] [address] [place] [phone] Marlen Haq, PT 168 [place] [address] 10/01/2025 3:30 AM EST Appointment [facility] [address] [place] [phone] Cordell Cruz RN [address] [place] [address] 10/06/2025 12:45 AM EST Appointment [facility] [address] [place] [phone] Marlen Haq, PT 168 [place] [address] 10/08/2025 1:00 AM EST Appointment [facility] [address] [place] [phone] Marlen Haq, PT 168 [place] [address] 10/08/2025 3:00 AM EST Appointment [facility] [address] [place] [phone] Cordell Cruz RN [address] [place] [address] 10/10/2025 2:45 PM EST Office Visit [facility] 8 [place] [address] Sadi Kong MD 22 [facility], 2nd [place] [address] Fouzia Rocha, PT 8 [place] [address] 10/13/2025 Appointment [facility] 30 [place], [place] [phone] Marlen Haq, PT 168 [place] [address] 10/14/2025 3:00 PM EST Office Visit [facility] 8 [place] [address] Sadi Kong MD [address] [place] [address] Fouzia Rocha, PT 8 [place] [address] 10/15/2025 1:00 AM EST Appointment [facility] 30 [place], [place] [phone] Cordell Cruz RN 30 [place] [address] 10/22/2025 Appointment [facility] 30 [place], [place] [phone] Cordell Cruz RN 30 [place] [address] 11/06/2025 1:00 PM EST Office Visit [facility] 8 [place] [address] Sadi Kong MD [address] [place] [address] Jacob Dubose, RECOVERY UNIT OPERATOR 8 [place] [address] 11/11/2025 2:15 PM EST Office Visit [facility] [address] [place] [address] [place] [address] Sadi Kong MD [address] [place] [address] Fouzia Rocha, PT 8 [place] [address] 11/17/2025 2:30 PM EST Office Visit [facility] Physical Therapy [address] [address] Sadi Kong MD [address] [place] [address] Fouzia Rocha, PT 8 [place] [address] 11/19/2025 3:15 PM EST Office Visit [facility] Physical Therapy [address] [place] [address] Sadi Kong MD [address] [place] [address] Fouzia Rocha, PT 8 [place] [address] 11/24/2025 1:45 PM EST Office Visit [facility] [address] [place] [address] [place] [address] Sadi Kong MD [address] [place] [address] Fouzia Rocha, PT 8 [place] [address] 11/26/2025 1:45 PM EST Office Visit [facility] 8 [place] [address] Sadi Kong MD 22 [facility], 2nd [place] [address] Fouzia Rocha, PT 8 [place] [address] 02/06/2026 6:30 PM EDT Appointment [address] [address] Michael Sims MD [address] [place] [address] 04/01/2026 10:00 AM EDT Appointment [address] [address] Shellie Cowart MD [address] [address] 12/14/2026 2:20 PM EST Office Visit [facility] [address] [address] Shellie Cowart MD [address] [address] documented as of this encounter Visit Diagnoses Not on filedocumented in this encounter Additional Health Concerns Assessment Noted Time PHQ-9 Depression Total Score: 1 10/24/19 25 12:00 PM EST PHQ-2 Depression Total Score: 1 10/24/19 12:00 PM EST documented as of this encounter Care Teams Local Operator Relationship Specialty Start Date End Date Shellie Cowart MD [address] [address] [email or web address] PCP - General Family Medicine 10/25/19 Paul Hooper MD [address] [place] [address] Orthopedics & Sports Medicine, [place] [address] [email or web address] Orthopedic Surgery 03/01/24 Preston Pederson MSW [address] [place] [address] [email or web address] Material Combiner Licensed Clinical Material Combiner 12/11/24 documented as of this encounter Additional Source Comments The information contained in this document represents components of the legal health record. It is not the complete legal health record.[facility]
--- OUTSIDE RECORDS SUMMARY | 2025-09-26 13:35 | XMS_ITS | Encounter Summary ---
Author Organization [facility] Address [address] [place] [address] Phone Care Team Providers Care Dramatic Reader Name Role Phone Shellie Cowart MD Primary Care Provider [phone] Paul Hooper MD Unavailable [phone] Preston Pederson RESTAURANT ASSISTANT Unavailable [phone] Encounter Details Date Type Department Care Team (Late st Contact Info) Description 11/13/2023 Procedure Pass [facility], [facility] 30 [place] [address] Social History Tobacco Use Types Packs/Day Years [...] high school, GED, job training, learning the Stateless language, technical skills, or developing parenting skills)? [...] st Contact Info) Description 07/25/2025 Procedure Pass [facility], [facility]- [address] [address] 09/30/2025 9:00 AM EST [facility]ment [facility] [address] [place] [address] Marlen Haq, PT [address] [place] [address] 10/01/2025 3:30 AM EST [facility]ment [facility] [address] [place] [address] Cordell Cruz RN 30 [place] [address] 10/06/2025 12:45 AM EST Appointment [facility] 30 [place] [address] Marlen Haq, PT 168 [place] [address] 10/08/2025 1:00 AM EST Appointment [facility] 30 [place] [address] Marlen Haq, PT 168 [place] [address] 10/08/2025 3:00 AM EST Appointment [facility] 30 [place], [place] [phone] Cordell Cruz RN 30 [place] [address] 10/10/2025 2:45 PM EST Office Visit [facility] 8 [place] [address] Sadi Kong MD 22 [facility], 2nd [place] [address] Fouzia Rocha, PT 8 [place] [address] 10/13/2025 Appointment [facility] 30 [place], [place] [phone] Marlen Haq, PT 168 [place] [address] 10/14/2025 3:00 PM EST Office Visit [facility] 8 [place] [address] Sadi Kong MD [address] [place] [address] Fouzia Rocha, PT 8 [place] [address] 10/15/2025 1:00 AM EST Appointment [facility] [address] [place] [address] Cordell Cruz RN 30 [place] [address] 10/22/2025 Appointment [facility] [address] [place] [address] Cordell Cruz RN 30 [place] [address] 11/06/2025 1:00 PM EST Office Visit [facility] 8 [place] [address] Sadi Kong MD [address] [place] [address] Jacob Dubose, MANAGER [employer] 8 [place] [address] 11/11/2025 2:15 PM EST Office Visit [facility] 8 [place] [address] Sadi Kong MD [address] [place] [address] Fouzia Rocha, PT 8 [place] [address] 11/17/2025 2:30 PM EST Office Visit [facility] [address] [place] [address] Sadi Kong MD [address] [place] [address] Fouzia Rocha, PT 8 [place] [address] 11/19/2025 3:15 PM EST Office Visit [facility] 8 [place] [address] Sadi Kong MD [address] [place] [address] Fouzia Rocha, PT 8 [place] [address] 11/24/2025 1:45 PM EST Office Visit [facility] [address] [place] [address] [place] [address] Sadi Kong MD [address] [place] [address] Fouzia Rocha, PT 8 [place] [address] 11/26/2025 1:45 PM EST Office Visit [facility] 8 [place] [address] Sadi Kong MD [address] [place] [address] Fouzia Rocha, PT 8 [place] [address] 02/06/2026 6:30 PM EDT Appointment [facility], [facility] Density - [address] [address] Michael Sims MD [address] [place] [address] 04/01/2026 10:00 AM EDT Appointment [facility] [address] [address] Shellie Cowart MD [address] [place] [address] 12/14/2026 2:20 PM EST Office Visit [facility] [address] [place] [address] Shellie Cowart MD [address] [place] [address] [email or web address] documented as of this encounter Visit Diagnoses Not on filedocumented in this encounter Additional Health Concerns Assessment Noted Time PHQ-2 Depression Total Score: 2 07/26/20 23 7:43 AM EDT documented as of this encounter Care Teams Dramatic Reader Relationship Specialty Start Date End Date Shellie Cowart MD [address] [place] [address] PCP - General Family Medicine 10/25/19 Paul Hooper MD [address] [place] [address] Orthopedics & Sports Medicine, [place] [address] Orthopedic Surgery 03/01/24 Preston Pederson RESTAURANT ASSISTANT [address] [place] [address] Automatic Shirring Machine Operator Licensed Clinical Automatic Shirring Machine Operator 12/11/24 documented as of this encounter Additional Source Comments The information contained in this document represents components of the legal health record. It is not the complete legal health record.[facility]
--- OUTSIDE RECORDS SUMMARY | 2025-09-26 13:35 | XMS_ITS | Encounter Summary ---
Author Organization [facility] Address 399 [facility] [address] [place] [address] Phone Care Team Providers Care Robotics Specialist Name Role Phone Shellie Cowart MD Primary Care Provider [phone] Shellie Cowart MD Primary Care Provider [phone] Paul Hooper MD Unavailable [phone] Preston Pederson [facility] Unavailable [phone] Encounter Details Date Type Department Care Team (Late st Contact Info) Description 10/22/2019 Ancillary Orders [facility] Imaging 30 [place] [address] System, Provider Not In, [place] [address] Social History Tobacco Use Types Packs/Day Years [...] st Contact Info) Description 07/25/2025 Procedure Pass [facility], [facility] 30 [place] [address] 09/30/2025 9:00 AM EST Appointment [facility] 30 [place] [address] Marlen Haq, PT 168 [place] [address] 10/01/2025 3:30 AM EST Appointment [facility] [address] [place] [phone] Cordell Cruz RN 30 [place] [address] 10/06/2025 12:45 AM EST Appointment [facility] [address] [place] [phone] Marlen Haq, PT 168 [place] [address] 10/08/2025 1:00 AM EST Appointment [facility] [address] [place] [phone] Marlen Haq, PT 168 [place] [address] 10/08/2025 3:00 AM EST Appointment [facility] [address] [place] [address] Cordell Cruz RN 30 [place] [address] 10/10/2025 2:45 PM EST Office Visit [facility] 8 [place] [address] Sadi Kong MD 22 [facility], 2nd [place] [address] Fouzia Rocha, PT 8 [place] [address] 10/13/2025 Appointment [facility] 30 [place] [address] Marlen Haq, PT 168 [place] [address] 10/14/2025 3:00 PM EST Office Visit [facility] [address] [place] [address] Sadi Kong MD [address] [address] Fouzia Rocha, PT 8 [place] [address] 10/15/2025 1:00 AM EST Appointment [facility] 30 [place], [place] [phone] Cordell Cruz RN 30 [place] [address] 10/22/2025 Appointment [facility] 30 [place] [address] Cordell Cruz, ANN-MARIE 30 [place] [address] 11/06/2025 1:00 PM EST Office Visit [facility] [address] [place] [address] Sadi Kong MD [address] [address] Jacob Dubose, NNP 8 [place] [address] 11/11/2025 2:15 PM EST Office Visit [facility] [address] [place] [address] Sadi Kong MD [address] [place] [address] Fouzia Rocha, PT 8 [place] [address] 11/17/2025 2:30 PM EST Office Visit [facility] [address] [place] [address] Sadi Kong MD [address] [place] [address] Fouzia Rocha, PT 8 [place] [address] 11/19/2025 3:15 PM EST Office Visit [facility] [address] [place] [address] Sadi Kong MD [address] [place] [address] Fouzia Rocha, PT 8 [place] [address] 11/24/2025 1:45 PM EST Office Visit [facility] [address] [place] [address] Sadi Kong MD [address] [place] [address] Fouzia Rocha, PT 8 [place] [address] 11/26/2025 1:45 PM EST Office Visit [facility] [address] [place] [address] Sadi Kong MD 22 [facility], 2nd [place] [address] Fouzia Rocha, PT 8 [place] [address] 02/06/2026 6:30 PM EDT Appointment [facility] Bone Density [address] [address] Michael Sims MD 5 [place] [address] 04/01/2026 10:00 AM EDT Appointment [facility] [address] [address] Shellie Cowart MD [address] [address] 12/14/2026 2:20 PM EST Office Visit [facility] [address] [address] Shellie Cowart MD [address] [address] documented as of this encounter Results * [...] documented as of this encounter Care Teams Robotics Specialist Relationship Specialty Start Date End Date Shellie Cowart MD [address] [address] [email or web address] PCP - General Family Medicine 09/26/19 10/24/19 Shellie Cowart MD [address] [place] [address] [email or web address] PCP - General Family Medicine 10/25/19 Paul Hooper MD [address] [place] [address] Orthopedics & Sports Medicine, [place] [address] [email or web address] Orthopedic Surgery 03/01/24 Preston Pederson, EXCHANGE OPERATOR [address] [place] [address] [email or web address] Bridge Leverman Licensed Clinical Bridge Leverman 12/11/24 documented as of this encounter Additional Source Comments The information contained in this document represents components of the legal health record. It is not the complete legal health record.[facility]
--- OUTSIDE RECORDS SUMMARY | 2025-09-26 13:35 | XMS_ITS | Encounter Summary ---
Author Organization [facility] Address [address] [facility] [address] [place] [address] Phone Care Team Providers Care Carpenter And Joiner Name Role Phone Shellie Cowart MD Primary Care Provider [phone] Shellie Cowart MD Primary Care Provider [phone] Paul Hooper MD Unavailable [phone] Preston Pederson [facility] Unavailable Encounter Details Date Type Department Care Team (Late st Contact Info) Description 10/22/2019 Ancillary Orders [facility] [address] [place] [address] System, Provider [place] In, [place] [address] Social History Tobacco Use Types Packs/Day Years [...] st Contact Info) Description 07/25/2025 Procedure Pass [facility], [facility] [address] [place] [address] 09/30/2025 9:00 AM EST Appointment [facility] [address] [place] [address] Marlen Haq, PT [address] [place] [address] 10/01/2025 3:30 AM EST Appointment [facility] [address] [place] [phone] Cordell Cruz RN 30 [place] [address] 10/06/2025 12:45 AM EST Appointment [facility] [address] [place] [phone] Marlen Haq, PT [address] [place] [address] 10/08/2025 1:00 AM EST Appointment [facility] [address] [place] [phone] Marlen Haq, PT [address] [place] [address] 10/08/2025 3:00 AM EST Appointment [facility] [address] [place] [address] Cordell Cruz RN 30 [place] [address] 10/10/2025 2:45 PM EST Office Visit [facility] 8 [place] [address] Sadi Kong MD 22 [facility], 2nd [place] [address] Fouzia Rocha, PT 8 [place] [address] 10/13/2025 Appointment [facility] [address] [place] [address] Marlen Haq, PT [address] [place] [address] 10/14/2025 3:00 PM EST Office Visit [facility] 8 [place] [address] Sadi Kong MD [address] [address] Fouzia Rocha, PT 8 [place] [address] 10/15/2025 1:00 AM EST Appointment [facility] [address] [place], [place] [phone] Cordell Cruz RN 30 [place] [address] 10/22/2025 Appointment [facility] [address] [place] [address] Cordell Cruz, ANN-MARIE 30 [place] [address] 11/06/2025 1:00 PM EST Office Visit [facility] 8 [place] [address] Sadi Kong MD [address] [address] Jacob Dubose, LINK TRAINER 8 [place] [address] 11/11/2025 2:15 PM EST Office Visit [facility] 8 [place] [address] Sadi Kong MD [address] [place] [address] Fouzia Rocha, PT 8 [place] [address] 11/17/2025 2:30 PM EST Office Visit [facility] 8 [place] [address] Sadi Kong MD [address] [place] [address] Fouzia Rocha, PT 8 [place] [address] 11/19/2025 3:15 PM EST Office Visit [facility] 8 [place] [address] Sadi Kong MD [address] [place] [address] Fouzia Rocha, PT 8 [place] [address] 11/24/2025 1:45 PM EST Office Visit [facility] 8 [place] [address] Sadi Kong MD [address] [place] [address] Fouzia Rocha, PT 8 [place] [address] 11/26/2025 1:45 PM EST Office Visit [facility] 8 [place] [address] Sadi Kong MD 22 [facility], 2nd [place] [address] Fouzia Rocha, PT 8 [place] [address] 02/06/2026 6:30 PM EDT Appointment [facility] [address] [address] Michael Sims MD 5 [place] [address] 04/01/2026 10:00 AM EDT Appointment [facility] [address] [address] Shellie Cowart MD [address] [address] 12/14/2026 2:20 PM EST Office Visit [facility] [address] [address] Shellie Cowart MD [address] [address] [email or web address] documented as of this encounter Results * [...] documented as of this encounter Care Teams Carpenter And Joiner Relationship Specialty Start Date End Date Shellie Cowart MD [address] [address] [email or web address] PCP - General Family Medicine 09/26/19 10/24/19 Shellie Cowart MD [address] [place] [address] [email or web address] PCP - General Family Medicine 10/25/19 Paul Hooper MD [address] [place] [address] Orthopedics & Sports Medicine, [place] [address] [email or web address] Orthopedic Surgery 03/01/24 Preston Pederson, PET SITTER [address] [place] [address] [email or web address] Group Underwriter Licensed Clinical Group Underwriter 12/11/24 documented as of this encounter Additional Source Comments The information contained in this document represents components of the legal health record. It is not the complete legal health record.[facility]
--- OUTSIDE RECORDS SUMMARY | 2025-09-26 13:35 | XMS_ITS | Encounter Summary ---
Author Organization [facility] Address [address] [place] [address] Phone Care Team Providers Care Granite Polisher Name Role Phone Shellie Cowart MD Primary Care Provider Paul Hooper MD Unavailable [phone] Preston Pederson TRANSPORT NURSE Unavailable [phone] Encounter Details Date Type Department Care Team (Late st Contact Info) Description 11/09/2023 Procedure Pass [facility] [place], [facility] - [address] [place] [address] Social History Tobacco Use Types Packs/Day Years [...] high school, GED, job training, learning the [place]an language, technical skills, or developing parenting skills)? [...] your housing situation today? I have janae logan 07/26/2023 How many times have you move [...] Contact Info) Description 07/25/2025 Procedure Pass [address] [address] 09/30/2025 9:00 AM EST Appointment [facility] [address] [place] [address] Marlen Haq, PT [address] [place] [address] [email or web address] 10/01/2025 3:30 AM EST Appointment [facility] [address] [place] [address] Cordell Cruz RN 30 [place] [address] 10/06/2025 12:45 AM EST Appointment [facility] [address] [place] [phone] Marlen Haq, PT 168 [place] [address] 10/08/2025 1:00 AM EST Appointment [facility] 30 [place] [address] Marlen Haq, PT 168 [place] [address] 10/08/2025 3:00 AM EST Appointment [facility] [address] [place] [phone] Cordell Cruz RN 30 [place] [address] 10/10/2025 2:45 PM EST Office Visit [facility] 8 [place] [address] Sadi Kong MD [address] [place] [address], 2[address] [place] [address] Fouzia Rocha, PT 8 [place] [address] 10/13/2025 Appointment [facility] [address] [place] [address] Marlen Haq, PT 168 [place] [address] 10/14/2025 3:00 PM EST Office Visit [facility] 8 [place] [address] Sadi Kong MD [address] [place] [address] Fouzia Rocha, PT 8 [place] [address] 10/15/2025 1:00 AM EST Appointment [facility] [address] [place] [phone] Cordell Cruz RN [address] [place] [address] 10/22/2025 Appointment [facility] [address] [place] [phone] Cordell Cruz RN 30 [place] [address] 11/06/2025 1:00 PM EST Office Visit [facility] [address] [place] [address] Sadi Kong MD [address] [place] [address] Jacob Dubose, BINDER ROLLER 8 [place] [address] 11/11/2025 2:15 PM EST Office Visit [facility] [address] [place] [address] Sadi Kong MD [address] [place] [address] Fouzia Rocha, PT 8 [place] [address] 11/17/2025 2:30 PM EST Office Visit [facility] [address] [place] [address] Sadi Kong MD [address] [place] [address] Fouzia Rocha, PT 8 [place] [address] 11/19/2025 3:15 PM EST Office Visit [facility] [address] [place] [address] Sadi Kong MD [address] [place] [address] Fouzia Rocha, PT 8 [place] [address] 11/24/2025 1:45 PM EST Office Visit [facility] [address] [place] [address] Sadi Kong MD [address] [place] [address] Fouzia Rocha, PT 8 [place] [address] 11/26/2025 1:45 PM EST Office Visit [facility] [address] [place] [address] Sadi Kong MD [address] [place] [address] Fouzia Rocha, PT 8 [place] [address] 02/06/2026 6:30 PM EDT Appointment [facility] [place], [facility] [address] [address] Michael Sims MD 5 [place] [address] 04/01/2026 10:00 AM EDT Appointment [facility] [address] [address] Shellie Cowart MD [address] [place] [address] 12/14/2026 2:20 PM EST Office Visit [facility] [address] [place] [address] Shellie Cowart MD [address] [place] [address] documented as of this encounter Visit Diagnoses Not on filedocumented in this encounter Additional Health Concerns Assessment Noted Time PHQ-2 Depression Total Score: 2 07/26/20 23 7:43 AM EDT documented as of this encounter Care Teams Granite Polisher Relationship Specialty Start Date End Date Shellie Cowart MD [address] [place] [address] PCP - General Family Medicine 10/25/19 Paul Hooper MD [address] [place] [address] Orthopedics & Sports Medicine, [place] [address] Orthopedic Surgery 03/01/24 Preston Pederson MSW [address] [place] [address] [email or web address] Ecmo Specialist Licensed Clinical Ecmo Specialist 12/11/24 documented as of this encounter Additional Source Comments The information contained in this document represents components of the legal health record. It is not the complete legal health record.[facility]
--- OUTSIDE RECORDS SUMMARY | 2025-09-26 13:35 | XMS_ITS | Encounter Summary ---
Author Organization [facility] Address [address] [place] [address] Phone Care Team Providers Care Hedis Manager Name Role Phone Shellie Cowart MD Primary Care Provider [phone] Paul Hooper MD Unavailable [phone] Preston Pederson EXTENSION SERVICE ADVISOR Unavailable [phone] Encounter Details Date Type Department Care Team (Late st Contact Info) Description 01/25/2024 Procedure Pass [facility] [address] [place] [address] Social History Tobacco Use Types Packs/Day Years [...] high school, GED, job training, learning the [place] language, technical skills, or developing parenting skills)? [...] st Contact Info) Description 07/25/2025 Procedure Pass [address] [place] [address] [address] 09/30/2025 9:00 AM EST Appointment [facility] [address] [place] [address] Marlen Haq, PT [address] [place] [address] [email or web address] 10/01/2025 3:30 AM EST Appointment [facility] [address] [place] [address] Cordell Cruz RN 30 [place] [address] 10/06/2025 12:45 AM EST Appointment [facility] 30 [place] [address] Marlen Haq, PT 168 [place] [address] 10/08/2025 1:00 AM EST Appointment [facility] 30 [place] [address] Marlen Haq, PT 168 [place] [address] 10/08/2025 3:00 AM EST Appointment [facility] 30 [place] [address] Cordell Cruz RN 30 [place] [address] 10/10/2025 2:45 PM EST Office Visit [facility] [address] [place] [address] Sadi Kong MD [address] [place] [address] Fouzia Rocha, PT 8 [place] [address] 10/13/2025 Appointment [facility] 30 [place] [address] Marlen Haq, PT 168 [place] [address] 10/14/2025 3:00 PM EST Office Visit [facility] [address] [place] [address] Sadi Kong MD [address] [address] Fouzia Rocha, PT 8 [place] [address] 10/15/2025 1:00 AM EST Appointment [facility] 30 [place] [address] Cordell Cruz RN 30 [place] [address] 10/22/2025 Appointment [facility] [address] [place] [phone] Cordell Cruz RN 30 [place] [address] 11/06/2025 1:00 PM EST Office Visit [facility] [address] [place] [address] Sadi Kong MD [address] [place] [address] Jacob Dubose, DINING ROOM CAPTAIN 8 [place] [address] 11/11/2025 2:15 PM EST Office Visit [facility] [address] [place] [address] Sadi Kong MD [address] [place] [address] Fouzia Rocha, PT 8 [place] [address] 11/17/2025 2:30 PM EST Office Visit [facility] [address] [place] [address] Sadi Kong MD [address] [place] [address] Fouzia Rocha, PT 8 [place] [address] 11/19/2025 3:15 PM EST Office Visit [facility] [address] [place] [address] Sadi Kong MD [address] [place] [address] Fouzia Rocha, PT 8 [place] [address] 11/24/2025 1:45 PM EST Office Visit [facility] Physical Therapy [address] [place] [address] Sadi Kong MD [address] [place] [address] Fouzia Rocha, PT 8 [place] [address] 11/26/2025 1:45 PM EST Office Visit [facility] [address] [place] [address] Sadi Kong MD [address] [place] [address] Fouzia Rocha, PT 8 [place] [address] 02/06/2026 6:30 PM EDT Appointment [facility] [address] [place] [address] Michael Sims MD 575 [place] [address] 04/01/2026 10:00 AM EDT Appointment [address] [place] [address] [address] Shellie Cowart MD [address] [place] [address] 12/14/2026 2:20 PM EST Office Visit [facility] [address] [place] [address] Shellie Cowart MD [address] [place] [address] [email or web address] documented as of this encounter Visit Diagnoses Not on filedocumented in this encounter Additional Health Concerns Assessment Noted Time PHQ-2 Depression Total Score: 2 07/26/20 23 7:43 AM EDT documented as of this encounter Care Teams Hedis Manager Relationship Specialty Start Date End Date Shellie Cowart MD [address] [place] [address] PCP - General Family Medicine 10/25/19 Paul Hooper MD [address] [place] [address] [facility] Sports Medicine, [place] [address] Orthopedic Surgery 03/01/24 Preston Pederson MSW [address] [place] [address] [email or web address] Bottle Carrier Licensed Clinical Bottle Carrier 12/11/24 documented as of this encounter Additional Source Comments The information contained in this document represents components of the legal health record. It is not the complete legal health record.[facility]
--- OUTSIDE RECORDS SUMMARY | 2025-09-26 13:35 | XMS_ITS | Encounter Summary ---
Author Organization [facility] Address [address] [place] [address] Phone Care Team Providers Care Camp Program Director Name Role Phone Shellie Cowart MD Primary Care Provider [phone] Paul Hooper MD Unavailable [phone] Preston Pederson DOBBY LOOMS PEGGER Unavailable Encounter Details Date Type Department Care Team (Late st Contact Info) Description 06/30/2025 Procedure Pass [facility] 30 [place] [address] Social History Tobacco Use Types Packs/Day Years [...] (Kenisha Contact Info) Description 07/25/2025 Procedure Pass [facility], [facility]- [facility] 30 [place] [address] 09/30/2025 9:00 AM EST Appointment [facility] [address] [place] [phone] Marlen Haq, PT 168 [place] [address] 10/01/2025 3:30 AM EST Appointment [facility] [address] [place] [phone] Cordell Cruz RN [address] [place] [address] 10/06/2025 12:45 AM EST Appointment [facility] [address] [place] [phone] Marlen Haq, PT 168 [place] [address] 10/08/2025 1:00 AM EST Appointment [facility] [address] [place] [phone] Marlen Haq, PT 168 [place] [address] 10/08/2025 3:00 AM EST Appointment [facility] [address] [place] [phone] Cordell Cruz RN [address] [place] [address] 10/10/2025 2:45 PM EST Office Visit [facility] 8 [place] [address] Sadi Kong MD 22 [facility], 2nd [place] [address] Fouzia Rocha, PT 8 [place] [address] 10/13/2025 Appointment [facility] 30 [place], [place] [phone] Marlen Haq, PT 168 [place] [address] 10/14/2025 3:00 PM EST Office Visit [facility] 8 [place] [address] Sadi Kong MD [address] [place] [address] Fouzia Rocha, PT 8 [place] [address] 10/15/2025 1:00 AM EST Appointment [facility] 30 [place], [place] [phone] Cordell Cruz RN 30 [place] [address] 10/22/2025 Appointment [facility] [address] [place], [place] [phone] Cordell Cruz RN 30 [place] [address] 11/06/2025 1:00 PM EST Office Visit [facility] 8 [place] [address] Sadi Kong MD [address] [place] [address] Jacob Dubose, APPRENTICE PAINTER HAND 8 [place] [address] 11/11/2025 2:15 PM EST Office Visit [facility] [address] [place] [address] [place] [address] Sadi Kong MD [address] [place] [address] Fouzia Rocha, PT 8 [place] [address] 11/17/2025 2:30 PM EST Office Visit [facility] Physical Therapy [address] [address] Sadi Kong MD [address] [place] [address] Fouzia Rocha, PT 8 [place] [address] 11/19/2025 3:15 PM EST Office Visit [facility] Therapy [address] [place] [address] Sadi Kong MD [address] [place] [address] Fouzia Rocha, PT 8 [place] [address] 11/24/2025 1:45 PM EST Office Visit [facility] [address] [place] [address] [place] [address] Sadi Kong MD [address] [place] [address] Fouzia Rocha, PT 8 [place] [address] 11/26/2025 1:45 PM EST Office Visit [facility] 8 [place] [address] Sadi Kong MD 22 [facility], 2nd [place] [address] Fouzia Rocha, PT 8 [place] [address] 02/06/2026 6:30 PM EDT Appointment [address] [address] Michael Sims MD [address] [place] [address] 04/01/2026 10:00 AM EDT Appointment [address] [address] Shellie Cowart MD [address] [address] 12/14/2026 2:20 PM EST Office Visit [facility] [address] [address] Shellie Cowatr MD [address] [address] documented as of this encounter Visit Diagnoses Not on filedocumented in this encounter Additional Health Concerns Assessment Noted Time PHQ-9 Depression Total Score: 1 10/24/19 25 12:00 PM EST PHQ-2 Depression Total Score: 1 10/24/19 12:00 PM EST documented as of this encounter Care Teams Camp Program Director Relationship Specialty Start Date End Date Shellie Cowart MD [address] [address] [email or web address] PCP - General Family Medicine 10/25/19 Paul Hooper MD [address] [place] [address] Orthopedics & Sports Medicine, [place] [address] [email or web address] Orthopedic Surgery 03/01/24 Preston Pederson MSW [address] [place] [address] [email or web address] Emissions Inspector Licensed Clinical Emissions Inspector 12/11/24 documented as of this encounter Additional Source Comments The information contained in this document represents components of the legal health record. It is not the complete legal health record.[facility]
--- OUTSIDE RECORDS SUMMARY | 2025-09-26 13:35 | XMS_ITS | Encounter Summary ---
Author Organization [facility] Address [address] [facility] [address] [place] [address] Phone Care Team Providers Care Customer Relations Coordinator Name Role Phone Shellie Cowart MD Primary Care Provider [phone] Paul Hooper MD Unavailable [phone] Preston Pederson [facility] Unavailable [phone] Encounter Details Date Type Department Care Team (Late st Contact Info) Description 07/02/2025 Procedure Pass [facility], [facility] 30 [place] [address] Social History Tobacco Use Types Packs/Day Years [...] st Contact Info) Description 07/25/2025 Procedure Pass [facility], [facility] 30 [place] [address] 09/30/2025 9:00 AM EST Appointment [facility] [address] [place] [phone] Marlen Haq, PT 168 [place] [address] 10/01/2025 3:30 AM EST Appointment [facility] [address] [place] [phone] Cordell Cruz RN [address] [place] [address] 10/06/2025 12:45 AM EST Appointment [facility] [address] [place] [phone] Marlen Haq, PT 168 [place] [address] 10/08/2025 1:00 AM EST Appointment [facility] [address] [place] [phone] Marlen Haq, PT 168 [place] [address] 10/08/2025 3:00 AM EST Appointment [facility] [address] [place] [phone] Cordell Cruz RN [address] [place] [address] 10/10/2025 2:45 PM EST Office Visit [facility] 8 [place] [address] Sadi Kong MD 22 [facility], 2nd [place] [address] Fouzia Rocha, PT 8 [place] [address] 10/13/2025 Appointment [facility] [address] [place], [place] [phone] Marlen Haq, PT 168 [place] [address] 10/14/2025 3:00 PM EST Office Visit [facility] 8 [place] [address] Sadi Kong MD [address] [place] [address] Fouzia Rohca, PT 8 [place] [address] 10/15/2025 1:00 AM EST Appointment [facility] 30 [place], [place] [phone] Cordell Cruz RN 30 [place] [address] 10/22/2025 Appointment [facility] 30 [place], [place] [phone] Cordell Cruz RN 30 [place] [address] 11/06/2025 1:00 PM EST Office Visit [facility] 8 [place] [address] Sadi Kong MD [address] [place] [address] Jacob Dubose, BUSINESS ANALYST [employer] 8 [place] [address] 11/11/2025 2:15 PM EST Office Visit [facility] [address] [place] [address] [place] [address] Sadi Kong MD [address] [place] [address] Fouzia Rocha, PT 8 [place] [address] 11/17/2025 2:30 PM EST Office Visit [facility] [address] [address] Sadi Kong MD [address] [place] [address] Fouzia Rocha, PT 8 [place] [address] 11/19/2025 3:15 PM EST Office Visit [facility] [address] [address] Sadi Kong MD [address] [place] [address] Fouzia Rocha, PT 8 [place] [address] 11/24/2025 1:45 PM EST Office Visit [facility] [address] [place] [address] Sadi Kong MD [address] [place] [address] Fouzia Rocha, PT 8 [place] [address] 11/26/2025 1:45 PM EST Office Visit [facility] 8 [place] [address] Sadi Kong MD 22 [facility], 2nd [place] [address] Fouzia Rocha, PT 8 [place] [address] 02/06/2026 6:30 PM EDT Appointment [address] [address] Michael Sims MD [address] [place] [address] 04/01/2026 10:00 AM EDT Appointment [address] [address] Shellie Cowart MD [address] [address] 12/14/2026 2:20 PM EST Office Visit [facility] [address] [address] Shellie Cowart MD [address] [address] documented as of this encounter Visit Diagnoses Not on filedocumented in this encounter Additional Health Concerns Assessment Noted Time PHQ-9 Depression Total Score: 1 10/24/19 12:00 PM EST PHQ-2 Depression Total Score: 1 10/24/19 12:00 PM EST documented as of this encounter Care Teams Customer Relations Coordinator Relationship Specialty Start Date End Date Shellie Cowart MD [address] [address] [email or web address] PCP - General Family Medicine 10/25/19 Paul Hooper MD [address] [place] [address] [facility], [place] [address] [email or web address] Orthopedic Surgery 03/01/24 Preston Pederson MSW [address] [place] [address] [email or web address] Search Developer Licensed Clinical Search Developer 12/11/24 documented as of this encounter Additional Source Comments The information contained in this document represents components of the legal health record. It is not the complete legal health record.[facility]
--- OUTSIDE RECORDS SUMMARY | 2025-09-26 13:35 | XMS_ITS | Encounter Summary ---
Author Organization [facility] Address [address] [facility] [address] [place] [address] Phone Care Team Providers Care Aluminum Shingle Roofer Name Role Phone Shellie Cowart MD Primary Care Provider [phone] Paul Hooper MD Unavailable Preston Pederson PARTS BACK COUNTER MAN Unavailable [phone] Reason for Visit * Reason Onset Date Comments Appointment 09/10/2025 R/S For 09/12 Encounter Details Date Type Department Care Team (Late st Contact Info) Description 09/10/2025 Telephone [facility] [address] [facility] [address] [place] [address] Shellie Cowart MD 15 [facility] 201 [place] [address] [email or web address] Appointment (R/S For 09/12 ) Social History Tobacco Use Types Packs/Day [...] as of this encounter Progress Notes * Idalia Miguel - 09/10/2025 10:14 AM EST Switched time * Debbie Cuellar - 09/10/2025 9:24 AM EST Pt called in stating she spoke to scheduling this morning and they offered her two appt times for 09/12/2025 she had originally stated she wanted the 9:20 but called back stating she would like the 9:40 however an over ride is required for that time period. Please r/s and advise. Central Support Director Of Pharmacy (Please do not reply to this user; this inbox is not monitored.) Thank you. documented in this encounter Plan of Treatment Upcoming Encounters Date Type Department Care Team (Late st Contact Info) Description 07/25/2025 Procedure Pass [address] [address] 09/30/2025 9:00 AM EST Appointment [facility] [address] [place] [address] Marlen Haq, PT [address] [place] [address] [email or web address] 10/01/2025 3:30 AM EST Appointment [facility] [address] [place] [address] Cordell Cruz, RN 30 [place] [address] 10/06/2025 12:45 AM EST Appointment [facility] 30 [place] [phone] Marlen Haq, PT 168 [place] [address] 10/08/2025 1:00 AM EST Appointment [facility] 30 [place] [phone] Marlen Haq, PT 168 [place] [address] 10/08/2025 3:00 AM EST Appointment [facility] 30 [place] [phone] Cordell Cruz RN 30 [place] [address] 10/10/2025 2:45 PM EST Office Visit [facility] 8 [place] [address] Sadi Kong MD [address] [place] [address] Fouzia Rocha, PT 8 [place] [address] 10/13/2025 Appointment [facility] 30 [place] [address] Marlen Haq, PT 168 [place] [address] 10/14/2025 3:00 PM EST Office Visit [facility] 8 [place] [address] Sadi Kong MD [address] [address] Fouzia Rocha, PT 8 [place] [address] 10/15/2025 1:00 AM EST Appointment [facility] 30 [place] [address] Cordell Cruz RN 30 [place] [address] 10/22/2025 Appointment [facility] 30 [place] [phone] Cordell Cruz RN 30 [place] [address] 11/06/2025 1:00 PM EST Office Visit [facility] 8 [place] [address] Sadi Kong MD [address] [place] [address] Jacob Dubose, TRANSPORTATION [employer]OB [employer]ITLES 8 [place] [address] 11/11/2025 2:15 PM EST Office Visit [facility] 8 [place] [address] Sadi Kong MD [address] [place] [address] Fouzia Rocha, PT 8 [place] [address] 11/17/2025 2:30 PM EST Office Visit [facility] 8 [place] [address] Sadi Kong MD [address] [place] [address] [place] [address] Fouzia Rocha, PT 8 [place] [address] 11/19/2025 3:15 PM EST Office Visit [facility] Physical Therapy [facility] 8 [place] [address] Sadi Kong MD [address] [place] [address] Fouzia Rocha, PT 8 [place] [address] 11/24/2025 1:45 PM EST Office Visit [facility] Therapy [address] [address] Sadi Kong MD [address] [place] [address] Fouzia Rocha, PT 8 [place] [address] 11/26/2025 1:45 PM EST Office Visit [facility] [address] [place] [address] Sadi Kong MD [address] [place] [address] Fouzia Rocha, PT 8 [place] [address] 02/06/2026 6:30 PM EDT Appointment [address] [address] Michael Sims MD 575 [place] [address] 04/01/2026 10:00 AM EDT Appointment [facility], [facility] 30 [place] [address] Shellie Cowart MD [address] [place] [address] 12/14/2026 2:20 PM EST Office Visit [facility] [address] [address] Shellie Cowart MD [address] [place] [address] [email or web address] documented as of this encounter Visit Diagnoses Not on filedocumented in this encounter Additional Health Concerns Assessment Noted Time PHQ-9 Depression Total Score: 10/24/19 12:00 PM EST PHQ-2 Depression Total Score: 10/24/19 12:00 PM EST documented as of this encounter Care Teams Aluminum Shingle Roofer Relationship Specialty Start Date End Date Shellie Cowart MD [address] [place] [address] PCP - General Family Medicine 10/25/19 Paul Hooper MD [address] [place] [address] [facility], [place] [address] Orthopedic Surgery 03/01/24 Preston Pederson MSW [address] [place] [address] Supply Clerk Licensed Clinical Supply Clerk 12/11/24 documented as of this encounter Additional Source Comments The information contained in this document represents components of the legal health record. It is not the complete legal health record.[facility]
--- OUTSIDE RECORDS SUMMARY | 2025-09-26 13:35 | XMS_ITS | Encounter Summary ---
Author Organization [facility] Address [address] [place] [address] Phone Care Team Providers Care Outsewer Name Role Phone Shellie Cowart MD Primary Care Provider Paul Hooper MD Unavailable [phone] Preston Pederson TOOL MECHANIC Unavailable [phone] Encounter Details Date Type Department Care Team (Late st Contact Info) Description 11/22/2021 Procedure Pass [facility], [facility] 30 [place] [address] Social History Tobacco Use Types Packs/Day Years [...] high school, GED, job training, learning the Greek language, technical skills, or developing parenting skills)? [...] st Contact Info) Description 07/25/2025 Procedure Pass [address] [address] 09/30/2025 9:00 AM EST Appointment [facility] [address] [place] [phone] Marlen Haq, PT 168 [place] [address] 10/01/2025 3:30 AM EST [facility]ment [facility] [address] [place] [phone] Cordell Cruz RN 30 [place] [address] 10/06/2025 12:45 AM EST Appointment [facility] [address] [place] [phone] Marlen Haq, PT 168 [place] [address] 10/08/2025 1:00 AM EST Appointment [facility] [address] [place] [phone] Marlen Haq, PT 168 [place] [address] 10/08/2025 3:00 AM EST Appointment [facility] 30 [place] [phone] Cordell Cruz RN 30 [place] [address] 10/10/2025 2:45 PM EST [facility] 8 [place] [address] Sadi Kong MD [address] [place] [address] Fouzia Rocha, PT 8 [place] [address] 10/13/2025 Appointment [facility] [address] [place] [address] Marlen Haq, PT 168 [place] [address] 10/14/2025 3:00 PM EST Office Visit [facility] 8 [place] [address] Sadi Kong MD [address] [place] [address] Fouzia Rocha, PT 8 [place] [address] 10/15/2025 1:00 AM EST Appointment [facility] 30 [place] [address] Cordell Cruz RN 30 [place] [address] 10/22/2025 Appointment [facility] [address] [place] [phone] Cordell Cruz RN 30 [place] [address] 11/06/2025 1:00 PM EST Office Visit [facility] [address] [place] [address] Sadi Kong MD [address] [place] [address] Jacob Dubose PTA [address] [place] [address] 11/11/2025 2:15 PM EST Office Visit [facility] [address] [place] [address] Sadi Kong MD [address] [place] [address] Fouzia Rocha, PT 8 [place] [address] 11/17/2025 2:30 PM EST Office Visit [facility] [address] [place] [address] Sadi Kong MD [address] [place] [address] Fouzia Rocha, PT 8 [place] [address] 11/19/2025 3:15 PM EST Office Visit [facility] [address] [place] [address] Sadi Kong MD [address] [address] Fouzia Rocha, PT 8 [place] [address] 11/24/2025 1:45 PM EST Office Visit [facility] 8 [place] [address] Sadi Kong MD [address] [address] Fouzia Rocha, PT 8 [place] [address] 11/26/2025 1:45 PM EST Office Visit [facility] 8 [place] [address] Sadi Kong MD [address] [place] [address] Fouzia Rocha, PT 8 [place] [address] 02/06/2026 6:30 PM EDT Appointment [address] [address] Michael Sims MD [address] [place] [address] 04/01/2026 10:00 AM EDT Appointment [address] [address] Shellie Cowart MD [address] [address] 12/14/2026 2:20 PM EST Office Visit [facility] 15 [facility] 201 [place] [address] Shellie Cowart MD [address] [place] [address] [email or web address] documented as of this encounter Visit Diagnoses Not on filedocumented in this encounter Additional Health Concerns Assessment Noted Time PHQ-2 Depression Total Score: 0 06/18/20 21 9:47 AM EDT documented as of this encounter Care Teams Outsewer Relationship Specialty Start Date End Date Shellie Cowart MD [address] [place] [address] PCP - General Family Medicine 10/25/19 Paul Hooper MD [address] [place] [address] [facility], [place] [address] Orthopedic Surgery 03/01/24 Preston Pederson MSW [address] [place] [address] Framing And Hanging Licensed Clinical Framing And Hanging 12/11/24 documented as of this encounter Additional Source Comments The information contained in this document represents components of the legal health record. It is not the complete legal health record.[facility]
--- OUTSIDE RECORDS SUMMARY | 2025-09-26 13:35 | XMS_ITS | Encounter Summary ---
Author Organization [facility] Address [address] [facility] [address] [place] [address] Phone Care Team Providers Care Director Of Compliance Name Role Phone Shellie Cowart MD Primary Care Provider Paul Hooper MD Unavailable [phone] Preston Pederson SEWER Unavailable [phone] Encounter Details Date Type Department Care Team (Late st Contact Info) Description 01/18/2021 Procedure Pass [address] [address] Social History Tobacco Use Types Packs/Day Years [...] st Contact Info) Description 07/25/2025 Procedure Pass [address] [address] 09/30/2025 9:00 AM EST Appointment [facility] [address] [place] [phone] Marlen Haq, PT 168 [place] [address] 10/01/2025 3:30 AM EST Appointment [facility] [address] [place] [phone] Cordell Cruz RN 30 [place] [address] 10/06/2025 12:45 AM EST Appointment [facility] [address] [place] [phone] Marlen Haq, PT 168 [place] [address] 10/08/2025 1:00 AM EST Appointment [facility] [address] [place] [phone] Marlen Haq, PT 168 [place] [address] 10/08/2025 3:00 AM EST Appointment [facility] [address] [place] [phone] Cordell Cruz RN 30 [place] [address] 10/10/2025 2:45 PM EST Office Visit [facility] 8 [place] [address] Sadi Kong MD 22 [facility], 2nd [place] [address] Fouzia Rocha, PT 8 [place] [address] 10/13/2025 Appointment [facility] [address] [place] [address] Severino Marlen, PT 168 [place] [address] 10/14/2025 3:00 PM EST Office Visit [facility] 8 [place] [address] Sadi Kong MD [address] [place] [address] Fouzia Rocha, PT 8 [place] [address] 10/15/2025 1:00 AM EST Appointment [facility] [address] [place] [address] Cordell Cruz RN 30 [place] [address] 10/22/2025 Appointment [facility] 30 [place] [phone] Cordell Cruz RN 30 [place] [address] 11/06/2025 1:00 PM EST Office Visit [facility] [address] [place] [address] Sadi Kong MD [address] [address] Jacob Dubose PTA 8 [place] [address] 11/11/2025 2:15 PM EST Office Visit [facility] [address] [place] [address] Sadi Kong MD [address] [address] Fouzia Rocha, PT 8 [place] [address] 11/17/2025 2:30 PM EST Office Visit [facility] Physical [facility] [address] [place] [address] Sadi Kong MD [address] [place] [address] Fouzia Rocha, PT 8 [place] [address] 11/19/2025 3:15 PM EST Office Visit [facility] [address] [place] [address] Sadi Kong MD [address] [place] [address] Fouzia Rocha, PT 8 [place] [address] 11/24/2025 1:45 PM EST Office Visit [facility] [address] [place] [address] Sadi Kong MD [address] [place] [address] Fouzia Rocha, PT 8 [place] [address] 11/26/2025 1:45 PM EST Office Visit [facility] [address] [place] [address] Sadi Kong MD [address] [place] [address], [place] [address] Fouzia Rocha, PT 8 [place] [address] 02/06/2026 6:30 PM EDT Appointment [facility] [address] [address] Michael Sims MD 575 [place] [address] 04/01/2026 10:00 AM EDT Appointment [address] [address] Shellie Cowart MD [address] [address] 12/14/2026 2:20 PM EST Office Visit [facility] [address] [address] Shellie Cowart MD [address] [address] documented as of this encounter Visit Diagnoses Not on filedocumented in this encounter Additional Health Concerns Infection Onset Date Last Indicated Resolved Time CoV-Risk 09/22/2021 09/22/2021 10/02/2021 1:23 AM EST Assessment Noted Time PHQ-2 Depression Total Score: 0 10/15/19 8:02 AM EST documented as of this encounter Care Teams Director Of Compliance Relationship Specialty Start Date End Date Shellie Cowart MD [address] [address] PCP - General Family Medicine 10/25/19 Paul Hooper MD [address] [place] [address] [facility] [place] [address] [email or web address] Orthopedic Surgery 03/01/24 Preston Pederson MSW [address] [place] [address] [email or web address] Plastic Cablemaking Machine Operator Licensed Clinical Plastic Cablemaking Machine Operator 12/11/24 documented as of this encounter Additional Source Comments The information contained in this document represents components of the legal health record. It is not the complete legal health record.[facility]
--- OUTSIDE RECORDS SUMMARY | 2025-09-26 13:35 | XMS_ITS | Continuity of Care Document ---
Author Organization [facility] Address [address] [place] [address] Care Team Providers Care Patient Registration Representative Name Role Phone Shellie Cowart Primary Care Provider [phone] Encounters Date Type Department Care Team Description 07/23/2024 1:40 PM EDT Office Visit [facility] Podiatry [address] [place] [address] Heavy Equipment Operator Apprentice: Wilder Knapp DPM Charcot joint of foot, [...] Active Social History Smoking Status as of 09/26/2025 Tobacco Use Types Packs/Day Years Used Date [...] soft tissues of limb 07/23/2024 Care Teams Patient Registration Representative Relationship Specialty Start Date End Date Shellie Cowart 15 [place] [address] PCP - General Family Medicine 07/05/24
--- OUTSIDE RECORDS SUMMARY | 2025-09-26 13:36 | XMS_ITS | Encounter Summary ---
Author Organization [facility] Address [address] [place] [address] Phone Care Team Providers Care Application Security Developer Name Role Phone Shellie Cowart MD Primary Care Provider [phone] Paul Hooper MD Unavailable [phone] Preston Pederson CAREGIVER ASSISTED LIVING Unavailable [phone] Encounter Details Date Type Department Care Team (Late st Contact Info) Description 11/09/2022 Procedure Pass [facility], [facility] [address] [place] [address] Social History Tobacco Use Types Packs/Day Years [...] high school, GED, job training, learning the Iranian language, technical skills, or developing parenting skills)? [...] st Contact Info) Description 07/25/2025 Procedure Pass [address] [address] 09/30/2025 9:00 AM EST Appointment [facility] [address] [place] [address] Marlen Haq, PT [address] [place] [address] 10/01/2025 3:30 AM EST Appointment [facility] [address] [place] [address] Cordell Cruz RN [address] [place] [address] 10/06/2025 12:45 AM EST Appointment [facility] [address] [place] [address] Marlen Haq, PT 168 [place] [address] 10/08/2025 1:00 AM EST Appointment [facility] [address] [place] [address] Marlen Haq, PT 168 [place] [address] 10/08/2025 3:00 AM EST Appointment [facility] [address] [place] [address] Cordell Cruz RN 30 [place] [address] 10/10/2025 2:45 PM EST Office Visit [facility] [address] [place] [address] Sadi Kong MD [address] [place] [address] Fouzia Rocha, PT 8 [place] [address] 10/13/2025 Appointment [facility] [address] [place], [place] [phone] Marlen Haq, PT 168 [place] [address] 10/14/2025 3:00 PM EST Office Visit [facility] [address] [place] [address] Sadi Kong MD [address] [place] [address] Fouzia Rocha, PT 8 [place] [address] 10/15/2025 1:00 AM EST Appointment [facility] [address] [place] [address] Cordell Cruz RN 30 [place] [address] 10/22/2025 Appointment [facility] [address] [place] [address] Cordell Cruz RN 30 [place] [address] 11/06/2025 1:00 PM EST Office Visit [facility] [address] [place] [address] Sadi Kong MD [address] [place] [address] Jacob Dubose PTA [address] [place] [address] 11/11/2025 2:15 PM EST Office Visit [facility] [address] [place] [address] Sadi Kong MD [address] [place] [address] Fouzia Rocha, PT 8 [place] [address] 11/17/2025 2:30 PM EST Office Visit [facility] 8 [place] [address] Sadi Kong MD [address] [place] [address] Fouzia Rocha, PT 8 [place] [address] 11/19/2025 3:15 PM EST Office Visit [facility] [address] [place] [address] Sadi Kong MD [address] [place] [address] Fouzia Rocha, PT 8 [place] [address] 11/24/2025 1:45 PM EST Office Visit [facility] [address] [place] [address] Sadi Kong MD [address] [place] [address] Fouzia Rocha, PT 8 [place] [address] 11/26/2025 1:45 PM EST Office Visit [facility] Physical Therapy [address] [address] Sadi Kong MD [address] [place] [address] Fouzia Rocha, PT 8 [place] [address] 02/06/2026 6:30 PM EDT Appointment [facility], [address] [address] Michael Sims MD [address] [place] [address] 04/01/2026 10:00 AM EDT Appointment [facility], [facility] [address] [place] [address] Shellie Cowart MD [address] [address] 12/14/2026 2:20 PM EST Office Visit [facility] [address] [facility] [address] [place] [address] Shellie Cowart MD [address] [address] [email or web address] documented as of this encounter Visit Diagnoses Not on filedocumented in this encounter Additional Health Concerns Assessment Noted Time PHQ-2 Depression Total Score: 0 06/19/20 22 4:01 PM EDT documented as of this encounter Care Teams Application Security Developer Relationship Specialty Start Date End Date Shellie Cowart MD [address] [address] PCP - General Family Medicine 10/25/19 Paul Hooper MD [address] [place] [address] [facility] Sports Medicine, [place] [address] Orthopedic Surgery 03/01/24 Preston Pederson CAREGIVER ASSISTED LIVING [address] [address] Microsoft Bi Developer Licensed Clinical Microsoft Bi Developer 12/11/24 documented as of this encounter Additional Source Comments The information contained in this document represents components of the legal health record. It is not the complete legal health record.[facility]
--- OUTSIDE RECORDS SUMMARY | 2025-09-26 13:36 | XMS_ITS | Encounter Summary ---
Author Organization [facility] Address [address] [facility] [address] [place] [address] Phone Care Team Providers Care Commercial Escrow Officer Name Role Phone Shellie Cowart MD Primary Care Provider [phone] Paul Hooper MD Unavailable [phone] Preston Pederson SPORTS EDITOR Unavailable [phone] Encounter Details Date Type Department Care Team (Late st Contact Info) Description 04/17/2024 Procedure Pass [place] Admitting Dept - Virtual Department 30 [place] [address] Social History Tobacco Use Types Packs/Day Years [...] high school, GED, job training, learning the Nigerien language, technical skills, or developing parenting skills)? [...] st Contact Info) Description 07/25/2025 Procedure Pass [facility], [facility] 30 [place] [address] 09/30/2025 9:00 AM EST Appointment [facility] 30 [place] [address] Marlen Haq, PT [address] [place] [address] [email or web address] 10/01/2025 3:30 AM EST Appointment [facility] 30 [place] [address] Cordell Cruz RN 30 [place] [address] 10/06/2025 12:45 AM EST Appointment [facility] [address] [place], [place] [phone] Marlen Haq, PT 168 [place] [address] [email or web address] 10/08/2025 1:00 AM EST Appointment [facility] [address] [place], [place] [phone] Marlen Haq, PT [address] [place] [address] 10/08/2025 3:00 AM EST Appointment [facility] [address] [place] [address] Cordell Cruz RN 30 [place] [address] 10/10/2025 2:45 PM EST Office Visit [facility] 8 [place] [address] Sadi Kong MD 22 [facility], 2nd [place] [address] Fouzia Rocha, PT 8 [place] [address] 10/13/2025 Appointment [facility] [address] [place] [phone] Marlen Haq, PT [address] [place] [address] 10/14/2025 3:00 PM EST Office Visit [facility] [address] [place] [address] Sadi Kong MD [address] [place] [address] Fouzia Rocha, PT 8 [place] [address] 10/15/2025 1:00 AM EST Appointment [facility] [address] [place] [phone] Cordell Cruz RN [address] [place] [address] 10/22/2025 Appointment [facility] 30 [place] [address] Cordell Cruz RN [address] [place] [address] 11/06/2025 1:00 PM EST Office Visit [facility] [address] [place] [address] Sadi Kong MD [address] [place] [address] Jacob Dubose, PLUMBING ASSEMBLER 8 [place] [address] 11/11/2025 2:15 PM EST Office Visit [facility] [address] [place] [address] Sadi Kong MD [address] [place] [address] Fouzia Rocha, PT 8 [place] [address] 11/17/2025 2:30 PM EST Office Visit [facility] [address] [place] [address] Sadi Kong MD [address] [place] [address] Fouzia Rocha, PT 8 [place] [address] 11/19/2025 3:15 PM EST Office Visit [facility] [address] [place] [address] Sadi Kong MD [address] [place] [address] Fouzia Rocha, PT 8 [place] [address] 11/24/2025 1:45 PM EST Office Visit [facility] [address] [place] [address] Sadi Kong MD [address] [place] [address] Fouzia Rocha, PT 8 [place] [address] 11/26/2025 1:45 PM EST Office Visit [facility] [address] [place] [address] Sadi Kong MD [address] [place] [address] Fouzia Rocha, PT 8 [place] [address] 02/06/2026 6:30 PM EDT Appointment [facility] [address] [address] Michael Sims MD 5 [place] [address] 04/01/2026 10:00 AM EDT Appointment [address] [address] Shellie Cowart MD [address] [address] 12/14/2026 2:20 PM EST Office Visit [facility] [address] [address] Shellie Cowart MD [address] [place] [address] documented as of this encounter Visit Diagnoses Not on filedocumented in this encounter Additional Health Concerns Assessment Noted Time PHQ-2 Depression Total Score: 2 07/26/20 23 7:43 AM EDT documented as of this encounter Care Teams Commercial Escrow Officer Relationship Specialty Start Date End Date Shellie Cowart MD [address] [place] [address] PCP - General Family Medicine 10/25/19 Paul Hooper MD [address] [place] [address] [facility] Sports Medicine, [place] [address] Orthopedic Surgery 03/01/24 Preston Pederson MSW [address], [facility] [email or web address] Sedimentationist Licensed Clinical Sedimentationist 12/11/24 documented as of this encounter Additional Source Comments The information contained in this document represents components of the legal health record. It is not the complete legal health record.[facility]
--- OUTSIDE RECORDS SUMMARY | 2025-09-26 13:36 | XMS_ITS | Encounter Summary ---
Author Organization [facility] Address [address] [facility] [address] [place] [address] Phone Care Team Providers Care Office Rep Name Role Phone Shellie Cowart MD Primary Care Provider [phone] Paul Hooper MD Unavailable [phone] Preston Pederson HOT DIP GALVANIZER Unavailable [phone] Reason for Visit * Reason Onset Date Comments CD VNA INTAKE 08/26/2025 Encounter Details Date Type Department Care Team (Late st Contact Info) Description 08/26/2025 Telephone [facility] [place] [facility] [address] [facility] [address] [place] [address] Shellie Cowart MD 15 [facility] [address] [place] [address] [email or web address] CD VNA INTAKE Social History Tobacco Use Types Packs/Day Years [...] Progress Notes * Marlen Resendiz RN - 08/27/2025 8:38 AM EST S/W Milagros from [facility] V[facility] intake. Clarified note had been addended to add PCP saw pt via video. Advised for wound care VNA referral we were looking to clarify start date as pt has bed sore and cannot wait until early Sep for wound care. Milagros advised they will set start date for 24-48 hrs given pt has been calling. They do also have the PT referral and will work on this as well. * Shellie Cowart MD - 08/27/2025 8:33 AM EST Can you call them, this is wound care and home PT, orders were placed 08/19 note amended as they have asked and she cannot wait until September. She has a bed sore, needs to be seen this week * Osiris Bobby - 08/26/2025 4:20 PM EST Cindi from VNA intake lm on the triage line. States that she received a call from the pt regarding the start of care, Cindi advised her that it would be delayed to around 12/2 and to reach out to in the mean time. Also states that the 08/19 note from needs to be amended to say there is a video and audio component to visit. PT is also requesting home pt as well, requesting a new order as well. [facility] Call Center CSS Agent (Please do not reply to this user, as this inbox is not monitored. Thank you.) Thank you. documented in this encounter Plan of Treatment Upcoming Encounters Date Type Department Care Team (Late st Contact Info) Description 07/25/2025 Procedure Pass [address] [address] 09/30/2025 9:00 AM EST Appointment [facility] [address] [place] [phone] Marlen Haq, PT 168 [place] [address] 10/01/2025 3:30 AM EST Appointment [facility] [address] [place] [phone] Cordell Cruz RN [address] [place] [address] 10/06/2025 12:45 AM EST Appointment [facility] [address] [place] [phone] Marlen Haq, PT 168 [place] [address] 10/08/2025 1:00 AM EST Appointment [facility] [address] [place] [phone] Marlen Haq, PT 168 [place] [address] 10/08/2025 3:00 AM EST Appointment [facility] [address] [place] [phone] Cordell Cruz RN [address] [place] [address] 10/10/2025 2:45 PM EST Office Visit [facility] 8 [place] [address] Sadi Kong MD [address] [address] Fouzia Rocha, PT 8 [place] [address] 10/13/2025 Appointment [facility] 30 [place] [phone] Marlen Haq, PT 168 [place] [address] 10/14/2025 3:00 PM EST Office Visit [facility] 8 [place] [address] Sadi Kong MD [address] [place] [address] Fouzia Rocha, PT 8 [place] [address] 10/15/2025 1:00 AM EST Appointment [facility] 30 [place] [phone] Cordell Cruz RN 30 [place] [address] 10/22/2025 Appointment [facility] 30 [place] [phone] Cordell Cruz RN 30 [place] [address] 11/06/2025 1:00 PM EST Office Visit [facility] 8 [place] [address] Sadi Kong MD [address] [address] Jacob Dubose, CLEARING HAND 8 [place] [address] 11/11/2025 2:15 PM EST Office Visit [facility] [address] [place] [address] Sadi Kong MD [address] [place] [address] Fouzia Rocha, PT 8 [place] [address] 11/17/2025 2:30 PM EST Office Visit [facility] Physical Therapy [address] [address] Sadi Kong MD [address] [place] [address] Fouzia Rocha, PT 8 [place] [address] 11/19/2025 3:15 PM EST Office Visit [facility] Physical Therapy [address] [address] Sadi Kong MD [address] [place] [address] Fouzia Rocha, PT 8 [place] [address] 11/24/2025 1:45 PM EST Office Visit [facility] [address] [place] [address] Sadi Kong MD [address] [place] [address] Fouzia Rocha, PT 8 [place] [address] 11/26/2025 1:45 PM EST Office Visit [facility] 8 [place] [address] Sadi Kong MD 22 [facility], 2nd [place] [address] Fouzia Rocha, PT 8 [place] [address] 02/06/2026 6:30 PM EDT Appointment [address] [address] Michael Sims MD 5 [place] [address] 04/01/2026 10:00 AM EDT Appointment [address] [address] Shellie Cowart MD [address] [address] 12/14/2026 2:20 PM EST Office Visit [facility] [address] [address] Shellie Cowart MD [address] [address] documented as of this encounter Visit Diagnoses Not on filedocumented in this encounter Additional Health Concerns Assessment Noted Time PHQ-9 Depression Total Score: 1 10/24/19 25 12:00 PM EST PHQ-2 Depression Total Score: 1 10/24/19 12:00 PM EST documented as of this encounter Care Teams Office Rep Relationship Specialty Start Date End Date Shellie Cowart MD [address] [place] [address] [email or web address] PCP - General Family Medicine 10/25/19 Paul Hooper MD [address] [place] [address] Orthopedics & Sports Medicine, [place] [address] Orthopedic Surgery 03/01/24 Preston Pederson MSW [address] [place] [address] [email or web address] Instrument Repairer Licensed Clinical Instrument Repairer 12/11/24 documented as of this encounter Additional Source Comments The information contained in this document represents components of the legal health record. It is not the complete legal health record.[facility]
--- OUTSIDE RECORDS SUMMARY | 2025-09-26 13:36 | XMS_ITS | Encounter Summary ---
Author Organization [facility] Address [address] [facility] [address] [place] [address] Phone Care Team Providers Care Paleobotanist Name Role Phone Shellie Cowart MD Primary Care Provider [phone] Palu Hooper MD Unavailable [phone] Preston Pederson CHILD CARE DEVELOPMENT SPECIALIST Unavailable [phone] Encounter Details Date Type Department Care Team (Late st Contact Info) Description 06/18/2024 Procedure Pass [facility], [facility] 30 [place] [address] Social History Tobacco Use Types Packs/Day Years [...] st Contact Info) Description 07/25/2025 Procedure Pass [facility], [facility] 30 [place] [address] 09/30/2025 9:00 AM EST Appointment [facility] 30 [place] [address] Marlen Haq, PT [address] [place] [address] [email or web address] 10/01/2025 3:30 AM EST Appointment [facility] [address] [place], [place] [phone] Cordell Cruz RN 30 [place] [address] 10/06/2025 12:45 AM EST Appointment [facility] [address] [place] [address] Marlen Haq, PT 168 [place] [address] 10/08/2025 1:00 AM EST Appointment [facility] [address] [place] [address] Marlen Haq, PT 168 [place] [address] 10/08/2025 3:00 AM EST Appointment [facility] [address] [place] [address] Cordell Cruz RN 30 [place] [address] 10/10/2025 2:45 PM EST Office [facility] 8 [place] [address] Sadi Kong MD 22 [facility], 2nd [place] [address] Fouzia Rocha, PT 8 [place] [address] 10/13/2025 Appointment [facility] [address] [place] [phone] Marlen Haq, PT 168 [place] [address] 10/14/2025 3:00 PM EST Office Visit [facility] [address] [place] [address] Sadi Kong MD [address] [place] [address] Fouzia Rocha, PT 8 [place] [address] 10/15/2025 1:00 AM EST Appointment [facility] [address] [place] [phone] Cordell Cruz RN [address] [place] [address] 10/22/2025 Appointment [facility] [address] [place] [address] Cordell Cruz RN [address] [place] [address] 11/06/2025 1:00 PM EST Office Visit [facility] [address] [place] [address] Sadi Kong MD [address] [place] [address] Jacob Dubose, TALEND ETL DEVELOPER 8 [place] [address] 11/11/2025 2:15 PM EST Office Visit [facility] [address] [place] [address] [place] [address] Sadi Kong MD [address] [place] [address] Fouzia Rocha, PT 8 [place] [address] 11/17/2025 2:30 PM EST Office Visit [facility] [address] [place] [address] Sadi Kong MD [address] [place] [address] Fouzia Rocha, PT 8 [place] [address] 11/19/2025 3:15 PM EST Office Visit [facility] [address] [place] [address] Sadi Kong MD [address] [place] [address] Fouzia Rocha, PT 8 [place] [address] 11/24/2025 1:45 PM EST Office Visit [facility] Physical Therapy [address] [address] Sadi Kong MD [address] [place] [address] Fouzia Rocha, PT 8 [place] [address] 11/26/2025 1:45 PM EST Office Visit [facility] 8 [place] [address] Sadi Kong MD [address] [place] [address] Fouzia Rocha, PT 8 [place] [address] 02/06/2026 6:30 PM EDT Appointment [facility] [address] [address] Michael Sims MD 5 [place] [address] 04/01/2026 10:00 AM EDT Appointment [address] [address] Shellie Cowart MD [address] [address] 12/14/2026 2:20 PM EST Office Visit [facility] [address] [address] Shellie Cowart MD [address] [place] [address] [email or web address] documented as of this encounter Visit Diagnoses Not on filedocumented in this encounter Additional Health Concerns Assessment Noted Time PHQ-9 Depression Total Score: 18 024 8:15 AM EDT PHQ-2 Depression Total Score: 6 07/05/20 24 8:15 AM EDT documented as of this encounter Care Teams Paleobotanist Relationship Specialty Start Date End Date Shellie Cowart MD [address] [place] [address] PCP - General Family Medicine 10/25/19 Paul Hooper MD [address] [place] [address] [facility] Sports Medicine, [place] [address] Orthopedic Surgery 03/01/24 Preston Pederson, CHILD CARE DEVELOPMENT SPECIALIST [address] [place] [address] [email or web address] Embossed Or Impressed Lettering Painter Licensed Clinical Embossed Or Impressed Lettering Painter 12/11/24 documented as of this encounter Additional Source Comments The information contained in this document represents components of the legal health record. It is not the complete legal health record.[facility]
--- OUTSIDE RECORDS SUMMARY | 2025-09-26 13:36 | XMS_ITS | Encounter Summary ---
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 [place] [address] Phone: tel: fax: [email or web address]:[email or web address] Brien Harris MD [facility] [address] [place] [address] Phone: tel: fax: Referral ID Status Reason Start Date Expiration Date V isits Requested Visits Authorized [id number] Authorized 07/03/2025 07/03/2026 6 6 Scheduling Instructions A nurse from your PCP's office will schedule your appointment and contact you. Please call your PCP's office with questions. [facility] Neurosurgery- Dr. Brien Harris P: [phone] F: [phone] 2 [facility] , [address] [place] [address] Encounter Details Date Type Department Care Team (Late st Contact Info) Description 07/03/2025 Telephone [facility] 15 [facility] [address] [place] [address] Shellie Cowart MD [address] [facility] [address] [place] [address] [email or web address] Social History Tobacco Use Types Packs/Day Years [...] of this encounter Progress Notes * Nury yN RN - 07/04/2025 8:32 AM EDT Called [facility] and had film library send XR and [...] st Contact Info) Description 07/25/2025 Procedure Pass [facility] 30 [place] [address] 09/30/2025 9:00 AM EST Appointment [facility] [address] [place] [phone] Marlen Haq, PT 168 [place] [address] [email or web address] 10/01/2025 3:30 AM EST Appointment [facility] [address] [place] [phone] Cordell Cruz RN [address] [place] [address] [email or web address] 10/06/2025 12:45 AM EST Appointment [facility] [address] [place] [phone] Marlen Haq, PT [address] [place] [address] [email or web address] 10/08/2025 1:00 AM EST Appointment [facility] [address] [place] [phone] Marlen Haq, PT [address] [place] [address] [email or web address] 10/08/2025 3:00 AM EST Appointment [facility] [address] [place] [phone] Cordell Cruz RN 30 [place] [address] [email or web address] 10/10/2025 2:45 PM EST Office Visit [facility] 8 [place] [address] Sadi Kong MD [address] [address] Fouzia Rocha, PT 8 [place] [address] 10/13/2025 Appointment [facility] 30 [place] [address] Marlen Haq, PT 168 [place] [address] 10/14/2025 3:00 PM EST Office Visit [facility] 8 [place] [address] Sadi Kong MD [address] [address] Fouzia Rocha, PT 8 [place] [address] 10/15/2025 1:00 AM EST Appointment [facility] 30 [place], [place] [phone] Cordell Cruz RN 30 [place] [address] 10/22/2025 Appointment [facility] 30 [place], [place] [phone] Cordell Cruz, ANN-MARIE [address] [place] [address] 11/06/2025 1:00 PM EST Office Visit [facility] 8 [place] [address] Sadi Kong MD [address] [place] [address] Jacob Dubose, HOUSEKEEPER HOME 8 [place] [address] 11/11/2025 2:15 PM EST Office Visit [facility] [address] [address] Sadi Kong MD [address] [place] [address] Fouzia Rocha, PT 8 [place] [address] 11/17/2025 2:30 PM EST Office Visit [facility] [address] [place] [address] Sadi Kong MD [address] [place] [address] Fouzia Rocha, PT 8 [place] [address] 11/19/2025 3:15 PM EST Office Visit [facility] [address] [place] [address] Sadi Kong MD [address] [place] [address] Fouzia Rocha, PT 8 [place] [address] 11/24/2025 1:45 PM EST Office Visit [facility] [address] [place] [address] Sadi Kong MD [address] [address] Fouzia Rocha, PT 8 [place] [address] 11/26/2025 1:45 PM EST Office Visit [facility] 8 [place] [address] Sadi Kong MD [address] [address] Fouzia Rocha, PT 8 [place] [address] 02/06/2026 6:30 PM EDT Appointment [facility] [address] [address] Michael Sims MD [address] [place] [address] 04/01/2026 10:00 AM EDT Appointment [address] [address] Shellie Cowart MD [address] [place] [address] 12/14/2026 2:20 PM EST Office Visit [facility] [address] [address] Shellie Cowart MD [address] [place] [address] Scheduled Referrals Name Type Priority Associated Diagnoses Orde r Schedule [facility] Neurosurgery- Dr. 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, subsequent encounter- Primary documented in this encounter Additional Health Concerns Assessment Noted Time PHQ-9 Depression Total Score: 10/24/19 12:00 PM EST PHQ-2 Depression Total Score: 10/24/19 12:00 PM EST documented as of this encounter Care Teams Lead Pl Sql Developer Relationship Specialty Start Date End Date Shellie Cowart MD [address] [place] [address] PCP - General Family Medicine 10/25/19 Paul Hooper MD [address] [place] [address] Orthopedics & Sports Medicine, [place] [address] Orthopedic Surgery 03/01/24 Preston Pederson MSW [address] [place] [address] Product Introduction Manager Licensed Clinical Product Introduction Manager 12/11/24 documented as of this encounter Additional Source Comments The information contained in this document represents components of the legal health record. It is not the complete legal health record.[facility]
--- OUTSIDE RECORDS SUMMARY | 2025-09-26 13:36 | XMS_ITS | Encounter Summary ---
Author Organization [facility] Address [address] [facility] [address] [place] [address] Phone Care Team Providers Care Ldr Nurse Name Role Phone Shellie Cowart MD Primary Care Provider [phone] Paul Hooper MD Unavailable [phone] Preston Pederson VEHICLE PAINTER Unavailable [phone] Reason for Referral * - Closed Specialty Diagnoses / Procedures Referred By Contac t Referred To Contact Diagnoses Palpitations Procedures MCT (Mobile Cardiac Telemetry) Event Monitor Looping up to 30 Days Ryan Burger MD Phone: tel: fax: mailto:[email or web address] Referral ID Status Reason Start Date Expiration Date Visits Re quested Visits Authorized [id number] Closed 12/09/2022 12/09/2023 1 1 Encounter Details Date Type Department Care Team (Late st Contact Info) Description 02/20/2023 Ancillary Orders [facility] [address], [address] [place] [address] Ryan Burger MD [address] [place] [address] [email or web address] Palpitations Social History Tobacco Use Types Packs/Day [...] high school, GED, job training, learning the Armenian language, technical skills, or developing parenting skills)? [...] st Contact Info) Description 07/25/2025 Procedure Pass [address] [address] 09/30/2025 9:00 AM EST Appointment [facility] 30 [place] [address] Marlen Haq, PT 168 [place] [address] [email or web address] 10/01/2025 3:30 AM EST Appointment [facility] [address] [place] [address] Cordell Cruz RN 30 [place] [address] [email or web address] 10/06/2025 12:45 AM EST Appointment [facility] [address] [place] [phone] Marlen Haq, PT 168 [place] [address] [email or web address] 10/08/2025 1:00 AM EST Appointment [facility] [address] [place] [address] Marlen Haq, PT 168 [place] [address] [email or web address] 10/08/2025 3:00 AM EST Appointment [facility] [address] [place] [phone] Cordell Cruz RN 30 [place] [address] [email or web address] 10/10/2025 2:45 PM EST Office Visit [facility] 8 [place] [address] Sadi Kong MD 22 [facility], 2nd [place] [address] Fouzia Rocha, PT 8 [place] [address] 10/13/2025 Appointment [facility] 30 [place] [phone] Marlen Haq, PT 168 [place] [address] 10/14/2025 3:00 PM EST Office Visit [facility] 8 [place] [address] Sadi Kong MD [address] [address] Fouzia Rocha, PT 8 [place] [address] 10/15/2025 1:00 AM EST Appointment [facility] 30 [place], [place] [phone] Cordell Cruz RN 30 [place] [address] 10/22/2025 Appointment [facility] 30 [place] [phone] Cordell Cruz RN 30 [place] [address] 11/06/2025 1:00 PM EST Office Visit [facility] [address] [place] [address] Sadi Kong MD [address] [address] Jacob Dubose, ELECTRICAL INSPECTOR 8 [place] [address] 11/11/2025 2:15 PM EST Office [facility] [address] [place] [address] Sadi Kong MD [address] [place] [address] Fouzia Rocha, PT 8 [place] [address] 11/17/2025 2:30 PM EST Office Visit [facility] [address] [place] [address] Sadi Kong MD [address] [place] [address] Fouzia Rocha, PT 8 [place] [address] 11/19/2025 3:15 PM EST Office Visit [facility] [address] [place] [address] [place] [address] Sadi Kong MD [address] [place] [address] Fouzia Rocha, PT 8 [place] [address] 11/24/2025 1:45 PM EST Office Visit [facility] [address] [place] [address] Sadi Kong MD [address] [place] [address] Fouzia Rocha, PT 8 [place] [address] 11/26/2025 1:45 PM EST Office Visit [facility] 8 [place] [address] Sadi Kong MD 22 [facility], 2nd [place] [address] Fouzia Rocha, PT 8 [place] [address] 02/06/2026 6:30 PM EDT Appointment [facility] [address] [address] Michael Sims MD [address] [place] [address] 04/01/2026 10:00 AM EDT Appointment [address] [address] Shellie Cowart MD [address] [address] 12/14/2026 2:20 PM EST Office Visit [facility] [address] [address] Shellie Cowart MD [address] [address] [email or web address] Scheduled Orders Name Type Priority Associated Diagnoses Orde r Schedule MCT (Mobile Cardiac Telemetry) Cardiac Monitors Routine Palpitations Expected: 12/09/2022, Expires: 03/11/2023 documented as of this encounter Visit Diagnoses Diagnosis Palpitations documented in this encounter Additional Health Concerns Assessment Noted Time PHQ-2 Depression Total Score: 0 06/19/20 4:01 PM EDT documented as of this encounter Care Teams Ldr Nurse Relationship Specialty Start Date End Date Shellie Cowart MD [address] [place] [address] [email or web address] PCP - General Family Medicine 10/25/19 Paul Hooper MD [address] [place] [address] Orthopedics & Sports Medicine, [facility] [place] [address] Orthopedic Surgery 03/01/24 Preston Pederson MSW [address] [place] [address] Knife Edger Licensed Clinical Knife Edger 12/11/24 documented as of this encounter Additional Source Comments The information contained in this document represents components of the legal health record. It is not the complete legal health record.[facility]
--- OUTSIDE RECORDS SUMMARY | 2025-09-26 13:36 | XMS_ITS | Encounter Summary ---
Author Organization [facility] Address [address] [facility] [address] [place] [address] Phone Care Team Providers Care Marriage Therapist Name Role Phone Shellie Cowart MD Primary Care Provider [phone] Paul Hooper MD Unavailable [phone] Preston Pederson CHAINSTITCH FELLED SEAM OPERATOR Unavailable [phone] Encounter Details Date Type Department Care Team (Late st Contact Info) Description 02/17/2025 Procedure Pass [facility] 30 [place] [address] Social History Tobacco Use Types Packs/Day Years [...] Contact Info) Description 07/25/2025 Procedure Pass [facility], [facility] 30 [place] [address] 09/30/2025 9:00 AM EST Appointment [facility] [address] [place] [phone] Marlen Haq, PT 168 [place] [address] 10/01/2025 3:30 AM EST Appointment [facility] [address] [place] [phone] Cordell Cruz RN [address] [place] [address] 10/06/2025 12:45 AM EST Appointment [facility] [address] [place] [phone] Marlen Haq, PT 168 [place] [address] 10/08/2025 1:00 AM EST Appointment [facility] [address] [place] [phone] Marlen Haq, PT 168 [place] [address] 10/08/2025 3:00 AM EST Appointment [facility] [address] [place] [phone] Cordell Cruz RN [address] [place] [address] 10/10/2025 2:45 PM EST Office Visit [facility] 8 [place] [address] Sadi Kong MD 22 [facility], 2nd [place] [address] Fouzia Rocha, PT 8 [place] [address] 10/13/2025 Appointment [facility] 30 [place], [place] [phone] Marlen Haq, PT 168 [place] [address] 10/14/2025 3:00 PM EST Office Visit [facility] [address] [place] [address] Sadi Kong MD [address] [place] [address] Fouzia Rocha, PT 8 [place] [address] 10/15/2025 1:00 AM EST Appointment [facility] 30 [place], [place] [phone] Cordell Cruz RN 30 [place] [address] 10/22/2025 Appointment [facility] 30 [place], [place] [phone] Cordell Cruz RN 30 [place] [address] 11/06/2025 1:00 PM EST Office Visit [facility] 8 [place] [address] Sadi Kong MD [address] [place] [address] Jacob Dubose, LINSEED OIL BOILER 8 [place] [address] 11/11/2025 2:15 PM EST Office Visit [facility] [address] [place] [address] [place] [address] Sadi Kong MD [address] [place] [address] Fouzia Rocha, PT 8 [place] [address] 11/17/2025 2:30 PM EST Office Visit [facility] Therapy [address] [address] Sadi Kong MD [address] [place] [address] Fouzia Rocha, PT 8 [place] [address] 11/19/2025 3:15 PM EST Office Visit [facility] [address] [address] Sadi Kong MD [address] [place] [address] Fouzia Rocha, PT 8 [place] [address] 11/24/2025 1:45 PM EST Office Visit [facility] [address] [place] [address] Sadi Kong MD [address] [place] [address] Fouzia Rocha, PT 8 [place] [address] 11/26/2025 1:45 PM EST Office Visit [facility] [address] [place] [address] Sadi Kong MD 22 [facility], 2nd [place] [address] Fouzia Rocha, PT 8 [place] [address] 02/06/2026 6:30 PM EDT Appointment [address] [address] Michael Sims MD [address] [place] [address] 04/01/2026 10:00 AM EDT Appointment [address] [address] Shellie Cowart MD [address] [address] 12/14/2026 2:20 PM EST Office Visit [facility] [address] [address] Shellie Cowart MD [address] [address] documented as of this encounter Visit Diagnoses Not on filedocumented in this encounter Additional Health Concerns Assessment Noted Time PHQ-9 Depression Total Score: 1 10/24/19 12:00 PM EST PHQ-2 Depression Total Score: 1 10/24/19 12:00 PM EST documented as of this encounter Care Teams Marriage Therapist Relationship Specialty Start Date End Date Shellie Cowart MD [address] [address] [email or web address] PCP - General Family Medicine 10/25/19 Paul Hooper MD [address] [place] [address] Orthopedics & Sports Medicine, [place] [address] [email or web address] Orthopedic Surgery 03/01/24 Preston Pederson MSW [address] [place] [address] [email or web address] Director Of Safety And Security Licensed Clinical Director Of Safety And Security 12/11/24 documented as of this encounter Additional Source Comments The information contained in this document represents components of the legal health record. It is not the complete legal health record.[facility]
--- OUTSIDE RECORDS SUMMARY | 2025-09-26 13:36 | XMS_ITS | Encounter Summary ---
Author Organization [facility] Address [address] [facility] [address] [place] [address] Phone Care Team Providers Care Precision Lens Centerer And Edger Name Role Phone Shellie Cowart MD Primary Care Provider [phone] Paul Hooper MD Unavailable Preston Pederson CONCENTRATOR OPERATOR Unavailable [phone] Reason for Visit * Reason Comments Medication Refill Encounter Details Date Type Department Care Team (Late st Contact Info) Description 08/14/[address] [facility] [address] [facility] [address] [place] [address] Shellie Cowart MD 15 [facility] [address] [place] [address] [email or web address] [email or web address] Refill Social History Tobacco Use Types [...] Info) Description 07/25/2025 Procedure Pass [facility], [facility]- [address] [address] 09/30/2025 9:00 AM EST Appointment [facility] [address] [place] [phone] Marlen Haq, PT 168 [place] [address] [email or web address] 10/01/2025 3:30 AM EST Appointment [facility] [address] [place] [phone] Cordell Cruz RN 30 [place] [address] [email or web address] 10/06/2025 12:45 AM EST Appointment [facility] [address] [place] [phone] Marlen Haq, PT 168 [place] [address] [email or web address] 10/08/2025 1:00 AM EST Appointment [facility] [address] [place] [phone] Marlen Haq, PT 168 [place] [address] [email or web address] 10/08/2025 3:00 AM EST Appointment [facility] [address] [place] [phone] Cordell Cruz RN 30 [place] [address] 10/10/2025 2:45 PM EST Office Visit [facility] [address] [place] [address] Sadi Kong MD [address] [place] [address] Fouzia Rocha, PT 8 [place] [address] 10/13/2025 Appointment [facility] 30 [place], [place] [phone] Marlen Haq, PT 168 [place] [address] 10/14/2025 3:00 PM EST Office Visit [facility] 8 [place] [address] Sadi Kong MD [address] [place] [address] Fouzia Rocha, PT 8 [place] [address] 10/15/2025 1:00 AM EST Appointment [facility] 30 [place], [place] [phone] Cordell Cruz RN [address] [place] [address] 10/22/2025 Appointment [facility] 30 [place], [place] [phone] Cordell Cruz, ANN-MARIE [address] [place] [address] 11/06/2025 1:00 PM EST Office [facility] [address] [place] [address] Sadi Kong MD [address] [place] [address] Jacob Dubose, MODEL MAKER APPRENTICE 8 [place] [address] 11/11/2025 2:15 PM EST Office Visit [facility] Therapy [address] [place] [address] Sadi Kong MD [address] [place] [address] Fouzia Rocha, PT 8 [place] [address] 11/17/2025 2:30 PM EST Office Visit [facility] Therapy [address] [place] [address] Sadi Kong MD [address] [place] [address] Fouzia Rocha, PT 8 [place] [address] 11/19/2025 3:15 PM EST Office Visit [facility] [address] [place] [address] Sadi Kong MD [address] [place] [address] Fouzia Rocha, PT 8 [place] [address] 11/24/2025 1:45 PM EST Office Visit [facility] [address] [place] [address] Sadi Kong MD [address] [address] Fouzia Rocha, PT 8 [place] [address] 11/26/2025 1:45 PM EST Office Visit [facility] 8 [place] [address] Sadi Kong MD [address] [place] [address] Fouzia Rocha, PT 8 [place] [address] 02/06/2026 6:30 PM EDT Appointment [facility] [address] [address] Michael Sims MD [address] [place] [address] 04/01/2026 10:00 AM EDT Appointment [address] [address] Shellie Cowart MD [address] [place] [address] 12/14/2026 2:20 PM EST Office Visit [facility] [address] [address] Shellie Cowart MD [address] [place] [address] documented as of this encounter Visit Diagnoses Not on filedocumented in this encounter Additional Health Concerns Assessment Noted Time PHQ-9 Depression Total Score: 10/24/19 25 12:00 PM EST PHQ-2 Depression Total Score: 10/24/19 12:00 PM EST documented as of this encounter Care Teams Precision Lens Centerer And Edger Relationship Specialty Start Date End Date Shellie Cowart MD [address] [address] PCP - General Family Medicine 10/25/19 Paul Hooper MD [address] [place] [address] Orthopedics & Sports Medicine, [place] [address] Orthopedic Surgery 03/01/24 Preston Pederson MSW [address] [place] [address] Heel Seat Filler Licensed Clinical Heel Seat Filler 12/11/24 documented as of this encounter Additional Source Comments The information contained in this document represents components of the legal health record. It is not the complete legal health record.[facility]
--- OUTSIDE RECORDS SUMMARY | 2025-09-26 13:36 | XMS_ITS | Encounter Summary ---
Author Organization [facility] Address [address] [place] [address] Phone Care Team Providers Care Fretted Instrument Inspector Name Role Phone Shellie Cowart MD Primary Care Provider [phone] Paul Hooper MD Unavailable [phone] Preston Pederson SUPPLY CHAIN COORDINATOR Unavailable [phone] Encounter Details Date Type Department Care Team (Late st Contact Info) Description 06/25/2025 Procedure Pass [facility], [facility] 30 [place] [address] Social History Tobacco Use Types Packs/Day Years [...] (Kenisha Contact Info) Description 07/25/2025 Procedure Pass [facility], [facility] 30 [place] [address] 09/30/2025 9:00 AM EST Appointment [facility] [address] [place] [phone] Marlen Haq, PT 168 [place] [address] [email or web address] 10/01/2025 3:30 AM EST Appointment [facility] [address] [place] [phone] Cordell Cruz RN [address] [place] [address] [email or web address] 10/06/2025 12:45 AM EST Appointment [facility] [address] [place] [phone] Marlen Haq, PT 168 [place] [address] [email or web address] 10/08/2025 1:00 AM EST Appointment [facility] [address] [place] [phone] Marlen Haq, PT 168 [place] [address] [email or web address] 10/08/2025 3:00 AM EST Appointment [facility] [address] [place] [phone] Cordell Cruz RN [address] [place] [address] [email or web address] 10/10/2025 2:45 PM EST Office Visit [facility] 8 [place] [address] Sadi Kong MD 22 [facility], 2nd [place] [address] Fozuia Rocha, PT 8 [place] [address] 10/13/2025 Appointment [facility] [address] [place], [place] [phone] Marlen Haq, PT 168 [place] [address] 10/14/2025 3:00 PM EST Office Visit [facility] 8 [place] [address] Sadi Kong MD [address] [place] [address] Fouzia Rocha, PT 8 [place] [address] 10/15/2025 1:00 AM EST Appointment [facility] 30 [place], [place] [phone] Cordell Cruz RN 30 [place] [address] 10/22/2025 Appointment [facility] 30 [place], [place] [phone] Cordell Cruz RN 30 [place] [address] 11/06/2025 1:00 PM EST Office Visit [facility] 8 [place] [address] Sadi Kong MD [address] [place] [address] Jacob Dubose, SERVICE OR WORK DISPATCHER CHIEF 8 [place] [address] 11/11/2025 2:15 PM EST Office Visit [facility] [address] [place] [address] [place] [address] Sadi Kong MD [address] [place] [address] Fouzia Rocha, PT 8 [place] [address] 11/17/2025 2:30 PM EST Office Visit [facility] [address] [address] Sadi Kong MD [address] [place] [address] Fouzia Rocha, PT 8 [place] [address] 11/19/2025 3:15 PM EST Office Visit [facility] [address] [place] [address] Sadi Kong MD [address] [place] [address] Fouzia Rocha, PT 8 [place] [address] 11/24/2025 1:45 PM EST Office Visit [facility] [address] [place] [address] [place] [address] Sadi Kong MD [address] [place] [address] Fouzia Rocha, PT 8 [place] [address] 11/26/2025 1:45 PM EST Office Visit [facility] 8 [place] [address] Sadi Kong MD 22 [facility], 2nd [place] [address] Fouzia Rocha, PT 8 [place] [address] 02/06/2026 6:30 PM EDT Appointment [address] [address] Michael Sims MD [address] [place] [address] 04/01/2026 10:00 AM EDT Appointment [address] [address] Shellie Cowart MD [address] [address] [email or web address] 12/14/2026 2:20 PM EST Office Visit [facility] [address] [address] Shellie Cowart MD [address] [address] documented as of this encounter Visit Diagnoses Not on filedocumented in this encounter Additional Health Concerns Assessment Noted Time PHQ-9 Depression Total Score: 1 10/24/19 25 12:00 PM EST PHQ-2 Depression Total Score: 1 10/24/19 12:00 PM EST documented as of this encounter Care Teams Fretted Instrument Inspector Relationship Specialty Start Date End Date Shellie Cowart MD [address] [address] [email or web address] PCP - General Family Medicine 10/25/19 Paul Hooper MD [address] [place] [address] Orthopedics & Sports Medicine, [place] [address] [email or web address] Orthopedic Surgery 03/01/24 Preston Pederson MSW [address] [address] [email or web address] Debt Recovery Officer Licensed Clinical Debt Recovery Officer 12/11/24 documented as of this encounter Additional Source Comments The information contained in this document represents components of the legal health record. It is not the complete legal health record.[facility]
--- OUTSIDE RECORDS SUMMARY | 2025-09-26 13:37 | XMS_ITS | Encounter Summary ---
Author Organization [facility] Address [address] [facility] [address] [place] [address] Phone Care Team Providers Care Preschool Substitute Teacher Name Role Phone Shellie Cowart MD Primary Care Provider [phone] Paul Hooper MD Unavailable [phone] Preston Pederson PRODUCT OWNER Unavailable [phone] Reason for Visit * Reason Comments Medication Refill Encounter Details Date Type Department Care Team (Late st Contact Info) Description 07/13/2025 Refill [facility] [address] [facility] [address] [place] [address] Shellie Cowart MD 15 [facility] [address] [place] [address] [email or web address] Medication Refill Social History Tobacco Use Types [...] st Contact Info) Description 07/25/2025 Procedure Pass [facility], [address] [address] 09/30/2025 9:00 AM EST Appointment [facility] [address] [place] [phone] Marlen Haq, PT 168 [place] [address] [email or web address] 10/01/2025 3:30 AM EST [facility]ment [facility] [address] [place] [phone] Cordell Cruz, ANN-MARIE 30 [place] [address] [email or web address] 10/06/2025 12:45 AM EST Appointment [facility] [address] [place] [phone] Marlen Haq, PT [address] [place] [address] [email or web address] 10/08/2025 1:00 AM EST Appointment [facility] [address] [place] [phone] Marlen Haq, PT [address] [place] [address] [email or web address] 10/08/2025 3:00 AM EST Appointment [facility] 30 [place] [phone] Cordell Cruz RN 30 [place] [address] 10/10/2025 2:45 PM EST Office Visit [facility] 8 [place] [address] Sadi Kong MD [address] [place] [address] Fouzia Rocha, PT 8 [place] [address] 10/13/2025 Appointment [facility] 30 [place], [place] [phone] Marlen Haq, PT 168 [place] [address] 10/14/2025 3:00 PM EST Office Visit [facility] 8 [place] [address] Sadi Kong MD [address] [place] [address] Fouzia Rocha, PT 8 [place] [address] 10/15/2025 1:00 AM EST Appointment [facility] 30 [place] [phone] Cordell Cruz RN 30 [place] [address] 10/22/2025 Appointment [facility] 30 [place] [phone] Cordell Cruz RN [address] [place] [address] 11/06/2025 1:00 PM EST Office Visit [facility] [address] [place] [address] Sadi Kong MD [address] [place] [address] Jacob Dubose, TEST AND BALANCE ENGINEER [address] [place] [address] 11/11/2025 2:15 PM EST Office Visit [facility] [address] [address] Sadi Knog MD [address] [place] [address] Fouzia Rocha, PT 8 [place] [address] 11/17/2025 2:30 PM EST Office Visit [facility] [address] [address] Sadi Kong MD [address] [place] [address] Fouzia Rocha, PT 8 [place] [address] 11/19/2025 3:15 PM EST Office Visit [facility] [address] [address] Sadi Kong MD [address] [place] [address] Fouzia Rocha, PT 8 [place] [address] 11/24/2025 1:45 PM EST Office Visit [facility] [address] [place] [address] Sadi Kong MD [address] [address] Fouzia Rocha, PT 8 [place] [address] 11/26/2025 1:45 PM EST Office Visit [facility] 8 [place] [address] Sadi Kong MD [address] [address] Fouzia Rocha, PT 8 [place] [address] 02/06/2026 6:30 PM EDT Appointment [address] [address] Michael Sims MD [address] [place] [address] 04/01/2026 10:00 AM EDT Appointment [address] [address] Shellie Cowart MD [address] [address] 12/14/2026 2:20 PM EST Office Visit [facility] [address] [address] Shellie Cowart MD [address] [address] [email or web address] documented as of this encounter Visit Diagnoses Not on filedocumented in this encounter Additional Health Concerns Assessment Noted Time PHQ-9 Depression Total Score: 10/24/19 12:00 PM EST PHQ-2 Depression Total Score: 10/24/19 12:00 PM EST documented as of this encounter Care Teams Preschool Substitute Teacher Relationship Specialty Start Date End Date Shellie Cowart MD [address] [address] [email or web address] PCP - General Family Medicine 10/25/19 Paul Hooper MD [address] [place] [address] Orthopedics & Sports Medicine, [place] [address] [email or web address] Orth[facility] Surgery 03/01/24 Preston Pederson, PRODUCT OWNER [address] [place] [address] [email or web address] Devulcanizer Loader Licensed Clinical Devulcanizer Loader 12/11/24 documented as of this encounter Additional Source Comments The information contained in this document represents components of the legal health record. It is not the complete legal health record.[facility]
--- OUTSIDE RECORDS SUMMARY | 2025-09-26 13:37 | XMS_ITS | Encounter Summary ---
Author Organization [facility] Address [address] [facility] [address] [facility] [address] [place] [address] Phone Care Team Providers Care Fixed Income Analyst Name Role Phone Shellie Cowart MD Primary Care Provider Paul Hooper MD Unavailable [phone] Preston Pedersno CERTIFIED PROSTHETIST/ORTHOTIST Unavailable [phone] Reason for Visit * Reason Onset Date Comments Medication Problem 07/07/2025 Encounter Details Date Type Department Care Team (Late st Contact Info) Description 07/07/2025 Telephone [facility] [address] [facility] [address] [place] [address] Shellie Cowart MD 15 [facility] [address] [place] [address] [email or web address] Medication Problem Social History Tobacco Use Types [...] st Contact Info) Description 07/25/2025 Procedure Pass [address] [address] 09/30/2025 9:00 AM EST [facility]ment [facility] [address] [place] [address] Marlen Haq, PT 168 [place] [address] [email or web address] 10/01/2025 3:30 AM EST Appointment [facility] [address] [place] [address] Cordell Cruz RN 30 [place] [address] [email or web address] 10/06/2025 12:45 AM EST Appointment [facility] [address] [place] [address] Marlen Haq, PT 168 [place] [address] [email or web address] 10/08/2025 1:00 AM EST Appointment [facility] 30 [place] [phone] Marlen Haq, PT 168 [place] [address] 10/08/2025 3:00 AM EST Appointment [facility] 30 [place] [phone] Cordell Cruz RN 30 [place] [address] 10/10/2025 2:45 PM EST Office Visit [facility] 8 [place] [address] Sadi Kong MD [address] [place] [address] Fouzia Rocha, PT 8 [place] [address] 10/13/2025 Appointment [facility] [address] [place] [address] Marlen Haq, PT 168 [place] [address] 10/14/2025 3:00 PM EST Office Visit [facility] [address] [place] [address] Sadi Kong MD [address] [place] [address] Fouzia Rocha, PT 8 [place] [address] 10/15/2025 1:00 AM EST Appointment [facility] 30 [place] [phone] Cordell Cruz RN 30 [place] [address] 10/22/2025 Appointment [facility] 30 [place] [phone] Cordell Cruz RN 30 [place] [address] 11/06/2025 1:00 PM EST Office Visit [facility] [address] [place] [address] Sadi Kong MD [address] [place] [address] Jacob Dubose, MOTORCYCLE TECHNICIAN 8 [place] [address] 11/11/2025 2:15 PM EST Office Visit [facility] 8 [place] [address] Sadi Kong MD [address] [place] [address] Fouzia Rocha, PT 8 [place] [address] 11/17/2025 2:30 PM EST Office Visit [facility] 8 [place] [address] Sadi Kong MD [address] [place] [address] Fouzia Rocha, PT 8 [place] [address] 11/19/2025 3:15 PM EST Office Visit [facility] [address] [place] [address] Sadi Kong MD [address] [place] [address] Fouzia Rocha, PT 8 [place] [address] 11/24/2025 1:45 PM EST Office Visit [facility] 8 [place] [address] Sadi Kong MD [address] [place] [address] Fouzia oRcha, PT 8 [place] [address] 11/26/2025 1:45 PM EST Office Visit [facility] 8 [place] [address] Sadi Kong MD [address] [place] [address] Fouzia Rocha, PT 8 [place] [address] 02/06/2026 6:30 PM EDT Appointment [address] [address] Michael Sims MD [address] [place] [address] 04/01/2026 10:00 AM EDT Appointment [address] [address] Shellie Cowart MD [address] [place] [address] 12/14/2026 2:20 PM EST Office Visit [facility] [address] [place] [address] Shellie Cowart MD [address] [place] [address] documented as of this encounter Visit Diagnoses Not on filedocumented in this encounter Additional Health Concerns Assessment Noted Time PHQ-9 Depression Total Score: 10/24/19 12:00 PM EST PHQ-2 Depression Total Score: 10/24/19 12:00 PM EST documented as of this encounter Care Teams Fixed Income Analyst Relationship Specialty Start Date End Date Shellie Cowart MD [address] [place] [address] PCP - General Family Medicine 10/25/19 Paul Hooper MD [address] [place] [address] Orthopedics & Sports Medicine, [place] [address] Orthopedic Surgery 03/01/24 Preston Pederson MSW [address] [place] [address], [address] Nurse General Duty Licensed Clinical Nurse General Duty 12/11/24 documented as of this encounter Additional Source Comments The information contained in this document represents components of the legal health record. It is not the complete legal health record.[facility]
--- OUTSIDE RECORDS SUMMARY | 2025-09-26 13:37 | XMS_ITS | Encounter Summary ---
Author Organization [facility] Address [address] [facility] [address] [place] [address] Phone Care Team Providers Care Recovery Agent Name Role Phone Shellie Cowart MD Primary Care Provider [phone] Paul Hooper MD Unavailable [phone] Preston Pederson HIGH SCHOOL ASSISTANT FOOTBALL COACH Unavailable Encounter Details Date Type Department Care Team (Late st Contact Info) Description 07/11/2025 Procedure Pass [facility] 30 [place] [address] Social History Tobacco Use Types Packs/Day Years [...] Pass [facility] 30 [place] [address] 09/30/2025 9:00 AM EST Appointment [facility] [address] [place] [phone] Marlen Haq, PT 168 [place] [address] 10/01/2025 3:30 AM EST Appointment [facility] [address] [place] [phone] Cordell Cruz RN [address] [place] [address] 10/06/2025 12:45 AM EST Appointment [facility] [address] [place] [phone] Marlen Haq, PT [address] [place] [address] 10/08/2025 1:00 AM EST Appointment [facility] [address] [place] [phone] Marlen Haq, PT 168 [place] [address] 10/08/2025 3:00 AM EST Appointment [facility] [address] [place] [phone] Cordell Cruz RN [address] [place] [address] 10/10/2025 2:45 PM EST Office Visit [facility] 8 [place] [address] Sadi Kong MD 22 [facility], 2nd [place] [address] Fouzia Rocha, PT 8 [place] [address] 10/13/2025 Appointment [facility] 30 [place], [place] [phone] Marlen Haq, PT [address] [place] [address] 10/14/2025 3:00 PM EST Office Visit [facility] 8 [place] [address] Sadi Kong MD [address] [place] [address] Fouzia Rocha, PT 8 [place] [address] 10/15/2025 1:00 AM EST Appointment [facility] 30 [place], [place] [phone] Cordell Cruz RN 30 [place] [address] 10/22/2025 Appointment [facility] 30 [place] [phone] Cordell Cruz RN 30 [place] [address] 11/06/2025 1:00 PM EST Office Visit [facility] 8 [place] [address] Sadi Kong MD [address] [place] [address] Jacob Dubose, ARMHOLE RAISER LOCKSTITCH 8 [place] [address] 11/11/2025 2:15 PM EST Office Visit [facility] [address] [place] [address] Sadi Kong MD [address] [place] [address] Fouzia Rocha, PT 8 [place] [address] 11/17/2025 2:30 PM EST Office Visit [facility] Physical Therapy [address] [address] Sadi Kong MD [address] [place] [address] Fouzia Rocha, PT 8 [place] [address] 11/19/2025 3:15 PM EST Office Visit [facility] Physical Therapy [address] [address] Sadi Kong MD [address] [place] [address] Fouzia Rocha, PT 8 [place] [address] 11/24/2025 1:45 PM EST Office Visit [facility] [address] [place] [address] Sadi Kong MD [address] [place] [address] Fouzia Rocha, PT 8 [place] [address] 11/26/2025 1:45 PM EST Office Visit [facility] 8 [place] [address] Sadi Kong MD 22 [facility], 2nd [place] [address] Fouzia Rocha, PT 8 [place] [address] 02/06/2026 6:30 PM EDT Appointment [address] [address] Michael Sims MD [address] [place] [address] 04/01/2026 10:00 AM EDT Appointment [address] [address] Shellie Cowart MD [address] [place] [address] 12/14/2026 2:20 PM EST Office Visit [facility] [address] [address] Shellie Cowart MD [address] [address] documented as of this encounter Visit Diagnoses Not on filedocumented in this encounter Additional Health Concerns Assessment Noted Time PHQ-9 Depression Total Score: 1 10/24/19 12:00 PM EST PHQ-2 Depression Total Score: 1 10/24/19 12:00 PM EST documented as of this encounter Care Teams Recovery Agent Relationship Specialty Start Date End Date Shellie Cowart MD [address] [address] [email or web address] PCP - General Family Medicine 10/25/19 Paul Hooper MD [address] [place] [address] Orthopedics & Sports Medicine, [place] [address] [email or web address] Orthopedic Surgery 03/01/24 Preston Pederson MSW [address] [address] [email or web address] Rn Occupational Health Licensed Clinical Rn Occupational Health 12/11/24 documented as of this encounter Additional Source Comments The information contained in this document represents components of the legal health record. It is not the complete legal health record.[facility]
--- OUTSIDE RECORDS SUMMARY | 2025-09-26 13:37 | XMS_ITS | Encounter Summary ---
Author Organization [facility] Address [address] [facility] [address] [place] [address] Phone Care Team Providers Care Die Out Worker Name Role Phone Shellie Cowart MD Primary Care Provider [phone] Paul Hooper MD Unavailable [phone] Preston Pederson RELIGIOUS RITUAL SLAUGHTERER Unavailable [phone] Encounter Details Date Type Department Care Team (Late st Contact Info) Description 12/09/2024 Procedure Pass [facility]oscopy Admitting Dept Virtual Department [address] [place] [address] Social History Tobacco Use Types Packs/Day Years [...] st Contact Info) Description 07/25/2025 Procedure Pass [facility], [facility] [address] [place] [address] 09/30/2025 9:00 AM EST Appointment [facility] [address] [place] [phone] Marlen Haq, PT [address] [place] [address] 10/01/2025 3:30 AM EST Appointment [facility] [address] [place] [phone] Cordell Cruz RN [address] [place] [address] 10/06/2025 12:45 AM EST Appointment [facility] [address] [place] [phone] Marlen Haq, PT [address] [place] [address] 10/08/2025 1:00 AM EST Appointment [facility] [address] [place] [phone] Marlen Haq, PT [address] [place] [address] 10/08/2025 3:00 AM EST Appointment [facility] [address] [place] [phone] Cordell Cruz RN [address] [place] [address] 10/10/2025 2:45 PM EST Office Visit [facility] 8 [place] [address] Sadi Kong MD [address] [facility], 2nd [place] [address] Fouzia Rocha, PT 8 [place] [address] 10/13/2025 Appointment [facility] [address] [place], [place] [phone] Malren Haq, PT [address] [place] [address] 10/14/2025 3:00 PM EST Office Visit [facility] 8 [place] [address] Sadi Kong MD [address] [place] [address] Fouzia Rocha, PT 8 [place] [address] 10/15/2025 1:00 AM EST Appointment [facility] [address] [place], [place] [phone] Cordell Cruz RN 30 [place] [address] 10/22/2025 Appointment [facility] [address] [place], [place] [phone] Cordell Cruz RN 30 [place] [address] 11/06/2025 1:00 PM EST Office Visit [facility] 8 [place] [address] Sadi Kong MD [address] [place] [address] Jacob Dubose, FUEL TANK SEALER AND TESTER 8 [place] [address] 11/11/2025 2:15 PM EST Office Visit [facility] [address] [place] [address] [place] [address] Sadi Kong MD [address] [place] [address] Fouzia Rocha, PT 8 [place] [address] 11/17/2025 2:30 PM EST Office Visit [facility] [address] [address] Sadi Kong MD [address] [place] [address] Fouzia Rocha, PT 8 [place] [address] 11/19/2025 3:15 PM EST Office Visit [facility] [address] [address] Sadi Kong MD [address] [place] [address] Fouzia Rocha, PT 8 [place] [address] 11/24/2025 1:45 PM EST Office Visit [facility] [address] [place] [address] Sadi Kong MD [address] [place] [address] Fouzia Rocha, PT 8 [place] [address] 11/26/2025 1:45 PM EST Office Visit [facility] 8 [place] [address] Sadi Kong MD [address] [facility], 2nd [place] [address] Fouzia Rocha, PT 8 [place] [address] 02/06/2026 6:30 PM EDT Appointment [address] [address] Michael Sims MD [address] [place] [address] 04/01/2026 10:00 AM EDT Appointment [address] [address] Shellie Cowart MD [address] [address] 12/14/2026 2:20 PM EST Office Visit [facility] [address] [address] Shellie Cowart MD [address] [address] documented as of this encounter Visit Diagnoses Not on filedocumented in this encounter Additional Health Concerns Assessment Noted Time PHQ-9 Depression Total Score: 1 10/24/19 12:00 PM EST PHQ-2 Depression Total Score: 1 10/24/19 12:00 PM EST documented as of this encounter Care Teams Die Out Worker Relationship Specialty Start Date End Date Shellie Cowart MD [address] [address] [email or web address] PCP - General Family Medicine 10/25/19 Paul Hooper MD [address] [place] [address] Orthopedics & Sports Medicine, [place] [address] [email or web address] Orthopedic Surgery 03/01/24 Preston Pederson MSW [address] [place] [address] [email or web address] Construction Craft Laborer Licensed Clinical Construction Craft Laborer 12/11/24 documented as of this encounter Additional Source Comments The information contained in this document represents components of the legal health record. It is not the complete legal health record.[facility]
--- OUTSIDE RECORDS SUMMARY | 2025-09-26 13:37 | XMS_ITS | Patient Health Record ---
[facility] Ranjana Chrisley Address [address] [place] [address] Care Team Providers Care Platform Operations Director Name Role Phone Dr Shellie Cowart Primary Care Provider Unavailabl e Jennifer Sifuentes Unavailable [phone] Jen Braun Unavailable [phone] Allergies No Known Allergies Results Component Value [...] First Name Shellie Referring Provider Last Name Sofya [facility] Referred Provider Jennifer Sifuentes Referred Address [address] [facility],[place],[address], Referred Provider Specialty Podiatry Referral Priority Routine [...] First Name Shellie Referring Provider Last Name [facility] Referred Provider Jennifer Sifuentes Referred Address [address] [facility] [place],[address] Referred Provider Specialty Podiatry Referral Priority Routine [...] Status W/U Status Risk Notes Problem Arthritis (1818769) Arthritis (M19.90) Active confirmed Problem Neuropathy (276238060) Neuropathy (G62.9) Active confirmed Problem Porokeratosis (101495970) Porokeratosis (Q82.8) Active confirmed Problem 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 Problem Charcot arthropathy (895562533) Charcot arthropathy (M14.60) Active confirmed Vital Signs Blood pressure diastolic 70 mm Hg 05/16/2025 Height 5ft 3in in 05/16/2025 Blood pressure systolic 140 mm Hg 05/16/2025 Weight 155 lbs 05/16/2025 BMI 27.45 kg/m2 05/16/2025 Procedures Procedure Date Ordered Date Performed Result Body Sit e [id number]-[id number] NAIL, 1-5 05/16/2025 N/A Encounters Encounter Location Date Provider Diagnosis [facility] [address] [place] [address] 01/17/2025 Jennifer Black Charcot arthropathy M14.60 ; Arthritis M19.90 ; Other enthesopathy of right foot and ankle M77.51 ; Other enthesopathy of left foot and ankle M77.52 ; Bursitis of left foot M77.52 ; Porokeratosis Q82.8 ; Right foot pain M79.671 ; Left foot pain M79.672 ; Neuropathy G62.9 and Idiopathic neuropathy G60.[address] [address] 02/06/2025 Jennifer Black Charcot arthropathy M14.60 ; Arthritis M19.90 ; Other enthesopathy of right foot and ankle M77.51 ; Other enthesopathy of left foot and ankle M77.52 ; Bursitis of left foot M77.52 ; Porokeratosis Q82.8 ; Right foot pain M79.671 ; Left foot pain M79.672 ; Neuropathy G62.9 and Idiopathic neuropathy G60.9 [facility] [address] [place] [address] 05/16/2025 Jennifer Black Right foot pain M79.671 ; Neuropathy G62.9 ; Left foot pain M79.672 ; Idiopathic neuropathy G60.9 ; Edema, lower extremity R60.0 ; Onychomycosis B35.1 and Pain in left toe(s) M79.[address] [address] 01/15/2025 Jenniferjose miguel Sifuentes [facility] [address] [place] [address] 01/20/2025 Jenniferjose miguel Sifuentes [facility] [address] [place] [address] 02/06/2025 Jenniferjose miguel Sifuentes [facility] [address] [place] [address] 08/14/2025 Jennifer Sifuentes Assessments Encounter Date Diagnosis (ICD Code) Assessment [...] Treatment Pending Test Test Name Order Date [id number] NAIL, 1-5 05/16/2025 Next Appt Details Provider Name:Jennifer Sifunetes , 09/29/2025 11:00:00 AM, [address] [place] [address], [phone], Insurance Providers Payer Name Payer Address Payer Phone Subscriber Number Group Number Insured Name Patient Relationship to Insured Coverage Start Date Coverage End Date [address] [address] [id number] Naa Stewart Self - patient is the insured 2 Medical (General) History Medical History History ICD Code osteoarthritis Cataracts covid-19 Gall bladder problems Heart disease High Blood Pressure Numbness Measles Chicken pox Joint implants/screws Transfusions Surgical History Surgery Date(Month/Year) tonsillectomy 1956 Gall bladder removal 2014 knee replacement 2015,2023 Scoliosis 1967 cyst removal 2022 cataract surgery 01/31 Hospitalization History Reason Date(Month/Year) [facility]- leg swelling 2024
--- OUTSIDE RECORDS SUMMARY | 2025-09-26 13:38 | XMS_ITS | Encounter Summary ---
Author Organization [facility] Address [address] [place] [address] Phone Care Team Providers Care Bridge Repairer Name Role Phone Shellie Cowart MD Primary Care Provider [phone] Paul Hooper MD Unavailable [phone] Preston Pederson CHILLING HOOD OPERATOR Unavailable [phone] Encounter Details Date Type Department Care Team (Late st Contact Info) Description 09/13/2025 Procedure Pass [facility], [address] [place] [address] Social History Tobacco Use Types Packs/Day Years [...] Sign Reading Time Taken Comments Blood Pressure - - Pulse - - Temperature - - Respiratory Rate - - Oxygen Saturation - - Inhaled Oxygen Concentration - - Weight 68 kg (150 lb) 09/15/2025 11:16 AM EST Height 160 cm (5' 3 ) 09/15/2025 11:16 AM EST Body Mass Index 26.57 09/15/2025 11:16 AM EST documented in this encounter Plan of Treatment Upcoming Encounters Date Type Department Care Team (Late st Contact Info) Description 07/25/2025 Procedure Pass [facility], [facility]- [address] [address] 09/30/2025 9:00 AM EST Appointment [facility] [address] [place] [phone] Marlen Haq, PT [address] [place] [address] 10/01/2025 3:30 AM EST Appointment [facility] [address] [place] [phone] Cordell Cruz RN 30 [place] [address] 10/06/2025 12:45 AM EST Appointment [facility] [address] [place] [address] Marlen Haq, PT [address] [place] [address] 10/08/2025 1:00 AM EST Appointment [facility] [address] [place] [phone] Marlen Haq, PT [address] [place] [address] 10/08/2025 3:00 AM EST Appointment [facility] [address] [place] [phone] Cordell Cruz RN [address] [place] [address] 10/10/2025 2:45 PM EST Office Visit [facility] [address] [place] [address] Sadi Kong MD [address] [place] [address] Fouzia Rocha, PT 8 [place] [address] 10/13/2025 Appointment [facility] [address] [place] [address] Marlen Haq, PT [address] [place] [address] 10/14/2025 3:00 PM EST Office Visit [facility] 8 [place] [address] Sadi Kong MD [address] [place] [address] Fouzia Rocha, PT 8 [place] [address] 10/15/2025 1:00 AM EST Appointment [facility] [address] [place] [address] Cordell Cruz RN [address] [place] [address] 10/22/2025 Appointment [facility] [address] [place] [address] Cordell Cruz RN [address] [place] [address] 11/06/2025 1:00 PM EST Office Visit [facility] [address] [place] [address] Sadi Kong MD [address] [place] [address] Jacob Dubose, COOLING SYSTEM OPERATOR 8 [place] [address] 11/11/2025 2:15 PM EST Office Visit [facility] [address] [place] [address] Sadi Kong MD [address] [place] [address] Fouzia Rocha, PT 8 [place] [address] 11/17/2025 2:30 PM EST Office Visit [facility] [address] [place] [address] Sadi Kong MD [address] [place] [address] Fouzia Rocha, PT 8 [place] [address] 11/19/2025 3:15 PM EST Office Visit [facility] [address] [place] [address] Sadi Kong MD [address] [place] [address] Fouzia Rocha, PT 8 [place] [address] 11/24/2025 1:45 PM EST Office Visit [facility] [address] [place] [address] Sadi Kong MD [address] [place] [address] Fouzia Rocha, PT 8 [place] [address] 11/26/2025 1:45 PM EST Office Visit [facility] [address] [place] [address] Sadi Kong MD [address] [place] [address] Fouzia Rocha, PT 8 [place] [address] 02/06/2026 6:30 PM EDT Appointment [address] [address] Michael Sims MD [address] [place] [address] 04/01/2026 10:00 AM EDT Appointment [address] [address] Shellie Cowart MD [address] [address] 12/14/2026 2:20 PM EST Office Visit [facility] [address] [place] [address] [address] Shellie Cowart MD [address] [address] documented as of this encounter Visit Diagnoses Not on filedocumented in this encounter Additional Health Concerns Assessment Noted Time PHQ-9 Depression Total Score: 10/24/19 12:00 PM EST PHQ-2 Depression Total Score: 10/24/19 12:00 PM EST documented as of this encounter Care Teams Bridge Repairer Relationship Specialty Start Date End Date Shellie Cowart MD [address] [place] [address] PCP - General Family Medicine 10/25/19 Paul Hooper MD [address] [place] [address] Orthopedics & Sports Medicine, [place] [address] Orthopedic Surgery 03/01/24 Preston Pederson MSW [address] [place] [address] Clay Pigeon Loader Licensed Clinical Clay Pigeon Loader 12/11/24 documented as of this encounter Additional Source Comments The information contained in this document represents components of the legal health record. It is not the complete legal health record.[facility]
== END 2025-09-26 11:30 | disposition home or self-care (01) ==
LOC: HO.MAMMO 11:29
PROVIDERS: PCP Family Medicine; Visit Provider Internal Medicine
DX: S32.030A Wedge compression fracture of third lumbar vertebra, initial encounter for closed fracture (principal)
CPT/HCPCS: 77081

== ENCOUNTER → 2025-09-26 11:30 | Outpatient (BNV) | payer MEDICARE, SELFPAY | PROVIDERS: PCP Family Medicine; Visit Provider Radiology Diagnostic Radiology | DX: E28.39 Other primary ovarian failure (principal) | CPT/HCPCS: 77081 ==